=== PATIENT | female | born 1960 | race Caucasian/White ===

== ENCOUNTER 2016-11-30 09:09 | Outpatient (CLI) | payer OTHER ==
[2016-11-30 11:30] LABS: PTT 37.6 SEC (22.9-36.1); Prothrombin Time 13.3 SEC (12.0-14.7)
[2016-11-30 11:34] LABS: Anion Gap 13 mmol/L (10-20); BUN (Urea Nitrogen) 31 mg/dL (9.8-20.1); Calc. Creatinine Clearance 0 mL/min (70-130); Calcium 11.5 mg/dL (7.8-10.44); Carbon Dioxide 33 mmol/L (22-29); Chloride 97 mmol/L (98-107); Estimated GFR-MDRD 30
[2016-11-30 11:50] LABS: #Basophils 0.1 thou/uL (0.0-0.2); #Eosinphils 0.7 thou/uL (0.0-0.7); #Lymphocytes 1.3 thou/uL (1.20-3.40); #Monocytes 0.4 thou/uL (0.11-0.59); #Neutrophils 4.9 thou/uL (1.40-6.50); %Basophils 0.7 % (0.0-1.0); %Lymphocytes 17.8 % (21.0-51.0); %Monocytes 5.1 % (0.0-10.0); Hematocrit 34.6 % (36.0-47.0); Mean Platelet Volume 8.6 fL (7.4-10.4); Red Blood Cell (RBC) Count 3.72 mill/uL (4.20-5.40); White Blood Cell (WBC) Count 7.4 thou/uL (4.8-10.8)
--- NOTE | 2016-11-30 12:01 | RAD ---
TWO VIEWS CHEST: Comparison: 03-21-12 History: Pre-operative radiograph. FINDINGS: Two views of the chest show normal sized cardiomediastinal silhouette. There is no evidence of conso lidation, mass, or pleural effusion. Degenerative changes are seen in the spine. IMPRESSION: No evidence of acute cardiopulmonary disease. POS: [facility]
== END 2016-11-30 09:10 | disposition home or self-care (01) ==
LOC: LABBT 09:09
PROVIDERS: ATTEND Orthopaedic Surgery Hand Surgery
DX: Z01.818 Encounter for other preprocedural examination (principal); M92.212 Osteochondrosis (juvenile) of carpal lunate [Kienbock], left hand
CPT/HCPCS: 71020; 80048; 85025; 85610; 85730; 93005; 93010

== ENCOUNTER 2016-12-04 06:46 | Day surgery (SDC) | payer OTHER ==
[2016-11-30 09:38] VITALS: BMI 46.5
[2016-12-04] MEDS ORDERED: Fentanyl 100 MCG/2 ML VIAL ONE ×2 (08:39→09:03)
[2016-12-04] MEDS ORDERED: Midazolam HCl 2 mg/2 ml Vial ONE (08:39)
[2016-12-04] MEDS ORDERED: Bupivacaine PF 0.5% 30 ML VIAL ONE (08:54)
[2016-12-04] MEDS ORDERED: Bacitracin Zinc Ointment 30 gm TUBE ONE (08:54)
[2016-12-04] MEDS ORDERED: Ondansetron HCl/PF 4 MG/2 ML Vial ONE (09:45)
[2016-12-04] MEDS ORDERED: Metoclopramide HCl 10 MG/2 ML VIAL ONE (09:45)
[2016-12-04] MEDS ORDERED: ePHEDrine/0.9% NaCl/PF SYRINGE 50 mg/10 ml ONE (09:45)
[2016-12-04] MEDS ORDERED: Succinylcholine Chloride 20 MG/ML 10 ml SYRINGE FS ONE (09:45)
[2016-12-04] MEDS ORDERED: Dexamethasone 20 MG/5 ML VIAL ONE (09:45)
[2016-12-04] MEDS ORDERED: PHENYLEPHRINE-NS 100 MCG/ML 10 ML SYRINGE ONE ×2 (09:45→12:32)
[2016-12-04] MEDS ORDERED: diphenhydrAMINE HCl 50 MG/ML 1 ML VIAL ONE (09:45)
[2016-12-04] MEDS ORDERED: Albumin 5% 500 ML ONE (10:37)
[2016-12-04] MEDS ORDERED: Phenylephrine 10 MG/NS 250 ML 250 ML ONE (12:34)
--- NOTE | 2016-12-04 16:45 | RAD ---
LEFT FOREARM AND WRIST TWO VIEWS: 12/04/16 Multiple (10) portable fluoroscopic spot images are performed intraoperatively. History is that of a 56-year-old female with status post ORIF left forearm. Metal plate and screws are placed on the volar aspect of the distal radius stabilizing a distal radi al shaft fracture. IMPRESSION: Multiple portable fluoroscopic spot films demonstrate placement of a volar metal plate and screws st abilizing distal radial fracture. No significant malalignment. POS: OFF
--- NOTE | 2016-12-05 07:19 | OP ---
DATE OF PROCEDURE: 12/04/2016 PREOPERATIVE DIAGNOSIS: Avascular necrosis lunate, Kienbock's stage 3A. POSTOPERATIVE DIAGNOSES: Avascular necrosis lunate, Kienbock's stage 3A with a very thin chondral surface at the central portion of the capitolunate joint and no otherwise degenerative changes or li gament changes. PROCEDURES PERFORMED: 1. Hori procedure with curettage of the entire internal bone and the subchondral bone surface of th e lunate, harvested the bone graft from the radial styloid, and then revascularization with a branch of the first dorsal metatarsal artery harvested under magnification by the surgeon's record. 2. Ulnar shortening, Rayhack technique using the Rayhack plate in the standard technique. 3. C-arm supervision less than 1 hour. 4. Application of long arm splint. INDICATIONS: The patient with the painful wrist, motion loss, but still had an arc of 100 degrees w ithout radiographic evidence of mid carpal or radiocarpal osteoarthritis but was felt to have marked pain because of avascular necrosis documented on MRI. DESCRIPTION OF PROCEDURE: After successful general endotracheal anesthesia, the limb was prepped an d draped. The patient had a time out done appropriately. She already had a block for augmentation for postop pain relief. The limb was confirmed by the timeout to be the appropriate limb and this b sara by bringing the C-arm on the field, localized in the position for the plate, exsanguinated the limb and inflating the tourniquet to 250 mmHg pressure. FCR radial artery interval was established to reach the entire distal third of the radius. We then contoured the plate for appropriate applica tion 3 cm proximal to the radioulnar joint and then pre-bent it, drilled the second hole of the two most proximal, and then removed the plate to put on the Rayhack cut guide. We then placed 4 screws; #1 most proximal, #4 most distal. The cut guide was then placed. We protected the cut area with álvaro Aguayohmann that was wide. We also made a 2-mm cut, moved away, crushed it, to be used later on for bone graft. We then placed the final plate along with the reduction device, this was then used to shorten the 2 mm, there was approximately a 2 mm offset with the distal fragment going radially, but it was in an excellent contact, otherwise. Now that we had this procedure performed, we looked at radiographs and removed two screws that were too long distally, no adjustment was made at this time. We then released the tourniquet, this was t hen lasted for 30 minutes, closed the fascia with a 0 Vicryl interrupted, subcutaneous closed with i nterrupted 3-0 Monocryl, and the skin reapproximated with 4-0 nylon. I then turned attention dorsally. Doppler was used to help identify the dorsal metatarsal artery, 1 st and 2nd interspace. We identified this. We then made our incision, 1 cm proximal Celia's tuber xochitl, across the scapholunate joint and slightly radialized in a zigzag fashion until we reached the end of the second intermetacarpal space at the second and third metacarpal. We identified the arter ies . We then transected it and ligated far distal as possible all way to the intermetatarsal region of the digits. We then slowly dissected back to it and had a pedicle that was allowed to be 1 cm distant to the lunate, which should have been enough to bury it completely. We then entered the 3-4 interval, identified the extensor pollicis longus tendon, protected it. Als o identified and freed of soft tissue around this so this could be used for bone graft later. Ident ified the lunate with a combination of visualization where it was a thin articular surface in the do rsal and palmar aspect on the joint with the capitate. Once we have done this, K-wire was placed daniel ccessfully to made a 3-4 mm hole and then aim it away from the articular surface, which showed thinn ing to the point where it was just about a complete loss in the central 2 mm. Using this visualizat ion, we were able to curet out and core out the entire lunate and sent the specimen to the lab for f res evaluation. Pathology called back saying that it looked as if it was avascular. We then completed the curettage with successive longer curettes, placed the harvested graft from the Celia's tubercle in the wrap with a lightly applied 5-0 Prolene with the arterial branch, making a lmost a sandwich as if it was an ice cream sandwich formed with the artery between the two bony ends and this fit nearly perfect. A small amount of cortical and cancellous bone had to be packed besid e that which was already placed. The patient then had the tourniquet deflated, the bone graft was f lushed, radiographs showed we maintained the joint surfaces, the radius was now 1 mm short in ulnar or 2 mm change in radial height. We made sure all screws were at appropriate length replacing as ne eded. It must be noted that the arterial pedicle just dorsal to the metatarsal was brought undernea th the extensor carpi tendons deep to them. We then closed the joint capsule with an interrupted 0 Ethibond, closed the retinacular split with i nterrupted 3-0 Monocryl, subcutaneous closed with 3-0 Monocryl and skin reapproximated with 4-0 nylo n. The bulky dressing was applied. No further injection was given because she had a spinal that wo uld last for 12 hours, and a splint was given, a sugar tong, without evidence of anesthetic or opera tive complication.
== END 2016-12-04 17:23 | disposition home or self-care (01) ==
LOC: SDC 06:46
PROVIDERS: ATTEND Orthopaedic Surgery Hand Surgery
DX: M93.1 Kienbock's disease of adults (principal); M19.232 Secondary osteoarthritis, left wrist; J30.9 Allergic rhinitis, unspecified; I10 Essential (primary) hypertension; E11.9 Type 2 diabetes mellitus without complications; E78.00 Pure hypercholesterolemia, unspecified; G25.81 Restless legs syndrome; E66.9 Obesity, unspecified; Z68.42 Body mass index [BMI] 45.0-49.9, adult; Z79.84 Long term (current) use of oral hypoglycemic drugs; Z79.82 Long term (current) use of aspirin; Z79.899 Other long term (current) drug therapy; Z98.890 Other specified postprocedural states; Z90.710 Acquired absence of both cervix and uterus; Z87.442 Personal history of urinary calculi; Z82.3 Family history of stroke; Z83.3 Family history of diabetes mellitus
CPT/HCPCS: 36416; 76001; 88305; 88331; C1713; J0131; J1100; J1200; J2250; J2405; J2765; J3010; P9045; S0020

== ENCOUNTER 2017-03-11 16:09 | Outpatient (CLI) | payer OTHER | END 2017-03-11 16:10 | disposition home or self-care (01) | LOC: BICRAD 16:09 | PROVIDERS: ATTEND Family Medicine | DX: D86.9 Sarcoidosis, unspecified (principal) | CPT/HCPCS: 71046 ==

== ENCOUNTER 2017-03-13 10:40 | Outpatient (CLI) | payer OTHER | END 2017-03-13 10:41 | disposition home or self-care (01) | LOC: BICULT 10:40 | PROVIDERS: ATTEND Internal Medicine Nephrology | DX: N17.9 Acute kidney failure, unspecified (principal); N28.1 Cyst of kidney, acquired; K76.89 Other specified diseases of liver; R16.2 Hepatomegaly with splenomegaly, not elsewhere classified | CPT/HCPCS: 76770 ==

== ENCOUNTER 2017-04-23 08:11 | Inpatient (IN) | payer OTHER ==
[2017-04-23 09:31] LABS: #Basophils 0.1 thou/uL (0.0-0.2); #Lymphocytes 1.4 thou/uL (1.20-3.40); #Monocytes 0.6 thou/uL (0.11-0.59); #Neutrophils 7.4 thou/uL (1.40-6.50); %Basophils 0.7 % (0.0-1.0); %Eosinophils 9.3 % (0.0-10.0); %Lymphocytes 13.4 % (21.0-51.0); %Monocytes 5.3 % (0.0-10.0); %Neutrophils 71.3 % (42.0-75.0); Hemoglobin 9.4 g/dL (12.0-16.0); Mean Corpuscular HGB CONC 32.7 g/dL (32.0-36.0); Mean Corpuscular Hemoglobin 28.8 pg (27.0-31.0); Mean Corpuscular Volume 87.9 fl (81.0-99.0); Mean Platelet Volume 7.5 fL (7.4-10.4); Platelet Count 286 thou/uL (130-400); RBC Distribution Width 15.5 % (11.5-14.5); Red Blood Cell (RBC) Count 3.26 mill/uL (4.20-5.40); White Blood Cell (WBC) Count 10.4 thou/uL (4.8-10.8)
[2017-04-23 09:36] LABS: INR-International Normal Ratio 1.1; PTT 40.6 SEC (22.9-36.1); Prothrombin Time 14.1 SEC (12.0-14.7)
[2017-04-23 09:46] LABS: Bilirubin Negative (Negative); Blood, Urine Moderate (Negative); Clarity CLEAR (Clear); Glucose, Urine (Dipstick) 250 mg/dL (Negative); Leukocyte Negative (Negative); Nitrite Negative (Negative); Protein, Urine (Dipstick) 30 mg/dL (Neg-Trace); Specific Gravity, Urine 1.015 (1.002-1.036); Urobilinogen 0.2 mg/dL (0.2-1.0); pH, Urine 6.5 (5.0-9.0)
[2017-04-23 09:48] LABS: Bacteria/HPF None Seen HPF (None Seen); Hyaline Casts/LPF 0-3 HYALINE CAST LPF (0-3 Hyaline); Pathc Cast-AUWi Flag 0.13 (0-2.49); RBC/HPF 0-3 HPF (0-3); Squamous Epithelial 0-3 HPF (0-3); WBC/HPF 0-3 HPF (0-3)
[2017-04-23 10:05] LABS: ALT (SGPT) 36 U/L (8-55)
[2017-04-23 10:23] LABS: Albumin 3.9 g/dL (3.5-5.0)
[2017-04-23 10:25] LABS: Chloride 101 mmol/L (98-107); Potassium 3.7 mmol/L (3.5-5.1); Sodium 137 mmol/L (136-145)
[2017-04-23 10:26] LABS: Globulin 5.1 g/dL (2.4-3.5); Glucose 221 mg/dL (70-105)
[2017-04-23 10:28] LABS: Anion Gap 15 mmol/L (10-20); Bilirubin, Total 0.6 mg/dL (0.2-1.2); Carbon Dioxide 25 mmol/L (22-29)
[2017-04-23 10:29] LABS: Alkaline Phosphatase 285 U/L (40-150); Calc. Creatinine Clearance 0 mL/min (70-130); Estimated GFR-MDRD 10
[2017-04-23 10:30] LABS: BUN (Urea Nitrogen) 49 mg/dL (9.8-20.1)
[2017-04-23 10:31] LABS: AST (SGOT) 28 U/L (5-34)
[2017-04-23 10:36] LABS: Calcium 14.1 mg/dL (7.8-10.44)
[2017-04-23] MEDS ORDERED: Ondansetron ODT 4 MG TAB PO PRN (13:22)
[2017-04-23] MEDS ORDERED: Ondansetron HCl/PF 4 MG/2 ML Vial IVP PRN (13:22)
[2017-04-23] MEDS: Sodium Chloride 0.9% 1,000 ML IV SCH ×3 (14:21→21:32)
[2017-04-23 14:28] VITALS: BMI 44.9
[2017-04-23] MEDS ORDERED: Acetaminophen 325 MG TAB PO PRN (14:42)
[2017-04-23] MEDS ORDERED: Calcitonin,Salmon,Synthetic 200 UNITS/ML SC SCH (15:00)
[2017-04-23] MEDS ORDERED: Dextrose 50% Abboject 50 ML SYRINGE SLOW IVP PRN (17:20)
[2017-04-23] MEDS ORDERED: Dextrose 5% in Water 1,000 ML IV PRN (17:20)
--- NOTE | 2017-04-23 19:24 | HP ---
DATE OF ADMISSION: 04/23/2017 CHIEF COMPLAINT: Abnormal labs. HISTORY OF PRESENT ILLNESS: This is a 56-year-old morbidly obese white female with a known history o f worsening renal function has been closely monitored by Dr. Sauceda and also was having elevated calcium levels since the last month. The patient has been closely monitored and was also diagnosed with eliza coidosis by her pre k lead teacher. Dr. Craig follows this patient for the sarcoidosis. Patient has been having worsening weakness and tiredness for the past few weeks and associated with dryness of the mo uth. She was noted to have pretty abnormal lab values with elevated creatinine of 4.[address] Sohail craft suggested the patient to go to the ER for IV hydration and further evaluation. When patient arrive d in the ER, she had abnormal labs, creatinine of 4.48 and BUN of 49 and a calcium of 14.1, magnesium of 2.8 and elevated alkaline phosphatase of 285. All signs are suggestive of the dehydration or the re could also be a possibility of multiple myeloma. The patient did complain of body aches, but this has been there for a couple of years for her. Most recently she had a severe pain in her left hip a nd she had attributed that to arthritis. The patient is not in any distress at this time. PAST MEDICAL HISTORY: 1. Type 2 diabetes mellitus. 2. Hypertension. 3. Hyperlipidemia. 4. History of depression. PAST SURGICAL HISTORY: None. SOCIAL HISTORY: Not a nonsmoker. No history of alcohol, no history of illicit drug use. FAMILY HISTORY: No significant family history of coronary artery disease and no cancers in the famil y. REVIEW OF SYSTEMS: All 12 systems are reviewed with the patient thoroughly and found to be negative at this time except the ones described in HPI. The following complete review of systems was negative, unless otherwise mentioned in the HPI or below: Constitutional: Weight loss or gain, sense of well-being, ability to conduct usual activities, exerc ise tolerance. Skin/Breast: Rash, itching, changes in hair growth or loss, nail changes, breast lumps, tenderness, swelling, nipple discharge. Eyes: Vision, double vision, tearing, blind spots, pain. ENT/Mouth: Headaches (location, time of onset, duration, precipitating factors), vertigo, lightheadedness, injury. Vision, double vision, tearing, blind spots, pain, nose b leeding, colds, obstruction, discharge, dental difficulties, gingival bleeding, dentures, neck stiffn ess, pain, tenderness, masses in thyroid or other areas Cardiovascular: Precordial pain, substernal distress, palpitations, syncope, dyspnea on exertion, or thopnea, nocturnal paroxysmal dyspnea, edema, cyanosis, hypertension, heart murmurs, varicosities, ph lebitis, claudication. Respiratory: Pain, shortness of breath, wheezing, stridor, cough, hemoptysis, fever or night sweats. Gastrointestinal: Poor appetite, dysphagia, indigestion, abdominal pain, heartburn, eructation, naus ea, vomiting, hematemesis, jaundice, constipation, or diarrhea, abnormal stools (vick-colored, tarry, bloody, greasy, foul smelling), flatulence, hemorrhoids, recent changes in bowel habits. Genitourinary: Urgency, frequency, dysuria, nocturia, hematuria, polyuria, oliguria, unusual (or lindsey nge in) color of urine, stones, hesitancy, change in size of stream, dribbling, acute retention or in continence, libido, potency. Musculoskeletal: Pain, swelling, redness or heat of muscles or joints, limitation, of motion, muscul ar weakness, atrophy, cramps. Neurologic/Psychiatric: Convulsions, paralyses, tremor, incoordination, parasthesias, difficulties w ith memory of speech, sensory or motor disturbances, or muscular coordination (ataxia, tremor), emoti onal problems, anxiety, depression, previous psychiatric care, unusual perceptions, hallucinations. Allergy/Immunologic: Skin rash, anemia, bleeding tendency, polydipsia, polyuria, intolerance to heat or cold. HOME MEDICATIONS: 1. Amlodipine 5 mg p.o. daily. 2. Cetirizine 10 mg p.o. daily. 3. Gabapentin 300 mg p.o. t.i.d. 4. Glimepiride 2 mg p.o. daily. 5. Insulin degludec, Tresiba 120 units subcutaneously daily. 6. Magnesium 400 mg p.o. daily. 7. Ropinirole 1 tablet p.o. at bedtime. 8. Sertraline 1 tablet p.o. daily. 9. Vitamin B complex. ALLERGIES: SITAGLIPTIN. PHYSICAL EXAMINATION: VITAL SIGNS: Blood pressures are 162/84, heart rate is 93, respiratory rate is 18, saturations 98%. GENERAL: The patient is moderately built and moderately nourished, does not appear to be in acute di stress at this time. Alert and oriented x3. HEENT: Atraumatic, normocephalic, PERRLA, extraocular movements were intact. Oral mucous pink and m oist. CARDIOVASCULAR: S1 and S2 normal. No murmurs, rubs or gallops. LUNGS: Bilateral air entry was equal. No wheezing, no crackles. ABDOMEN: Soft, nontender. No guarding, no rebound tenderness. Bowel sounds normal. MUSCULOSKELETAL: No calf tenderness. No pedal edema. No joint tenderness, no joint swelling. SKIN: No cyanosis, no erythema, no rash, no pallor. NEUROLOGIC: Cranial examination II-XII intact. No focal deficits were noted at this time. LYMPHADENOPATHY: No evidence of any generalized lymph nodes were noted. PSYCHIATRIC: No signs of suicidal ideation. No signs of joana. No signs of depression was noted. LABORATORY DATA: Sodium 137, potassium 3.7, chloride 101, bicarbonate is 25, BUN is 49, creatinine i s 4.48, blood sugar is 221, calcium is 14.1, magnesium 2.8. Alkaline phosphatase was 285. Serum tot al serum protein 9.0, globulin is 5.1. WBC is 10.4, hemoglobin is 9.4, hematocrit is 28.6, and platelets 286. UA was negative for any urinary tract infection. Patient had 30 plus proteins in the urine and some moderate blood in the urine was also noted. ASSESSMENT: 1. Acute hypercalcemia. 2. Acute hypermagnesemia. 3. Acute severe dehydration. 4. Acute kidney injury. 5. Anemia possibly from chronic kidney disease, stage 4. 6. Need to rule out multiple myeloma. 7. Type 2 diabetes mellitus. 8. Hypertension. PLAN: 1. The plan is to continue with IV hydration at this time at 125-150 mL an hour and will calcitonin at 4 mcg per kilo dose 1 time dose. We will recheck the calcium levels later late in the evening. A fter discussion with Dr. Sauceda, he felt that the elevated calcium is most likely secondary to dehydrati on, so would like to give fluid challenge and see how it goes, but he does not believe the patient billings s multiple myeloma at this time, but was okay with ordering a further workup for that. 2. Patient has history of sarcoidosis was diagnosed with Dr. Craig and most likely the elevated calc ium could also be related to that, so plan is to start the patient on prednisolone for the sarcoidosi s. This would be started by Dr. Sauceda as he suggested. 3. The patient has anemia of chronic disease, likely chronic kidney disease stage IV. We will close ly monitor. If the patient's serum creatinine do not improve with IV fluids and has a GFR has pretty bad at this time. We will do a 24-hour urine and maybe this could be used for evaluation of her ronald al functions. We will also order evaluation of multiple myeloma as the patient has all the signs, wh ich could suggest multiple myeloma. Because of her age and symptoms and as well as lab values at thi s time, so will screen for multiple myeloma with a serum protein electrophoresis and urine light sreedhar ns and urine electrophoresis through 24-hour urine. We will also do a hip x-ray. The patient was co mplaining of left hip pain to look for any evidence of a bony resorption secondary to multiple myelom a. If all these results come back positive, then I will consult Oncology at that time. 4. Type 2 diabetes mellitus is poorly controlled. We will continue the patient on home medications at this time. We will hold off on the metformin and we will continue the patient on sliding scale in sulin and put her on diabetic diet. 5. Hypertension is well controlled. We will restart the patient's home medications. The patient mi ght go up because of the IV fluids, we will add the blood pressure medications to control blood press ures to less than 130/80. 6. Deep venous thrombosis prophylaxis, Lovenox 30 mg subcutaneously daily. I spent 75 minutes in this patient.
--- NOTE | 2017-04-23 20:26 | RAD ---
RIGHT HIP TWO VIEW 04/23/17 HISTORY: Evaluate for punctate lesions of bone. COMPARISON: Hip radiographs 2010. FINDINGS: No fracture. No malalignment. Small acetabular osteophytes. No abnormal regions of osteolysis. No evidence of sclerosis. IMPRESSION: Low grade degenerative disease of the right hip. POS: [facility]
--- NOTE | 2017-04-23 21:17 | RAD ---
LEFT HIP TWO VIEW 04/23/17 HISTORY: Evaluate for punctate lesions of bone. COMPARISON: None. FINDINGS: None. FINDINGS: There is mild smooth periosteal new bone formation along the lateral margin of the proximal femoral m etaphysis. Enthesopathic changes are present. No fracture or malalignment. IMPRESSION: Smooth periosteal new bone formation along the lateral cortex proximal femoral metaphysis. This most likely represent a tug lesion from muscle origin. Follow can be obtained. POS: BILL
--- NOTE | 2017-04-23 21:27 | CON ---
DATE OF CONSULTATION: 04/23/2017 HISTORY OF PRESENT ILLNESS: Ms. Medina is a 56-year-old white female, who was seen by the renal clinic for an acute kidney injury. At one time her creatinine was 4.6 mg percent. This was felt related to her intake of her lisinopril, furosemide, and Advil. This was discontinued and it improve her creatinine to a value of 2.82. However, repeat creatinine done recently showed a value of more than 4 mg percent. She was also noted to be hypercalcemic at that time with a calcium of 14.1. On close review of her history, the patient has a history of biopsy proven sarcoidosis. She has also had an imaging on the abdomen with a CAT scan, which showed granulomatous lesions in the liver versus spleen?. She is now admitted for further management of the acute kidney injury as well as hypercalcemia. She is also being work up for the possibility of underlying plasma cell dyscrasia. Calcitonin has also been started. REVIEW OF SYSTEMS: No chest pain, no shortness of breath, no nausea, no vomiting, no joint pains, no diarrhea, no constipation. Appetite and energy level is fair. No headache, no diplopia, no gross hematuria, no dysuria, no urinary frequency. No bone pains, no new skin rash. HOME MEDICATIONS: Includes the following glimepiride 4 mg tablet b.i.d., aspirin 81 mg once a day, Tresiba 80 units subcu b.i.d., vitamin B12 at 2500 mcg tablet q. day, Centrum Silver q. day, sertraline 25 mg once a day, B complex 1 tab once a day, Neurontin 300 mg p.o. t.i.d., magnesium 400 mg once a day, and ropinirole 0.5 mg q. day. HOSPITAL MEDICATIONS: Includes calcitonin 400 units subcu x1 dose, [place] 5/325 q.4 hours, and Lovenox 30 mg subcu q. day. Normal saline 150 mL an hour. PAST MEDICAL HISTORY: 1. Recently status post acute kidney injury. 2. Type 2 diabetes mellitus. 3. Depression. 4. Hypertension. 5. Cervical cancer, in remission. 6. Diabetic neuropathy. 7. Status post nephrolithiasis. 8. History of hepatosplenomegaly. 9. History of biopsy proven sarcoidosis. PAST SURGICAL HISTORY: 1. Status post cervical biopsy. 2. Status post abdominal hysterectomy. 3. Status post lithotripsy. 4. Status post left foot bunionectomy. 5. Status post right carpal tunnel release. 6. Status post trigger finger release. 7. Status post left wrist surgery. 8. Status post skin biopsy. SOCIAL HISTORY: The patient is single, lives with her sister. She lives in the [place] area. 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 Alcohol rarely. No history of smoking, no blood transfusion. FAMILY HISTORY: No family history of ESRD. ALLERGIES: None. TRAUMA: None. IMMUNIZATIONS: Up to date. HOSPITALIZATIONS: Please see past medical history. PHYSICAL EXAMINATION: VITAL SIGNS: Blood pressure 162/84, heart rate 93, respiratory rate 18, temperature 97.8, and pulse ox 98%. GENERAL: Awake, alert, comfortable, not in distress. SKIN: Adequate turgor. HEENT: Pinkish conjunctivae, anicteric sclerae. NECK: No neck mass, no carotid bruits, no JVD. CHEST: No deformities. LUNGS: Clear breath sounds, no wheezing, no crackles. HEART: Normal sinus rhythm. No murmur, no gallops, no rubs. ABDOMEN: Globular, soft, nontender, no masses. EXTREMITIES: No edema, no deformities. NEUROLOGIC: Moving all extremities. No tremors, no asterixis, no ataxia. LABORATORY DATA: 04/23/2017 - Sodium 137, potassium 3.7, chloride 101, carbon dioxide 25, BUN 49, creatinine 4.48, calcium 14.1, AST 28, ALT 36, albumin 3.9, magnesium 2.8. White count 10.4, hemoglobin 7.4. ASSESSMENT AND PLAN: 1. Hypercalcemia - with a history of sarcoidosis, granulomatous lesions in the liver. Consider the possibility of an underlying sarcoidosis. Start prednisone 10 mg tab q. day. We anticipate the sugar to be going for that reason continue with aggressive insulin sliding scale. 2. Acute kidney injury. This could be related from the hypercalcemia. I agree with empiric volume repletion, normal saline at 100 to 150 mL per hour. There is no indication for any dialytic intervention with this patient. I agree with the workup to rule out for any underlying plasma cell dyscrasia with this patient. Case discussed with the hospitalist and with the patient. Recheck base met and CBC in a.m. MTDD
[2017-04-23] MEDS: Insulin Detemir 100 UNITS/ML 80 UNITS in Pre-Filled Syringe 1 EACH SC SCH (21:42)
[2017-04-24] MEDS: Sodium Chloride 0.9% 1,000 ML IV SCH ×4 (00:24→20:41)
[2017-04-24 04:43] LABS: #Eosinphils 0.9 thou/uL (0.0-0.7); #Lymphocytes 1.7 thou/uL (1.20-3.40); #Monocytes 0.5 thou/uL (0.11-0.59); #Neutrophils 8.3 thou/uL (1.40-6.50); %Basophils 0.4 % (0.0-1.0); %Eosinophils 8.1 % (0.0-10.0); %Lymphocytes 14.4 % (21.0-51.0); %Monocytes 4.5 % (0.0-10.0); %Neutrophils 72.5 % (42.0-75.0); Hemoglobin 8.2 g/dL (12.0-16.0); Mean Corpuscular HGB CONC 31.6 g/dL (32.0-36.0); Mean Corpuscular Hemoglobin 28.6 pg (27.0-31.0); Mean Corpuscular Volume 90.4 fl (81.0-99.0); Mean Platelet Volume 8.1 fL (7.4-10.4); Platelet Count 272 thou/uL (130-400); RBC Distribution Width 15.5 % (11.5-14.5); Red Blood Cell (RBC) Count 2.87 mill/uL (4.20-5.40); White Blood Cell (WBC) Count 11.4 thou/uL (4.8-10.8)
[2017-04-24 04:51] LABS: ALT (SGPT) 28 U/L (8-55); AST (SGOT) 22 U/L (5-34); Albumin 3.4 g/dL (3.5-5.0); Alkaline Phosphatase 222 U/L (40-150); Anion Gap 11 mmol/L (10-20); BUN (Urea Nitrogen) 41 mg/dL (9.8-20.1); Bilirubin, Total 0.5 mg/dL (0.2-1.2); Calc. Creatinine Clearance 26 mL/min (70-130); Carbon Dioxide 27 mmol/L (22-29); Chloride 105 mmol/L (98-107); Estimated GFR-MDRD 11; Globulin 4.3 g/dL (2.4-3.5); Glucose 65 mg/dL (70-105); Potassium 3.6 mmol/L (3.5-5.1); Protein, Total 7.7 g/dL (6.0-8.3); Sodium 139 mmol/L (136-145)
[2017-04-24] MEDS: predniSONE 20 MG TAB PO SCH (08:43)
[2017-04-24] MEDS: Famotidine/PF 20 mg/2ml Vial SLOW IVP SCH (08:43)
[2017-04-24] MEDS: Enoxaparin Sodium 30 MG/0.3 ML SYRINGE SC SCH (08:50)
[2017-04-24] MEDS: Insulin Detemir 100 UNITS/ML 80 UNITS in Pre-Filled Syringe 1 EACH SC SCH ×2 (08:51→21:33)
--- NOTE | 2017-04-24 09:46 | PRG ---
DATE OF SERVICE: 04/24/2017 SUBJECTIVE: Ms. Medina is a 56-year-old white female who was admitted for acute kidney injury with c oncomitant hypercalcemia. Her creatinine was noted at 4.48 and she had a calcium of 14.1. She was s een started on IV volume repletion as well as given calcitonin. We have started her on prednisone. Our feeling is that this acute kidney injury/hypercalcemia related to her sarcoidosis. The patient voices no new complaints today. Denies any chest pain or shortness of breath. PHYSICAL EXAMINATION: VITAL SIGNS: Blood pressure is 138/77, heart rate 95, respiratory rate 18, temperature 98.5, pulse o ximetry 97%. GENERAL: Noted to be awake, alert, comfortable, not in distress. SKIN: Adequate turgor. HEENT: She has a slightly pale conjunctivae, anicteric sclerae. NECK: No neck mass, no carotid bruits, no JVD. CHEST: No deformities. LUNGS: Clear breath sounds, no wheezing, no crackles. HEART: Normal sinus rhythm. No murmur, no gallops, no rubs. ABDOMEN: Globular, soft, nontender, no masses. EXTREMITIES: No edema, no deformities. MEDICATIONS: 04/24/2017 - Reviewed. LABORATORY: 04/24/2017 - White count 11.4, hemoglobin 8.2. Sodium 139, potassium 3.6, chloride 105, carbon dioxide 27, BUN 41, creatinine 4, glucose 65, calcium 12.0, AST 22, ALT 28, alkaline phosphat ase 222, albumin is 3.4. ASSESSMENT AND PLAN: 1. Acute kidney injury - I suspect this is secondary from the severe hypercalcemia. I could not rul e out the possibility that this patient may have underlying renal sarcoidosis. Prednisone 60 mg 1 ta b daily has been started. Continuing IV hydration. We will see where her creatinine will fall, whet her it will go back to baseline normal. This cannot be determined at the present time. 2. Hypercalcemia. My suspicion is this is from her sarcoidosis. Prednisone has been started. 3. Sarcoidosis. According to her she has a biopsy proven sarcoidosis as well as findings on the мария ging of granuloma seen in her abdomen - liver. For the moment, we will continue current management. Recheck base met and CBC in a.m.
--- NOTE | 2017-04-24 12:38 | PDOC.PN ---
- Subjective Encounter Start Date: 04/24/17 Encounter Start Time: 11:00 Patient is seen today, alert and oriented. No other concern noted. She si admitted with Hypercalcemia with Mild improvement with IV fluids and one dose of calcitonin, she started oral steroids this morning for Her Sarcoidosis. - Objective Resuscitation Status: Resuscitation Status FULL:Full Resuscitation MAR Reviewed: Yes Vital Signs & Weight: Vital Signs (12 hours) Temp Pulse Resp BP Pulse Ox 04/24/17 12:00 98.2 F 96 20 155/81 H 95 04/24/17 08:00 98.5 F 95 18 138/77 97 04/24/17 04:13 98.6 F 95 18 119/69 93 L 04/24/17 00:57 98.8 F 102 H 16 117/68 91 L Result Diagrams: 04/24/17 03:44 04/24/17 03:44 Additional Labs: Accuchecks 04/24/17 04/24/17 04/23/17 12:12 05:07 21:24 POC Glucose 88 63 L 128 H 04/23/17 16:48 POC Glucose 150 H Radiology Reviewed by me: Yes Phys Exam - Physical Examination HEENT: PERRLA, moist MMs Neck: no nodes, no JVD Respiratory: no wheezing, no rales Cardiovascular: RRR, no significant murmur Gastrointestinal: soft, non-tender Musculoskeletal: pulses present, edema present Neurological: non-focal, normal sensation Lymphatic: no nodes Dx/Plan (1) Hypercalcemia due to sarcoidosis Code(s): E83.52 - HYPERCALCEMIA Status: Acute Comment: Mild improvement with Ca of 12 now from 14.4, Will continue with IV fluids, Nephrology Following , likely from sarcoidosis, so pt started on prednisone today, will look for improveemnt in few days. (2) Severe dehydration Code(s): E86.0 - DEHYDRATION Status: Acute Comment: Improved, Pt is getting Hypervolemic, will castro Monitor her IV fluids. (3) Hypermagnesemia Code(s): E83.41 - HYPERMAGNESEMIA Status: Acute Comment: Erica check mag levels today. (4) DANIELLA (acute kidney injury) Code(s): N17.9 - ACUTE KIDNEY FAILURE, UNSPECIFIED Status: Acute Comment: Not much improvemtn with IV fluids, Likely chronic kidney damage, (5) CKD stage 4 secondary to hypertension Code(s): I12.9 - HYPERTENSIVE CHRONIC KIDNEY DISEASE W STG 1-4/UNSP CHR KDNY; N18.4 - CHRONIC KIDNEY DISEASE, STAGE 4 (SEVERE) Status: Acute Comment: Worsening CKD, GFR 10, is now in stage 5, but 24hr uirne is pending, can do 24hr urine Creatinine to asses GFR, will leave this for nephrology. (6) Sarcoidosis of lung Code(s): D86.0 - SARCOIDOSIS OF LUNG Status: Acute Comment: Pt is Started On Steroids Pridnisone, Will clsoely Monitor for sideeffects. (7) Morbid obesity Code(s): E66.01 - MORBID (SEVERE) OBESITY DUE TO EXCESS CALORIES Status: Acute (8) Multiple myeloma Code(s): C90.00 - MULTIPLE MYELOMA NOT HAVING ACHIEVED REMISSION Status: Suspected Comment: Waiting on urine and serum protein electrophoresis pending. Xray from Hip did not show Puched out lesion, but showed periorseal new bone formation. - Plan cont current plan of care, plan discussed w/ family, PT/OT, web content & social media manager, out of bed/ambulate, DVT proph w/lovenox * . - Discharge Day Encounter end time: 11:35 Review of Systems - Review of Systems Constitutional: negative: fever, chills, sweats, weakness, malaise, other Eyes: negative: Pain, Vision Change, Conjunctivae Inflammation, Eyelid Inflammation, Redness, Other ENT: negative: Ear Pain, Ear Discharge, Nose Pain, Nose Discharge, Nose Congestion, Mouth Pain, Mouth Swelling, Throat Pain, Throat Swelling, Other Respiratory: negative: Cough, Dry, Shortness of Breath, Hemoptysis, SOB with Excertion, Pleuritic Pain, Sputum, Wheezing Cardiovascular: negative: chest pain, palpitations, orthopnea, paroxysmal nocturnal dyspnea, edema, light headedness, other Gastrointestinal: negative: Nausea, Vomiting, Abdominal Pain, Diarrhea, Constipation, Melena, Hematochezia, Other Genitourinary: negative: Dysuria, Frequency, Incontinence, Hematuria, Retention , Other Musculoskeletal: negative: Neck Pain, Shoulder Pain, Arm Pain, Back Pain, Hand Pain, Leg Pain, Foot Pain, Other Skin: negative: Rash, Lesions, Enoc, Bruising, Other Neurological: negative: Weakness, Numbness, Incoordination, Change in Speech, Confusion, Seizures, Other - Medications/Allergies Allergies/Adverse Reactions: Allergies Allergy/AdvReac Type Severity Reaction Status Date / Time sitagliptin [From ] Allergy Rash Verified 04/23/17 13:58 Medications: Current Medications Acetaminophen (Tylenol) 650 mg PO Q4H PRN PRN Reason: Headache/Fever or Pain Hydrocodone Bitart/Acetaminophen ([place] 5/325) 1 tab PO Q4H PRN PRN Reason: Moderate Pain (4-6) Dextrose/Water (Dextrose 50%) 25 gm SLOW IVP PRN PRN PRN Reason: Hypoglycemia Enoxaparin Sodium (Lovenox) 30 mg SC 0900 [facility] Last Admin: 04/24/17 08:50 Dose: 30 mg Famotidine (Pepcid) 20 mg SLOW IVP DAILY [facility] Last Admin: 04/24/17 08:43 Dose: 20 mg Glucagon (Glucagon) 1 mg IM PRN PRN PRN Reason: Hypoglycemia Sodium Chloride (Normal Saline 0.9%) 1,000 mls @ 100 mls/hr IV .Q10H [facility] Last Admin: 04/24/17 11:58 Dose: Not Given Insulin Detemir 80 units/ (Miscellaneous Medication) 0.8 mls @ 0 mls/hr SC QAM [facility] Last Admin: 04/24/17 08:51 Dose: 0.8 mls Insulin Detemir 80 units/ (Miscellaneous Medication) 0.8 mls @ 0 mls/hr SC HS [facility] Last Admin: 04/23/17 21:42 Dose: Not Given Dextrose/Water (D5w) 1,000 mls @ 0 mls/hr IV .Q0M PRN; As Directed PRN Reason: Hypoglycemia Prednisone (Prednisone) 60 mg PO QAM-WM [facility] Last Admin: 04/24/17 08:43 Dose: 60 mg Sodium Chloride (Flush - Normal Saline) 10 ml IVF Q12HR [facility] Last Admin: 04/24/17 08:51 Dose: 10 ml Sodium Chloride (Flush - Normal Saline) 10 ml IVF PRN PRN PRN Reason: Saline Flush
[2017-04-25 04:44] LABS: ALT (SGPT) 30 U/L (8-55); AST (SGOT) 24 U/L (5-34); Albumin 3.4 g/dL (3.5-5.0); Alkaline Phosphatase 216 U/L (40-150); Anion Gap 12 mmol/L (10-20); BUN (Urea Nitrogen) 46 mg/dL (9.8-20.1); Bilirubin, Total 0.4 mg/dL (0.2-1.2); Calc. Creatinine Clearance 28 mL/min (70-130); Calcium 11.4 mg/dL (7.8-10.44); Carbon Dioxide 22 mmol/L (22-29); Chloride 104 mmol/L (98-107); Estimated GFR-MDRD 12; Globulin 4.2 g/dL (2.4-3.5); Glucose 209 mg/dL (70-105); Potassium 3.4 mmol/L (3.5-5.1); Protein, Total 7.6 g/dL (6.0-8.3); Sodium 135 mmol/L (136-145)
[2017-04-25 04:57] LABS: Hemoglobin 7.9 g/dL (12.0-16.0); Mean Corpuscular HGB CONC 32.3 g/dL (32.0-36.0); Mean Corpuscular Hemoglobin 28.9 pg (27.0-31.0); Mean Corpuscular Volume 89.4 fl (81.0-99.0); Mean Platelet Volume 8.2 fL (7.4-10.4); Platelet Count 253 thou/uL (130-400); RBC Distribution Width 15.6 % (11.5-14.5); Red Blood Cell (RBC) Count 2.72 mill/uL (4.20-5.40); White Blood Cell (WBC) Count 10.7 thou/uL (4.8-10.8)
[2017-04-25 04:58] LABS: Band 5 % (5-11); Lymphocytes 12 % (21-51); MDiff Complete? YES; Monocytes 3 % (0-10); Neutrophil 80 % (42-75); PLT Morphology Comment Appears Adequate
[2017-04-25 09:18] LABS: A/G Ratio 0.7 (0.7-1.7); Albumin 3.6 g/dL (2.9-4.4); Alpha 1 0.3 g/dL (0.0-0.4); Beta 1.3 g/dL (0.7-1.3); Gamma 2.5 g/dL (0.4-1.8); Globulin, Total 5.1 g/dL (2.2-3.9); M-Spike Not Observed g/dL (Not Observed)
[2017-04-25] MEDS: Enoxaparin Sodium 30 MG/0.3 ML SYRINGE SC SCH (09:19)
[2017-04-25] MEDS: Insulin Detemir 100 UNITS/ML 80 UNITS in Pre-Filled Syringe 1 EACH SC SCH ×2 (09:20→20:52)
[2017-04-25] MEDS: Famotidine/PF 20 mg/2ml Vial SLOW IVP SCH (09:21)
[2017-04-25] MEDS: Sodium Chloride 0.9% 1,000 ML IV SCH ×3 (09:21→20:51)
[2017-04-25] MEDS: predniSONE 20 MG TAB PO SCH (09:21)
--- NOTE | 2017-04-25 10:00 | PRG ---
DATE OF SERVICE: 04/25/2017 SUBJECTIVE: Ms. Medina is a 56-year-old white female who was admitted for hypercalcemia and acute ki dney injury. Due to her previous history of sarcoidosis we are considering her hypercalcemia is seco ndary to her sarcoidosis as well as the acute kidney injury. She has received calcitonin and empiric volume repletion. Serum calcium is slowly improving and the renal function is slowly improving. We are currently awaiting for the workup for her plasma cell dyscrasia. She has a 24-hour urine done. No complaints, no chest pain or shortness of breath. PHYSICAL EXAMINATION: VITAL SIGNS: Blood pressure 116/65, heart rate 92, respiratory rate 20, temperature 97.6, pulse ox i s 97%. GENERAL: Awake, alert, sitting comfortable, not in distress, obese. SKIN: Adequate turgor. HEENT: Slightly pale conjunctivae, anicteric sclerae. NECK: No neck mass, no carotid bruits, no JVD. CHEST: No deformities. LUNGS: Clear breath sounds. HEART: Normal sinus rhythm. No murmur, no gallops or rubs. ABDOMEN: Globular, soft, nontender, no masses. EXTREMITIES: No edema, no deformities. MEDICATIONS: 04/25/2017 - Reviewed. LABORATORY: 04/25/2017 - White count 10.7, hemoglobin 7.9, hematocrit 24.3. Sodium 135, potassium 3 .4, chloride 104, carbon dioxide 22, BUN 46, creatinine 3.77, glucose 209, calcium 11.4, albumin is 3 .0. Globulin is 4.2. Protein electrophoresis, no M spike was observed. SBE pattern seems to reflects a polyclonal increase in gamma globulin. The patient's previous urinalysis showed protein, but no casts. ASSESSMENT AND PLAN: 1. Acute kidney injury - hemodynamically mediated renal dysfunction secondary to her hypercalcemia. If renal function will not improve to baseline normal I will consider a renal biopsy to rule out the possibility with her sarcoidosis involving the kidneys or she may have underlying intrinsic plasma c ell dyscrasia involving the kidney. 2. Hypercalcemia, much improved with volume repletion and status post calcitonin. Overall, I agree with current management. Please note the patient is currently on prednisone 60 mg t ab once a day. Recheck base met and CBC in a.m.
--- NOTE | 2017-04-25 13:46 | PDOC.PN ---
- Subjective Encounter Start Date: 04/25/17 Encounter Start Time: 11:30 Patient is seen today, alert and oriented. No other Concren noited. Waiitng on labs For multiple myeloma. - Objective Resuscitation Status: Resuscitation Status FULL:Full Resuscitation MAR Reviewed: Yes Vital Signs & Weight: Vital Signs (12 hours) Temp Pulse Resp BP Pulse Ox 04/25/17 11:19 98.8 F 95 18 158/89 H 97 04/25/17 08:00 97.6 F 92 20 116/65 97 I&O: 04/24/17 04/25/17 04/26/17 06:59 06:59 06:59 Intake Total 2720 Balance 2720 Result Diagrams: 04/25/17 04:13 04/25/17 04:13 Additional Labs: Accuchecks 04/25/17 04/25/17 04/24/17 11:20 05:36 19:17 POC Glucose 178 H 184 H 282 H 04/24/17 16:09 POC Glucose 197 H Radiology Reviewed by me: Yes Phys Exam - Physical Examination HEENT: PERRLA, moist MMs Neck: no nodes, no JVD Respiratory: no wheezing, no rales Cardiovascular: RRR, no significant murmur Gastrointestinal: soft, non-tender Musculoskeletal: pulses present, edema present Neurological: non-focal, normal sensation Lymphatic: no nodes Psychiatric: normal affect, A&O x 3 Dx/Plan (1) Hypercalcemia due to sarcoidosis Code(s): E83.52 - HYPERCALCEMIA Status: Acute Comment: Mild improvement with Ca of 11.4 now from 14.4, Will continue with IV fluids, Nephrology Following, likely from sarcoidosis, so pt started on prednisone today, will look for improveemnt in few days. pt wants Dr. Craig to know that she is here. (2) Severe dehydration Code(s): E86.0 - DEHYDRATION Status: Acute Comment: Improved, Pt is getting Hypervolemic, will castro Monitor her IV fluids. (3) Hypermagnesemia Code(s): E83.41 - HYPERMAGNESEMIA Status: Acute Comment: Erica check mag levels today. (4) DANIELLA (acute kidney injury) Code(s): N17.9 - ACUTE KIDNEY FAILURE, UNSPECIFIED Status: Acute Comment: some improvemt noted with IV fluids and prednisone for sarcodidsos, with chronic kidney damage, (5) CKD stage 4 secondary to hypertension Code(s): I12.9 - HYPERTENSIVE CHRONIC KIDNEY DISEASE W STG 1-4/UNSP CHR KDNY; N18.4 - CHRONIC KIDNEY DISEASE, STAGE 4 (SEVERE) Status: Acute Comment: Worsening CKD, GFR 10, is now in stage 5, but 24hr uirne is pending, can do 24hr urine Creatinine to asses GFR, will leave this for nephrology. (6) Sarcoidosis of lung Code(s): D86.0 - SARCOIDOSIS OF LUNG Status: Acute Comment: Pt is Started On Steroids Pridnisone, Will clsoely Monitor for sideeffects. Will consult Dr. Craig per pt request. (7) Morbid obesity Code(s): E66.01 - MORBID (SEVERE) OBESITY DUE TO EXCESS CALORIES Status: Acute (8) Multiple myeloma Code(s): C90.00 - MULTIPLE MYELOMA NOT HAVING ACHIEVED REMISSION Status: Suspected Comment: Waiting on urine and serum protein electrophoresis pending. Xray from Hip did not show Puched out lesion, but showed periorseal new bone formation. - Plan cont current plan of care, PT/OT, social and human services assistant, out of bed/ambulate, DVT proph w/SCDs * . - Discharge Day Encounter end time: 12:10 Review of Systems - Review of Systems Constitutional: negative: fever, chills, sweats, weakness, malaise, other Eyes: negative: Pain, Vision Change, Conjunctivae Inflammation, Eyelid Inflammation, Redness, Other ENT: negative: Ear Pain, Ear Discharge, Nose Pain, Nose Discharge, Nose Congestion, Mouth Pain, Mouth Swelling, Throat Pain, Throat Swelling, Other Respiratory: negative: Cough, Dry, Shortness of Breath, Hemoptysis, SOB with Excertion, Pleuritic Pain, Sputum, Wheezing Cardiovascular: negative: chest pain, palpitations, orthopnea, paroxysmal nocturnal dyspnea, edema, light headedness, other Gastrointestinal: negative: Nausea, Vomiting, Abdominal Pain, Diarrhea, Constipation, Melena, Hematochezia, Other Genitourinary: negative: Dysuria, Frequency, Incontinence, Hematuria, Retention , Other Musculoskeletal: negative: Neck Pain, Shoulder Pain, Arm Pain, Back Pain, Hand Pain, Leg Pain, Foot Pain, Other - Medications/Allergies Allergies/Adverse Reactions: Allergies Allergy/AdvReac Type Severity Reaction Status Date / Time sitagliptin [From ] Allergy Rash Verified 04/23/17 13:58 Medications: Current Medications Acetaminophen (Tylenol) 650 mg PO Q4H PRN PRN Reason: Headache/Fever or Pain Hydrocodone Bitart/Acetaminophen ([place] 5/325) 1 tab PO Q4H PRN PRN Reason: Moderate Pain (4-6) Dextrose/Water (Dextrose 50%) 25 gm SLOW IVP PRN PRN PRN Reason: Hypoglycemia Enoxaparin Sodium (Lovenox) 30 mg SC 0900 [facility] Last Admin: 04/25/17 09:19 Dose: 30 mg Famotidine (Pepcid) 20 mg SLOW IVP DAILY [facility] Last Admin: 04/25/17 09:21 Dose: 20 mg Glucagon (Glucagon) 1 mg IM PRN PRN PRN Reason: Hypoglycemia Sodium Chloride (Normal Saline 0.9%) 1,000 mls @ 100 mls/hr IV .Q10H [facility] Last Admin: 04/25/17 09:21 Dose: 1,000 mls Insulin Detemir 80 units/ (Miscellaneous Medication) 0.8 mls @ 0 mls/[facility] Last Admin: 04/25/17 09:20 Dose: 0.8 mls Insulin Detemir 80 units/ (Miscellaneous Medication) 0.8 mls @ 0 mls/hr SC [facility] Last Admin: 04/24/17 21:33 Dose: 0.8 mls Dextrose/Water (D5w) 1,000 mls @ 0 mls/hr IV .Q0M PRN; As Directed PRN Reason: Hypoglycemia Prednisone (Prednisone) 60 mg PO QAM-WM [facility] Last Admin: 04/25/17 09:21 Dose: 60 mg Sodium Chloride (Flush - Normal Saline) 10 ml IVF Q12HR [facility] Last Admin: 04/25/17 09:22 Dose: Not Given Sodium Chloride (Flush - Normal Saline) 10 ml IVF PRN PRN PRN Reason: Saline Flush
[2017-04-25] MEDS: HYDROcodone/Acetaminophen 5/325 mg Tablet PO PRN (20:56)
[2017-04-26 04:29] LABS: #Eosinphils 0.1 thou/uL (0.0-0.7); #Lymphocytes 1.5 thou/uL (1.20-3.40); #Monocytes 0.9 thou/uL (0.11-0.59); #Neutrophils 11.1 thou/uL (1.40-6.50); %Basophils 0.2 % (0.0-1.0); %Eosinophils 0.7 % (0.0-10.0); %Lymphocytes 11.1 % (21.0-51.0); %Monocytes 6.6 % (0.0-10.0); %Neutrophils 81.5 % (42.0-75.0); Hemoglobin 9.3 g/dL (12.0-16.0); Mean Corpuscular HGB CONC 33.5 g/dL (32.0-36.0); Mean Corpuscular Hemoglobin 29.2 pg (27.0-31.0); Mean Corpuscular Volume 87.2 fl (81.0-99.0); Mean Platelet Volume 7.6 fL (7.4-10.4); Platelet Count 315 thou/uL (130-400); RBC Distribution Width 15.6 % (11.5-14.5); Red Blood Cell (RBC) Count 3.17 mill/uL (4.20-5.40); White Blood Cell (WBC) Count 13.7 thou/uL (4.8-10.8)
[2017-04-26 04:44] LABS: ALT (SGPT) 30 U/L (8-55); AST (SGOT) 25 U/L (5-34); Albumin 3.8 g/dL (3.5-5.0); Alkaline Phosphatase 204 U/L (40-150); Anion Gap 14 mmol/L (10-20); BUN (Urea Nitrogen) 52 mg/dL (9.8-20.1); Bilirubin, Total 0.4 mg/dL (0.2-1.2); Calc. Creatinine Clearance 30 mL/min (70-130); Calcium 11.1 mg/dL (7.8-10.44); Carbon Dioxide 22 mmol/L (22-29); Chloride 105 mmol/L (98-107); Estimated GFR-MDRD 13; Globulin 4.6 g/dL (2.4-3.5); Glucose 96 mg/dL (70-105); Potassium 3.7 mmol/L (3.5-5.1); Protein, Total 8.4 g/dL (6.0-8.3); Sodium 137 mmol/L (136-145)
[2017-04-26] MEDS: predniSONE 20 MG TAB PO SCH (08:00)
[2017-04-26] MEDS: Insulin Detemir 100 UNITS/ML 80 UNITS in Pre-Filled Syringe 1 EACH SC SCH ×2 (09:00→21:29)
[2017-04-26] MEDS: Famotidine/PF 20 mg/2ml Vial SLOW IVP SCH (09:00)
[2017-04-26] MEDS: Enoxaparin Sodium 30 MG/0.3 ML SYRINGE SC SCH (09:00)
--- NOTE | 2017-04-26 10:01 | PRG ---
DATE OF SERVICE: 04/26/2017 SUBJECTIVE: Ms. Medina is a 56-year-old white female admitted for hypercalcemia and acute kidney inj ury. The feeling this is all related from her sarcoidosis causing the hypercalcemia. She has receiv ed IV hydration, calcitonin and her steroids. No new complaints today. Repeat imaging of her abdome n will be done to verify the history of hepatic granulomas. No complaints today, no chest pain or sh ortness of breath. PHYSICAL EXAMINATION: VITAL SIGNS: Blood pressure is 133/76, heart rate 77, respiratory rate 18, temperature 97.7, pulse o x 98%. GENERAL: Awake, alert, obese, standing comfortable. SKIN: Adequate turgor. HEENT: She has pinkish conjunctivae, anicteric sclerae. NECK: No neck mass, no carotid bruits, no JVD. CHEST: No deformities. LUNGS: Clear breath sounds. No wheezing, no crackles. HEART: Normal sinus rhythm. No murmur, no gallops or rubs. ABDOMEN: Globular, soft, nontender, no masses. EXTREMITIES: Trace edema. MEDICATIONS: 04/26/2017 - Reviewed. LABORATORY: 04/26/2017 - White count 13.7, hemoglobin 9.3. Sodium 137, potassium 3.7, chloride 105, carbon dioxide 22, BUN 52, creatinine 3.49, calcium 11.1, albumin 3.8. ASSESSMENT AND PLAN: 1. Hypercalcemia - secondary to presumed sarcoidosis. Currently on IV hydration and prednisone. 2. Sarcoidosis - currently started on prednisone 60 mg tab once a day. I will taper this to 40 mg p er day prior to discharge. Consider placing the patient on prednisone for the next 6-12 months. Rep eat imaging of the abdomen/liver will be done. 3. Acute kidney injury - hemodynamically mediated renal dysfunction. Urine sediment is relatively b enign. Continue IV hydration. Unclear where her renal function will stabilize. Overall I agree with current management.
--- NOTE | 2017-04-26 15:55 | ULT ---
ABDOMINAL ULTRASOUND: 04/26/17 HISTORY: Renal failure. Abnormal liver function. Real time imaging of the upper abdomen demonstrates sludge and what appear to be stones within the sl udge within the gallbladder. Gallbladder wall is somewhat difficult to assess. There appears to be ga llbladder wall edema and appears somewhat thickened. The common duct is 6 to 7 mm. Liver parenchyma i s of increased echogenicity and the liver is approximately 23 cm in length. The spleen is 14.8 cm. Right and left kidneys are normal in size and not obstructing. Mild increased echogenicity to both ki dneys. There is a small approximately 1.8 cm left renal cyst present. The pancreas is obscured as are portions of the abdominal aorta and IVC. IMPRESSION: 1. Mild hepatosplenomegaly. 2. Sludge and stones within the gallbladder. There is some gallbladder wall thickening and sugge stion of some edema change in the gallbladder wall. This could be on the basis of more acute cholecys titis changes, although technologist reports a negative ultrasound Guillen's sign. 3. Mild increased echogenicity of the cortex of both kidneys which could indicate underlying med ical renal parenchymal disease. POS: BILL
[2017-04-26] MEDS: Sodium Chloride 0.9% 1,000 ML IV SCH ×2 (16:05→17:54)
--- NOTE | 2017-04-26 16:41 | PDOC.PN ---
- Subjective Encounter Start Date: 04/26/17 Encounter Start Time: 16:00 Fab is seen today, walking , No Abdominal pain, Discussed about US abd, She has Gall stones with Distension of gallbladder, likely Chronic Cholelithiasis, No Abdomen pain and no fever. Ast/AL normal , explained closley Monitor for any abd pain. - Objective Resuscitation Status: Resuscitation Status FULL:Full Resuscitation MAR Reviewed: Yes Vital Signs & Weight: Vital Signs (12 hours) Temp Pulse Resp BP BP Pulse Ox 04/26/17 12:00 97.7 F 82 18 168/90 H 168/90 H 98 04/26/17 08:00 97.7 F 77 18 133/76 98 I&O: 04/25/17 04/26/17 04/27/17 06:59 06:59 06:59 Intake Total 2720 4000 Balance 2720 4000 Result Diagrams: 04/26/17 03:18 04/26/17 03:18 Additional Labs: Accuchecks 04/26/17 04/26/17 04/25/17 11:33 05:50 19:17 POC Glucose 138 H 136 H 241 H 04/25/17 16:34 POC Glucose 191 H Radiology Reviewed by me: Yes Phys Exam - Physical Examination HEENT: PERRLA, moist MMs Neck: no nodes, no JVD Respiratory: no wheezing, no rales Cardiovascular: RRR, no significant murmur Gastrointestinal: soft, non-tender, no distention, positive bowel sounds Musculoskeletal: no edema, pulses present Neurological: non-focal, normal sensation Dx/Plan (1) Hypercalcemia due to sarcoidosis Code(s): E83.52 - HYPERCALCEMIA Status: Acute Comment: Mild improvement with Ca of 11.4 now from 14.4, Will continue with IV fluids, Nephrology Following, likely from sarcoidosis, so pt started on prednisone today, will look for improveemnt in few days. pt wants Dr. Craig to know that she is here. (2) Severe dehydration Code(s): E86.0 - DEHYDRATION Status: Acute Comment: Improved, Pt is getting Hypervolemic, will castro Monitor her IV fluids. (3) Hypermagnesemia Code(s): E83.41 - HYPERMAGNESEMIA Status: Acute Comment: Erica check mag levels today. (4) DANIELLA (acute kidney injury) Code(s): N17.9 - ACUTE KIDNEY FAILURE, UNSPECIFIED Status: Acute Comment: some improvemt noted with IV fluids and prednisone for sarcodidsos, with chronic kidney damage, (5) CKD stage 4 secondary to hypertension Code(s): I12.9 - HYPERTENSIVE CHRONIC KIDNEY DISEASE W STG 1-4/UNSP CHR KDNY; N18.4 - CHRONIC KIDNEY DISEASE, STAGE 4 (SEVERE) Status: Acute Comment: Worsening CKD, GFR 10, is now in stage 5, but 24hr uirne is pending, can do 24hr urine Creatinine to asses GFR, will leave this for nephrology. (6) Sarcoidosis of lung Code(s): D86.0 - SARCOIDOSIS OF LUNG Status: Acute Comment: Pt is Started On Steroids Pridnisone, Will clsoely Monitor for sideeffects. Will consult Dr. Craig per pt request. (7) Morbid obesity Code(s): E66.01 - MORBID (SEVERE) OBESITY DUE TO EXCESS CALORIES Status: Acute (8) Multiple myeloma Code(s): C90.00 - MULTIPLE MYELOMA NOT HAVING ACHIEVED REMISSION Status: Suspected Comment: No Monoclonal Antiboies noed in [place]. likely No MM detected. - Plan cont current plan of care, plan discussed w/ family, PT/OT, social welfare clerk, incentive spirometry, DVT proph w/lovenox PlN TO dISCHARGE PT HOME TOMORROW. * . - Discharge Day Encounter end time: 16:30 Review of Systems - Review of Systems Eyes: negative: Pain, Vision Change, Conjunctivae Inflammation, Eyelid Inflammation, Redness, Other ENT: negative: Ear Pain, Ear Discharge, Nose Pain, Nose Discharge, Nose Congestion, Mouth Pain, Mouth Swelling, Throat Pain, Throat Swelling, Other Respiratory: negative: Cough, Dry, Shortness of Breath, Hemoptysis, SOB with Excertion, Pleuritic Pain, Sputum, Wheezing Cardiovascular: negative: chest pain, palpitations, orthopnea, paroxysmal nocturnal dyspnea, edema, light headedness, other Gastrointestinal: negative: Nausea, Vomiting, Abdominal Pain, Diarrhea, Constipation, Melena, Hematochezia, Other Genitourinary: negative: Dysuria, Frequency, Incontinence, Hematuria, Retention , Other Musculoskeletal: negative: Neck Pain, Shoulder Pain, Arm Pain, Back Pain, Hand Pain, Leg Pain, Foot Pain, Other Skin: negative: Rash, Lesions, Enoc, Bruising, Other - Medications/Allergies Allergies/Adverse Reactions: Allergies Allergy/AdvReac Type Severity Reaction Status Date / Time sitagliptin [From ] Allergy Rash Verified 04/23/17 13:58 Medications: Current Medications Acetaminophen (Tylenol) 650 mg PO Q4H PRN PRN Reason: Headache/Fever or Pain Hydrocodone Bitart/Acetaminophen ([place] 5/325) 1 tab PO Q4H PRN PRN Reason: Moderate Pain (4-6) Last Admin: 04/25/17 20:56 Dose: 1 tab Dextrose/Water (Dextrose 50%) 25 gm SLOW IVP PRN PRN PRN Reason: Hypoglycemia Enoxaparin Sodium (Lovenox) 30 mg SC 0900 [facility] Last Admin: 04/26/17 09:00 Dose: 30 mg Famotidine (Pepcid) 20 mg SLOW IVP DAILY [facility] Last Admin: 04/26/17 11:19 Dose: 20 mg Glucagon (Glucagon) 1 mg IM PRN PRN PRN Reason: Hypoglycemia Sodium Chloride (Normal Saline 0.9%) 1,000 mls @ 100 mls/hr IV .Q10H [facility] Last Admin: 04/26/17 16:05 Dose: Not Given Insulin Detemir 80 units/ (Miscellaneous Medication) 0.8 mls @ 0 mls/hr SC QAM [facility] Last Admin: 04/26/17 09:00 Dose: 0.8 mls Insulin Detemir 80 units/ (Miscellaneous Medication) 0.8 mls @ 0 mls/hr SC HS [facility] Last Admin: 04/25/17 20:52 Dose: 0.8 mls Dextrose/Water (D5w) 1,000 mls @ 0 mls/hr IV .Q0M PRN; As Directed PRN Reason: Hypoglycemia Prednisone (Prednisone) 60 mg PO QAM-WM [facility] Last Admin: 04/26/17 08:00 Dose: 60 mg Sodium Chloride (Flush - Normal Saline) 10 ml IVF Q12HR [facility] Last Admin: 04/26/17 09:00 Dose: 10 ml Sodium Chloride (Flush - Normal Saline) 10 ml IVF PRN PRN PRN Reason: Saline Flush
--- NOTE | 2017-04-26 20:33 | CON ---
DATE OF CONSULTATION: 04/26/2017 HISTORY OF PRESENT ILLNESS: Ms. Medina is a pleasant 56-year-old female. She has been followed by me for sarcoidosis, although she has never had any pulmonary parenchymal involvement to speak of. She did have some small nonspecific mediastinal lymph nodes that could be secondary to old sarcoid. She is also felt to have granulomatous changes in her spleen and her liver that most likely related to sarcoidosis. 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 She presented with complaints of having been found to have abnormal urine and abnormal lab, which led to a referral to the hospital. She has never had renal insufficiency. PAST MEDICAL HISTORY: Remarkable for diabetes, hypertension, lipid disorder, and depression. SOCIAL HISTORY: She is nonsmoker, nondrinker. She does use drugs. FAMILY HISTORY: Negative for lung diseases, no history of renal disease in young age. She reports intolerance to sitagliptin. REVIEW OF SYSTEMS: 12 point review of systems otherwise negative She has been in the hospital several days. I was notified of her presentation. She was also noted to be hypocalcemic on admission. Her white count today is 13.7, hemoglobin 9.3, platelets 315,000. When she presented, electrolytes are normal. Her BUN was 49, creatinine was 4.48. Her creatinine is down to 3.49. Calcium was 14.1 on admission, it is 12.6 now. Alkaline phosphatase 285. Her total serum protein is 9.0. Her globulin was 5.1 , and M spike was not observed on a serum protein electrophoresis. Urine had minimal protein in it. There were no red cells or white cells. Her Coags were remarkable for prolonged PTT. She had an abdominal ultrasound done this morning, which showed sludge in her gallbladder with some gallbladder wall thickening. Both kidneys showed increased echogenicity. PHYSICAL EXAMINATION: VITAL SIGNS: She is afebrile, heart rate 82, respiratory rate 18, oximetry is 98 on room air, and blood pressure is 168/90. HEENT: Pupils are equal. Sclerae is anicteric. NECK: Supple. LUNGS: Clear. HEART: Regular rhythm. S1 and S2 are normal. ABDOMEN: Soft and nontender. EXTREMITIES: Without clubbing, cyanosis, or edema. NEUROLOGIC: Nonfocal. IMPRESSION: Multiple lab abnormalities that could be consistent with extra pulmonary sarcoid. She has no evidence of pulmonary sarcoid involvement to speak of. She has had some very small scattered nodules in her chest, but nothing suggestive of progressive sarcoidosis. Her renal insufficiency is the biggest issue at this time but cannot tell from the notes whether a renal biopsy is planned. I will be happy to follow along with the other physicians caring for her. She is followed in my continuity clinic as well. This is a 50 min consult greater than 50% of the time ws spent on the coordinating care on the unit. MICH
[2017-04-26] MEDS: HYDROcodone/Acetaminophen 5/325 mg Tablet PO PRN (23:05)
[2017-04-26] MEDS ORDERED: Temazepam 15 MG CAP PO SCH (23:15)
[2017-04-27] MEDS: Sodium Chloride 0.9% 1,000 ML IV SCH (04:15)
[2017-04-27 05:20] LABS: #Eosinphils 0.1 thou/uL (0.0-0.7); #Lymphocytes 1.4 thou/uL (1.20-3.40); #Neutrophils 10.3 thou/uL (1.40-6.50); %Basophils 0.2 % (0.0-1.0); %Eosinophils 0.7 % (0.0-10.0); %Monocytes 7.8 % (0.0-10.0); %Neutrophils 80.3 % (42.0-75.0); Mean Corpuscular HGB CONC 32.3 g/dL (32.0-36.0); Mean Corpuscular Hemoglobin 28.3 pg (27.0-31.0); Mean Corpuscular Volume 87.6 fl (81.0-99.0); Mean Platelet Volume 7.5 fL (7.4-10.4); Platelet Count 306 thou/uL (130-400); RBC Distribution Width 15.9 % (11.5-14.5); Red Blood Cell (RBC) Count 3.19 mill/uL (4.20-5.40); White Blood Cell (WBC) Count 12.8 thou/uL (4.8-10.8)
[2017-04-27 05:34] LABS: Anion Gap 13 mmol/L (10-20); BUN (Urea Nitrogen) 54 mg/dL (9.8-20.1); Calc. Creatinine Clearance 33 mL/min (70-130); Carbon Dioxide 23 mmol/L (22-29); Chloride 107 mmol/L (98-107); Estimated GFR-MDRD 15; Glucose 121 mg/dL (70-105); Potassium 3.8 mmol/L (3.5-5.1); Sodium 139 mmol/L (136-145)
[2017-04-27 07:34] VITALS: BP 153/90; TEMP 97.7
[2017-04-27] MEDS: Enoxaparin Sodium 30 MG/0.3 ML SYRINGE SC SCH (08:19)
[2017-04-27] MEDS: predniSONE 20 MG TAB PO SCH (08:20)
[2017-04-27] MEDS: Insulin Detemir 100 UNITS/ML 80 UNITS in Pre-Filled Syringe 1 EACH SC SCH (08:20)
[2017-04-27] MEDS ORDERED: Famotidine 40 MG/4 ML VIAL SLOW IVP SCH (09:00)
--- NOTE | 2017-04-27 13:17 | PRG ---
DATE OF SERVICE: 04/27/2017 SERVICE: Renal Medicine. SUBJECTIVE: Ms. Medina is a 56-year-old white female who was admitted for acute kidney injury with h ypercalcemia. The feeling is that this may be related to her sarcoidosis. She was started on predni sone and IV hydration. She was also given calcitonin. Calcium is actually much improved. Most rece nt calcium is now 11 and creatinine now is lower at 3.1. She is requesting to go home. No other complaints, no chest pain or shortness of breath. OBJECTIVE: VITAL SIGNS: Blood pressure 153/90, heart rate 81, respiratory rate 16, temperature 97.7 and pulse o x 96%. GENERAL: Awake, alert, ambulatory, comfortable and obese. SKIN: Adequate turgor. HEENT: Pinkish conjunctivae, anicteric sclerae. NECK: No neck mass, no carotid bruits, no JVD. CHEST: No deformities. LUNGS: Clear breath sounds. HEART: Normal sinus rhythm. No murmur, no gallops, no rubs. ABDOMEN: Globular, soft and nontender. No masses. EXTREMITIES: No edema. MEDICATIONS: Medications of 04/27/2017 reviewed. LABORATORY DATA: Laboratories of 04/27/2017, sodium 139, potassium 3.8, chloride 107, carbon dioxide 23, BUN 54, creatinine 3.17, glucose 121, calcium 11.0 and hemoglobin 9. ASSESSMENT AND PLAN: 1. Hypercalcemia - this was felt secondary to her sarcoidosis. Please note she had a biopsy with he r skin and she had findings of sarcoidosis with that excision. I repeated the ultrasound on 04/27/19 18, showed mild hepatosplenomegaly. There is also a finding of increased echogenicity of cortex of b oth kidneys. 2. Acute kidney injury - this is hemodynamically mediated renal dysfunction secondary to the hyperca lcemia. Creatinine is now much improved from 4.5-3.1. I do anticipate further improvement with the renal function. If the renal function does not go back to normal, we may need to consider renal biop sy. Please note the patient has been ruled out for any underlying plasma cell dyscrasia. I decrease d the prednisone from 60 to 40 mg tablet once a day. We will continue to taper this prednisone. I p lanned to at least leave her on 6 months of prednisone therapy. Overall, agree with current manageme nt.
--- NOTE | 2017-04-27 14:41 | PRG ---
DATE OF SERVICE: 04/27/2017 SUBJECTIVE: Ms. Lynne Medina continues to feel reasonably well. OBJECTIVE: LUNGS: Clear. HEART: Regular rhythm. ABDOMEN: Soft. LABORATORY DATA: White blood cell count is 12.8, hemoglobin 9.3 and platelets 306,000. Creatinine i s down to 3.17. She continues on steroids. Her admitting creatinine was 4.48. Her calcium is 11. IMPRESSION: Sarcoid with presumed renal dysfunction and hypercalcemia secondary to that. Her workup for myeloma was negative. I discussed the above with Dr. Sauceda. A renal biopsy is not being entertai miguel ángel at this point. PLAN: Continue with steroids. She is stable from my standpoint for close outpatient follow up.
--- NOTE | 2017-04-27 15:03 | EKG ---
Test Reason : Blood Pressure : / mmHG Vent. Rate : 094 BPM Atrial Rate : 094 BPM P-R Int : 168 ms QRS Dur : 084 ms QT Int : 334 ms P-R-T Axes : 057 -05 020 degrees QTc Int : 417 ms Normal sinus rhythm Normal ECG Confirmed by SHAZIA IVERSON ([id number]), publishing editor BEULAH MCDOWELL ([id number]) on 04/27/2017 3:02:35 PM Referred By: Confirmed By:SHAZIA IVERSON
--- NOTE | 2017-04-27 19:22 | DIS ---
DATE OF ADMISSION: 04/23/2017 DATE OF DISCHARGE: 04/27/2017 ADMITTING DIAGNOSIS: Acute hypercalcemia. DISCHARGE DIAGNOSIS: Acute hypercalcemia from sarcoidosis. SECONDARY DIAGNOSES: 1. Type 2 diabetes mellitus. 2. Hypermagnesemia. 3. Hyperproteinemia. 4. Morbid obesity. 5. Hypertension. 6. Hyperlipidemia. 7. History of depression. 8. Acute kidney injury. CONSULTANTS INVOLVED IN THE CARE: 1. Dr. Akshat Sauceda from Nephrology. 2. Dr. Kiara Wilhelm. HISTORY OF PRESENT ILLNESS AND HOSPITAL COURSE: In brief, this is a 56-year-old morbidly obese white female with a known history of worsening renal functions and has been closely monitored by Dr. Sohail ash nd has been having elevated calcium levels since last month. Dr. Sauceda has seen this patient as outpat ient and has referred the patient to the hospital for IV hydration and further evaluation of her hype rcalcemia. When the patient presented to the hospital, she had a significant elevation of the calciu m to 14 and also hypermagnesemia along with hyperproteinemia. There was a high suspicion for multipl e myeloma. The patient was initially started on a calcium lowering medication with calcitonin at 1 m cg per kilo in which patient received 4 mcg per kilo and patient received 400 mcg of calcitonin infus ion one time along with the high rate of IV fluids at 100-125 mL an hour. The patient's renal functi ons did not improve much. She had a worsening renal function with a creatinine of 4.2 with elevated BUN. There were clear signs of severe dehydration and patient responded to hydration with good urine output, but patient's calcium did not come down significantly well and her serum calcium came down to 12 and then slowly it went down to 11 until the time of the discharge. The patient had a history of sarcoidosis to the liver with cystic masses diagnosed as outpatient, so the patient was started on 60 mg prednisolone and calcium has mildly responded to these and kidney functions did not improve as much as expected per Dr. Sauceda. Dr. Kiara Wilhelm has also been consulted because of the sarcoidosis a nd he confirmed that the patient did not have pulmonary sarcoidosis and this is more of extrapulmonar y sarcoidosis . The patient was closely monitored. She remained asymptomatic even with high ca lcium levels and she did not have any chest pain or nausea or vomiting. No diarrhea, no constipation . The patient was discharged home to follow up with Dr. Sauceda and her prednisolone dose has been lower ed to 40 mg on the day of the discharge and she will be followed up with Dr. Sauceda for further tapering . The patient was also monitored for multiple myeloma, had a lab work done with a 24-hour urine and serum protein electrophoresis, which came back negative for any monoclonal protein spikes. A hip x-r ay was also ordered, which did not show any punched out defects, so this has been ruled out at this t formerly [facility]. PHYSICAL EXAMINATION: On the day of discharge; VITAL SIGNS: Blood pressure is 153/90, heart rate is 81, respiration rate 16 and saturation 96%. GENERAL: The patient is moderately built, morbidly obese. CARDIOVASCULAR: S1 and S2 normal. No murmurs, rubs or gallops. LUNGS: Bilaterally air entry was equal. No wheezing, no crackles. ABDOMEN: Soft and nontender. No guarding, no rebound tenderness. Bowel sounds normal. MUSCULOSKELETAL: No calf tenderness. No pedal edema. No joint tenderness, no joint swelling. SKIN: No cyanosis, no erythema, no rash, no pallor. CENTRAL NERVOUS SYSTEM: Cranial nerve examination II-XII intact. No focal deficits were noted. DISCHARGE MEDICATIONS: 1. Amlodipine 5 mg p.o. daily. 2. Cetirizine 1 capsule p.o. daily. 3. Gabapentin 1 capsule p.o. t.i.d. 4. Glimepiride 2 tablets p.o. daily. 5. Insulin degludec 120 units subcu daily. 6. Magnesium 400 mg daily. 7. Ropinirole 1 tablet p.o. at bedtime. 8. Sertraline 1 tablet p.o. daily. 9. Vitamin B complex. 10. New tablet is prednisone 40 mg p.o. daily, until seen by Dr. Sauceda. DISCHARGE INSTRUCTIONS: 1. Continue activity as tolerated. 2. Advised to follow up with the primary care physician in 1-2 weeks and advised to follow up with Hernandez Sauceda in 1 week to decide about the prednisolone dosing. 3. Continue with the low sodium, low potassium and diabetic diet. 4. Advised to continue increased physical activity for losing weight. DISCHARGE DISPOSITION AND CONDITION: The patient was discharged home in stable condition. I spent 35 minutes with this patient on the day of discharge.
[2017-04-30 04:15] LABS: Kappa/Lambda Ratio 6.63 (2.04-10.37)
[2017-05-01 07:33] LABS: M-Spike,% Not Observed % (Not Observed)
== END 2017-04-27 14:13 | disposition home or self-care (01) | DRG 197 ==
LOC: ERS 08:11 → T4-A 11:29
PROVIDERS: ADMIT Family Medicine; ATTEND Family Medicine
DX: D86.89 Sarcoidosis of other sites (principal); N17.9 Acute kidney failure, unspecified; C90.00 Multiple myeloma not having achieved remission; E11.22 Type 2 diabetes mellitus with diabetic chronic kidney disease; I12.0 Hypertensive chronic kidney disease with stage 5 chronic kidney disease or end stage renal disease; Z68.41 Body mass index [BMI] 40.0-44.9, adult; N18.5 Chronic kidney disease, stage 5; K80.20 Calculus of gallbladder without cholecystitis without obstruction; E66.01 Morbid (severe) obesity due to excess calories; E83.41 Hypermagnesemia; E83.52 Hypercalcemia; E86.0 Dehydration; E78.5 Hyperlipidemia, unspecified; F32.9 Major depressive disorder, single episode, unspecified; E11.40 Type 2 diabetes mellitus with diabetic neuropathy, unspecified
CPT/HCPCS: 36415; 36416; 76700; 80048; 80053; 81003; 81015; 82274; 82570; 83735; 83883; 83970; 84100; 84156; 84165; 84166; 85025; 85610; 85730; 86335; 90471; 90732; 93005; 96360; A4216; G0009; J1650; J1815; J7506; S0028

== ENCOUNTER 2017-06-17 16:00 | Outpatient (CLI) | payer OTHER | END 2017-06-17 16:01 | disposition home or self-care (01) | LOC: BICMAMMO 16:00 | PROVIDERS: ATTEND Family Medicine | DX: Z12.31 Encounter for screening mammogram for malignant neoplasm of breast (principal); Z85.41 Personal history of malignant neoplasm of cervix uteri | CPT/HCPCS: 77063; 77067 ==

== ENCOUNTER 2017-09-02 08:48 | Outpatient (CLI) | payer OTHER ==
--- NOTE | 2017-09-02 09:59 | RAD ---
LUMBAR SPINE 3 VIEWS WITH FLEXION AND EXTENSION: HISTORY: M99.83, M47.817. COMPARISON: Lumbar spine radiographs from 2011. FINDINGS: There is severe degenerative disk space disease at L5-S1. There are superior end plate compression d eformities at L3, L2, L1, and possibly even T12 and T11. These are new from a comparison examination . There is 2 mm L4 over L5 retrolisthesis in the neutral position which does not change with flexion or extension. IMPRESSION: 1. Multiple compression deformities as described above new from the 2011 examination with the [address] st height loss at L1. 2. The 2 mm L4 over L5 retrolisthesis without translation with flexion or extension. CODE T POS: [facility]
== END 2017-09-02 08:49 | disposition home or self-care (01) ==
LOC: RAD 08:48
PROVIDERS: ATTEND Nurse Practitioner Family
DX: M47.817 Spondylosis without myelopathy or radiculopathy, lumbosacral region (principal); M99.83 Other biomechanical lesions of lumbar region; M43.16 Spondylolisthesis, lumbar region
CPT/HCPCS: 72100

== ENCOUNTER 2017-09-20 09:56 | Outpatient (CLI) | payer OTHER | END 2017-09-20 09:57 | disposition home or self-care (01) | LOC: BICCT 09:56 | PROVIDERS: ATTEND Nurse Practitioner Family | DX: S32.019A Unspecified fracture of first lumbar vertebra, initial encounter for closed fracture (principal); S32.049A Unspecified fracture of fourth lumbar vertebra, initial encounter for closed fracture; Z98.890 Other specified postprocedural states | CPT/HCPCS: 72131 ==

== ENCOUNTER 2017-10-30 12:32 | Outpatient (CLI) | payer OTHER | END 2017-10-30 12:33 | disposition home or self-care (01) | LOC: BICULT 12:32 | PROVIDERS: ATTEND Family Medicine | DX: N28.89 Other specified disorders of kidney and ureter (principal); N28.1 Cyst of kidney, acquired | CPT/HCPCS: 76770 ==

== ENCOUNTER 2017-12-02 13:17 | Outpatient (CLI) | payer OTHER ==
[~2017-12-02 13:17] MED LIST: Sodium Chloride 0.9% 15 ML NEB ONE
--- NOTE | 2017-12-02 17:04 | HP ---
DATE OF SERVICE: 12/02/2017 HISTORY OF PRESENT ILLNESS: Ms. Lynne Medina is a very pleasant 57-year-old accompanied by her si ster who presents to the [facility]ound [facility] for evaluation of a wound of the left medial lower leg. The pa miladis states that she developed problems with her back in August of this year. She states that subsequ ently she experienced swelling "all over" including her lower legs. The patient states that the woun d at the left lower leg began as a blister. The patient was referred to the Wound Center by Dr. Vicente Moran on 11/26/2017. PAST MEDICAL HISTORY: 1. Nephrolithiasis. 2. Hypertension. 3. Diabetes mellitus. 4. Obstructive sleep apnea. 5. Sarcoidosis. PAST SURGICAL HISTORY: 1. Nephrolithotripsy on 09/17/2006. 2. Right shoulder surgery. 3. Right ESWL on 10/03/2011. 4. Laparoscopic hysterectomy. 5. 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 6. Left foot bunionectomy. 7. Right carpal tunnel release. 8. Right trigger finger release. MEDICATIONS: 1. Potassium chloride. 2. Lasix. 3. Aspirin 81 mg. 4. Prednisone. 5. Zyrtec. 6. Glimepiride. 7. Amlodipine. 8. Ropinirole. 9. Tarceva 10. Sertraline. 11. Humalog. 12. Tizanidine. 13. Crane. 14. Magnesium oxide. 15. B complex. ALLERGIES: No known diagnosed allergies. SOCIAL HISTORY: Negative for tobacco or ETOH use. FAMILY HISTORY: Significant for diabetes mellitus. The patient states that her mother and two siste rs were both diagnosed with diabetes mellitus. Family history is negative for coronary artery diseas e. PHYSICAL EXAMINATION: VITAL SIGNS: Temperature 98.6, pulse 118, respirations 20, blood pressure 189/85. Accu-Chek 140. GENERAL: A 57-year-old female sitting on chair in examination room, in no acute distress. HEENT: Cushingoid facies, atraumatic. NECK: No nuchal rigidity. CHEST: Clear to auscultation. CARDIAC: Regular rate and rhythm. ABDOMEN: Soft. EXTREMITIES: An ulcer of the left anteromedial lower leg is present which measures approximately 2.7 x 2.7 cm. Serous drainage is associated with the wound. No erythema of the skin surrounding the wo und is present. No maceration of the skin of the periwound is noted. A dorsalis pedis pulse is easi ly palpable on the left. Edema of the left lower leg is present on exam today. NEUROLOGIC: Grossly nonfocal. ASSESSMENT AND PLAN: 1. 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 The patient also has varicose veins of the ri ght and left lower legs. Silverlon, Webril, and the CogniSens Coban 2-layer compression system will be appl ied to the ulceration today. I will see Ms. Medina again in 1 week. No antibiotics will be prescrib ed today based upon the appearance of the wound. The patient has been instructed to keep the wrap ap plied in clinic today clean and dry, and intact until her followup visit in 1 week. The patient unde rstands and is in agreement with the preceding treatment plan. 2. Nephrolithiasis. 3. Hypertension. 4. Diabetes mellitus. The patient's Accu-Chek in clinic today is 140. The patient has been told th at for optimal wound healing, her blood glucoses should remain below 150. 5. Obstructive sleep apnea. 6. Sarcoidosis.
== END 2017-12-02 13:18 | disposition home or self-care (01) ==
LOC: WCC 13:17
PROVIDERS: ATTEND Family Medicine
DX: I83.028 Varicose veins of left lower extremity with ulcer other part of lower leg (principal); E11.622 Type 2 diabetes mellitus with other skin ulcer; L97.929 Non-pressure chronic ulcer of unspecified part of left lower leg with unspecified severity; I10 Essential (primary) hypertension; N20.0 Calculus of kidney; G47.33 Obstructive sleep apnea (adult) (pediatric); D86.9 Sarcoidosis, unspecified
CPT/HCPCS: 97602; 99203; A4218; G0463

== ENCOUNTER 2017-12-09 09:14 | Outpatient (CLI) | payer OTHER ==
--- NOTE | 2017-12-09 11:15 | PRG ---
DATE OF SERVICE: 12/09/2017 HISTORY: Ms. Lynne Medina is a very pleasant 57-year-old who presents to the Wound Center for ev aluation of a wound of the left medial lower leg. The patient previously stated that she developed p roblems with her back in August of this year. She stated that subsequently she experienced swelling "a ll over" including her lower legs. The patient stated that the wound over the left lower leg began a s a blister. Ms. Medina was referred to the Wound Center by Dr. Jp Moran on 11/26/2017. Afte r being seen in the Wound Center, the ulceration was treated with the application of Silverlon, Webri l, and 3M Coban 2 layer compression system. The patient also reports the presence of an ulceration o paula the plantar surface of the left great toe. The patient states that this ulceration was debrided [address] Braga. She states she has been performing dressing changes of antibiotic ointment for the ulceration. PHYSICAL EXAMINATION: VITAL SIGNS: Temperature 98.4, pulse 104, respirations 19, blood pressure 182/84. Accu-Chek 272. EXTREMITIES: The ulceration of the left anteromedial lower leg has healed completely. An ulceration over the plantar surface of the left great toe is present which measures approximately 0.8 x 0.7 cm. Granulation tissue is visible within the wound margins. No purulent drainage is associated with th e wound. No erythema of the skin surrounding the wound is present. No maceration of the skin of the periwound is noted. No significant edema of the left foot is present on exam today. ASSESSMENT AND PLAN: 1. 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 As stated above, this ulceration has complete ly healed. For the ulceration of the plantar surface of the left great toe dressing changes of Medih oney, gauze and Coban will be initiated today. These dressing changes are to be performed on a daily basis or alternatively every other day after cleansing and irrigation. The patient will be performi ng her own dressing changes. No antibiotics will be prescribed today based upon the appearance of th e wound. I will see Ms. Medina again in 2 weeks. 2. Nephrolithiasis. 3. Hypertension. 4. Diabetes mellitus. The patient's Accu-Chek in clinic today is 272. The patient has been reminde d that for optimal wound healing, her blood glucoses should remain below 150. 5. Obstructive sleep apnea. 6. Sarcoidosis.
== END 2017-12-09 09:15 | disposition home or self-care (01) ==
LOC: WCC 09:14
PROVIDERS: ATTEND Family Medicine
DX: I83.028 Varicose veins of left lower extremity with ulcer other part of lower leg (principal); E11.621 Type 2 diabetes mellitus with foot ulcer; L97.829 Non-pressure chronic ulcer of other part of left lower leg with unspecified severity; N20.0 Calculus of kidney; I10 Essential (primary) hypertension; G47.33 Obstructive sleep apnea (adult) (pediatric); D86.9 Sarcoidosis, unspecified
CPT/HCPCS: 36416

== ENCOUNTER 2017-12-22 21:52 | Inpatient (IN) | payer OTHER ==
--- NOTE | 2017-12-22 22:50 | RAD ---
AP VIEW CHEST: 12/22/2017 HISTORY: Fever. COMPARISON: 09/17/2006 FINDINGS: AP view chest demonstrates a radiopaque screw in the proximal right humerus. This is compatible with surgical changes. The lungs are well aerated. No evidence of acute intrathoracic abnormalities seen. No evidence of e ffusions, pneumonia, or pneumothorax is seen. IMPRESSION: Unremarkable anterior-posterior view chest. POS: [facility]
[2017-12-22 22:55] LABS: #Eosinphils 0.1 thou/uL (0.0-0.7); #Lymphocytes 1.5 thou/uL (1.20-3.40); #Neutrophils 11.3 thou/uL (1.40-6.50); %Eosinophils 0.7 % (0.0-10.0); %Lymphocytes 11.1 % (21.0-51.0); %Monocytes 6.9 % (0.0-10.0); %Neutrophils 81.3 % (42.0-75.0); Hemoglobin 10.8 g/dL (12.0-16.0); Mean Corpuscular HGB CONC 32.7 g/dL (32.0-36.0); Mean Corpuscular Hemoglobin 27.4 pg (27.0-31.0); Mean Corpuscular Volume 83.7 fL (78.0-98.0); Mean Platelet Volume 8.8 fL (7.4-10.4); Platelet Count 231 thou/uL (130-400); RBC Distribution Width 16.3 % (11.5-14.5); Red Blood Cell (RBC) Count 3.95 mill/uL (4.20-5.40); White Blood Cell (WBC) Count 13.9 thou/uL (4.8-10.8)
[2017-12-22 23:19] LABS: ALT (SGPT) 39 U/L (8-55); AST (SGOT) 54 U/L (5-34); Albumin 3.6 g/dL (3.5-5.0); Alkaline Phosphatase 276 U/L (40-150); Anion Gap 15 mmol/L (10-20); BUN (Urea Nitrogen) 21 mg/dL (9.8-20.1); Bilirubin, Total 1.5 mg/dL (0.2-1.2); Calc. Creatinine Clearance 0 mL/min (70-130); Calcium 9.1 mg/dL (7.8-10.44); Carbon Dioxide 29 mmol/L (22-29); Chloride 94 mmol/L (98-107); Estimated GFR-MDRD 31; Globulin 4.5 g/dL (2.4-3.5); Glucose 194 mg/dL (70-105); Potassium 4.2 mmol/L (3.5-5.1); Protein, Total 8.1 g/dL (6.0-8.3); Sodium 134 mmol/L (136-145)
[2017-12-22] MEDS ORDERED: Piperacillin/Tazobactam 4.5 GM VIAL ONE (23:37)
--- NOTE | 2017-12-22 23:40 | RAD ---
LEFT FOOT THREE VIEWS: HISTORY: Wound on left great toe. TECHNIQUE: AP, lateral, and oblique views of the left foot are obtained. FINDINGS: There is a healing fracture seen in the proximal portion, proximal phalanx, fifth digit, left foot. There is an area of lucency seen at the proximal portion of the proximal phalanx of the second digit. This is seen on the oblique view, and may represent an acute fracture. The great toe demonstrates some soft tissue swelling without evidence of gas or definite lytic areas. IMPRESSION: 1. Healing fracture, proximal phalanx, fifth digit. 2. Possible acute fracture, proximal phalanx, second digit, left foot. POS: [facility]
[2017-12-22 23:44] LABS: Bilirubin Negative (Negative); Blood, Urine Small (Negative); Clarity CLOUDY (Clear); Glucose, Urine (Dipstick) Negative (Negative); Leukocyte Small (Negative); Nitrite Negative (Negative); Protein, Urine (Dipstick) 100 mg/dL (Neg-Trace); Specific Gravity, Urine 1.017 (1.002-1.036); Urobilinogen 0.2 mg/dL (0.2-1.0)
[2017-12-22 23:47] LABS: Bacteria/HPF None Seen HPF (None Seen); Hyaline Casts/LPF 4-6 HYALINE CAST LPF (0-3 Hyaline); Pathc Cast-AUWi Flag 0.87 (0-2.49); WBC/HPF 21-50 HPF (0-3)
[2017-12-23] MEDS ORDERED: Vancomycin HCl 1.5 GM in Sodium Chloride 0.9% 250 ML 300 ML IVPB SCH (00:15)
[2017-12-23] MEDS ORDERED: Clindamycin/D5W 900 mg/50 ml Premix Bag ONE (00:19)
[2017-12-23] MEDS ORDERED: VANCOMYCIN/ RENALLY ADJUST ANTIBIOTICS IVPB PRN (01:34)
[2017-12-23] MEDS ORDERED: Insulin Regular 300 UNITS/3 ML VIAL SC PRN (01:35)
[2017-12-23] MEDS ORDERED: Ondansetron ODT 4 MG TAB PO PRN (01:35)
[2017-12-23] MEDS ORDERED: Calcium Carbonate 500 MG ChewTAB PO PRN (01:35)
[2017-12-23] MEDS ORDERED: Ondansetron PF 4 MG/2 ML Vial IVP PRN (01:35)
[2017-12-23] MEDS ORDERED: Dextrose 5% in Water 1,000 ML IV PRN (01:35)
[2017-12-23] MEDS ORDERED: Dextrose 50% Abboject 50 ML SYRINGE SLOW IVP PRN (01:35)
[2017-12-23] MEDS: Sodium Chloride 0.9% 1,000 ML IV SCH ×2 (02:25→19:20)
[2017-12-23 03:01] VITALS: BMI 51.2
--- NOTE | 2017-12-23 04:35 | HP ---
DATE OF ADMISSION: 12/23/2017 PRIMARY CARE PHYSICIAN: Dr. Moran. CHIEF COMPLAINT: Increasing drainage from the left big toe wound. HISTORY OF PRESENT ILLNESS: Patient is a 57-year-old female with diabetes mellitus type 2 and left g reat toe ulcer followed by Dr. Braga and Dr. Gatica presented to the emergency room with increasing drainage from the left great toe wound. This morning while she was changing her dressing, she notice d pus and small amount of blood draining from the wound. She also felt feverish; however, did not re cord her temperature. There was increasing redness around the wound. There was mild pain 2/10 over the ulcer. She denies any trauma. In the emergency room, her initial vital signs showed temperature 101.3, respirations 22, pulse rate of 118 with a blood pressure 201/100 with O2 saturation 97% on room air. A foot x-ray was negative f or osteomyelitis. She received vancomycin, clindamycin, and Zosyn along with IV fluids in the emerge ncy room. PAST MEDICAL HISTORY: 1. Diabetes mellitus type 2. 2. Chronic low back pain secondary to lumbar radiculopathy followed by Dr. Guardado. 3. Renal calculi. 4. Hypertension. 5. Morbid obesity with a BMI of 51.3. 6. Hyperlipidemia. 7. Rosacea. 8. History of atrial flutter. 9. Osteoporosis. 10. Sarcoidosis. 11. Chronic kidney disease, stage 3. PAST SURGICAL HISTORY: 1. Removal of renal calculi. 2. Hysterectomy. 3. Bunionectomy. 4. Right shoulder surgery. 5. Left hand surgery for avascular necrosis of the left lunate. ALLERGIES: The patient is allergic to SITAGLIPTIN. SOCIAL HISTORY: Patient currently lives at home with her family. No alcohol, tobacco, or drug use. FAMILY HISTORY: Positive for diabetes mellitus type 2. No heart disease. REVIEW OF SYSTEMS: The following complete review of systems was negative, unless otherwise mentioned in the HPI or below: Constitutional: Weight loss or gain, ability to conduct usual activities. Sk in: Rash, itching. Eyes: Double vision, pain. ENT/Mouth: Nose bleeding, neck stiffness, pain, te nderness. Cardiovascular: Palpitations, dyspnea on exertion, orthopnea. Respiratory: Shortness of breath, wheezing, cough, hemoptysis, fever or night sweats. Gastrointestinal: Poor appetite, abdom inal pain, heartburn, nausea, vomiting, constipation, or diarrhea. Genitourinary: Urgency, frequenc y, dysuria, nocturia. Musculoskeletal: Pain, swelling. Neurologic/Psychiatric: Anxiety, depressio n. Allergy/Immunologic: Skin rash, bleeding tendency. CURRENT HOME MEDICATIONS: Aspirin 81 mg daily, amlodipine 5 mg daily, Zyrtec 10 mg daily, vitamin D3 5000 units daily, Lasix 40 mg daily, gabapentin 300 mg 3 times a day, glimepiride 8 mg daily, insuli n Tresiba 120 units daily, magnesium 400 mg daily, vitamin B12 1000 mcg daily, melatonin 5 mg at bedt chantelle, potassium chloride 10 mEq daily, prednisone 5 mg daily, Requip 0.5 mg at bedtime, Zoloft 25 mg d aily, vitamin B complex daily. PHYSICAL EXAMINATION: VITAL SIGNS: As discussed above. GENERAL: A 57-year-old female in mild distress due to above. HEENT: Head: Atraumatic, normocephalic. Sclerae are anicteric. Moist mucous membrane. No oral le juarez. NECK: Supple. No JVD, no carotid bruit. LUNGS: Clear to auscultation bilaterally. HEART: S1, S2 present. Regular rate and rhythm. No murmur, rubs, or gallops appreciated. ABDOMEN: Soft, nontender, bowel sounds present. EXTREMITIES: No edema or calf tenderness. There is an opened diabetic wound over the medial aspect of the left great toe along with surrounding erythema and swelling. There was some pus draining from the wound. There was some maceration of the skin. The wound was approximately 3 x 3 cm stage 2. NEUROLOGIC: Grossly nonfocal, moves all four extremities. PSYCHIATRY: Alert, awake, oriented x3. SKIN: As discussed above. LYMPH NODES: No palpable lymph nodes in the neck. PERIPHERAL VASCULAR: Radial pulses palpable bilaterally. LABORATORY AND X-RAY FINDINGS: CBC showed WBC 13.9, hemoglobin 10.8, hematocrit 33.1, platelet 231,0 00. Chemistry showed sodium 134, potassium 4.2, chloride 94, bicarbonate 29, BUN 21, creatinine 1.71 . Total bilirubin 1.5 with alkaline phosphatase 276. Lactic acid 1.7. Urinalysis showed 21-50 wbc' s without any bacteria. It showed squamous epithelial cells as well as 7-10 rbc's. X-ray of the peng t by my review as discussed above. Chest x-ray by my review was negative for infiltrate or edema. E KG by my review showed sinus tachycardia with left axis deviation. IMPRESSION AND PLAN: 1. Sepsis secondary to diabetic foot infection (left great toe ulcer). 2. Diabetes mellitus type 2. 3. Morbid obesity with a body mass index 51.3. 4. Chronic kidney disease, stage 3. 5. Chronic anemia, probably secondary to renal insufficiency. 6. Restless leg syndrome. 7. Chronic low back pain. 8. Hypertension with hypertensive urgency on ER arrival. 9. Sarcoidosis. 10. Rosacea. 11. Hyperlipidemia. 12. Obstructive sleep apnea. 13. Sinus tachycardia secondary to #1. 14. Mild hyponatremia. 15. Abnormal liver function tests, probably secondary to sepsis. 16. Chronically elevated alkaline phosphatase. 17. Chronic steroid use. 18. Suspected urinary tract infection. 19. Depression. PLAN: The patient will be monitored on the medical floor. We will continue vancomycin. Add Zosyn. Consult General Surgery, Dr. Swift as well as Infectious Disease, Dr. Murcia. Deep venous thrombosi s prophylaxis. Insulin sliding scale. We will continue most of her home medication. Gentle intrave nous hydration. Plan of care was discussed with the patient in detail. She stated understanding.
[2017-12-23] MEDS ORDERED: Sodium Chloride 0.65% Nasal 44 ML BOT EA NARE PRN (07:40)
[2017-12-23] MEDS ORDERED: Diabetic Tussin 200 MG/10 ML UDCUP PO PRN (07:40)
[2017-12-23] MEDS ORDERED: Eucerin (Mineral Oil/Petrolatum,White) 30 gm Jar TOP PRN (07:40)
[2017-12-23] MEDS ORDERED: Cepastat Lozenges 1 LOZ PO PRN (07:40)
[2017-12-23] MEDS ORDERED: Artificial Tears 18 DROP/0.9 ML EA EYE PRN (07:40)
[2017-12-23] MEDS ORDERED: hydrALAZINE 20 MG/ML VIAL SLOW IVP PRN (07:40)
[2017-12-23] MEDS ORDERED: Bisacodyl 5 MG TAB PO PRN (07:40)
[2017-12-23] MEDS ORDERED: Acetaminophen 500 MG TAB PO PRN (07:40)
[2017-12-23] MEDS ORDERED: Zolpidem Tartrate 5 MG TAB PO PRN (07:40)
[2017-12-23] MEDS ORDERED: Senokot S 8.6-50 MG TAB PO PRN (07:40)
[2017-12-23] MEDS: Heparin 5,000 UNITS/ML VIAL SC SCH ×3 (08:00→21:46)
[2017-12-23] MEDS: Gabapentin 300 MG CAP PO SCH ×3 (08:26→21:46)
[2017-12-23] MEDS: Saccharomyces boulardii 250 MG CAP PO SCH (08:26)
[2017-12-23] MEDS: Famotidine 20 MG TAB PO SCH (08:26)
[2017-12-23] MEDS: Amlodipine 5 MG TAB PO SCH (08:27)
[2017-12-23] MEDS: Loratadine 10 MG TAB PO SCH (08:27)
[2017-12-23] MEDS: predniSONE 5 MG TAB PO SCH (08:28)
[2017-12-23] MEDS: Piperacillin/Tazobactam 3.375 GM in Sodium Chloride 0.9% 100 ML IVPB SCH ×2 (08:28→17:53)
[2017-12-23] MEDS: Glimepiride 4 MG TAB PO SCH (08:28)
[2017-12-23] MEDS: Insulin Glargine 25 UNITS in Pre-Filled Syringe 1 EACH SC SCH ×2 (08:28→21:46)
[2017-12-23] MEDS ORDERED: CETIRIZINE HCL PO SCH (09:00)
[2017-12-23] MEDS ORDERED: Famotidine 20 MG TAB PO SCH (09:00)
[2017-12-23] MEDS ORDERED: Prevnar 13-Val Conj/PF 0.5 ML SYRINGE IM ONE (09:00)
[2017-12-23] MEDS ORDERED: Non-Formulary Item 1 EACH (Cholecalciferol (Vitamin D3) [Vitamin D3] 5,000 UNIT) PO SCH (09:00)
--- NOTE | 2017-12-23 09:48 | PDOC.PN ---
- Subjective Encounter Start Date: 12/23/17 Encounter Start Time: 08:20 -: old records requested/rev Patient seen and examined. No new complaints. No overnight events - Objective Resuscitation Status: Resuscitation Status FULL:Full Resuscitation MAR Reviewed: Yes Vital Signs & Weight: Vital Signs (12 hours) Temp Pulse Resp BP Pulse Ox 12/23/17 07:00 98.3 F 101 H 22 H 159/52 H 96 12/23/17 03:45 98.6 F 101 H 18 159/81 H 94 L 12/23/17 03:05 94 L 12/23/17 02:44 94 L Weight Weight 262 lb 8 oz Result Diagrams: 12/22/17 22:45 12/22/17 22:45 Additional Labs: Accuchecks 12/23/17 03:50 POC Glucose 142 H Radiology Reviewed by me: Yes (xray foot) Phys Exam - Physical Examination Constitutional: NAD HEENT: PERRLA, moist MMs, sclera anicteric Neck: no JVD, supple Respiratory: no wheezing, no rales, no rhonchi Cardiovascular: RRR, no significant murmur, no rub Gastrointestinal: soft, non-tender, no distention, positive bowel sounds morbid obesity Musculoskeletal: no edema, pulses present left great toe diabetic ulcer and erythema Neurological: non-focal, normal sensation, moves all 4 limbs Psychiatric: normal affect, A&O x 3 Skin: no rash, normal turgor Dx/Plan (1) Abnormal LFTs Code(s): R94.5 - ABNORMAL RESULTS OF LIVER FUNCTION STUDIES Status: Acute (2) Diabetic infection of left foot Code(s): E11.628 - TYPE 2 DIABETES MELLITUS WITH OTHER SKIN COMPLICATIONS; L08.9 - LOCAL INFECTION OF THE SKIN AND SUBCUTANEOUS TISSUE, UNSP Status: Acute (3) Diabetic ulcer of left great toe Code(s): E11.621 - TYPE 2 DIABETES MELLITUS WITH FOOT ULCER; L97.529 - NON- PRESSURE CHRONIC ULCER OTH PRT LEFT FOOT W UNSP SEVERITY Status: Acute (4) Hyponatremia Code(s): E87.1 - HYPO-OSMOLALITY AND HYPONATREMIA Status: Acute (5) Sepsis Code(s): A41.9 - SEPSIS, UNSPECIFIED ORGANISM Status: Acute (6) UTI (urinary tract infection) Status: Acute (7) Anemia, normocytic normochromic Code(s): D64.9 - ANEMIA, UNSPECIFIED Status: Chronic (8) Anxiety and depression Code(s): F41.9 - ANXIETY DISORDER, UNSPECIFIED; F32.9 - MAJOR DEPRESSIVE DISORDER, SINGLE EPISODE, UNSPECIFIED Status: Chronic (9) CKD (chronic kidney disease) stage 3, GFR 30-59 ml/min Code(s): N18.3 - CHRONIC KIDNEY DISEASE, STAGE 3 (MODERATE) Status: Chronic (10) Chronic low back pain Code(s): M54.5 - LOW BACK PAIN; G89.29 - OTHER CHRONIC PAIN Status: Chronic (11) Chronic steroid use Code(s): SCI1809 - Status: Chronic (12) Dyslipidemia Code(s): E78.5 - HYPERLIPIDEMIA, UNSPECIFIED Status: Chronic (13) Morbid obesity with BMI of 50.0-59.9, adult Code(s): E66.01 - MORBID (SEVERE) OBESITY DUE TO EXCESS CALORIES; Z68.43 - BODY MASS INDEX (BMI) 50-59.9, ADULT Status: Chronic (14) MEHRDAD (obstructive sleep apnea) Code(s): G47.33 - OBSTRUCTIVE SLEEP APNEA (ADULT) (PEDIATRIC) Status: Chronic (15) Restless leg syndrome Status: Chronic (16) Rosacea Code(s): L71.9 - ROSACEA, UNSPECIFIED Status: Chronic (17) Sarcoidosis of lung Code(s): D86.0 - SARCOIDOSIS OF LUNG Status: Chronic Comment: - Plan cont current plan of care, continue antibiotics * medication reviewed as below * symptomatic treatment * home medication reconciled * continue renally adjusted dose of zosyn and vancomycin * wound care * home medication reconciled * continue IVF * ID and surgeon consulted. Review of Systems - Review of Systems Constitutional: negative: fever, chills, sweats, weakness, malaise, other ENT: negative: Ear Pain, Ear Discharge, Nose Pain, Nose Discharge, Nose Congestion, Mouth Pain, Mouth Swelling, Throat Pain, Throat Swelling, Other Respiratory: negative: Cough, Dry, Shortness of Breath, Hemoptysis, SOB with Excertion, Pleuritic Pain, Sputum, Wheezing Cardiovascular: negative: chest pain, palpitations, orthopnea, paroxysmal nocturnal dyspnea, edema, light headedness, other Gastrointestinal: negative: Nausea, Vomiting, Abdominal Pain, Diarrhea, Constipation, Melena, Hematochezia, Other Genitourinary: negative: Dysuria, Frequency, Incontinence, Hematuria, Retention , Other Musculoskeletal: Foot Pain. negative: Neck Pain, Shoulder Pain, Arm Pain, Back Pain, Hand Pain, Leg Pain, Other Skin: negative: Rash, Lesions, Enoc, Bruising, Other - Medications/Allergies Allergies/Adverse Reactions: Allergies Allergy/AdvReac Type Severity Reaction Status Date / Time sitagliptin [From ] Allergy Intermediate Hives Verified 12/23/17 02:37 Medications: Current Medications Acetaminophen (Tylenol) 650 mg PO Q4H PRN PRN Reason: Headache/Fever/Mild Pain (1-3) Hydrocodone Bitart/Acetaminophen ([place] 5/325) 1 tab PO Q4H PRN PRN Reason: Moderate Pain (4-6) Amlodipine Besylate (Norvasc) 5 mg PO DAILY [facility] Last Admin: 12/23/17 08:27 Dose: 5 mg Artificial Tears (Tears Naturale) 2 drop EA EYE PRN PRN PRN Reason: Dry Eyes Aspirin (Aspirin Chewable) 81 mg PO DAILY [facility] Last Admin: 12/23/17 08:27 Dose: 81 mg Bisacodyl (Dulcolax) 10 mg PO DAILYPRN PRN PRN Reason: Constipation Calcium Carbonate (Tums) 1,000 mg PO Q4H PRN PRN Reason: Heartburn or Indigestion Cholecalciferol (Vitamin D3) 5,000 units PO DAILY [facility] Last Admin: 12/23/17 08:26 Dose: 5,000 units Dextrose/Water (Dextrose 50%) 25 gm SLOW IVP PRN PRN PRN Reason: Hypoglycemia Famotidine (Pepcid) 20 mg PO QAM [facility] Last Admin: 12/23/17 08:26 Dose: 20 mg Furosemide (Lasix) 40 mg PO DAILY [facility] Gabapentin (Neurontin) 300 mg PO TID [facility] Last Admin: 12/23/17 08:26 Dose: 300 mg Glimepiride (Amaryl) 8 mg PO QAM [facility] Last Admin: 12/23/17 08:28 Dose: Not Given Glucagon (Glucagon) 1 mg IM PRN PRN PRN Reason: Hypoglycemia Guaifenesin (Robitussin Sf) 200 mg PO Q4H PRN PRN Reason: Cough Heparin Sodium (Porcine) (Heparin) 5,000 units SC TID [facility] Hydralazine HCl (Apresoline) 10 mg SLOW IVP Q4H PRN PRN Reason: SBP Greater Than 170 Sodium Chloride (Normal Saline 0.9%) 1,000 mls @ 75 mls/hr IV .[id number] [facility] Last Admin: 12/23/17 02:25 Dose: 1,000 mls Vancomycin HCl 1 gm/ Device 200 mls @ 200 mls/hr IVPB 0100,1300 [facility] Piperacillin Sod/Tazobactam (Sod 3.375 gm/ Sodium Chloride) 100 mls @ 200 mls/ hr IVPB 0800,1600,2359 [facility] Last Admin: 12/23/17 08:28 Dose: 100 mls Dextrose/Water (D5w) 1,000 mls @ 0 mls/hr IV .Q0M PRN PRN Reason: Hypoglycemia Insulin Glargine 25 units/ (Miscellaneous Medication) 0.25 mls @ 0 mls/hr SC [facility] Insulin Glargine 25 units/ (Miscellaneous Medication) 0.25 mls @ 0 mls/hr [facility] [place] [facility] Last Admin: 12/23/17 08:28 Dose: Not Given Insulin Human Regular (Humulin R) 0 units SC .MODERATE SLIDING SC PRN PRN Reason: Moderate [place] Scale Insulin Human Regular (Humulin R) 0 units SC .BEDTIME SLIDING SC PRN PRN Reason: Bedtime Correctional Scale Loperamide HCl (Imodium) 2 mg PO PRN PRN PRN Reason: Diarrhea/Loose Stools Loratadine (Claritin) 10 mg PO QAM [facility] Last Admin: 12/23/17 08:27 Dose: 10 mg Melatonin (Melatonin) 6 mg PO [facility] Mineral Oil/White Petrolatum (Eucerin Cream) 0 gm TOP BIDPRN PRN PRN Reason: Dry Skin Miscellaneous Medication (Pharmacy To Dose) 1 each IVPB PRN PRN PRN Reason: Pharmacy to dose Ondansetron HCl (Zofran Odt) 4 mg PO Q6H PRN PRN Reason: Nausea/Vomiting Ondansetron HCl (Zofran) 4 mg IVP Q6H PRN PRN Reason: Nausea/Vomiting Potassium Chloride (Klor-Con 10) 10 meq PO DAILY [facility] Prednisone (Prednisone) 5 mg PO DAILY [facility] Last Admin: 12/23/17 08:28 Dose: 5 mg Ropinirole HCl (Requip) 0.5 mg PO HS [facility] Saccharomyces Boulardii (Florastor) 250 mg PO DAILY [facility] Last Admin: 12/23/17 08:26 Dose: 250 mg Senna/Docusate Sodium (Senokot S) 2 tab PO BID PRN PRN Reason: Constipation Sertraline HCl (Zoloft) 25 mg PO QAM [facility] Last Admin: 12/23/17 08:27 Dose: 25 mg Sodium Chloride (Flush - Normal Saline) 10 ml IVF Q12HR [facility] Sodium Chloride (Flush - Normal Saline) 10 ml IVF PRN PRN PRN Reason: Saline Flush Sodium Chloride ([place] Nasal [place] 0.65%) 0 ml EA NARE QIDPRN PRN PRN Reason: Nasal Congestion Throat Lozenges (Cepastat Lozenges) 1 brock PO Q2H PRN PRN Reason: Sore Throat Zolpidem Tartrate (Ambien) 5 mg PO HSPRN PRN PRN Reason: Insomnia
[2017-12-23] MEDS: Vancomycin HCl 1 GM in Premix Bag 1 BAG IVPB SCH (14:51)
--- NOTE | 2017-12-23 17:12 | CON ---
DATE OF CONSULTATION: 12/23/2017 This is a hospital consult. SUBJECTIVE FINDINGS: The patient was seen resting in bed comfortably. The patient was admitted to the hospital last night for redness of her left hallux in house for quite some time for a wound on the left hallux. The patient was sent to Wound Care and I have not seen her for a few weeks. The patient states she is not having pain but on admission, she did have pain. OBJECTIVE FINDINGS: Examination shows the patient to have a cellulitis around the first metatarsophalangeal joint area to the hallux. At the hallux, there is a larger wound than when seen in the office. The patient has some blistering at the distal great toe. After bedside debridement, the wound had good bleeding tissues and fibrotic tissue was debrided successfully. No depth seen. No tracking to the bone or the joint noted at this time. The wound measured 5 x 2.7 cm. ASSESSMENT AND PLAN: 1. Continue IV antibiotics. Dr. Murcia has been consulted. I have consulted Wound Care to use a silver alginate type dressing. MRI ordered to rule out osteomyelitis. 2. At this time, patient needs IV antibiotics and wound care. Pending MRI results, surgical intervention will be needed. Wet to dry dressing was applied after debridement. MICH
--- NOTE | 2017-12-23 17:20 | MRI ---
LEFT FOREFOOT MRI WITHOUT IV CONTRAST: Date: 12/23/17 HISTORY: 57-year-old female with history of open wound on bottom of great toe for several weeks without trauma , concern for osteomyelitis left great toe. TECHNIQUE: Multiplanar, multisequence MRI examination is performed. FINDINGS: There is extensive diffuse edematous changes and swelling dorsally, medially, and laterally around th e forefoot and extending into the midfoot region. There is fairly intense abnormal T2 and STIR hyperi ntensity involving the distal phalanx of the great toe with normal appearing T1 signal, evidence for nonspecific osteitis, but no janes evidence for acute osteomyelitis. There is some abnormal focal sof t tissue swelling of the great toe, particularly medially and posteriorly, but no evidence for identi fiable drainable abscess. Marked arthrosis changes noted of the first metatarsophalangeal joint, incl uding the associated sesamoid bones. Visualized flexor and extensor and peroneus tendons appear intac t. Minimal nonspecific T2 hyperintensity involving the intrinsic muscles of the foot. IMPRESSION: Evidence for nonspecific osteitis involving the distal phalanx of the great toe without janes osteomy elitis at this time. Focal soft tissue swelling of the great toe without evidence for drainable absce ss. Extensive diffuse edematous and/or cellulitis changes involving the foot, particularly anteriorly , but also medially and laterally. Arthrosis changes, particularly involving the first metatarsophala ngeal joint and associated sesamoid bones. Nonspecific increased T2 and STIR hyperintensity involving the intrinsic muscles of the foot. Evidence for prior osteotomy involving the distal first metatarsa l. POS: [facility]
--- NOTE | 2017-12-23 17:27 | CON ---
DATE OF CONSULTATION: 12/23/2017 REASON FOR CONSULTATION: Left first toe inflammatory process. HISTORY OF PRESENT ILLNESS: A 57-year-old patient with a history of type 2 diabetes, obesity, hypert ension, sarcoidosis, renal insufficiency stage 3, who developed ulceration with callus the bottom asp ect of the left first toe followed by Dr. Gatica, Dr. Braga. The patient noticed worsening inflamma tory changes with swelling and purulent drainage and low grade fever and she was admitted. Dr. Braga has done some bedside debridement. REVIEW OF SYSTEMS: Currently, Ms. Medina denies any headaches, no visual symptoms, sore throat, odyn ophagia or dysphagia, no cough or sputum production or chest pain, no abdominal pain or diarrhea. No genitourinary symptoms, no joint symptoms outside the involved area. PAST MEDICAL HISTORY: Obesity, type 2 diabetes, lower back pain, renal calculi, hypertension, rosace a, atrial flutter, osteoporosis, sarcoidosis, renal insufficiency stage 3. PAST SURGICAL HISTORY: Lithotripsy; hysterectomy; bunionectomy; right shoulder arthroscopy; avascula r necrosis, left hand. ALLERGIES: No antibiotic allergies reported. SOCIAL HISTORY: Noncontributory. FAMILY HISTORY: Noncontributory. CURRENT MEDICATIONS: Tylenol, [place], Norvasc, aspirin, Dulcolax, Tums, Pepcid, Lasix, Neurontin, glu cagon, Robitussin, hydralazine, insulin, Claritin, melatonin, Zosyn, prednisone, Requip, Florastor, S enokot, Zoloft, vancomycin, zolpidem. PHYSICAL EXAMINATION: VITAL SIGNS: Temperature max 99.5, blood pressure 140/70, pulse 110, respirations 21, O2 sat 93%-96% . SKIN: Shows the area of ulceration oval shaped measuring about 1.5 cm bottom aspect of the left firs t toe close to the MPJ skin site erythema noted around this area and more distal towards the tip of t he toe there is area of blistering with appearance of a yellow exudate under the skin. Half of the u lcer has about a darkish brownish exudate/SR, the other half with bright red granulation tissue. No other skin lesions. The patient has a peripheral IV access. She is voiding in the urinal, no lympha denopathy. HEENT: Ocular movements conjugate. Oral cavity normal. NECK: Supple, no jugular vein distention. LUNGS: With symmetric clear breath sounds. HEART: S1, S2, regular rate. No S3 or S4. ABDOMEN: Soft, not distended or tender. No ascites. No bladder distention. EXTREMITIES: No joint inflammatory activity outside the involved area. Pulses are 2+ in popliteal a nd dorsalis pedis and posterior tibialis with great capillary refill. NEUROLOGIC: Nonfocal including cognitive function. LABORATORY: White cell count 13.9, hemoglobin 10.8, platelets 231. Sodium 134, creatinine 1.71 with a baseline of 1.45 recently, bilirubin 1.5, AST 54, ALT 39, alkaline phosphatase 276, globulin 4.5. Urinalysis with 21-50 WBCs and protein of 100, two sets of blood cultures thus far no growth. A toe culture from yesterday with many gram positive cocci in pairs and clusters, many gram positive rods. ASSESSMENT: Type 2 diabetes with chronic ulceration, left first toe now with decompensation of the a carmela with inflammatory changes and purulent drainage. We will proceed with MRI to rule out osteomyeli tis and then determine the need for further surgical intervention or not and the duration of antimicr obial therapy. The regimen to be determined by the results of the cultures and the evidence or the p resence of osteomyelitis. She has excellent blood supply to the area and should be able to attempt c onservative management since there is no obvious bone destruction in the plain films of the extremity .
[2017-12-23] MEDS: rOPINIRole HCl 0.5 MG TAB PO SCH (21:45)
[2017-12-23] MEDS: Melatonin 3 MG TAB PO SCH (21:45)
[2017-12-23] MEDS: HYDROcodone/Acetaminophen 5/325 mg Tablet PO PRN (21:48)
[2017-12-24] MEDS: Piperacillin/Tazobactam 3.375 GM in Sodium Chloride 0.9% 100 ML IVPB SCH ×4 (00:34→23:39)
[2017-12-24] MEDS: Vancomycin HCl 1 GM in Premix Bag 1 BAG IVPB SCH ×3 (02:15→14:08)
[2017-12-24 05:02] LABS: #Basophils 0.1 thou/uL (0.0-0.2); #Eosinphils 0.2 thou/uL (0.0-0.7); #Lymphocytes 1.4 thou/uL (1.20-3.40); #Monocytes 0.7 thou/uL (0.11-0.59); #Neutrophils 7.9 thou/uL (1.40-6.50); %Basophils 0.6 % (0.0-1.0); %Eosinophils 2.3 % (0.0-10.0); %Lymphocytes 13.7 % (21.0-51.0); %Neutrophils 76.4 % (42.0-75.0); Mean Corpuscular HGB CONC 31.1 g/dL (32.0-36.0); Mean Corpuscular Hemoglobin 26.4 pg (27.0-31.0); Mean Corpuscular Volume 84.9 fL (78.0-98.0); Mean Platelet Volume 8.9 fL (7.4-10.4); Platelet Count 228 thou/uL (130-400); Red Blood Cell (RBC) Count 3.42 mill/uL (4.20-5.40); White Blood Cell (WBC) Count 10.3 thou/uL (4.8-10.8)
[2017-12-24 05:25] LABS: ALT (SGPT) 49 U/L (8-55); AST (SGOT) 56 U/L (5-34); Alkaline Phosphatase 282 U/L (40-150); Anion Gap 7 mmol/L (10-20); BUN (Urea Nitrogen) 17 mg/dL (9.8-20.1); Bilirubin, Total 1.2 mg/dL (0.2-1.2); Calc. Creatinine Clearance 84 mL/min (70-130); Calcium 8.5 mg/dL (7.8-10.44); Carbon Dioxide 30 mmol/L (22-29); Chloride 102 mmol/L (98-107); Estimated GFR-MDRD 40; Globulin 3.3 g/dL (2.4-3.5); Glucose 133 mg/dL (70-105); Potassium 3.2 mmol/L (3.5-5.1); Protein, Total 6.3 g/dL (6.0-8.3); Sodium 136 mmol/L (136-145)
[2017-12-24] MEDS: Sodium Chloride 0.9% 1,000 ML IV SCH (06:00)
[2017-12-24] MEDS: Heparin 5,000 UNITS/ML VIAL SC SCH ×3 (07:37→21:00)
[2017-12-24] MEDS: Gabapentin 300 MG CAP PO SCH ×3 (08:57→21:04)
[2017-12-24] MEDS: Saccharomyces boulardii 250 MG CAP PO SCH (08:57)
[2017-12-24] MEDS: Furosemide 40 MG TAB PO SCH (08:57)
[2017-12-24] MEDS: Potassium Chloride 10 MEQ TAB PO SCH (08:58)
[2017-12-24] MEDS: Famotidine 20 MG TAB PO SCH (08:58)
[2017-12-24] MEDS: predniSONE 5 MG TAB PO SCH (08:58)
[2017-12-24] MEDS: Loratadine 10 MG TAB PO SCH (08:58)
[2017-12-24] MEDS: Glimepiride 4 MG TAB PO SCH (08:58)
[2017-12-24] MEDS: Insulin Glargine 25 UNITS in Pre-Filled Syringe 1 EACH SC SCH ×2 (08:59→21:04)
[2017-12-24] MEDS: Amlodipine 5 MG TAB PO SCH (09:02)
--- NOTE | 2017-12-24 09:59 | PDOC.PN ---
- Subjective Encounter Start Date: 12/24/17 Encounter Start Time: 08:50 Patient seen and examined. No new complaints. No overnight events - Objective Resuscitation Status: Resuscitation Status FULL:Full Resuscitation MAR Reviewed: Yes Vital Signs & Weight: Vital Signs (12 hours) Temp Pulse Resp BP BP Pulse Ox 12/24/17 09:02 98 12/24/17 06:58 98.5 F 98 19 135/78 90 L 12/24/17 04:00 98.7 F 95 20 152/79 H 92 L 12/24/17 00:00 98.0 F 108 H 20 144/74 H 93 L Weight Admit Weight 262 lb 8 oz Weight 262 lb 8 oz I&O: 12/23/17 12/24/17 12/25/17 06:59 06:59 06:59 Intake Total 1150 Balance 1150 Result Diagrams: 12/24/17 03:58 12/24/17 03:58 Additional Labs: Accuchecks 12/24/17 12/23/17 12/23/17 00:12 19:46 11:24 POC Glucose 164 H 282 H 127 H Radiology Reviewed by me: Yes (MRI foot negative for osteomyelitis) Phys Exam - Physical Examination Constitutional: NAD HEENT: PERRLA, moist MMs, sclera anicteric Neck: no JVD, supple Respiratory: no wheezing, no rales, no rhonchi Cardiovascular: RRR, no significant murmur, no rub Gastrointestinal: soft, non-tender, no distention, positive bowel sounds morbid obesity+ Musculoskeletal: no edema, pulses present left foot cellultiis, toe with dressing Neurological: non-focal, normal sensation, moves all 4 limbs Psychiatric: normal affect, A&O x 3 Skin: no rash, normal turgor Dx/Plan (1) Sepsis Code(s): A41.9 - SEPSIS, UNSPECIFIED ORGANISM Status: Acute (2) Diabetic ulcer of left great toe Code(s): E11.621 - TYPE 2 DIABETES MELLITUS WITH FOOT ULCER; L97.529 - NON- PRESSURE CHRONIC ULCER OTH PRT LEFT FOOT W UNSP SEVERITY Status: Acute (3) Diabetic infection of left foot Code(s): E11.628 - TYPE 2 DIABETES MELLITUS WITH OTHER SKIN COMPLICATIONS; L08.9 - LOCAL INFECTION OF THE SKIN AND SUBCUTANEOUS TISSUE, UNSP Status: Acute (4) Abnormal LFTs Code(s): R94.5 - ABNORMAL RESULTS OF LIVER FUNCTION STUDIES Status: Acute (5) Hyponatremia Code(s): E87.1 - HYPO-OSMOLALITY AND HYPONATREMIA Status: Acute (6) UTI (urinary tract infection) Status: Acute (7) Anemia, normocytic normochromic Code(s): D64.9 - ANEMIA, UNSPECIFIED Status: Chronic (8) Anxiety and depression Code(s): F41.9 - ANXIETY DISORDER, UNSPECIFIED; F32.9 - MAJOR DEPRESSIVE DISORDER, SINGLE EPISODE, UNSPECIFIED Status: Chronic (9) CKD (chronic kidney disease) stage 3, GFR 30-59 ml/min Code(s): N18.3 - CHRONIC KIDNEY DISEASE, STAGE 3 (MODERATE) Status: Chronic (10) Chronic low back pain Code(s): M54.5 - LOW BACK PAIN; G89.29 - OTHER CHRONIC PAIN Status: Chronic (11) Chronic steroid use Code(s): [id number] - Status: Chronic (12) Dyslipidemia Code(s): E78.5 - HYPERLIPIDEMIA, UNSPECIFIED Status: Chronic (13) Morbid obesity with BMI of 50.0-59.9, adult Code(s): E66.01 - MORBID (SEVERE) OBESITY DUE TO EXCESS CALORIES; Z68.43 - BODY MASS INDEX (BMI) 50-59.9, ADULT Status: Chronic (14) MEHRDAD (obstructive sleep apnea) Code(s): G47.33 - OBSTRUCTIVE SLEEP APNEA (ADULT) (PEDIATRIC) Status: Chronic (15) Restless leg syndrome Status: Chronic (16) Rosacea Code(s): L71.9 - ROSACEA, UNSPECIFIED Status: Chronic (17) Sarcoidosis of lung Code(s): D86.0 - SARCOIDOSIS OF LUNG Status: Chronic Comment: - Plan cont current plan of care, continue antibiotics * DC IVF * continue vancomycin and zosyn * follow culture result * final antibiotics on discharge as per ID team * wound care * pain controlled * medication reviewed as below * symptomatic treatment. Review of Systems - Review of Systems Eyes: negative: Pain, Vision Change, Conjunctivae Inflammation, Eyelid Inflammation, Redness, Other ENT: negative: Ear Pain, Ear Discharge, Nose Pain, Nose Discharge, Nose Congestion, Mouth Pain, Mouth Swelling, Throat Pain, Throat Swelling, Other Respiratory: negative: Cough, Dry, Shortness of Breath, Hemoptysis, SOB with Excertion, Pleuritic Pain, Sputum, Wheezing Cardiovascular: negative: chest pain, palpitations, orthopnea, paroxysmal nocturnal dyspnea, edema, light headedness, other Gastrointestinal: negative: Nausea, Vomiting, Abdominal Pain, Diarrhea, Constipation, Melena, Hematochezia, Other Genitourinary: negative: Dysuria, Frequency, Incontinence, Hematuria, Retention , Other Musculoskeletal: Foot Pain. negative: Neck Pain, Shoulder Pain, Arm Pain, Back Pain, Hand Pain, Leg Pain, Other - Medications/Allergies Allergies/Adverse Reactions: Allergies Allergy/AdvReac Type Severity Reaction Status Date / Time sitagliptin [From ] Allergy Intermediate Hives Verified 12/23/17 02:37 Medications: Current Medications Acetaminophen (Tylenol) 650 mg PO Q4H PRN PRN Reason: Headache/Fever/Mild Pain (1-3) Hydrocodone Bitart/Acetaminophen ([place] 5/325) 1 tab PO Q4H PRN PRN Reason: Moderate Pain (4-6) Last Admin: 12/23/17 21:48 Dose: 1 tab Amlodipine Besylate (Norvasc) 5 mg PO DAILY [facility] Last Admin: 12/24/17 09:02 Dose: 5 mg Artificial Tears (Tears Naturale) 2 drop EA EYE PRN PRN PRN Reason: Dry Eyes Aspirin (Aspirin Chewable) 81 mg PO DAILY [facility] Last Admin: 12/24/17 08:57 Dose: 81 mg Bisacodyl (Dulcolax) 10 mg PO DAILYPRN PRN PRN Reason: Constipation Calcium Carbonate (Tums) 1,000 mg PO Q4H PRN PRN Reason: Heartburn or Indigestion Cholecalciferol (Vitamin D3) 5,000 units PO DAILY [facility] Last Admin: 12/24/17 08:58 Dose: 5,000 units Dextrose/Water (Dextrose 50%) 25 gm SLOW IVP PRN PRN PRN Reason: Hypoglycemia Famotidine (Pepcid) 20 mg PO QAM [facility] Last Admin: 12/24/17 08:58 Dose: 20 mg Furosemide (Lasix) 40 mg PO DAILY [facility] Last Admin: 12/24/17 08:57 Dose: 40 mg Gabapentin (Neurontin) 300 mg PO TID [facility] Last Admin: 12/24/17 08:57 Dose: 300 mg Glimepiride ([facility]maryl) [facility] [place] Last Admin: 12/24/17 08:58 Dose: 8 mg Glucagon (Glucagon) 1 mg IM PRN PRN PRN Reason: Hypoglycemia Guaifenesin (Robitussin Sf) 200 mg PO Q4H PRN PRN Reason: Cough Heparin Sodium (Porcine) (Heparin) 5,000 units SC TID [facility] Last Admin: 12/24/17 07:37 Dose: 5,000 units Hydralazine HCl (Apresoline) 10 mg SLOW IVP Q4H PRN PRN Reason: SBP Greater Than 170 Sodium Chloride (Normal Saline 0.9%) 1,000 mls @ 75 mls/hr IV .[id number] [facility] Last Admin: 12/24/17 06:00 Dose: Not Given Vancomycin HCl 1 gm/ Device 200 mls @ 200 mls/hr IVPB 0100,1300 [facility] Last Admin: 12/24/17 02:15 Dose: 200 mls Piperacillin Sod/Tazobactam (Sod 3.375 gm/ Sodium Chloride) 100 mls @ 200 mls/ hr IVPB 0800,1600,2359 [facility] Last Admin: 12/24/17 07:33 Dose: 100 mls Dextrose/Water (D5w) 1,000 mls @ 0 mls/hr IV .Q0M PRN PRN Reason: Hypoglycemia Insulin Glargine 25 units/ (Miscellaneous Medication) 0.25 mls @ 0 mls/hr SC [facility] Last Admin: 12/23/17 21:46 Dose: 0.25 mls Insulin Glargine 25 units/ (Miscellaneous Medication) 0.25 mls @ 0 mls/hr SC [facility] Last Admin: 12/24/17 08:59 Dose: 0.25 mls Insulin Human Regular (Humulin R) 0 units SC .MODERATE SLIDING SC PRN PRN Reason: Moderate Correctional Scale Insulin Human Regular (Humulin R) 0 units SC .BEDTIME SLIDING SC PRN PRN Reason: Bedtime Correctional Scale Loperamide HCl (Imodium) 2 mg PO PRN PRN PRN Reason: Diarrhea/Loose Stools Loratadine (Claritin) 10 mg PO [facility] Last Admin: 12/24/17 08:58 Dose: 10 mg Melatonin (Melatonin) 6 mg PO [facility] Last Admin: 12/23/17 21:45 Dose: 6 mg Mineral Oil/White Petrolatum (Eucerin Cream) 0 gm TOP BIDPRN PRN PRN Reason: Dry Skin Miscellaneous Medication (Pharmacy To Dose) 1 each IVPB PRN PRN PRN Reason: Pharmacy to dose Ondansetron HCl (Zofran Odt) 4 mg PO Q6H PRN PRN Reason: Nausea/Vomiting Ondansetron HCl (Zofran) 4 mg IVP Q6H PRN PRN Reason: Nausea/Vomiting Last Admin: 12/24/17 07:33 Dose: 4 mg Potassium Chloride (Klor-Con 10) 10 meq PO DAILY [facility] Last Admin: 12/24/17 08:58 Dose: 10 meq Prednisone (Prednisone) 5 mg PO DAILY [facility] Last Admin: 12/24/17 08:58 Dose: 5 mg Ropinirole HCl (Requip) 0.5 mg PO HS [facility] Last Admin: 12/23/17 21:45 Dose: 0.5 mg Saccharomyces Boulardii (Florastor) 250 mg PO DAILY [facility] Last Admin: 12/24/17 08:57 Dose: 250 mg Senna/Docusate Sodium (Senokot S) 2 tab PO BID PRN PRN Reason: Constipation Sertraline HCl (Zoloft) 25 mg PO QAM [facility] Last Admin: 12/24/17 08:58 Dose: 25 mg Sodium Chloride (Flush - Normal Saline) 10 ml IVF Q12HR [facility] Last Admin: 12/24/17 09:01 Dose: Not Given Sodium Chloride (Flush - Normal Saline) 10 ml IVF PRN PRN PRN Reason: Saline Flush Sodium Chloride ([place] Nasal [place] 0.65%) 0 ml EA NARE QIDPRN PRN PRN Reason: Nasal Congestion Throat Lozenges (Cepastat Lozenges) 1 brock PO Q2H PRN PRN Reason: Sore Throat Zolpidem Tartrate (Ambien) 5 mg PO HSPRN PRN PRN Reason: Insomnia
[2017-12-24] MEDS: Insulin Regular 300 UNITS/3 ML VIAL SC PRN ×2 (11:38→16:18)
[2017-12-24 12:50] LABS: Vancomycin, Trough 21.7 ug/mL
--- NOTE | 2017-12-24 15:43 | PRG ---
DATE OF SERVICE: 12/24/2017 SUBJECTIVE: He is feeling about the same, not in a lot of pain. No respiratory symptoms, abdominal pain, or diarrhea. OBJECTIVE: VITAL SIGNS: T-max 98.7, blood pressure 150/70, pulse 98, respirations 19. LUNGS: Clear. HEART: S1, S2, regular rate. ABDOMEN: Soft, not distended. EXTREMITIES: Foot, with dressing over the first toe. LABORATORY DATA: White cell count 10.3, hemoglobin 9.0, platelets 228. Creatinine 1.35, GFR of 40, alkaline phosphatase 282, AST 56. CRP 14. Microbiology with Proteus mirabilis from the toe sample. MRI showed early osteitis but no osteomyelitis, no abscess. ASSESSMENT AND DISCUSSION: Type 2 diabetes, chronic ulceration, left first toe with inflammatory lindsey nges and purulent drainage. MRI showed early osteitis but no janes osteomyelitis. Continue antimicr obial therapy with the intent of cure. Awaiting for the final results of the antimicrobial susceptib ility on the final identification of the organisms involved for discharge planning.
[2017-12-24] MEDS: Vancomycin HCl 750 MG in Sodium Chloride 0.9% 250 ML 250 ML IVPB SCH (15:59)
[2017-12-24] MEDS: rOPINIRole HCl 0.5 MG TAB PO SCH (21:04)
[2017-12-24] MEDS: Melatonin 3 MG TAB PO SCH (21:04)
[2017-12-25] MEDS: Vancomycin HCl 750 MG in Sodium Chloride 0.9% 250 ML 250 ML IVPB SCH ×2 (02:09→13:01)
[2017-12-25] MEDS: Saccharomyces boulardii 250 MG CAP PO SCH (07:46)
[2017-12-25] MEDS: Glimepiride 4 MG TAB PO SCH (07:46)
[2017-12-25] MEDS: Loratadine 10 MG TAB PO SCH (07:46)
[2017-12-25] MEDS: Piperacillin/Tazobactam 3.375 GM in Sodium Chloride 0.9% 100 ML IVPB SCH ×3 (07:46→22:41)
[2017-12-25] MEDS: predniSONE 5 MG TAB PO SCH (07:47)
[2017-12-25] MEDS: Furosemide 40 MG TAB PO SCH (07:47)
[2017-12-25] MEDS: Potassium Chloride 10 MEQ TAB PO SCH (07:47)
[2017-12-25] MEDS: Famotidine 20 MG TAB PO SCH (07:47)
[2017-12-25] MEDS: Gabapentin 300 MG CAP PO SCH ×3 (07:47→21:09)
[2017-12-25] MEDS: Amlodipine 5 MG TAB PO SCH (07:48)
[2017-12-25] MEDS: Heparin 5,000 UNITS/ML VIAL SC SCH ×3 (07:48→21:09)
[2017-12-25] MEDS: Insulin Glargine 25 UNITS in Pre-Filled Syringe 1 EACH SC SCH ×2 (09:10→21:09)
--- NOTE | 2017-12-25 10:14 | PDOC.PN ---
- Subjective Encounter Start Date: 12/25/17 Encounter Start Time: 09:00 Patient seen and examined. No new complaints. No overnight events - Objective Resuscitation Status: Resuscitation Status FULL:Full Resuscitation MAR Reviewed: Yes Vital Signs & Weight: Vital Signs (12 hours) Temp Pulse Resp BP BP Pulse Ox 12/25/17 07:48 103 H 12/25/17 07:28 98.8 F 103 H 20 151/75 H 97 12/25/17 04:30 98.5 F 95 20 153/79 H 92 L 12/24/17 23:46 99.6 F Weight Admit Weight 262 lb 8 oz Weight 262 lb 8 oz I&O: 12/24/17 12/25/17 12/26/17 06:59 06:59 06:59 Intake Total 1150 2130 Balance 1150 2130 Result Diagrams: 12/24/17 03:58 12/24/17 03:58 Additional Labs: Accuchecks 12/25/17 12/24/17 12/24/17 05:39 21:00 16:08 POC Glucose 77 155 H 252 H 12/24/17 12/24/17 11:35 04:39 POC Glucose 237 H 147 H Phys Exam - Physical Examination Constitutional: NAD HEENT: PERRLA, moist MMs, sclera anicteric Neck: no JVD, supple Respiratory: no wheezing, no rales, no rhonchi Cardiovascular: RRR, no significant murmur, no rub Gastrointestinal: soft, non-tender, no distention, positive bowel sounds morbid obesity, cushingoid Musculoskeletal: no edema, pulses present left foot cellulitis improving, great toe with dressing Neurological: non-focal, normal sensation, moves all 4 limbs Psychiatric: normal affect, A&O x 3 Skin: no rash, normal turgor Dx/Plan (1) Sepsis Code(s): A41.9 - SEPSIS, UNSPECIFIED ORGANISM Status: Acute (2) Diabetic ulcer of left great toe Code(s): E11.621 - TYPE 2 DIABETES MELLITUS WITH FOOT ULCER; L97.529 - NON- PRESSURE CHRONIC ULCER OTH PRT LEFT FOOT W UNSP SEVERITY Status: Acute (3) Diabetic infection of left foot Code(s): E11.628 - TYPE 2 DIABETES MELLITUS WITH OTHER SKIN COMPLICATIONS; L08.9 - LOCAL INFECTION OF THE SKIN AND SUBCUTANEOUS TISSUE, UNSP Status: Acute (4) Abnormal LFTs Code(s): R94.5 - ABNORMAL RESULTS OF LIVER FUNCTION STUDIES Status: Acute (5) Hyponatremia Code(s): E87.1 - HYPO-OSMOLALITY AND HYPONATREMIA Status: Acute (6) UTI (urinary tract infection) Status: Acute (7) Anemia, normocytic normochromic Code(s): D64.9 - ANEMIA, UNSPECIFIED Status: Chronic (8) Anxiety and depression Code(s): F41.9 - ANXIETY DISORDER, UNSPECIFIED; F32.9 - MAJOR DEPRESSIVE DISORDER, SINGLE EPISODE, UNSPECIFIED Status: Chronic (9) CKD (chronic kidney disease) stage 3, GFR 30-59 ml/min Code(s): N18.3 - CHRONIC KIDNEY DISEASE, STAGE 3 (MODERATE) Status: Chronic (10) Chronic low back pain Code(s): M54.5 - LOW BACK PAIN; G89.29 - OTHER CHRONIC PAIN Status: Chronic (11) Chronic steroid use Code(s): [id number] - Status: Chronic (12) Dyslipidemia Code(s): E78.5 - HYPERLIPIDEMIA, UNSPECIFIED Status: Chronic (13) Morbid obesity with BMI of 50.0-59.9, adult Code(s): E66.01 - MORBID (SEVERE) OBESITY DUE TO EXCESS CALORIES; Z68.43 - BODY MASS INDEX (BMI) 50-59.9, ADULT Status: Chronic (14) MEHRDAD (obstructive sleep apnea) Code(s): G47.33 - OBSTRUCTIVE SLEEP APNEA (ADULT) (PEDIATRIC) Status: Chronic (15) Restless leg syndrome Status: Chronic (16) Rosacea Code(s): L71.9 - ROSACEA, UNSPECIFIED Status: Chronic (17) Sarcoidosis of lung Code(s): D86.0 - SARCOIDOSIS OF LUNG Status: Chronic Comment: - Plan cont current plan of care, continue antibiotics * medication reviewed as below * symptomatic treatment * continue zosyn * follow on culture * wound care * repeat labs tomorrow * expecting discharge soon. Review of Systems - Review of Systems ENT: negative: Ear Pain, Ear Discharge, Nose Pain, Nose Discharge, Nose Congestion, Mouth Pain, Mouth Swelling, Throat Pain, Throat Swelling, Other Respiratory: negative: Cough, Dry, Shortness of Breath, Hemoptysis, SOB with Excertion, Pleuritic Pain, Sputum, Wheezing Cardiovascular: negative: chest pain, palpitations, orthopnea, paroxysmal nocturnal dyspnea, edema, light headedness, other Gastrointestinal: negative: Nausea, Vomiting, Abdominal Pain, Diarrhea, Constipation, Melena, Hematochezia, Other Genitourinary: negative: Dysuria, Frequency, Incontinence, Hematuria, Retention , Other Musculoskeletal: negative: Neck Pain, Shoulder Pain, Arm Pain, Back Pain, Hand Pain, Leg Pain, Foot Pain, Other - Medications/Allergies Allergies/Adverse Reactions: Allergies Allergy/AdvReac Type Severity Reaction Status Date / Time sitagliptin [From ] Allergy Intermediate Hives Verified 12/23/17 02:37 Medications: Current Medications Acetaminophen (Tylenol) 650 mg PO Q4H PRN PRN Reason: Headache/Fever/Mild Pain (1-3) Hydrocodone Bitart/Acetaminophen ([place] 5/325) 1 tab PO Q4H PRN PRN Reason: Moderate Pain (4-6) Last Admin: 12/23/17 21:48 Dose: 1 tab Amlodipine Besylate (Norvasc) 5 mg PO DAILY [facility] Last Admin: 12/25/17 07:48 Dose: 5 mg Artificial Tears (Tears Naturale) 2 drop EA EYE PRN PRN PRN Reason: Dry Eyes Aspirin (Aspirin Chewable) 81 mg PO DAILY [facility] Last Admin: 12/25/17 07:46 Dose: 81 mg Bisacodyl (Dulcolax) 10 mg PO DAILYPRN PRN PRN Reason: Constipation Calcium Carbonate (Tums) 1,000 mg PO Q4H PRN PRN Reason: Heartburn or Indigestion Cholecalciferol (Vitamin D3) 5,000 units PO DAILY [facility] Last Admin: 12/25/17 07:47 Dose: 5,000 units Dextrose/Water (Dextrose 50%) 25 gm SLOW IVP PRN PRN PRN Reason: Hypoglycemia Famotidine (Pepcid) 20 mg PO QAM [facility] Last Admin: 12/25/17 07:47 Dose: 20 mg Furosemide (Lasix) 40 mg PO DAILY [facility] Last Admin: 12/25/17 07:47 Dose: 40 mg Gabapentin (Neurontin) 300 mg PO TID [facility] Last Admin: 12/25/17 07:47 Dose: 300 mg Glimepiride (Amaryl) 8 mg PO QAM [facility] Last Admin: 12/25/17 07:46 Dose: 8 mg Glucagon (Glucagon) 1 mg IM PRN PRN PRN Reason: Hypoglycemia Guaifenesin (Robitussin Sf) 200 mg PO Q4H PRN PRN Reason: Cough Heparin Sodium (Porcine) (Heparin) 5,000 units SC TID [facility] Last Admin: 12/25/17 07:48 Dose: 5,000 units Hydralazine HCl (Apresoline) 10 mg SLOW IVP Q4H PRN PRN Reason: SBP Greater Than 170 Piperacillin Sod/Tazobactam (Sod 3.375 gm/ Sodium Chloride) 100 mls @ 200 mls/ hr IVPB 0800,1600,2359 [facility] Last Admin: 12/25/17 07:46 Dose: 100 mls Dextrose/Water (D5w) 1,000 mls @ 0 mls/hr IV .Q0M PRN PRN Reason: Hypoglycemia Insulin Glargine 25 units/ (Miscellaneous Medication) 0.25 mls @ 0 mls/hr SC [facility] Last Admin: 12/24/17 21:04 Dose: 0.25 mls Insulin Glargine 25 units/ (Miscellaneous Medication) 0.25 mls @ 0 mls/hr SC [facility] Last Admin: 12/25/17 09:10 Dose: 0.25 mls Vancomycin HCl 750 mg/ Sodium (Chloride) 250 mls @ 250 mls/hr IVPB 0200,1400 [facility] Last Admin: 12/25/17 02:09 Dose: 250 mls Insulin Human Regular (Humulin R) 0 units SC .MODERATE SLIDING SC PRN PRN Reason: Moderate Correctional Scale Last Admin: 12/24/17 16:18 Dose: 6 unit Insulin Human Regular (Humulin R) 0 units SC .BEDTIME SLIDING SC PRN PRN Reason: Bedtime Correctional Scale Loperamide HCl (Imodium) 2 mg PO PRN PRN PRN Reason: Diarrhea/Loose Stools Loratadine (Claritin) 10 mg PO [facility] Last Admin: 12/25/17 07:46 Dose: 10 mg Melatonin (Melatonin) 6 mg PO [facility] Last Admin: 12/24/17 21:04 Dose: 6 mg Mineral Oil/White Petrolatum (Eucerin Cream) 0 gm TOP BIDPRN PRN PRN Reason: Dry Skin Miscellaneous Medication (Pharmacy To Dose) 1 each IVPB PRN PRN PRN Reason: Pharmacy to dose Ondansetron HCl (Zofran Odt) 4 mg PO Q6H PRN PRN Reason: Nausea/Vomiting Last Admin: 12/24/17 11:37 Dose: 4 mg Ondansetron HCl (Zofran) 4 mg IVP Q6H PRN PRN Reason: Nausea/Vomiting Last Admin: 12/24/17 07:33 Dose: 4 mg Potassium Chloride (Klor-Con 10) 10 meq PO DAILY [facility] Last Admin: 12/25/17 07:47 Dose: 10 meq Prednisone (Prednisone) 5 mg PO DAILY [facility] Last Admin: 12/25/17 07:47 Dose: 5 mg Ropinirole HCl (Requip) 0.5 mg PO [facility] Last Admin: 12/24/17 21:04 Dose: 0.5 mg Saccharomyces Boulardii (Florastor) 250 mg PO DAILY [facility] Last Admin: 12/25/17 07:46 Dose: 250 mg Senna/Docusate Sodium (Senokot S) 2 tab PO BID PRN PRN Reason: Constipation Sertraline HCl (Zoloft) 25 mg PO QAM [facility] Last Admin: 12/25/17 07:46 Dose: 25 mg Sodium Chloride (Flush - Normal Saline) 10 ml IVF Q12HR [facility] Last Admin: 12/25/17 08:53 Dose: Not Given Sodium Chloride (Flush - Normal Saline) 10 ml IVF PRN PRN PRN Reason: Saline Flush Sodium Chloride ([place] Nasal [place] 0.65%) 0 ml EA NARE QIDPRN PRN PRN Reason: Nasal Congestion Throat Lozenges (Cepastat Lozenges) 1 brock PO Q2H PRN PRN Reason: Sore Throat Zolpidem Tartrate (Ambien) 5 mg PO HSPRN PRN PRN Reason: Insomnia
[2017-12-25] MEDS: HYDROcodone/Acetaminophen 5/325 mg Tablet PO PRN ×2 (11:57→16:25)
[2017-12-25] MEDS: Insulin Regular 300 UNITS/3 ML VIAL SC PRN (16:55)
--- NOTE | 2017-12-25 18:14 | PRG ---
DATE OF SERVICE: 12/25/2017 SUBJECTIVE: Little bit of tenderness on mobilization of the ankle, but no respiratory symptoms, abdo fe pain or diarrhea. PHYSICAL EXAMINATION: VITAL SIGNS: Temperature max 99.6, blood pressure 160/80, pulse 107, respirations 20. SKIN: The foot dorsal aspect still with erythema, but not as bright as previously. The toe still ve ry bright erythema noted. The ulcerated area covered by silver impregnated dressing. LUNGS: Clear. HEART: S1, S2, regular rate. ABDOMEN: Soft, not distended. EXTREMITIES: NEUROLOGIC: Nonfocal. LABORATORY DATA: White cell count down to 10.3, hemoglobin 9.0, platelets 228. Creatinine has not b een repeated. Microbiology with presumptive Proteus mirabilis pending susceptibility studies. Blood cultures no growth thus far. ASSESSMENT AND DISCUSSION: Type 2 diabetes; ulceration, left first toe with inflammatory changes and purulent drainage. DISCUSSION: The patient to continue on antimicrobial therapy. Waiting on final identification of or ganisms for discharge planning. The decision to be made regarding IV or oral antimicrobial therapy.
--- NOTE | 2017-12-25 19:33 | PRG ---
DATE OF SERVICE: 12/25/2017 SUBJECTIVE: The patient is not complaining of any particular pain, no respiratory symptoms, no abdominal pain or diarrhea. Voiding without difficulty. OBJECTIVE: VITAL SIGNS: T-max 99.6, blood pressure is 160/84, pulse 107, respirations 20. LUNGS: Clear. HEART: S1, S2, regular rate. ABDOMEN: Soft, not distended. The wound dressing was not removed. LABORATORY DATA: White cell count 10.3, hemoglobin 9, platelets 228. Last chemistry from yesterday. Microbiology with Proteus mirabilis, pending susceptibility study. Blood cultures no growth so far. ASSESSMENT AND DISCUSSION: Type 2 diabetes, chronic ulceration, left first toe with inflammatory changes and purulent drainage. MRI with early osteitis, but no janes osteomyelitis. Continue conservative management of antimicrobial therapy, awaiting the final results of antimicrobial susceptibility to see if we are going to have to put a PICC line and treat with IV or oral antimicrobial therapy regimen. MTDD
[2017-12-25] MEDS: Melatonin 3 MG TAB PO SCH (21:08)
[2017-12-25] MEDS: rOPINIRole HCl 0.5 MG TAB PO SCH (21:08)
[2017-12-26 01:28] LABS: Vancomycin, Trough 18.3 ug/mL
[2017-12-26] MEDS: Vancomycin HCl 750 MG in Sodium Chloride 0.9% 250 ML 250 ML IVPB SCH ×2 (01:48→14:22)
[2017-12-26 06:16] LABS: #Basophils 0.1 thou/uL (0.0-0.2); #Eosinphils 0.2 thou/uL (0.0-0.7); #Lymphocytes 1.4 thou/uL (1.20-3.40); #Monocytes 0.9 thou/uL (0.11-0.59); #Neutrophils 9.2 thou/uL (1.40-6.50); %Basophils 0.5 % (0.0-1.0); %Eosinophils 1.4 % (0.0-10.0); %Lymphocytes 11.7 % (21.0-51.0); %Monocytes 7.4 % (0.0-10.0); Hemoglobin 9.2 g/dL (12.0-16.0); Mean Corpuscular HGB CONC 31.2 g/dL (32.0-36.0); Mean Corpuscular Hemoglobin 26.9 pg (27.0-31.0); Mean Corpuscular Volume 86.2 fL (78.0-98.0); Mean Platelet Volume 8.1 fL (7.4-10.4); Platelet Count 305 thou/uL (130-400); Red Blood Cell (RBC) Count 3.41 mill/uL (4.20-5.40); White Blood Cell (WBC) Count 11.7 thou/uL (4.8-10.8)
[2017-12-26 06:31] LABS: Anion Gap 11 mmol/L (10-20); BUN (Urea Nitrogen) 16 mg/dL (9.8-20.1); CRP (Inflammatory) 11.17 mg/dL (= or < 0.5); Calc. Creatinine Clearance 82 mL/min (70-130); Calcium 8.9 mg/dL (7.8-10.44); Carbon Dioxide 28 mmol/L (22-29); Chloride 102 mmol/L (98-107); Estimated GFR-MDRD 39; Glucose 66 mg/dL (70-105); Sodium 138 mmol/L (136-145)
[2017-12-26 06:37] LABS: Potassium 2.9 mmol/L (3.5-5.1)
[2017-12-26] MEDS: Potassium Chloride 20 MEQ TAB PO SCH ×2 (08:57→17:04)
[2017-12-26] MEDS: Furosemide 40 MG TAB PO SCH (08:57)
[2017-12-26] MEDS: Gabapentin 300 MG CAP PO SCH ×3 (08:58→20:24)
[2017-12-26] MEDS: Famotidine 20 MG TAB PO SCH (08:58)
[2017-12-26] MEDS: Loratadine 10 MG TAB PO SCH (08:58)
[2017-12-26] MEDS: Potassium Chloride 10 MEQ TAB PO SCH (08:59)
[2017-12-26] MEDS: predniSONE 5 MG TAB PO SCH (09:00)
[2017-12-26] MEDS: Heparin 5,000 UNITS/ML VIAL SC SCH ×3 (09:00→20:24)
[2017-12-26] MEDS: Amlodipine 5 MG TAB PO SCH (09:01)
[2017-12-26] MEDS: Glimepiride 4 MG TAB PO SCH (09:01)
[2017-12-26] MEDS: Saccharomyces boulardii 250 MG CAP PO SCH (09:01)
[2017-12-26] MEDS: Insulin Glargine 25 UNITS in Pre-Filled Syringe 1 EACH SC SCH ×2 (09:02→20:24)
[2017-12-26] MEDS: Piperacillin/Tazobactam 3.375 GM in Sodium Chloride 0.9% 100 ML IVPB SCH ×3 (09:15→23:04)
--- NOTE | 2017-12-26 10:12 | PDOC.PN ---
- Subjective Encounter Start Date: 12/26/17 Encounter Start Time: 08:50 Patient seen and examined. No new complaints. No overnight events - Objective Resuscitation Status: Resuscitation Status FULL:Full Resuscitation MAR Reviewed: Yes Vital Signs & Weight: Vital Signs (12 hours) Temp Pulse Resp BP BP Pulse Ox 12/26/17 09:01 92 149/77 H 12/26/17 08:00 98.7 F 92 18 149/77 H 96 12/26/17 04:00 98.8 F 92 22 H 150/71 H 96 12/26/17 00:00 99.1 F 100 22 H 136/77 96 Weight Admit Weight 262 lb 8 oz Weight 262 lb 8 oz I&O: 12/25/17 12/26/17 12/27/17 06:59 06:59 06:59 Intake Total 2130 1784 Balance 2130 1784 Result Diagrams: 12/26/17 04:59 12/26/17 04:59 Additional Labs: Accuchecks 12/25/17 12/25/17 12/25/17 19:55 16:43 12:03 POC Glucose 223 H 266 H 113 H Phys Exam - Physical Examination Constitutional: NAD HEENT: PERRLA, moist MMs, sclera anicteric Neck: no JVD, supple Respiratory: no wheezing, no rales, no rhonchi Cardiovascular: RRR, no significant murmur, no rub Gastrointestinal: soft, non-tender, no distention, positive bowel sounds Musculoskeletal: no edema, pulses present Neurological: non-focal, normal sensation, moves all 4 limbs Lymphatic: no nodes Psychiatric: normal affect, A&O x 3 Skin: no rash, normal turgor Dx/Plan (1) Sepsis Code(s): A41.9 - SEPSIS, UNSPECIFIED ORGANISM Status: Acute (2) Diabetic ulcer of left great toe Code(s): E11.621 - TYPE 2 DIABETES MELLITUS WITH FOOT ULCER; L97.529 - NON- PRESSURE CHRONIC ULCER OTH PRT LEFT FOOT W UNSP SEVERITY Status: Acute (3) Diabetic infection of left foot Code(s): E11.628 - TYPE 2 DIABETES MELLITUS WITH OTHER SKIN COMPLICATIONS; L08.9 - LOCAL INFECTION OF THE SKIN AND SUBCUTANEOUS TISSUE, UNSP Status: Acute (4) Abnormal LFTs Code(s): R94.5 - ABNORMAL RESULTS OF LIVER FUNCTION STUDIES Status: Acute (5) Hyponatremia Code(s): E87.1 - HYPO-OSMOLALITY AND HYPONATREMIA Status: Acute (6) UTI (urinary tract infection) Status: Acute (7) Anemia, normocytic normochromic Code(s): D64.9 - ANEMIA, UNSPECIFIED Status: Chronic (8) Anxiety and depression Code(s): F41.9 - ANXIETY DISORDER, UNSPECIFIED; F32.9 - MAJOR DEPRESSIVE DISORDER, SINGLE EPISODE, UNSPECIFIED Status: Chronic (9) CKD (chronic kidney disease) stage 3, GFR 30-59 ml/min Code(s): N18.3 - CHRONIC KIDNEY DISEASE, STAGE 3 (MODERATE) Status: Chronic (10) Chronic low back pain Code(s): M54.5 - LOW BACK PAIN; G89.29 - OTHER CHRONIC PAIN Status: Chronic (11) Chronic steroid use Code(s): [id number] - Status: Chronic (12) Dyslipidemia Code(s): E78.5 - HYPERLIPIDEMIA, UNSPECIFIED Status: Chronic (13) Morbid obesity with BMI of 50.0-59.9, adult Code(s): E66.01 - MORBID (SEVERE) OBESITY DUE TO EXCESS CALORIES; Z68.43 - BODY MASS INDEX (BMI) 50-59.9, ADULT Status: Chronic (14) MEHRDAD (obstructive sleep apnea) Code(s): G47.33 - OBSTRUCTIVE SLEEP APNEA (ADULT) (PEDIATRIC) Status: Chronic (15) Restless leg syndrome Status: Chronic (16) Rosacea Code(s): L71.9 - ROSACEA, UNSPECIFIED Status: Chronic (17) Sarcoidosis of lung Code(s): D86.0 - SARCOIDOSIS OF LUNG Status: Chronic Comment: (18) Hypokalemia Code(s): E87.6 - HYPOKALEMIA Status: Acute - Plan cont current plan of care, plan discussed w/ family, continue antibiotics * replace potassium * continue current IV antibiotics one more day * wound care * repeat labs tomorrow * mag checked, normal * medication reviewed as below * symptomatic treatment * discussed with family bedside. Review of Systems - Review of Systems ENT: negative: Ear Pain, Ear Discharge, Nose Pain, Nose Discharge, Nose Congestion, Mouth Pain, Mouth Swelling, Throat Pain, Throat Swelling, Other Respiratory: negative: Cough, Dry, Shortness of Breath, Hemoptysis, SOB with Excertion, Pleuritic Pain, Sputum, Wheezing Cardiovascular: negative: chest pain, palpitations, orthopnea, paroxysmal nocturnal dyspnea, edema, light headedness, other Gastrointestinal: negative: Nausea, Vomiting, Abdominal Pain, Diarrhea, Constipation, Melena, Hematochezia, Other Genitourinary: negative: Dysuria, Frequency, Incontinence, Hematuria, Retention , Other Musculoskeletal: negative: Neck Pain, Shoulder Pain, Arm Pain, Back Pain, Hand Pain, Leg Pain, Foot Pain, Other Skin: negative: Rash, Lesions, Enoc, Bruising, Other - Medications/Allergies Allergies/Adverse Reactions: Allergies Allergy/AdvReac Type Severity Reaction Status Date / Time sitagliptin [From ] Allergy Intermediate Hives Verified 12/23/17 02:37 Medications: Current Medications Acetaminophen (Tylenol) 650 mg PO Q4H PRN PRN Reason: Headache/Fever/Mild Pain (1-3) Hydrocodone Bitart/Acetaminophen ([place]thel 5/325) 1 tab PO Q4H PRN PRN Reason: Moderate Pain (4-6) Last Admin: 12/25/17 16:25 Dose: 1 tab Amlodipine Besylate (Norvasc) [address] [facility] Last Admin: 12/26/17 09:01 Dose: 5 mg Artificial Tears (Tears Naturale) 2 drop EA EYE PRN PRN PRN Reason: Dry Eyes Aspirin (Aspirin Chewable) [address] [facility] Last Admin: 12/26/17 08:57 Dose: 81 mg Bisacodyl (Dulcolax) 10 mg PO DAILYPRN PRN PRN Reason: Constipation Calcium Carbonate (Tums) 1,000 mg PO Q4H PRN PRN Reason: Heartburn or Indigestion Cholecalciferol (Vitamin D3) 5,[address] [facility] Last Admin: 12/26/17 08:59 Dose: 5,000 units Dextrose/Water (Dextrose 50%) 25 gm SLOW IVP PRN PRN PRN Reason: Hypoglycemia Famotidine (Pepcid) [address] [facility] Last Admin: 12/26/17 08:58 Dose: 20 mg Furosemide (Lasix) [address] [facility] Last Admin: 12/26/17 08:57 Dose: 40 mg Gabapentin (Neurontin) [address] [facility] Last Admin: 12/26/17 08:58 Dose: 300 mg Glimepiride (Amaryl) 8 mg PO [facility] Last Admin: 12/26/17 09:01 Dose: 8 mg Glucagon (Glucagon) 1 mg IM PRN PRN PRN Reason: Hypoglycemia Guaifenesin (Robitussin Sf) 200 mg PO Q4H PRN PRN Reason: Cough Heparin Sodium (Porcine) (Heparin) 5,[address] [facility] Last Admin: 12/26/17 09:00 Dose: 5,000 units Hydralazine HCl (Apresoline) 10 mg SLOW IVP Q4H PRN PRN Reason: SBP Greater Than 170 Piperacillin Sod/Tazobactam (Sod 3.375 gm/ Sodium Chloride) 100 mls @ 200 mls/ hr IVPB 0800,1600,2359 [facility] Last Admin: 12/26/17 09:15 Dose: 100 mls Dextrose/Water (D5w) 1,000 mls @ 0 mls/hr IV .Q0M PRN PRN Reason: Hypoglycemia Insulin Glargine 25 units/ (Miscellaneous Medication) 0.25 mls @ 0 mls/hr SC [facility] Last Admin: 12/25/17 21:09 Dose: 0.25 mls Insulin Glargine 25 units/ (Miscellaneous Medication) 0.25 mls @ 0 mls/hr SC [facility] Last Admin: 12/26/17 09:02 Dose: 0.25 mls Vancomycin HCl 750 mg/ Sodium (Chloride) 250 mls @ 250 mls/hr IVPB 0200,1400 [facility] Last Admin: 12/26/17 01:48 Dose: 250 mls Insulin Human Regular (Humulin R) 0 units SC .MODERATE SLIDING SC PRN PRN Reason: Moderate Correctional Scale Last Admin: 12/25/17 16:55 Dose: 6 unit Insulin Human Regular (Humulin R) 0 units SC .BEDTIME SLIDING SC PRN PRN Reason: Bedtime Correctional Scale Loperamide HCl (Imodium) 2 mg PO PRN PRN PRN Reason: Diarrhea/Loose Stools Loratadine (Claritin) 10 mg PO [facility] Last Admin: 12/26/17 08:58 Dose: 10 mg Melatonin (Melatonin) 6 mg PO [facility] Last Admin: 12/25/17 21:08 Dose: 6 mg Mineral Oil/White Petrolatum (Eucerin Cream) 0 gm TOP BIDPRN PRN PRN Reason: Dry Skin Miscellaneous Medication (Pharmacy To Dose) 1 each IVPB PRN PRN PRN Reason: Pharmacy to dose Ondansetron HCl (Zofran Odt) 4 mg PO Q6H PRN PRN Reason: Nausea/Vomiting Last Admin: 12/24/17 11:37 Dose: 4 mg Ondansetron HCl (Zofran) 4 mg IVP Q6H PRN PRN Reason: Nausea/Vomiting Last Admin: 12/24/17 07:33 Dose: 4 mg Potassium Chloride (Klor-Con 10) [address] [facility] Last Admin: 12/26/17 08:59 Dose: 10 meq Potassium Chloride (K-Dur) 40 meq PO 0700,1700 [facility] Stop: 12/26/17 17:01 Last Admin: 12/26/17 08:57 Dose: 40 meq Prednisone (Prednisone) [address] [facility] Last Admin: 12/26/17 09:00 Dose: 5 mg Ropinirole HCl (Requip) 0.[address] [facility] Last Admin: 12/25/17 21:08 Dose: 0.5 mg Saccharomyces Boulardii (Florastor) [address] [facility] Last Admin: 12/26/17 09:01 Dose: 250 mg Senna/Docusate Sodium (Senokot S) 2 tab PO BID PRN PRN Reason: Constipation Sertraline HCl (Zoloft) [address] [facility] Last Admin: 12/26/17 09:01 Dose: 25 mg Sodium Chloride (Flush - Normal Saline) [address] [facility] Last Admin: 12/26/17 09:01 Dose: 10 ml Sodium Chloride (Flush - Normal Saline) 10 ml IVF PRN PRN PRN Reason: Saline Flush Sodium Chloride ([place] Nasal [place] 0.65%) 0 ml EA NARE QIDPRN PRN PRN Reason: Nasal Congestion Throat Lozenges (Cepastat Lozenges) 1 brock PO Q2H PRN PRN Reason: Sore Throat Zolpidem Tartrate (Ambien) 5 mg PO HSPRN PRN PRN Reason: Insomnia
[2017-12-26] MEDS: HYDROcodone/Acetaminophen 5/325 mg Tablet PO PRN (10:40)
[2017-12-26] MEDS: Loperamide HCl 2 MG CAP PO PRN (10:44)
[2017-12-26] MEDS: Insulin Regular 300 UNITS/3 ML VIAL SC PRN (17:06)
[2017-12-26] MEDS: rOPINIRole HCl 0.5 MG TAB PO SCH (20:24)
[2017-12-26] MEDS: Melatonin 3 MG TAB PO SCH (20:24)
[2017-12-27] MEDS: Vancomycin HCl 750 MG in Sodium Chloride 0.9% 250 ML 250 ML IVPB SCH ×2 (01:06→13:40)
[2017-12-27] MEDS: HYDROcodone/Acetaminophen 5/325 mg Tablet PO PRN (03:57)
[2017-12-27 05:16] LABS: #Eosinphils 0.2 thou/uL (0.0-0.7); #Lymphocytes 2.4 thou/uL (1.20-3.40); #Monocytes 0.9 thou/uL (0.11-0.59); #Neutrophils 11.6 thou/uL (1.40-6.50); %Basophils 0.2 % (0.0-1.0); %Eosinophils 1.3 % (0.0-10.0); %Lymphocytes 15.6 % (21.0-51.0); %Monocytes 5.6 % (0.0-10.0); %Neutrophils 77.3 % (42.0-75.0); Hemoglobin 9.1 g/dL (12.0-16.0); Mean Corpuscular HGB CONC 30.7 g/dL (32.0-36.0); Mean Corpuscular Hemoglobin 26.4 pg (27.0-31.0); Mean Corpuscular Volume 86.2 fL (78.0-98.0); Mean Platelet Volume 7.9 fL (7.4-10.4); Platelet Count 372 thou/uL (130-400); RBC Distribution Width 16.2 % (11.5-14.5); Red Blood Cell (RBC) Count 3.43 mill/uL (4.20-5.40); White Blood Cell (WBC) Count 15.1 thou/uL (4.8-10.8)
[2017-12-27 05:35] LABS: Anion Gap 11 mmol/L (10-20); BUN (Urea Nitrogen) 15 mg/dL (9.8-20.1); Calc. Creatinine Clearance 84 mL/min (70-130); Calcium 8.9 mg/dL (7.8-10.44); Carbon Dioxide 27 mmol/L (22-29); Chloride 104 mmol/L (98-107); Estimated GFR-MDRD 40; Glucose 60 mg/dL (70-105); Potassium 3.4 mmol/L (3.5-5.1); Sodium 139 mmol/L (136-145)
[2017-12-27] MEDS ORDERED: Potassium Chloride 20 MEQ TAB PO SCH (07:00)
[2017-12-27] MEDS: Acetaminophen 325 MG TAB PO PRN (07:26)
[2017-12-27] MEDS: Gabapentin 300 MG CAP PO SCH ×3 (08:05→20:44)
[2017-12-27] MEDS: Piperacillin/Tazobactam 3.375 GM in Sodium Chloride 0.9% 100 ML IVPB SCH (08:05)
[2017-12-27] MEDS: Glimepiride 4 MG TAB PO SCH (08:05)
[2017-12-27] MEDS: Saccharomyces boulardii 250 MG CAP PO SCH (08:06)
[2017-12-27] MEDS: Furosemide 40 MG TAB PO SCH (08:06)
[2017-12-27] MEDS: Amlodipine 5 MG TAB PO SCH (08:06)
[2017-12-27] MEDS: Famotidine 20 MG TAB PO SCH (08:06)
[2017-12-27] MEDS: predniSONE 5 MG TAB PO SCH (08:06)
[2017-12-27] MEDS: Potassium Chloride 10 MEQ TAB PO SCH (08:06)
[2017-12-27] MEDS: Loratadine 10 MG TAB PO SCH (08:06)
[2017-12-27] MEDS: Heparin 5,000 UNITS/ML VIAL SC SCH ×3 (08:09→20:45)
[2017-12-27] MEDS: Insulin Glargine 25 UNITS in Pre-Filled Syringe 1 EACH SC SCH ×2 (08:17→20:58)
--- NOTE | 2017-12-27 08:47 | PDOC.PN ---
- Subjective Encounter Start Date: 12/27/17 Encounter Start Time: 08:20 Patient seen and examined. No new complaints. No overnight events has foot pain, no fever - Objective Resuscitation Status: Resuscitation Status FULL:Full Resuscitation MAR Reviewed: Yes Vital Signs & Weight: Vital Signs (12 hours) Temp Pulse Resp BP Pulse Ox 12/27/17 08:06 97 12/27/17 04:00 98.8 F 97 18 118/64 94 L 12/27/17 00:00 98.4 F 104 H 18 165/82 H 92 L Weight Admit Weight 262 lb 8 oz Weight 262 lb 8 oz I&O: 12/26/17 12/27/17 12/28/17 06:59 06:59 06:59 Intake Total 1784 810 Balance 1784 810 Result Diagrams: 12/27/17 04:40 12/27/17 04:40 Additional Labs: Accuchecks 12/27/17 12/27/17 12/26/17 05:43 05:06 19:54 POC Glucose 110 90 239 H 12/26/17 12/26/17 12/26/17 16:34 11:23 04:32 POC Glucose 218 H 139 H 80 Phys Exam - Physical Examination Constitutional: NAD HEENT: PERRLA, moist MMs, sclera anicteric Neck: no JVD, supple Respiratory: no wheezing, no rales, no rhonchi Cardiovascular: RRR, no significant murmur, no rub Gastrointestinal: soft, non-tender, no distention, positive bowel sounds Musculoskeletal: no edema, pulses present left foot cellulitis improving, left great toe with dressing Neurological: non-focal, normal sensation, moves all 4 limbs Psychiatric: normal affect, A&O x 3 Skin: no rash, normal turgor Dx/Plan (1) Sepsis Code(s): A41.9 - SEPSIS, UNSPECIFIED ORGANISM Status: Acute (2) Diabetic ulcer of left great toe Code(s): E11.621 - TYPE 2 DIABETES MELLITUS WITH FOOT ULCER; L97.529 - NON- PRESSURE CHRONIC ULCER OTH PRT LEFT FOOT W UNSP SEVERITY Status: Acute (3) Diabetic infection of left foot Code(s): E11.628 - TYPE 2 DIABETES MELLITUS WITH OTHER SKIN COMPLICATIONS; L08.9 - LOCAL INFECTION OF THE SKIN AND SUBCUTANEOUS TISSUE, UNSP Status: Acute (4) Abnormal LFTs Code(s): R94.5 - ABNORMAL RESULTS OF LIVER FUNCTION STUDIES Status: Acute (5) Hyponatremia Code(s): E87.1 - HYPO-OSMOLALITY AND HYPONATREMIA Status: Acute (6) UTI (urinary tract infection) Status: Acute (7) Anemia, normocytic normochromic Code(s): D64.9 - ANEMIA, UNSPECIFIED Status: Chronic (8) Anxiety and depression Code(s): F41.9 - ANXIETY DISORDER, UNSPECIFIED; F32.9 - MAJOR DEPRESSIVE DISORDER, SINGLE EPISODE, UNSPECIFIED Status: Chronic (9) CKD (chronic kidney disease) stage 3, GFR 30-59 ml/min Code(s): N18.3 - CHRONIC KIDNEY DISEASE, STAGE 3 (MODERATE) Status: Chronic (10) Chronic low back pain Code(s): M54.5 - LOW BACK PAIN; G89.29 - OTHER CHRONIC PAIN Status: Chronic (11) Chronic steroid use Code(s): [id number] - Status: Chronic (12) Dyslipidemia Code(s): E78.5 - HYPERLIPIDEMIA, UNSPECIFIED Status: Chronic (13) Morbid obesity with BMI of 50.0-59.9, adult Code(s): E66.01 - MORBID (SEVERE) OBESITY DUE TO EXCESS CALORIES; Z68.43 - BODY MASS INDEX (BMI) 50-59.9, ADULT Status: Chronic (14) MEHRDAD (obstructive sleep apnea) Code(s): G47.33 - OBSTRUCTIVE SLEEP APNEA (ADULT) (PEDIATRIC) Status: Chronic (15) Restless leg syndrome Status: Chronic (16) Rosacea Code(s): L71.9 - ROSACEA, UNSPECIFIED Status: Chronic (17) Sarcoidosis of lung Code(s): D86.0 - SARCOIDOSIS OF LUNG Status: Chronic Comment: - Plan cont current plan of care, plan discussed w/ family, continue antibiotics * medication reviewed as below * symptomatic treatment * continue vancomycin and zosyn * follow on wound culture result to decide antibiotic on discharge * wound care * replace potassium. Review of Systems - Review of Systems ENT: negative: Ear Pain, Ear Discharge, Nose Pain, Nose Discharge, Nose Congestion, Mouth Pain, Mouth Swelling, Throat Pain, Throat Swelling, Other Respiratory: negative: Cough, Dry, Shortness of Breath, Hemoptysis, SOB with Excertion, Pleuritic Pain, Sputum, Wheezing Cardiovascular: negative: chest pain, palpitations, orthopnea, paroxysmal nocturnal dyspnea, edema, light headedness, other Gastrointestinal: negative: Nausea, Vomiting, Abdominal Pain, Diarrhea, Constipation, Melena, Hematochezia, Other Genitourinary: negative: Dysuria, Frequency, Incontinence, Hematuria, Retention , Other Musculoskeletal: Foot Pain. negative: Neck Pain, Shoulder Pain, Arm Pain, Back Pain, Hand Pain, Leg Pain, Other Skin: negative: Rash, Lesions, Enoc, Bruising, Other - Medications/Allergies Allergies/Adverse Reactions: Allergies Allergy/AdvReac Type Severity Reaction Status Date / Time sitagliptin [From ] Allergy Intermediate Hives Verified 12/23/17 02:37 Medications: Current Medications Acetaminophen (Tylenol) 650 mg PO Q4H PRN PRN Reason: Headache/Fever/Mild Pain (1-3) Last Admin: 12/27/17 07:26 Dose: 650 mg Hydrocodone Bitart/Acetaminophen ([place] 5/325) 1 tab PO Q4H PRN PRN Reason: Moderate Pain (4-6) Last Admin: 12/27/17 03:57 Dose: 1 tab Amlodipine Besylate (Norvasc) 5 mg PO DAILY [facility] Last Admin: 12/27/17 08:06 Dose: 5 mg Artificial Tears (Tears Naturale) 2 drop EA EYE PRN PRN PRN Reason: Dry Eyes Aspirin (Aspirin Chewable) 81 mg PO DAILY [facility] Last Admin: 12/27/17 08:05 Dose: 81 mg Bisacodyl (Dulcolax) 10 mg PO DAILYPRN PRN PRN Reason: Constipation Calcium Carbonate (Tums) 1,000 mg PO Q4H PRN PRN Reason: Heartburn or Indigestion Cholecalciferol (Vitamin D3) 5,000 units PO DAILY [facility] Last Admin: 12/27/17 08:05 Dose: 5,000 units Dextrose/Water (Dextrose 50%) 25 gm SLOW IVP PRN PRN PRN Reason: Hypoglycemia Famotidine (Pepcid) 20 mg PO QAM [facility] Last Admin: 12/27/17 08:06 Dose: 20 mg Furosemide (Lasix) 40 mg PO DAILY [facility] Last Admin: 12/27/17 08:06 Dose: 40 mg Gabapentin (Neurontin) 300 mg PO TID [facility] Last Admin: 12/27/17 08:05 Dose: 300 mg Glimepiride (Amaryl) 8 [place] Last Admin: 12/27/17 08:05 Dose: 8 mg Glucagon (Glucagon) 1 mg IM PRN PRN PRN Reason: Hypoglycemia Guaifenesin (Robitussin Sf) 200 mg PO Q4H PRN PRN Reason: Cough Heparin Sodium (Porcine) (Heparin) 5,000 units SC TID [facility] Last Admin: 12/27/17 08:09 Dose: 5,000 units Hydralazine HCl (Apresoline) 10 mg SLOW IVP Q4H PRN PRN Reason: SBP Greater Than 170 Piperacillin Sod/Tazobactam (Sod 3.375 gm/ Sodium Chloride) 100 mls @ 200 mls/ hr IVPB 0800,1600,2359 [facility] Last Admin: 12/27/17 08:05 Dose: 100 mls Dextrose/Water (D5w) 1,000 mls @ 0 mls/hr IV .Q0M PRN PRN Reason: Hypoglycemia Insulin Glargine 25 units/ (Miscellaneous Medication) 0.25 mls @ 0 mls/hr SC [facility] Last Admin: 12/26/17 20:24 Dose: 0.25 mls Insulin Glargine 25 units/ (Miscellaneous Medication) 0.25 mls @ 0 mls/hr SC [facility] Last Admin: 12/27/17 08:17 Dose: 0.25 mls Vancomycin HCl 750 mg/ Sodium (Chloride) 250 mls @ 250 mls/hr IVPB 0200,1400 [facility] Last Admin: 12/27/17 01:06 Dose: 250 mls Insulin Human Regular (Humulin R) 0 units SC .MODERATE SLIDING SC PRN PRN Reason: Moderate Correctional Scale Last Admin: 12/26/17 17:06 Dose: 4 unit Insulin Human Regular (Humulin R) 0 units SC .BEDTIME SLIDING SC PRN PRN Reason: Bedtime Correctional Scale Loperamide HCl (Imodium) 2 mg PO PRN PRN PRN Reason: Diarrhea/Loose Stools Last Admin: 12/26/17 10:44 Dose: 2 mg Loratadine (Claritin) 10 mg PO [facility] Last Admin: 12/27/17 08:06 Dose: 10 mg Melatonin (Melatonin) 6 mg PO [facility] Last Admin: 12/26/17 20:24 Dose: 6 mg Mineral Oil/White Petrolatum (Eucerin Cream) 0 gm TOP BIDPRN PRN PRN Reason: Dry Skin Miscellaneous Medication (Pharmacy To Dose) 1 each IVPB PRN PRN PRN Reason: Pharmacy to dose Ondansetron HCl (Zofran Odt) 4 mg PO Q6H PRN PRN Reason: Nausea/Vomiting Last Admin: 12/24/17 11:37 Dose: 4 mg Ondansetron HCl (Zofran) 4 mg IVP Q6H PRN PRN Reason: Nausea/Vomiting Last Admin: 12/24/17 07:33 Dose: 4 mg Potassium Chloride (Klor-Con 10) 10 meq PO DAILY [facility] Last Admin: 12/27/17 08:06 Dose: 10 meq Potassium Chloride (K-Dur) 40 meq PO NOW [facility] Stop: 12/27/17 09:00 Last Admin: 12/27/17 07:12 Dose: 40 meq Prednisone (Prednisone) 5 mg PO DAILY [facility] Last Admin: 12/27/17 08:06 Dose: 5 mg Ropinirole HCl (Requip) 0.5 mg PO [facility] Last Admin: 12/26/17 20:24 Dose: 0.5 mg Saccharomyces Boulardii (Florastor) 250 mg PO DAILY [facility] Last Admin: 12/27/17 08:06 Dose: 250 mg Senna/Docusate Sodium (Senokot S) 2 tab PO BID PRN PRN Reason: Constipation Sertraline HCl (Zoloft) 25 mg PO QAM [facility] Last Admin: 12/27/17 08:05 Dose: 25 mg Sodium Chloride (Flush - Normal Saline) 10 ml IVF Q12HR [facility] Last Admin: 12/27/17 08:16 Dose: 10 ml Sodium Chloride (Flush - Normal Saline) 10 ml IVF PRN PRN PRN Reason: Saline Flush Sodium Chloride ([place] Nasal [place] 0.65%) 0 ml EA NARE QIDPRN PRN PRN Reason: Nasal Congestion Throat Lozenges (Cepastat Lozenges) 1 brock PO Q2H PRN PRN Reason: Sore Throat Zolpidem Tartrate (Ambien) 5 mg PO HSPRN PRN PRN Reason: Insomnia
[2017-12-27] MEDS: Loperamide HCl 2 MG CAP PO PRN ×2 (10:43→20:45)
[2017-12-27 13:43] LABS: Vancomycin, Trough 14.8 ug/mL
[2017-12-27] MEDS ORDERED: cefTRIAXone\\ROCEPHIN 2 GM in Sodium Chloride 0.9% 100 ML IVPB SCH (14:00)
[2017-12-27] MEDS: cefTRIAXone\\ROCEPHIN 2 GM in Sodium Chloride 0.9% 100 ML IVPB SCH (15:54)
--- NOTE | 2017-12-27 16:39 | PRG ---
DATE OF SERVICE: 12/27/2017 SUBJECTIVE: Ms. Medina is about the same. She has still quite a bit of pain in the left first toe. No respiratory symptoms or abdominal pain. No diarrhea. OBJECTIVE: VITALS: T-max 98.8, blood pressure 150/80, pulse 90, respirations 20, O2 saturation 97%, in no distress. HEENT: Ocular movements are conjugate. LUNGS: Clear. CARDIOVASCULAR: S1, S2, regular rate. ABDOMEN: Soft, not distended or tender. EXTREMITIES: Left foot with improvement in inflammatory process, still quite a bit of epidermolysis in the volar aspect of the first toe, left side. LABORATORY DATA: White cell count 15,000, hemoglobin 9.1, platelets 272 with 77 % neutrophils. Sodium 139, creatinine 1.35, which is stable. Microbiology with Proteus mirabilis, Staph aureus, Enterococcus faecalis, very broad susceptibility profile. ASSESSMENT AND DISCUSSION: Type 2 diabetes with ulceration, left first toe with inflammatory changes, purulent drainage. MRI did not show overt osteomyelitis but there is early osteitis. I have opted for IV therapy with Rocephin and vancomycin. PICC line placement and treat for a protracted period of time. MTDD
[2017-12-27] MEDS: Melatonin 3 MG TAB PO SCH (20:45)
[2017-12-27] MEDS: rOPINIRole HCl 0.5 MG TAB PO SCH (20:45)
[2017-12-28] MEDS: Vancomycin HCl 750 MG in Sodium Chloride 0.9% 250 ML 250 ML IVPB SCH ×2 (02:15→13:55)
[2017-12-28] MEDS: Loratadine 10 MG TAB PO SCH (07:52)
[2017-12-28] MEDS: Potassium Chloride 10 MEQ TAB PO SCH (07:52)
[2017-12-28] MEDS: Gabapentin 300 MG CAP PO SCH ×3 (07:52→20:48)
[2017-12-28] MEDS: Famotidine 20 MG TAB PO SCH (07:52)
[2017-12-28] MEDS: Saccharomyces boulardii 250 MG CAP PO SCH (07:52)
[2017-12-28] MEDS: Furosemide 40 MG TAB PO SCH (07:52)
[2017-12-28] MEDS: Glimepiride 4 MG TAB PO SCH (07:53)
[2017-12-28] MEDS: Amlodipine 5 MG TAB PO SCH (07:53)
[2017-12-28] MEDS: HYDROcodone/Acetaminophen 5/325 mg Tablet PO PRN (07:53)
[2017-12-28] MEDS: predniSONE 5 MG TAB PO SCH (07:53)
[2017-12-28] MEDS: Heparin 5,000 UNITS/ML VIAL SC SCH ×3 (07:54→20:49)
[2017-12-28] MEDS: Insulin Glargine 25 UNITS in Pre-Filled Syringe 1 EACH SC SCH ×2 (09:16→20:49)
--- NOTE | 2017-12-28 09:35 | PDOC.PN ---
- Subjective Encounter Start Date: 12/28/17 Encounter Start Time: 08:30 Patient seen and examined. No new complaints. No overnight events - Objective Resuscitation Status: Resuscitation Status FULL:Full Resuscitation MAR Reviewed: Yes Vital Signs & Weight: Vital Signs (12 hours) Temp Pulse Resp BP BP Pulse Ox 12/28/17 08:00 93 L 12/28/17 07:53 107 H 12/28/17 07:21 98.5 F 107 H 18 168/83 H 93 L 12/28/17 03:31 98.6 F 100 16 170/73 H 93 L 12/28/17 00:00 98.6 F 105 H 18 161/80 H 91 L Weight Admit Weight 262 lb 8 oz Weight 262 lb 8 oz I&O: 12/27/17 12/28/17 12/29/17 06:59 06:59 06:59 Intake Total 810 960 370 Balance 810 960 370 Result Diagrams: 12/27/17 04:40 12/27/17 04:40 Additional Labs: Accuchecks 12/28/17 12/27/17 12/27/17 05:20 19:24 16:43 POC Glucose 70 167 H 221 H 12/27/17 11:47 POC Glucose 109 Phys Exam - Physical Examination Constitutional: NAD HEENT: PERRLA, moist MMs, sclera anicteric Neck: no JVD, supple Respiratory: no wheezing, no rales, no rhonchi Cardiovascular: RRR, no significant murmur, no rub Gastrointestinal: soft, non-tender, no distention, positive bowel sounds morbid obesity+ Musculoskeletal: no edema, pulses present left foot with dressing Neurological: non-focal, normal sensation, moves all 4 limbs Psychiatric: normal affect, A&O x 3 Skin: no rash, normal turgor Dx/Plan (1) Sepsis Code(s): A41.9 - SEPSIS, UNSPECIFIED ORGANISM Status: Acute (2) Diabetic ulcer of left great toe Code(s): E11.621 - TYPE 2 DIABETES MELLITUS WITH FOOT ULCER; L97.529 - NON- PRESSURE CHRONIC ULCER OTH PRT LEFT FOOT W UNSP SEVERITY Status: Acute (3) Diabetic infection of left foot Code(s): E11.628 - TYPE 2 DIABETES MELLITUS WITH OTHER SKIN COMPLICATIONS; L08.9 - LOCAL INFECTION OF THE SKIN AND SUBCUTANEOUS TISSUE, UNSP Status: Acute (4) Abnormal LFTs Code(s): R94.5 - ABNORMAL RESULTS OF LIVER FUNCTION STUDIES Status: Acute (5) Hyponatremia Code(s): E87.1 - HYPO-OSMOLALITY AND HYPONATREMIA Status: Acute (6) UTI (urinary tract infection) Status: Acute (7) Anemia, normocytic normochromic Code(s): D64.9 - ANEMIA, UNSPECIFIED Status: Chronic (8) Anxiety and depression Code(s): F41.9 - ANXIETY DISORDER, UNSPECIFIED; F32.9 - MAJOR DEPRESSIVE DISORDER, SINGLE EPISODE, UNSPECIFIED Status: Chronic (9) CKD (chronic kidney disease) stage 3, GFR 30-59 ml/min Code(s): N18.3 - CHRONIC KIDNEY DISEASE, STAGE 3 (MODERATE) Status: Chronic (10) Chronic low back pain Code(s): M54.5 - LOW BACK PAIN; G89.29 - OTHER CHRONIC PAIN Status: Chronic (11) Chronic steroid use Code(s): [id number] - Status: Chronic (12) Dyslipidemia Code(s): E78.5 - HYPERLIPIDEMIA, UNSPECIFIED Status: Chronic (13) Morbid obesity with BMI of 50.0-59.9, adult Code(s): E66.01 - MORBID (SEVERE) OBESITY DUE TO EXCESS CALORIES; Z68.43 - BODY MASS INDEX (BMI) 50-59.9, ADULT Status: Chronic (14) MEHRDAD (obstructive sleep apnea) Code(s): G47.33 - OBSTRUCTIVE SLEEP APNEA (ADULT) (PEDIATRIC) Status: Chronic (15) Restless leg syndrome Status: Chronic (16) Rosacea Code(s): L71.9 - ROSACEA, UNSPECIFIED Status: Chronic (17) Sarcoidosis of lung Code(s): D86.0 - SARCOIDOSIS OF LUNG Status: Chronic Comment: - Plan cont current plan of care, continue antibiotics, social work associate * will repeat labs tomorrow * will get PICC line if possible today * as per ID, 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 Review of Systems - Review of Systems ENT: negative: Ear Pain, Ear Discharge, Nose Pain, Nose Discharge, Nose Congestion, Mouth Pain, Mouth Swelling, Throat Pain, Throat Swelling, Other Respiratory: negative: Cough, Dry, Shortness of Breath, Hemoptysis, SOB with Excertion, Pleuritic Pain, Sputum, Wheezing Cardiovascular: negative: chest pain, palpitations, orthopnea, paroxysmal nocturnal dyspnea, edema, light headedness, other Gastrointestinal: negative: Nausea, Vomiting, Abdominal Pain, Diarrhea, Constipation, Melena, Hematochezia, Other Genitourinary: negative: Dysuria, Frequency, Incontinence, Hematuria, Retention , Other Musculoskeletal: Foot Pain. negative: Neck Pain, Shoulder Pain, Arm Pain, Back Pain, Hand Pain, Leg Pain, Other - Medications/Allergies Allergies/Adverse Reactions: Allergies Allergy/AdvReac Type Severity Reaction Status Date / Time sitagliptin [From ] Allergy Intermediate Hives Verified 12/23/17 02:37 Medications: Current Medications Acetaminophen (Tylenol) 650 mg PO Q4H PRN PRN Reason: Headache/Fever/Mild Pain (1-3) Last Admin: 12/27/17 07:26 Dose: 650 mg Hydrocodone Bitart/Acetaminophen ([place] 5/325) 1 tab PO Q4H PRN PRN Reason: Moderate Pain (4-6) Last Admin: 12/28/17 07:53 Dose: 1 tab Amlodipine Besylate (Norvasc) 5 mg PO DAILY [facility] Last Admin: 12/28/17 07:53 Dose: 5 mg Artificial Tears (Tears Naturale) 2 drop EA EYE PRN PRN PRN Reason: Dry Eyes Aspirin (Aspirin Chewable) 81 mg PO DAILY [facility] Last Admin: 12/28/17 07:52 Dose: 81 mg Bisacodyl (Dulcolax) 10 mg PO DAILYPRN PRN PRN Reason: Constipation Calcium Carbonate (Tums) 1,000 mg PO Q4H PRN PRN Reason: Heartburn or Indigestion Calcium Carbonate (Oscal-500) 500 mg [facility] Cholecalciferol (Vitamin D3) 5,000 units PO DAILY [facility] Last Admin: 12/28/17 07:54 Dose: 5,000 units Dextrose/Water (Dextrose 50%) 25 gm SLOW IVP PRN PRN PRN Reason: Hypoglycemia Famotidine (Pepcid) 20 mg PO QAM [facility] Last Admin: 12/28/17 07:52 Dose: 20 mg Furosemide (Lasix) 40 mg PO DAILY [facility] Last Admin: 12/28/17 07:52 Dose: 40 mg Gabapentin (Neurontin) 300 mg PO TID [facility] Last Admin: 12/28/17 07:52 Dose: 300 mg Glimepiride (Amaryl) 8 mg PO [facility] Last Admin: 12/28/17 07:53 Dose: 8 mg Glucagon (Glucagon) 1 mg IM PRN PRN PRN Reason: Hypoglycemia Guaifenesin (Robitussin Sf) 200 mg PO Q4H PRN PRN Reason: Cough Heparin Sodium (Porcine) (Heparin) 5,000 units SC TID [facility] Last Admin: 12/28/17 07:54 Dose: 5,000 units Hydralazine HCl (Apresoline) 10 mg SLOW IVP Q4H PRN PRN Reason: SBP Greater Than 170 Dextrose/Water (D5w) 1,000 mls @ 0 mls/hr IV .Q0M PRN PRN Reason: Hypoglycemia Insulin Glargine 25 units/ (Miscellaneous Medication) 0.25 mls @ 0 mls/hr SC [facility] Last Admin: 12/27/17 20:58 Dose: Not Given Insulin Glargine 25 units/ (Miscellaneous Medication) 0.25 mls @ 0 mls/hr SC [facility] Last Admin: 12/28/17 09:16 Dose: 0.25 mls Vancomycin HCl 750 mg/ Sodium (Chloride) 250 mls @ 250 mls/hr IVPB 0200,1400 [facility] Last Admin: 12/28/17 02:15 Dose: 250 mls Ceftriaxone Sodium 2 gm/ (Sodium Chloride) 100 mls @ 200 mls/hr IVPB Q24HR [facility] Last Admin: 12/27/17 15:54 Dose: 100 mls Insulin Human Regular (Humulin R) 0 units SC .MODERATE SLIDING SC PRN PRN Reason: Moderate Correctional Scale Last Admin: 12/26/17 17:06 Dose: 4 unit Insulin Human Regular (Humulin R) 0 units SC .BEDTIME SLIDING SC PRN PRN Reason: Bedtime Correctional Scale Loperamide HCl (Imodium) 2 mg PO PRN PRN PRN Reason: Diarrhea/Loose Stools Last Admin: 12/27/17 20:45 Dose: 2 mg Loratadine (Claritin) 10 mg PO [facility] Last Admin: 12/28/17 07:52 Dose: 10 mg Melatonin (Melatonin) 6 mg PO [facility] Last Admin: 12/27/17 20:45 Dose: 6 mg Mineral Oil/White Petrolatum (Eucerin Cream) 0 gm TOP BIDPRN PRN PRN Reason: Dry Skin Miscellaneous Medication (Pharmacy To Dose) 1 each IVPB PRN PRN PRN Reason: Pharmacy to dose Ondansetron HCl (Zofran Odt) 4 mg PO Q6H PRN PRN Reason: Nausea/Vomiting Last Admin: 12/24/17 11:37 Dose: 4 mg Ondansetron HCl (Zofran) 4 mg IVP Q6H PRN PRN Reason: Nausea/Vomiting Last Admin: 12/24/17 07:33 Dose: 4 mg Potassium Chloride (Klor-Con 10) 10 meq PO DAILY [facility] Last Admin: 12/28/17 07:52 Dose: 10 meq Prednisone (Prednisone) 5 mg PO DAILY [facility] Last Admin: 12/28/17 07:53 Dose: 5 mg Ropinirole HCl (Requip) 0.5 mg PO [facility] Last Admin: 12/27/17 20:45 Dose: 0.5 mg Saccharomyces Boulardii (Florastor) 250 mg PO DAILY [facility] Last Admin: 12/28/17 07:52 Dose: 250 mg Senna/Docusate Sodium (Senokot S) 2 tab PO BID PRN PRN Reason: Constipation Sertraline HCl (Zoloft) 25 mg PO QAM [facility] Last Admin: 12/28/17 07:53 Dose: 25 mg Sodium Chloride (Flush - Normal Saline) 10 ml IVF Q12HR [facility] Last Admin: 12/28/17 07:54 Dose: 10 ml Sodium Chloride (Flush - Normal Saline) 10 ml IVF PRN PRN PRN Reason: Saline Flush Sodium Chloride ([place] 0.65%) 0 ml EA NARE QIDPRN PRN PRN Reason: Nasal Congestion Throat Lozenges (Cepastat Lozenges) 1 brock PO Q2H PRN PRN Reason: Sore Throat Zolpidem Tartrate (Ambien) 5 mg PO HSPRN PRN PRN Reason: Insomnia
[2017-12-28] MEDS: Calcium Carbonate 500 MG TAB PO SCH ×2 (11:00→16:59)
--- NOTE | 2017-12-28 11:33 | SPC ---
ULTRASOUND AND FLUOROSCOPIC GUIDED PICC LINE PLACEMENT: Date: 12/28/17 HISTORY: Need for long-term IV antibiotics. COMPARISON: None. TECHNIQUE/FINDINGS: The patient was brought to the specials suite. All questions were answered. The patient was prepped a nd draped in the normal sterile fashion. Initially, the left cephalic vein was accessed, although the re was a stenosis at the level of the shoulder. Subsequently, the left brachial vein was accessed bec ause the basilic was too small. Over a wire and through a peel-away sheath, a 47 cm single lumen PICC was placed. The patient tolerated the procedure well and without complication. IMPRESSION: Technically successful ultrasound and fluoroscopic guided PICC line placement. Fluoro Time: 1 minute. Dose: 8717 mGy*cm^2. POS: [facility]
[2017-12-28] MEDS: Loperamide HCl 2 MG CAP PO PRN (15:07)
[2017-12-28] MEDS: cefTRIAXone\\ROCEPHIN 2 GM in Sodium Chloride 0.9% 100 ML IVPB SCH (16:19)
[2017-12-28] MEDS: Insulin Regular 300 UNITS/3 ML VIAL SC PRN (17:24)
[2017-12-28] MEDS: Melatonin 3 MG TAB PO SCH (20:48)
[2017-12-28] MEDS: rOPINIRole HCl 0.5 MG TAB PO SCH (20:56)
[2017-12-28] MEDS: Acetaminophen 325 MG TAB PO PRN (21:10)
[2017-12-29] MEDS: Vancomycin HCl 750 MG in Sodium Chloride 0.9% 250 ML 250 ML IVPB SCH ×2 (01:35→13:43)
[2017-12-29 06:06] LABS: Anion Gap 11 mmol/L (10-20); BUN (Urea Nitrogen) 12 mg/dL (9.8-20.1); CRP (Inflammatory) 14.28 mg/dL (= or < 0.5); Calc. Creatinine Clearance 94 mL/min (70-130); Calcium 9.1 mg/dL (7.8-10.44); Carbon Dioxide 32 mmol/L (22-29); Chloride 101 mmol/L (98-107); Estimated GFR-MDRD 46; Glucose 60 mg/dL (70-105); Sodium 141 mmol/L (136-145)
[2017-12-29 06:39] LABS: #Eosinphils 0.2 thou/uL (0.0-0.7); #Lymphocytes 1.9 thou/uL (1.20-3.40); #Monocytes 0.9 thou/uL (0.11-0.59); #Neutrophils 8.6 thou/uL (1.40-6.50); %Basophils 0.1 % (0.0-1.0); %Eosinophils 1.7 % (0.0-10.0); %Monocytes 7.7 % (0.0-10.0); %Neutrophils 74.5 % (42.0-75.0); Anisocytosis SLIGHT = 6-15 cells (100X) (0-5/hpf); MDiff Complete? YES; Mean Corpuscular HGB CONC 29.6 g/dL (32.0-36.0); Mean Corpuscular Hemoglobin 25.6 pg (27.0-31.0); Mean Corpuscular Volume 86.5 fL (78.0-98.0); Mean Platelet Volume 7.4 fL (7.4-10.4); Platelet Count 409 thou/uL (130-400); RBC Distribution Width 16.4 % (11.5-14.5); Stomatocytes SLIGHT = 2-5 cells (100X) (0-1/hpf); White Blood Cell (WBC) Count 11.6 thou/uL (4.8-10.8)
[2017-12-29] MEDS: Heparin 5,000 UNITS/ML VIAL SC SCH ×3 (07:34→21:38)
[2017-12-29] MEDS: Famotidine 20 MG TAB PO SCH (07:35)
[2017-12-29] MEDS: Saccharomyces boulardii 250 MG CAP PO SCH (07:35)
[2017-12-29] MEDS: Calcium Carbonate 500 MG TAB PO SCH ×2 (07:35→17:23)
[2017-12-29] MEDS: Gabapentin 300 MG CAP PO SCH ×3 (07:35→21:35)
[2017-12-29] MEDS: HYDROcodone/Acetaminophen 5/325 mg Tablet PO PRN (07:36)
[2017-12-29] MEDS: Potassium Chloride 10 MEQ TAB PO SCH (07:37)
[2017-12-29] MEDS: Glimepiride 4 MG TAB PO SCH (07:37)
[2017-12-29] MEDS: Loratadine 10 MG TAB PO SCH (07:37)
[2017-12-29] MEDS: predniSONE 5 MG TAB PO SCH (07:37)
[2017-12-29] MEDS: Furosemide 40 MG TAB PO SCH (07:38)
[2017-12-29] MEDS: Amlodipine 5 MG TAB PO SCH (07:38)
[2017-12-29] MEDS ORDERED: Potassium Chloride 20 MEQ TAB PO SCH (08:30)
[2017-12-29] MEDS: Insulin Glargine 25 UNITS in Pre-Filled Syringe 1 EACH SC SCH ×2 (08:39→21:37)
--- NOTE | 2017-12-29 10:30 | PDOC.PN ---
- Subjective Encounter Start Date: 12/29/17 Encounter Start Time: 08:30 Patient seen and examined. No new complaints. No overnight events - Objective Resuscitation Status: Resuscitation Status FULL:Full Resuscitation MAR Reviewed: Yes Vital Signs & Weight: Vital Signs (12 hours) Temp Pulse Resp BP Pulse Ox 12/29/17 08:00 98.5 F 98 18 154/80 H 94 L 12/29/17 07:38 117 H 12/29/17 04:00 98.3 F Weight Admit Weight 262 lb 8 oz Weight 262 lb 8 oz I&O: 12/28/17 12/29/17 12/30/17 06:59 06:59 06:59 Intake Total 960 1210 360 Balance 960 1210 360 Result Diagrams: 12/29/17 05:18 12/29/17 05:18 Additional Labs: Accuchecks 12/29/17 12/28/17 12/28/17 05:25 21:01 15:57 POC Glucose 65 L 190 H 346 H 12/28/17 11:48 POC Glucose 254 H Phys Exam - Physical Examination Constitutional: NAD HEENT: PERRLA, moist MMs, sclera anicteric Neck: no JVD, supple Respiratory: no wheezing, no rales, no rhonchi Cardiovascular: RRR, no significant murmur, no rub Gastrointestinal: soft, non-tender, no distention, positive bowel sounds morbid obesity+ cushingoid Musculoskeletal: no edema, pulses present PICC line in place in left UE left foot with dressing Neurological: non-focal, normal sensation, moves all 4 limbs Lymphatic: no nodes Psychiatric: normal affect, A&O x 3 Skin: no rash, normal turgor Dx/Plan (1) Sepsis Code(s): A41.9 - SEPSIS, UNSPECIFIED ORGANISM Status: Acute (2) Diabetic ulcer of left great toe Code(s): E11.621 - TYPE 2 DIABETES MELLITUS WITH FOOT ULCER; L97.529 - NON- PRESSURE CHRONIC ULCER OTH PRT LEFT FOOT W UNSP SEVERITY Status: Acute (3) Diabetic infection of left foot Code(s): E11.628 - TYPE 2 DIABETES MELLITUS WITH OTHER SKIN COMPLICATIONS; L08.9 - LOCAL INFECTION OF THE SKIN AND SUBCUTANEOUS TISSUE, UNSP Status: Acute (4) Abnormal LFTs Code(s): R94.5 - ABNORMAL RESULTS OF LIVER FUNCTION STUDIES Status: Acute (5) Hyponatremia Code(s): E87.1 - HYPO-OSMOLALITY AND HYPONATREMIA Status: Acute (6) UTI (urinary tract infection) Status: Acute (7) Anemia, normocytic normochromic Code(s): D64.9 - ANEMIA, UNSPECIFIED Status: Chronic (8) Anxiety and depression Code(s): F41.9 - ANXIETY DISORDER, UNSPECIFIED; F32.9 - MAJOR DEPRESSIVE DISORDER, SINGLE EPISODE, UNSPECIFIED Status: Chronic (9) CKD (chronic kidney disease) stage 3, GFR 30-59 ml/min Code(s): N18.3 - CHRONIC KIDNEY DISEASE, STAGE 3 (MODERATE) Status: Chronic (10) Chronic low back pain Code(s): M54.5 - LOW BACK PAIN; G89.29 - OTHER CHRONIC PAIN Status: Chronic (11) Chronic steroid use Code(s): [id number] - Status: Chronic (12) Dyslipidemia Code(s): E78.5 - HYPERLIPIDEMIA, UNSPECIFIED Status: Chronic (13) Morbid obesity with BMI of 50.0-59.9, adult Code(s): E66.01 - MORBID (SEVERE) OBESITY DUE TO EXCESS CALORIES; Z68.43 - BODY MASS INDEX (BMI) 50-59.9, ADULT Status: Chronic (14) MEHRDAD (obstructive sleep apnea) Code(s): G47.33 - OBSTRUCTIVE SLEEP APNEA (ADULT) (PEDIATRIC) Status: Chronic (15) Restless leg syndrome Status: Chronic (16) Rosacea Code(s): L71.9 - ROSACEA, UNSPECIFIED Status: Chronic (17) Sarcoidosis of lung Code(s): D86.0 - SARCOIDOSIS OF LUNG Status: Chronic Comment: - Plan cont current plan of care, continue antibiotics * she will need outpt IV antibiotics arrangement and then will consider discharge * medication reviewed as below * symptomatic treatment * wound care * pain controlled. * replace potassium today Review of Systems - Review of Systems ENT: negative: Ear Pain, Ear Discharge, Nose Pain, Nose Discharge, Nose Congestion, Mouth Pain, Mouth Swelling, Throat Pain, Throat Swelling, Other Respiratory: negative: Cough, Dry, Shortness of Breath, Hemoptysis, SOB with Excertion, Pleuritic Pain, Sputum, Wheezing Cardiovascular: negative: chest pain, palpitations, orthopnea, paroxysmal nocturnal dyspnea, edema, light headedness, other Gastrointestinal: negative: Nausea, Vomiting, Abdominal Pain, Diarrhea, Constipation, Melena, Hematochezia, Other Genitourinary: negative: Dysuria, Frequency, Incontinence, Hematuria, Retention , Other Musculoskeletal: Foot Pain. negative: Neck Pain, Shoulder Pain, Arm Pain, Back Pain, Hand Pain, Leg Pain, Other Skin: negative: Rash, Lesions, Enoc, Bruising, Other - Medications/Allergies Allergies/Adverse Reactions: Allergies Allergy/AdvReac Type Severity Reaction Status Date / Time sitagliptin [From ] Allergy Intermediate Hives Verified 12/23/17 02:37 Medications: Current Medications Acetaminophen (Tylenol) 650 mg PO Q4H PRN PRN Reason: Headache/Fever/Mild Pain (1-3) Last Admin: 12/28/17 21:10 Dose: 650 mg Hydrocodone Bitart/Acetaminophen ([place] 5/325) 1 tab PO Q4H PRN PRN Reason: Moderate Pain (4-6) Last Admin: 12/29/17 07:36 Dose: 1 tab Amlodipine Besylate (Norvasc) 5 mg PO DAILY [facility] Last Admin: 12/29/17 07:38 Dose: 5 mg Artificial Tears (Tears Naturale) 2 drop EA EYE PRN PRN PRN Reason: Dry Eyes Aspirin (Aspirin Chewable) 81 mg PO DAILY [facility] Last Admin: 12/29/17 07:35 Dose: 81 mg Bisacodyl (Dulcolax) 10 mg PO DAILYPRN PRN PRN Reason: Constipation Calcium Carbonate (Tums) 1,000 mg PO Q4H PRN PRN Reason: Heartburn or Indigestion Calcium Carbonate (Oscal-500) 500 mg PO BID-[facility] Last Admin: 12/29/17 07:35 Dose: 500 mg Cholecalciferol (Vitamin D3) 5,000 units PO DAILY [facility] Last Admin: 12/29/17 07:36 Dose: 5,000 units Dextrose/Water (Dextrose 50%) 25 gm SLOW IVP PRN PRN PRN Reason: Hypoglycemia Famotidine (Pepcid) 20 mg PO QAM [facility] Last Admin: 12/29/17 07:35 Dose: 20 mg Furosemide (Lasix) 40 mg PO DAILY [facility] Last Admin: 12/29/17 07:38 Dose: 40 mg Gabapentin (Neurontin) 300 mg PO TID [facility] Last Admin: 12/29/17 07:35 Dose: 300 mg Glimepiride (Amaryl) [facility] Last Admin: 12/29/17 07:37 Dose: 8 mg Glucagon (Glucagon) 1 mg IM PRN PRN PRN Reason: Hypoglycemia Guaifenesin (Robitussin Sf) 200 mg PO Q4H PRN PRN Reason: Cough Heparin Sodium (Porcine) (Heparin) 5,000 units SC TID [facility] Last Admin: 12/29/17 07:34 Dose: 5,000 units Hydralazine HCl (Apresoline) 10 mg SLOW IVP Q4H PRN PRN Reason: SBP Greater Than 170 Dextrose/Water (D5w) 1,000 mls @ 0 mls/hr IV .Q0M PRN PRN Reason: Hypoglycemia Insulin Glargine 25 units/ (Miscellaneous Medication) 0.25 mls @ 0 mls/hr SC [facility] Last Admin: 12/28/17 20:49 Dose: 0.25 mls Insulin Glargine 25 units/ (Miscellaneous Medication) 0.25 mls @ 0 mls/hr SC [facility] Last Admin: 12/29/17 08:39 Dose: 0.25 mls Vancomycin HCl 750 mg/ Sodium (Chloride) 250 mls @ 250 mls/hr IVPB 0200,1400 [facility] Last Admin: 12/29/17 01:35 Dose: 250 mls Ceftriaxone Sodium 2 gm/ (Sodium Chloride) 100 mls @ 200 mls/hr IVPB Q24HR [facility] Last Admin: 12/28/17 16:19 Dose: 100 mls Insulin Human Regular (Humulin R) 0 units SC .MODERATE SLIDING SC PRN PRN Reason: Moderate Correctional Scale Last Admin: 12/28/17 17:24 Dose: 8 unit Insulin Human Regular (Humulin R) 0 units SC .BEDTIME SLIDING SC PRN PRN Reason: Bedtime Correctional Scale Loperamide HCl (Imodium) 2 mg PO PRN PRN PRN Reason: Diarrhea/Loose Stools Last Admin: 12/28/17 15:07 Dose: 2 mg Loratadine (Claritin) 10 mg PO [facility] Last Admin: 12/29/17 07:37 Dose: 10 mg Melatonin (Melatonin) 6 mg PO [facility] Last Admin: 12/28/17 20:48 Dose: 6 mg Mineral Oil/White Petrolatum (Eucerin Cream) 0 gm TOP BIDPRN PRN PRN Reason: Dry Skin Miscellaneous Medication (Pharmacy To Dose) 1 each IVPB PRN PRN PRN Reason: Pharmacy to dose Ondansetron HCl (Zofran Odt) 4 mg PO Q6H PRN PRN Reason: Nausea/Vomiting Last Admin: 12/24/17 11:37 Dose: 4 mg Ondansetron HCl (Zofran) 4 mg IVP Q6H PRN PRN Reason: Nausea/Vomiting Last Admin: 12/24/17 07:33 Dose: 4 mg Potassium Chloride (Klor-Con 10) 10 meq PO DAILY [facility] Last Admin: 12/29/17 07:37 Dose: 10 meq Prednisone (Prednisone) 5 mg PO DAILY [facility] Last Admin: 12/29/17 07:37 Dose: 5 mg Ropinirole HCl (Requip) 0.5 mg PO HS [facility] Last Admin: 12/28/17 20:56 Dose: 0.5 mg Saccharomyces Boulardii (Florastor) 250 mg PO DAILY [facility] Last Admin: 12/29/17 07:35 Dose: 250 mg Senna/Docusate Sodium (Senokot S) 2 tab PO BID PRN PRN Reason: Constipation Sertraline HCl (Zoloft) 25 mg PO QAM [facility] Last Admin: 12/29/17 07:35 Dose: 25 mg Sodium Chloride (Flush - Normal Saline) 10 ml IVF Q12HR [facility] Last Admin: 12/29/17 08:40 Dose: 10 ml Sodium Chloride (Flush - Normal Saline) 10 ml IVF PRN PRN PRN Reason: Saline Flush Sodium Chloride ([place] Nasal [place] 0.65%) 0 ml EA NARE QIDPRN PRN PRN Reason: Nasal Congestion Throat Lozenges (Cepastat Lozenges) 1 brock PO Q2H PRN PRN Reason: Sore Throat Zolpidem Tartrate (Ambien) 5 mg PO HSPRN PRN PRN Reason: Insomnia
[2017-12-29 14:33] LABS: Vancomycin, Trough 16.7 ug/mL
[2017-12-29] MEDS: cefTRIAXone\\ROCEPHIN 2 GM in Sodium Chloride 0.9% 100 ML IVPB SCH (15:43)
[2017-12-29] MEDS: rOPINIRole HCl 0.5 MG TAB PO SCH (21:35)
[2017-12-29] MEDS: Melatonin 3 MG TAB PO SCH (21:35)
[2017-12-29] MEDS: Acetaminophen 325 MG TAB PO PRN (21:36)
[2017-12-30] MEDS: Vancomycin HCl 750 MG in Sodium Chloride 0.9% 250 ML 250 ML IVPB SCH ×2 (02:51→13:35)
[2017-12-30 05:30] LABS: #Basophils 0.1 thou/uL (0.0-0.2); #Eosinphils 0.3 thou/uL (0.0-0.7); #Lymphocytes 2.6 thou/uL (1.20-3.40); #Monocytes 0.7 thou/uL (0.11-0.59); %Basophils 0.4 % (0.0-1.0); %Eosinophils 2.1 % (0.0-10.0); %Lymphocytes 20.9 % (21.0-51.0); %Monocytes 5.3 % (0.0-10.0); %Neutrophils 71.4 % (42.0-75.0); Hemoglobin 9.3 g/dL (12.0-16.0); Mean Corpuscular HGB CONC 30.8 g/dL (32.0-36.0); Mean Corpuscular Hemoglobin 26.5 pg (27.0-31.0); Mean Platelet Volume 7.5 fL (7.4-10.4); Platelet Count 421 thou/uL (130-400); RBC Distribution Width 16.4 % (11.5-14.5); Red Blood Cell (RBC) Count 3.52 mill/uL (4.20-5.40); White Blood Cell (WBC) Count 12.6 thou/uL (4.8-10.8)
[2017-12-30 05:50] LABS: Anion Gap 10 mmol/L (10-20); BUN (Urea Nitrogen) 11 mg/dL (9.8-20.1); Calc. Creatinine Clearance 96 mL/min (70-130); Calcium 9.3 mg/dL (7.8-10.44); Carbon Dioxide 34 mmol/L (22-29); Chloride 100 mmol/L (98-107); Estimated GFR-MDRD 46; Glucose 61 mg/dL (70-105); Sodium 141 mmol/L (136-145)
[2017-12-30] MEDS: Glimepiride 4 MG TAB PO SCH (08:51)
[2017-12-30] MEDS: Saccharomyces boulardii 250 MG CAP PO SCH (08:52)
[2017-12-30] MEDS: Loratadine 10 MG TAB PO SCH (08:52)
[2017-12-30] MEDS: Amlodipine 5 MG TAB PO SCH (08:52)
[2017-12-30] MEDS: predniSONE 5 MG TAB PO SCH (08:53)
[2017-12-30] MEDS: Calcium Carbonate 500 MG TAB PO SCH ×2 (08:53→18:13)
[2017-12-30] MEDS: Famotidine 20 MG TAB PO SCH (08:53)
[2017-12-30] MEDS: Potassium Chloride 10 MEQ TAB PO SCH (08:53)
[2017-12-30] MEDS: Furosemide 40 MG TAB PO SCH (08:53)
[2017-12-30] MEDS: Gabapentin 300 MG CAP PO SCH ×2 (08:53→14:49)
[2017-12-30] MEDS: Insulin Glargine 25 UNITS in Pre-Filled Syringe 1 EACH SC SCH (08:54)
[2017-12-30] MEDS: Heparin 5,000 UNITS/ML VIAL SC SCH ×2 (08:54→14:48)
--- NOTE | 2017-12-30 10:12 | PDOC.PN ---
- Subjective Encounter Start Date: 12/30/17 Encounter Start Time: 09:30 Patient seen and examined. No new complaints. No overnight events - Objective Resuscitation Status: Resuscitation Status FULL:Full Resuscitation MAR Reviewed: Yes Vital Signs & Weight: Vital Signs (12 hours) Temp Pulse Resp BP BP Pulse Ox 12/30/17 08:52 104 H 158/88 H 12/30/17 08:00 98.4 F 104 H 16 158/88 H 94 L 12/30/17 04:00 98.4 F 12/30/17 00:00 98.6 F Weight Admit Weight 262 lb 8 oz Weight 262 lb 8 oz I&O: 12/29/17 12/30/17 12/31/17 06:59 06:59 06:59 Intake Total 1210 1080 Balance 1210 1080 Result Diagrams: 12/30/17 04:38 12/30/17 04:38 Additional Labs: Accuchecks 12/30/17 12/29/17 12/29/17 04:27 19:46 16:48 POC Glucose 63 L 239 H 313 H 12/29/17 11:42 POC Glucose 220 H Phys Exam - Physical Examination Constitutional: NAD HEENT: PERRLA, moist MMs, sclera anicteric Neck: no JVD, supple Respiratory: no wheezing, no rales, no rhonchi Cardiovascular: RRR, no significant murmur, no rub Gastrointestinal: soft, non-tender, no distention, positive bowel sounds Musculoskeletal: no edema, pulses present left foot with dressing Neurological: non-focal, normal sensation, moves all 4 limbs Lymphatic: no nodes Psychiatric: normal affect, A&O x 3 Skin: no rash, normal turgor Dx/Plan (1) Sepsis Code(s): A41.9 - SEPSIS, UNSPECIFIED ORGANISM Status: Acute (2) Diabetic ulcer of left great toe Code(s): E11.621 - TYPE 2 DIABETES MELLITUS WITH FOOT ULCER; L97.529 - NON- PRESSURE CHRONIC ULCER OTH PRT LEFT FOOT W UNSP SEVERITY Status: Acute (3) Diabetic infection of left foot Code(s): E11.628 - TYPE 2 DIABETES MELLITUS WITH OTHER SKIN COMPLICATIONS; L08.9 - LOCAL INFECTION OF THE SKIN AND SUBCUTANEOUS TISSUE, UNSP Status: Acute (4) Abnormal LFTs Code(s): R94.5 - ABNORMAL RESULTS OF LIVER FUNCTION STUDIES Status: Acute (5) Hyponatremia Code(s): E87.1 - HYPO-OSMOLALITY AND HYPONATREMIA Status: Acute (6) UTI (urinary tract infection) Status: Acute (7) Anemia, normocytic normochromic Code(s): D64.9 - ANEMIA, UNSPECIFIED Status: Chronic (8) Anxiety and depression Code(s): F41.9 - ANXIETY DISORDER, UNSPECIFIED; F32.9 - MAJOR DEPRESSIVE DISORDER, SINGLE EPISODE, UNSPECIFIED Status: Chronic (9) CKD (chronic kidney disease) stage 3, GFR 30-59 ml/min Code(s): N18.3 - CHRONIC KIDNEY DISEASE, STAGE 3 (MODERATE) Status: Chronic (10) Chronic low back pain Code(s): M54.5 - LOW BACK PAIN; G89.29 - OTHER CHRONIC PAIN Status: Chronic (11) Chronic steroid use Code(s): [id number] - Status: Chronic (12) Dyslipidemia Code(s): E78.5 - HYPERLIPIDEMIA, UNSPECIFIED Status: Chronic (13) Morbid obesity with BMI of 50.0-59.9, adult Code(s): E66.01 - MORBID (SEVERE) OBESITY DUE TO EXCESS CALORIES; Z68.43 - BODY MASS INDEX (BMI) 50-59.9, ADULT Status: Chronic (14) MEHRDAD (obstructive sleep apnea) Code(s): G47.33 - OBSTRUCTIVE SLEEP APNEA (ADULT) (PEDIATRIC) Status: Chronic (15) Restless leg syndrome Status: Chronic (16) Rosacea Code(s): L71.9 - ROSACEA, UNSPECIFIED Status: Chronic (17) Sarcoidosis of lung Code(s): D86.0 - SARCOIDOSIS OF LUNG Status: Chronic Comment: - Plan cont current plan of care, plan discussed w/ family, continue antibiotics, social worker delinquency prevention * once IV antibiotic at home and wound care arranged, will consider discharge * medication reviewed as below * symptomatic treatment * wound care * pain controlled. Review of Systems - Review of Systems ENT: negative: Ear Pain, Ear Discharge, Nose Pain, Nose Discharge, Nose Congestion, Mouth Pain, Mouth Swelling, Throat Pain, Throat Swelling, Other Respiratory: negative: Cough, Dry, Shortness of Breath, Hemoptysis, SOB with Excertion, Pleuritic Pain, Sputum, Wheezing Cardiovascular: negative: chest pain, palpitations, orthopnea, paroxysmal nocturnal dyspnea, edema, light headedness, other Gastrointestinal: negative: Nausea, Vomiting, Abdominal Pain, Diarrhea, Constipation, Melena, Hematochezia, Other Genitourinary: negative: Dysuria, Frequency, Incontinence, Hematuria, Retention , Other Musculoskeletal: negative: Neck Pain, Shoulder Pain, Arm Pain, Back Pain, Hand Pain, Leg Pain, Foot Pain, Other Skin: negative: Rash, Lesions, Enoc, Bruising, Other - Medications/Allergies Allergies/Adverse Reactions: Allergies Allergy/AdvReac Type Severity Reaction Status Date / Time sitagliptin [From ] Allergy Intermediate Hives Verified 12/23/17 02:37 Medications: Current Medications Acetaminophen (Tylenol) 650 mg PO Q4H PRN PRN Reason: Headache/Fever/Mild Pain (1-3) Last Admin: 12/29/17 21:36 Dose: 650 mg Hydrocodone Bitart/Acetaminophen ([place] 5/325) 1 tab PO Q4H PRN PRN Reason: Moderate Pain (4-6) Last Admin: 12/29/17 07:36 Dose: 1 tab Amlodipine Besylate (Norvasc) 5 mg PO DAILY [facility] Last Admin: 12/30/17 08:52 Dose: 5 mg Artificial Tears (Tears Naturale) 2 drop EA EYE PRN PRN PRN Reason: Dry Eyes Aspirin (Aspirin Chewable) 81 mg PO DAILY [facility] Last Admin: 12/30/17 08:54 Dose: 81 mg Bisacodyl (Dulcolax) 10 mg PO DAILYPRN PRN PRN Reason: Constipation Calcium Carbonate (Tums) 1,000 mg PO Q4H PRN PRN Reason: Heartburn or Indigestion Calcium Carbonate (Oscal-500) 500 mg PO BID-[facility] Last Admin: 12/30/17 08:53 Dose: 500 mg Cholecalciferol (Vitamin D3) 5,000 units PO DAILY [facility] Last Admin: 12/30/17 08:52 Dose: 5,000 units Dextrose/Water (Dextrose 50%) 25 gm SLOW IVP PRN PRN PRN Reason: Hypoglycemia Famotidine (Pepcid) 20 mg PO QAM [facility] Last Admin: 12/30/17 08:53 Dose: 20 mg Furosemide (Lasix) 40 mg PO DAILY [facility] Last Admin: 12/30/17 08:53 Dose: 40 mg Gabapentin (Neurontin) 300 mg PO TID [facility] Last Admin: 12/30/17 08:53 Dose: 300 mg Glimepiride (Amaryl) [facility] [place] Admin: 12/30/17 08:51 Dose: 8 mg Glucagon (Glucagon) 1 mg IM PRN PRN PRN Reason: Hypoglycemia Guaifenesin (Robitussin Sf) 200 mg PO Q4H PRN PRN Reason: Cough Heparin Sodium (Porcine) (Heparin) 5,000 units SC TID [facility] Last Admin: 12/30/17 08:54 Dose: 5,000 units Hydralazine HCl (Apresoline) 10 mg SLOW IVP Q4H PRN PRN Reason: SBP Greater Than 170 Dextrose/Water (D5w) 1,000 mls @ 0 mls/hr IV .Q0M PRN PRN Reason: Hypoglycemia Insulin Glargine 25 units/ (Miscellaneous Medication) 0.25 mls @ 0 mls/hr SC [facility] Last Admin: 12/29/17 21:37 Dose: 0.25 mls Insulin Glargine 25 units/ (Miscellaneous Medication) 0.25 mls @ 0 mls/hr SC [facility] Last Admin: 12/30/17 08:54 Dose: 0.25 mls Vancomycin HCl 750 mg/ Sodium (Chloride) 250 mls @ 250 mls/hr IVPB 0200,1400 [facility] Last Admin: 12/30/17 02:51 Dose: 250 mls Ceftriaxone Sodium 2 gm/ (Sodium Chloride) 100 mls @ 200 mls/hr IVPB Q24HR [facility] Last Admin: 12/29/17 15:43 Dose: 100 mls Insulin Human Regular (Humulin R) 0 units SC .MODERATE SLIDING SC PRN PRN Reason: Moderate Correctional Scale Last Admin: 12/28/17 17:24 Dose: 8 unit Insulin Human Regular (Humulin R) 0 units SC .BEDTIME SLIDING SC PRN PRN Reason: Bedtime Correctional Scale Loperamide HCl (Imodium) 2 mg PO PRN PRN PRN Reason: Diarrhea/Loose Stools Last Admin: 12/28/17 15:07 Dose: 2 mg Loratadine (Claritin) 10 mg PO [facility] Last Admin: 12/30/17 08:52 Dose: 10 mg Melatonin (Melatonin) 6 mg PO [facility] Last Admin: 12/29/17 21:35 Dose: 6 mg Mineral Oil/White Petrolatum (Eucerin Cream) 0 gm TOP BIDPRN PRN PRN Reason: Dry Skin Miscellaneous Medication (Pharmacy To Dose) 1 each IVPB PRN PRN PRN Reason: Pharmacy to dose Ondansetron HCl (Zofran Odt) 4 mg PO Q6H PRN PRN Reason: Nausea/Vomiting Last Admin: 12/24/17 11:37 Dose: 4 mg Ondansetron HCl (Zofran) 4 mg IVP Q6H PRN PRN Reason: Nausea/Vomiting Last Admin: 12/24/17 07:33 Dose: 4 mg Potassium Chloride (Klor-Con 10) 10 meq PO DAILY [facility] Last Admin: 12/30/17 08:53 Dose: 10 meq Prednisone (Prednisone) 5 mg PO DAILY [facility] Last Admin: 12/30/17 08:53 Dose: 5 mg Ropinirole HCl (Requip) 0.5 mg PO [facility] Last Admin: 12/29/17 21:35 Dose: 0.5 mg Saccharomyces Boulardii (Florastor) 250 mg PO DAILY [facility] Last Admin: 12/30/17 08:52 Dose: 250 mg Senna/Docusate Sodium (Senokot S) 2 tab PO BID PRN PRN Reason: Constipation Sertraline HCl (Zoloft) 25 mg PO QAM [facility] Last Admin: 12/30/17 08:52 Dose: 25 mg Sodium Chloride (Flush - Normal Saline) 10 ml IVF Q12HR [facility] Last Admin: 12/30/17 08:54 Dose: 10 ml Sodium Chloride (Flush - Normal Saline) 10 ml IVF PRN PRN PRN Reason: Saline Flush Sodium Chloride ([place] Nasal [place] 0.65%) 0 ml EA NARE QIDPRN PRN PRN Reason: Nasal Congestion Throat Lozenges (Cepastat Lozenges) 1 brock PO Q2H PRN PRN Reason: Sore Throat Zolpidem Tartrate (Ambien) 5 mg PO HSPRN PRN PRN Reason: Insomnia
--- NOTE | 2017-12-30 11:43 | DIS ---
DATE OF ADMISSION: 12/23/2017 DATE OF DISCHARGE: 12/30/2017 PRIMARY CARE PHYSICIAN: Jp Moran M.D. DISCHARGE DISPOSITION: Home with outpatient IV antibiotic therapy and home health. PRIMARY DISCHARGE DIAGNOSES: 1. Sepsis due to diabetic foot infection. 2. Left great toe ulcer, status post incision and drainage. 3. Left foot cellulitis. 4. Hypokalemia. 5. Urinary tract infection. SECONDARY DISCHARGE DIAGNOSES: Sarcoidosis of lung, rosacea, restless legs syndrome; obstructive sle ep apnea; morbid obesity with BMI of 5;, dyslipidemia; chronic kidney disease, stage 3; chronic stero id use; chronic low back pain; anxiety; depression; normocytic-normochromic anemia; cushingoid face. PRIMARY PROCEDURE/OPERATION: PICC line placement. Incision and debridement was performed by Dr. Dimas brandt. RADIOLOGICAL INVESTIGATION: Chest x-ray normal. Foot x-ray showed no evidence of osteomyelitis. MR I, lower extremity, also negative for any osteomyelitis. SIGNIFICANT LABORATORIES: WBC 12.6, hemoglobin 9.3, platelets 421. Sodium 141, potassium 3.0, BUN 1 1, creatinine 1.19, calcium 9.3. Urinalysis suggestive of UTI. Blood culture negative. Urine cultu re negative. Stool culture grew Proteus mirabilis, Staph aureus, and Enterococcus faecalis. DISCHARGE MEDICATIONS: Patient will have Rocephin 2 gram IV daily until 01/29/2018. The patient rommel l continue vancomycin 750 mg IV b.i.d. until 01/29/2018. Patient will have weekly CBC, CMP, CRP, and vancomycin trough level. The patient will continue following medication: Amlodipine 5 mg p.o. daily, aspirin 81 mg daily, cet irizine 10 mg daily, vitamin D3 5000 units p.o. daily, Lasix 40 mg p.o. daily, gabapentin 300 mg t.i. d., Amaryl 2 mg p.o. daily, Tresiba 120 units subcutaneously daily, magnesium 400 mg daily, vitamin B 12 1000 mcg p.o. daily, melatonin 5 mg p.o. at bedtime, potassium chloride 10 mEq p.o. daily, prednis one 5 mg daily, ropinirole 0.5 mg p.o. at bedtime, Zoloft 25 mg p.o. daily, vitamin B complex 1 table t daily, Florastor 250 mg p.o. daily until 01/29/2018. CONTRAINDICATIONS: None. CODE STATUS: FULL CODE. INPATIENT CONSULTANTS: Dr. Shahid Braga was following while in hospital, who did bedside I and D. Dr Laura Murcia was following while in hospital, who recommended IV antibiotic therapy. TEST RESULTS PENDING ON DISCHARGE: None. ALLERGIES: SITAGLIPTIN. DISCHARGE PLAN: Post hospital, the patient will follow up with Dr. Murcia, Dr. Braga, and Dr. Jp Moran as instructed. The patient will need IV antibiotic therapy until 01/29/2018 and patient rommel l have weekly CBC, CMP, CRP, and vancomycin trough level. HOSPITAL COURSE: This is a 57-year-old female with above-mentioned medical problem, who was admitted by Dr. Kash Richards on 12/23/2017. Please see his H and P for further details. The patient was havi ng left great toe ulcer, which clinically appeared infected and the patient was also having left foot infection with cellulitis. The patient was meeting sepsis criteria. Patient was admitted to [facility] floor. She was treated with broad-spectrum antibiotic therapy with vancomycin and Rocephin. [facility] was consulted and they did a bedside I and D, and subsequently, culture grew Proteus mirabilis and Staph aureus and Enterococcus faecalis. The patient was continued with IV antibiotic therapy whi alexandra in hospital. The patient also had MRI lower extremity that was negative for any osteomyelitis. Hernandez Murcia recommended to continue IV antibiotic therapy upon discharge and that is why a PICC line was placed and upper caser is working on to arrange outpatient IV antibiotic therapy and Home Health fo r wound care. Once this is arranged, then we will consider discharging her home. Otherwise, the pat ient is medically stable with current treatment. Plan of care discussed with the patient and family member today. Patient is seen and examined at bedside today. Please see my progress note from today for further details.
[2017-12-30] MEDS: cefTRIAXone\\ROCEPHIN 2 GM in Sodium Chloride 0.9% 100 ML IVPB SCH (14:49)
[2017-12-30 15:56] VITALS: TEMP 99.1
[2017-12-30 17:34] VITALS: BP 183/96
--- NOTE | 2018-01-02 08:24 | PQF ---
NIC HUANGLEXIE [id number] CLINICAL DOCUMENTATION CLARIFICATION FORM: POST DISCHARGE Addendum to original discharge summary date: ____ Late entry note date: __ DATE: 01/02/2018 ATTN: DR. SANCHEZ Please exercise your independent, professional judgment in responding to the clarification form. Clinical indicators are provided on the bottom of this form for your review Please check appropriate box(s): [ ] Excisional Debridement: [ ] Excised [ ] Cut away [ ] Other: Depth / layer: (deepest layer of debridement): [ ] Skin[ ] SubQ Tissue [ ] Fascia [ ] Muscle [ ] Tendon [ ] Bone Appearance of wound: (e.g., down to fresh bleeding tissue, etc.)___ Margins: (please specify): / x x Instruments used: [ ] Scissors [ ] Scalpel [ ] Curette [ ] Soft tissue clipper [ ] Other: [ ] Non-excisional Debridement: (Removal by flushing, brushing, chemical, or washing) Depth / layer: (deepest layer of debridement): [ ] Skin[ ] Subcutaneous [ ] Fascia [ ] Muscle [ ] Tendon [ ] Bone [ ] Incision and Drainage only (No Debridement): Depth:[ ] Skin [ ] Subcutaneous [ ] Fascia [ ] Muscle [ ] Tendon [ ] Bone [ ] Other procedure diagnosis [ ] Unable to determine For continuity of documentation, please document condition throughout progress notes and discharge summary. Thank You. CLINICAL INDICATORS - SIGNS / SYMPTOMS / LABS: 12/23 - Consult note - Bedside debridement, "the wound had good bleeding tissues and fibrotic tissue was debrided successfully. No depth seen. No tracking to the bone or the joint noted at this time. The wound measured 5 x 2.7 cm." RISK FACTORS: Infected/ulcer - H&P - diabetic foot infection (left great toe ulcer) Sepsis due to diabetic foot infection DS - Left foot cellulitis Sepsis due to diabetic foot infection TREATMENTS: Surgical intervention - 12/23 - Bedside debridement 12/28 - PICC line placement IV Antibiotics Wound care dressing (This form is maintained as a part of the permanent medical record) 2014 [employer], [employer]. All Rights Reserved Madelin Grimes, JANEEN, [facility] [email or web address] MTDD
[2018-01-03] MEDS ORDERED: Heparin 1,000 UNITS/ML VIAL ONE (14:22)
--- NOTE | 2018-01-03 16:39 | EKG ---
Test Reason : Blood Pressure : / mmHG Vent. Rate : 114 BPM Atrial Rate : 114 BPM P-R Int : 144 ms QRS Dur : 076 ms QT Int : 318 ms P-R-T Axes : 065 000 058 degrees QTc Int : 438 ms Sinus tachycardia Septal infarct , age undetermined Abnormal ECG Confirmed by NEEL BAI, JOSEPH ([id number]), newspaper copy editor BEULAH MCDOWELL ([id number]) on 01/03/2018 4:39:14 PM Referred By: Confirmed By:JOSEPH SHAIKH MD
== END 2017-12-30 18:42 | disposition home health service (06) | DRG 854 ==
LOC: ERS 21:52 → T4-B 12-23 02:12
PROVIDERS: ADMIT Internal Medicine; ATTEND Internal Medicine
PROC: 0JDR0ZZ Extraction of Left Foot Subcutaneous Tissue and Fascia, Open Approach (ICD-10-PCS; principal; 2017-12-23)
PROC: 02HV33Z Insertion of Infusion Device into Superior Vena Cava, Percutaneous Approach (ICD-10-PCS; 2017-12-28)
PROC: B548ZZA Ultrasonography of Superior Vena Cava, Guidance (ICD-10-PCS; 2017-12-28)
DX: A41.9 Sepsis, unspecified organism (principal); Z68.43 Body mass index [BMI] 50.0-59.9, adult; E87.1 Hypo-osmolality and hyponatremia; N39.0 Urinary tract infection, site not specified; L03.116 Cellulitis of left lower limb; E11.621 Type 2 diabetes mellitus with foot ulcer; L97.529 Non-pressure chronic ulcer of other part of left foot with unspecified severity; E66.01 Morbid (severe) obesity due to excess calories; I12.9 Hypertensive chronic kidney disease with stage 1 through stage 4 chronic kidney disease, or unspecified chronic kidney disease; E11.22 Type 2 diabetes mellitus with diabetic chronic kidney disease; N18.3 Chronic kidney disease, stage 3 (moderate); Z79.82 Long term (current) use of aspirin; Z79.4 Long term (current) use of insulin; D63.1 Anemia in chronic kidney disease; G25.81 Restless legs syndrome; L71.9 Rosacea, unspecified; E78.5 Hyperlipidemia, unspecified; G47.33 Obstructive sleep apnea (adult) (pediatric); F32.9 Major depressive disorder, single episode, unspecified; Z23 Encounter for immunization; E87.6 Hypokalemia; F41.9 Anxiety disorder, unspecified; M54.5 Low back pain; Z79.52 Long term (current) use of systemic steroids; E11.628 Type 2 diabetes mellitus with other skin complications; B96.4 Proteus (mirabilis) (morganii) as the cause of diseases classified elsewhere; B95.61 Methicillin susceptible Staphylococcus aureus infection as the cause of diseases classified elsewhere; B95.2 Enterococcus as the cause of diseases classified elsewhere; R94.5 Abnormal results of liver function studies; D86.0 Sarcoidosis of lung
CPT/HCPCS: 36415; 36416; 36569; 71045; 80048; 80053; 80202; 81003; 81015; 83605; 83735; 85025; 86140; 87040; 87070; 87077; 87086; 87186; 87205; 90471; 90670; 93005; 96360; 96361; 96365; 96367; C1751; G0009; G8978-GP-CK; G8979-GP-CI; J0360; J0696; J1644; J1815; J2405; J2543; J3370; J3490; J7050; Q0162

== ENCOUNTER 2018-01-17 20:02 | Inpatient (IN) | payer OTHER ==
[2018-01-17 21:33] LABS: #Eosinphils 0.3 thou/uL (0.0-0.7); #Monocytes 0.5 thou/uL (0.11-0.59); #Neutrophils 6.4 thou/uL (1.40-6.50); %Basophils 0.2 % (0.0-1.0); %Eosinophils 3.6 % (0.0-10.0); %Lymphocytes 11.7 % (21.0-51.0); %Monocytes 5.7 % (0.0-10.0); %Neutrophils 78.8 % (42.0-75.0); Hemoglobin 9.8 g/dL (12.0-16.0); Mean Corpuscular HGB CONC 32.3 g/dL (32.0-36.0); Mean Corpuscular Hemoglobin 27.4 pg (27.0-31.0); Mean Platelet Volume 8.3 fL (7.4-10.4); Platelet Count 282 thou/uL (130-400); Red Blood Cell (RBC) Count 3.57 mill/uL (4.20-5.40); White Blood Cell (WBC) Count 8.1 thou/uL (4.8-10.8)
[2018-01-17 22:02] LABS: ALT (SGPT) 50 U/L (8-55); AST (SGOT) 39 U/L (5-34); Albumin 3.3 g/dL (3.5-5.0); Alkaline Phosphatase 349 U/L (40-150); Anion Gap 14 mmol/L (10-20); BUN (Urea Nitrogen) 36 mg/dL (9.8-20.1); Bilirubin, Total 0.5 mg/dL (0.2-1.2); Calc. Creatinine Clearance 0 mL/min (70-130); Calcium 9.3 mg/dL (7.8-10.44); Carbon Dioxide 30 mmol/L (22-29); Chloride 100 mmol/L (98-107); Estimated GFR-MDRD 13; Globulin 4.4 g/dL (2.4-3.5); Glucose 341 mg/dL (70-105); Potassium 4.8 mmol/L (3.5-5.1); Protein, Total 7.7 g/dL (6.0-8.3); Sodium 139 mmol/L (136-145)
[2018-01-17 22:09] LABS: Vancomycin, Trough 50.7 ug/mL
[2018-01-18] MEDS ORDERED: Acetaminophen 650 MG Suppository PR PRN (01:18)
[2018-01-18] MEDS ORDERED: Ondansetron PF 4 MG/2 ML Vial IVP PRN (01:18)
[2018-01-18] MEDS ORDERED: Zolpidem Tartrate 5 MG TAB PO PRN (01:18)
[2018-01-18] MEDS ORDERED: Bisacodyl 5 MG TAB PO PRN (01:18)
[2018-01-18] MEDS ORDERED: Guaifenesin DM 100-10/5 ML UDCUP PO PRN (01:18)
[2018-01-18] MEDS ORDERED: Senokot S 8.6-50 MG TAB PO PRN (01:18)
[2018-01-18] MEDS ORDERED: Ondansetron ODT 4 MG TAB PO PRN (01:18)
[2018-01-18] MEDS ORDERED: Dextrose 5% in Water 1,000 ML IV PRN (01:24)
[2018-01-18] MEDS ORDERED: Dextrose 50% Abboject 50 ML SYRINGE SLOW IVP PRN (01:24)
[2018-01-18] MEDS: Sodium Chloride 0.9% 1,000 ML IV SCH ×2 (02:16→15:44)
[2018-01-18 02:37] VITALS: BMI 51.7
[2018-01-18 05:33] LABS: #Eosinphils 0.5 thou/uL (0.0-0.7); #Lymphocytes 1.1 thou/uL (1.20-3.40); #Monocytes 0.6 thou/uL (0.11-0.59); #Neutrophils 5.7 thou/uL (1.40-6.50); %Basophils 0.2 % (0.0-1.0); %Eosinophils 5.8 % (0.0-10.0); %Lymphocytes 14.4 % (21.0-51.0); %Monocytes 7.4 % (0.0-10.0); %Neutrophils 72.2 % (42.0-75.0); Hemoglobin 9.1 g/dL (12.0-16.0); Mean Corpuscular HGB CONC 32.1 g/dL (32.0-36.0); Mean Corpuscular Hemoglobin 27.2 pg (27.0-31.0); Mean Corpuscular Volume 84.8 fL (78.0-98.0); Mean Platelet Volume 8.5 fL (7.4-10.4); Platelet Count 268 thou/uL (130-400); RBC Distribution Width 16.9 % (11.5-14.5); Red Blood Cell (RBC) Count 3.34 mill/uL (4.20-5.40); White Blood Cell (WBC) Count 7.9 thou/uL (4.8-10.8)
[2018-01-18 05:44] LABS: Band 3 % (5-11); Eosinophils 5 % (0-10); Lymphocytes 10 % (21-51); MDiff Complete? YES; Mean Corpuscular HGB CONC 32.2 g/dL (32.0-36.0); Mean Corpuscular Hemoglobin 27.2 pg (27.0-31.0); Mean Corpuscular Volume 84.6 fL (78.0-98.0); Mean Platelet Volume 8.5 fL (7.4-10.4); Monocytes 5 % (0-10); Neutrophil 77 % (42-75); PLT Morphology Comment Appears Adequate; Platelet Count 266 thou/uL (130-400); RBC Morphology Normal; Red Blood Cell (RBC) Count 3.31 mill/uL (4.20-5.40); White Blood Cell (WBC) Count 7.8 thou/uL (4.8-10.8)
[2018-01-18 05:50] LABS: ALT (SGPT) 41 U/L (8-55); AST (SGOT) 31 U/L (5-34); Alkaline Phosphatase 311 U/L (40-150); Anion Gap 11 mmol/L (10-20); BUN (Urea Nitrogen) 35 mg/dL (9.8-20.1); Bilirubin, Total 0.5 mg/dL (0.2-1.2); Calc. Creatinine Clearance 35 mL/min (70-130); Calcium 8.9 mg/dL (7.8-10.44); Carbon Dioxide 29 mmol/L (22-29); Chloride 102 mmol/L (98-107); Estimated GFR-MDRD 14; Glucose 202 mg/dL (70-105); Potassium 4.1 mmol/L (3.5-5.1); Sodium 138 mmol/L (136-145)
[2018-01-18] MEDS: HumaLOG 300 UNITS/3 ML VIAL SC PRN ×4 (06:25→21:27)
--- NOTE | 2018-01-18 08:04 | HP ---
CHIEF COMPLAINT: Abnormal labs. HISTORY OF PRESENT ILLNESS: This is a 57-year-old female with past medical history of diabetes mellitus type 2, left foot ulcer of the great toe, hyperlipidemia, hypertension, presenting to the ED because of abnormal labs. The patient stated that she was at home when she was contacted by her PCP, Dr. Murcia for elevated vancomycin levels. The patient had a vancomycin trough that was ordered, and the vancomycin trough level was 29; therefore, the patient was told to come to the hospital. The patient was being seen by Dr. Murcia for her left toe infection, and the patient is supposed to be on vancomycin until 01/29/2018. At this point, the patient denies any fever, chills, chest pain, palpitation, abdominal pain, nausea, vomiting, diarrhea, dysuria, hematuria, melena, hematochezia. Of note, the patient was recently seen in our hospital on 12/23/2017, during that time, the patient was admitted for sepsis secondary to diabetic foot infection. The patient was treated with broad-spectrum antibiotics of vancomycin and Rocephin. Podiatry was consulted during that time, and bedside I and D was done, and the culture that was sent out grew Proteus mirabilis, Staph aureus, and Enterococcus faecalis. The patient also had an MRI during that period, and the patient's MRI of the lower extremities was negative for osteomyelitis. Dr. Murcia at that point recommended that the patient continue IV antibiotics therapy until discharge. A PICC line was placed, and the patient was sent out, so that the patient can be able to continue the course of antibiotics. PAST MEDICAL HISTORY: Significant for kidney stones, diabetes mellitus type 2, hypertension, hyperlipidemia. FAMILY HISTORY: Reviewed and noncontributory to this visit. PAST SURGICAL HISTORY: Left foot bunion removal, right rotator cuff repair, left wrist surgery, carpal tunnel right hand. PSYCHIATRIC HISTORY: Depression. SOCIAL HISTORY: The patient drinks socially. Denies illicit drug use and denies any smoking history. ALLERGIES: THE PATIENT IS ALLERGIC TO JANUVIA AND SITAGLIPTIN. CURRENT MEDICATIONS: The patient is on: 1. Ropinirole 0.5 mg. 2. Glimepiride 4 mg. 3. Gabapentin 300 mg t.i.d. 4. Amlodipine 5 mg. 5. Sertraline 25 mg. 6. Aspirin 81 mg. 7. Furosemide 40 mg. 8. Potassium chloride 10 mEq. 9. Prednisone 5 mg. 10. Vitamin D3 of 5000 units. 11. Melatonin 5 mg. 12. Magnesium 200 mg. 13. Super B-Complex. PHYSICAL EXAMINATION: VITAL SIGNS: Blood pressure is 190/90, pulse is 111, respiratory rate of 18, O2 saturation of 91%. GENERAL: The patient is lying in bed comfortably, does not appear to be in any acute distress. The patient states that she does not have any problem with her respirations, and the patient is alert and oriented x3, speaking in full sentences. The patient is morbidly obese. HEENT: Normocephalic and atraumatic. Pupils are equally round and reactive to light. Extraocular movements are intact. No scleral icterus. No conjunctival pallor. Mucous membranes are moist. NECK: Trachea is midline. Full range of motion. Supple. No JVD. LUNGS: Clear to auscultation bilaterally. No wheezing, no rales, no rhonchi appreciated. CARDIAC: Positive S1 and S2. Regular rate and rhythm. No murmurs, no gallops, no rubs appreciated. ABDOMEN: Soft, nontender, and nondistended. Obese abdomen. Positive bowel sounds in all quadrants. EXTREMITIES: The patient has a PICC line in left upper arm. 5/5 upper extremities strength with no edema. Good radial pulses. Lower extremities, the patient has 5/5 lower extremities strength. No edema noted. The patient has a left great toe bandage, and there is no erythema noted. There is no purulence and no ecchymosis noted on the lower extremities. NEURO: Cranial nerves 2 through 12 grossly intact. No neurological deficits noted. SKIN: Warm, dry, and intact. PSYCH: Normal affect. DIAGNOSTIC STUDIES: EKG shows sinus tachycardia. LABORATORY DATA: WBC is 8.1, hemoglobin is 9.8, hematocrit is 30.3, RDW is 17.0, neutrophils are 78.8%. Sodium is 139, potassium is 4.8, chloride is 100, carbon dioxide of 30, anion gap of 14, BUN is 36, creatinine is 3.57, glucose is 341. AST is 39, ALT is 50, alk phos is 349. Vancomycin trough is 50.7. ASSESSMENT AND PLAN: This is a 57-year-old female, being admitted for elevated vancomycin levels. At this time, the patient is being treated for left toe diabetic infection, and the patient is being given vancomycin. The patient's vancomycin trough levels are elevated. Due to this, the patient has now been instructed to be admitted to the hospital, so that we can monitor the patient's vancomycin trough levels. We will continue IV hydration. We have consulted Dr. Murcia and controls operator molded goods. We will follow up with their recommendations. 1. Acute on chronic kidney disease. At this point, we will stop all nephrotoxic drugs, and we will also renally dose all medications. We will continue to monitor the patient's creatinine closely, and we have consulted Nephrology. We will follow up with their recommendations. 2. Diabetes mellitus type 2. We will continue the patient on insulin sliding scale. We will monitor the patient's blood sugars closely. We will keep the patient's blood sugars between 140 and 180. 3. History of hyperlipidemia. Continue the patient on home medications. We will monitor the patient closely. 4. Hypertension, uncontrolled. At this time, we will start the patient on IV blood pressure medications. We are going to continue the patient on blood pressure medication, and we will continue to recheck the patient's blood pressure around the clock, and we will adjust the patient's blood pressure medications accordingly. 5. Deep venous thrombosis and gastrointestinal prophylaxis. Job ID: [id number]
[2018-01-18] MEDS: Saccharomyces boulardii 250 MG CAP PO SCH (08:54)
[2018-01-18] MEDS: Folic Acid/Vit B Comp W-C PO SCH (08:55)
[2018-01-18] MEDS: Gabapentin 300 MG CAP PO SCH ×3 (08:55→21:30)
[2018-01-18] MEDS: Famotidine 20 MG TAB PO SCH (08:56)
[2018-01-18] MEDS: Loratadine 10 MG TAB PO SCH (08:56)
[2018-01-18] MEDS: Amlodipine 5 MG TAB PO SCH (08:56)
[2018-01-18] MEDS: predniSONE 5 MG TAB PO SCH (08:57)
[2018-01-18] MEDS ORDERED: Famotidine/PF 20 mg/2ml Vial SLOW IVP SCH (09:00)
[2018-01-18] MEDS ORDERED: CETIRIZINE HCL PO SCH (09:00)
[2018-01-18] MEDS: Acetaminophen 325 MG TAB PO PRN ×3 (11:36→21:29)
[2018-01-18 12:31] LABS: Bilirubin Negative (Negative); Blood, Urine Negative (Negative); Clarity CLEAR (Clear); Glucose, Urine (Dipstick) Negative (Negative); Leukocyte Trace (Negative); Nitrite Negative (Negative); Protein, Urine (Dipstick) 30 mg/dL (Neg-Trace); Urobilinogen 0.2 mg/dL (0.2-1.0); pH, Urine 5.5 (5.0-9.0)
[2018-01-18 12:33] LABS: Bacteria/HPF None Seen HPF (None Seen); Hyaline Casts/LPF 0-3 HYALINE CAST LPF (0-3 Hyaline); Squamous Epithelial None Seen HPF (0-3)
--- NOTE | 2018-01-18 13:37 | CON ---
DATE OF CONSULTATION: HISTORY OF PRESENT ILLNESS: Ms. Medina is a 57-year-old white female followed up by the Renal Service for chronic renal failure. She has a previous history of sarcoidosis. She was treated with steroids with improvement of her hypercalcemia as well as renal dysfunction. She is now admitted for an acute kidney injury. She was found to have elevated levels of vancomycin. The initial level was 26 and repeat showed it had a level of 50. The issue is whether this patient may have a vancomycin-induced renal dysfunction versus simple hemodynamically-mediated renal dysfunction. I have examined the patient. I have ordered some urinalysis and urine chemistries. She is on empiric IV hydration. REVIEW OF SYSTEMS: No chest pain. Positive for chronic leg edema. No nausea. No vomiting. No diarrhea. No constipation. No productive cough. No fever or chills. No syncopal episode. No new skin rash. No joint pains. No hematochezia. No melena. No hematemesis. No diarrhea. Appetite is fair. Energy level is fair. MEDICATIONS: 1. On vancomycin for several weeks - on hold. 2. Aspirin 81 mg once a day. 3. Vitamin D3 5000 International Units daily. 4. Neurontin 300 mg p.o. t.i.d. 5. Humalog sliding scale. 6. Melatonin 6 mg at bedtime. 7. Prednisone 5 mg daily. 8. Requip 0.5 mg at bedtime. 9. Zoloft 25 mg once a day. 10. Normal saline at 70 mL/h. 11. Nephro-Le one tab daily. 12. Ambien 5 mg at bedtime p.r.n. PAST MEDICAL HISTORY: 1. Status post acute kidney injury. 2. Hypercalcemia. 3. History of sarcoidosis. 4. Cervical cancer in remission. 5. Hypertension. 6. Depression. 7. History of hepatosplenomegaly secondary to sarcoidosis. 8. Status post nephrolithiasis. 9. Type 2 diabetes mellitus. 10. Diabetic neuropathy. 11. Biopsy-proven sarcoidosis. 12. History of leg/foot osteomyelitis. PAST SURGICAL HISTORY: Status post cervical biopsy, status post abdominal hysterectomy, status post lithotripsy, status post skin biopsy, status post left wrist surgery, status post trigger finger release, status post right carpal tunnel release, status post left foot bunionectomy. SOCIAL HISTORY: The patient lives in [place], lives with her sister. 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 Alcohol rarely. No smoking. No blood transfusion or drug abuse. Active lifestyle. FAMILY HISTORY: No family history of ESRD. ALLERGIES: NONE. TRAUMA: None. IMMUNIZATION: Up-to-date. HOSPITALIZATIONS: Please see past medical history. PHYSICAL EXAMINATION: VITAL SIGNS: Blood pressure is noted at 145/71, heart rate 107, respiratory rate 18, temperature 98.7, pulse ox 94%. GENERAL: Noted to be awake, sitting comfortable, not in distress. SKIN: Adequate turgor. HEENT: Pinkish conjunctivae. Anicteric sclerae. NECK: No neck mass. No carotid bruits. No JVD. CHEST: No deformities. LUNGS: Clear breath sounds. No wheezing. No crackles. HEART: Normal sinus rhythm. No murmurs, gallops, or rubs. ABDOMEN: Globular, soft, nontender. No masses. EXTREMITIES: Positive for edema. NEUROLOGIC: Awake, oriented to three spheres. Moving all extremities. No tremors or asterixis. No ataxia. LABORATORY DATA: Laboratories of January 18, 2018, sodium 138, potassium 4.1, chloride 102, carbon dioxide 29, BUN 35, creatinine 3.31, glucose 202, AST 31, ALT 41, ALP 311, calcium is 8.9. Albumin 3.0. January 17, 2018, creatinine 2.57. December 30, 2017, creatinine 1.19. ASSESSMENT AND PLAN: 1. Acute kidney injury - consider hemodynamically-mediated renal dysfunction. Agree with IV hydration. Unclear if this could be related to vancomycin-induced acute renal dysfunction. We will review urinalysis to see if there is any activity of the urine sediment. For the moment, agree with current management. No indication when to dialyze the patient. 2. Sarcoidosis - I would maintain her prednisone at 5 mg tab once a day. 3. Hypercalcemia - resolved. 4. Chronic osteomyelitis - currently on IV vancomycin. Job ID: [id number]
[2018-01-18] MEDS: rOPINIRole HCl 0.5 MG TAB PO SCH (21:28)
[2018-01-18] MEDS: Melatonin 3 MG TAB PO SCH (21:29)
[2018-01-19 05:58] LABS: #Eosinphils 0.5 thou/uL (0.0-0.7); #Lymphocytes 1.3 thou/uL (1.20-3.40); #Monocytes 0.5 thou/uL (0.11-0.59); #Neutrophils 4.9 thou/uL (1.40-6.50); %Eosinophils 6.8 % (0.0-10.0); %Lymphocytes 18.2 % (21.0-51.0); %Monocytes 6.6 % (0.0-10.0); %Neutrophils 68.4 % (42.0-75.0); Hemoglobin 9.2 g/dL (12.0-16.0); Mean Corpuscular HGB CONC 32.1 g/dL (32.0-36.0); Mean Corpuscular Hemoglobin 27.5 pg (27.0-31.0); Mean Corpuscular Volume 85.6 fL (78.0-98.0); Mean Platelet Volume 8.5 fL (7.4-10.4); Platelet Count 279 thou/uL (130-400); Red Blood Cell (RBC) Count 3.34 mill/uL (4.20-5.40); White Blood Cell (WBC) Count 7.2 thou/uL (4.8-10.8)
[2018-01-19 06:07] LABS: Anion Gap 12 mmol/L (10-20); BUN (Urea Nitrogen) 29 mg/dL (9.8-20.1); Calc. Creatinine Clearance 35 mL/min (70-130); Carbon Dioxide 26 mmol/L (22-29); Chloride 102 mmol/L (98-107); Estimated GFR-MDRD 14; Glucose 274 mg/dL (70-105); Sodium 136 mmol/L (136-145)
[2018-01-19] MEDS: HumaLOG 300 UNITS/3 ML VIAL SC PRN ×4 (06:13→21:12)
[2018-01-19] MEDS: Sodium Chloride 0.9% 1,000 ML IV SCH ×2 (07:50→22:10)
[2018-01-19] MEDS: Gabapentin 300 MG CAP PO SCH ×3 (07:51→23:01)
[2018-01-19] MEDS: Famotidine 20 MG TAB PO SCH (07:51)
[2018-01-19] MEDS: predniSONE 5 MG TAB PO SCH (07:51)
[2018-01-19] MEDS: Loratadine 10 MG TAB PO SCH (07:51)
[2018-01-19] MEDS: Folic Acid/Vit B Comp W-C PO SCH (07:51)
[2018-01-19] MEDS: Saccharomyces boulardii 250 MG CAP PO SCH (07:52)
[2018-01-19] MEDS: Amlodipine 5 MG TAB PO SCH (07:52)
[2018-01-19] MEDS ORDERED: predniSONE 20 MG TAB PO SCH (12:30)
[2018-01-19] MEDS: cefTRIAXone\\ROCEPHIN 2 GM in Sodium Chloride 0.9% 100 ML IVPB SCH (16:28)
--- NOTE | 2018-01-19 18:55 | PDOC.PN ---
- Subjective Encounter Start Date: 01/19/18 Encounter Start Time: 18:55 Patient lying in bed, no acute distress noted. No events over night. No chest pain, shortness of breath or abdominal pain. Dr Divina changed antibiotics to Rocephin for osteomyelitis. She reports pain controlled at the moment. Cr slightly better today with Cr 3.29 - Objective Resuscitation Status - Order Detail: 01/18/18 01:18 Resuscitation Status Routine Resuscitation Status: FULL: Full Resuscitation MAR Reviewed: Yes Vital Signs & Weight: Vital Signs (12 hours) Temp Pulse Resp BP Pulse Ox 01/19/18 15:13 98.1 F 105 H 18 147/66 H 95 01/19/18 11:49 98.2 F 96 16 135/63 95 01/19/18 07:52 86 01/19/18 07:45 98.3 F 92 16 129/63 97 Weight Admit Weight 265 lb 3.2 oz Weight 265 lb 3.2 oz I&O: 01/18/18 01/19/18 01/20/18 06:59 06:59 06:59 Intake Total 319 2678 1550 Output Total 200 1550 600 Balance 119 1128 950 Result Diagrams: 01/19/18 05:19 01/19/18 05:19 Additional Labs: Accuchecks 01/19/18 01/19/18 01/19/18 16:16 10:48 06:08 POC Glucose 348 H 254 H 298 H 01/18/18 20:30 POC Glucose 308 H Radiology Reviewed by me: Yes EKG Reviewed by me: Yes <Clarence Lubin - Last Filed: 01/19/18 18:52> - Objective Resuscitation Status - Order Detail: 01/18/18 01:18 Resuscitation Status Routine Resuscitation Status: FULL: Full Resuscitation Vital Signs & Weight: Vital Signs (12 hours) Temp Pulse Resp BP BP Pulse Ox 01/21/18 07:53 91 145/81 H 01/21/18 07:49 95 01/21/18 07:00 97.6 F 91 20 145/81 H 95 01/21/18 04:00 98.2 F 90 18 137/88 97 01/21/18 00:00 97.8 F 95 16 159/83 H 93 L Weight Admit Weight 265 lb 3.2 oz Weight 276 lb I&O: 01/20/18 01/21/18 01/22/18 06:59 06:59 06:59 Intake Total 2870 Output Total 2000 Balance 870 Result Diagrams: 01/21/18 08:19 01/21/18 08:19 Additional Labs: Accuchecks 01/21/18 01/21/18 01/20/18 11:07 05:41 20:42 POC Glucose 253 H 302 H 398 H 01/20/18 01/20/18 17:00 10:34 POC Glucose 429 H 247 H <EMILEE CASTILLO - Last Filed: 01/21/18 11:44> Phys Exam - Physical Examination Constitutional: NAD HEENT: PERRLA, moist MMs, sclera anicteric, oral pharynx no lesions Neck: no nodes, no JVD, supple Respiratory: no wheezing, no rales, no rhonchi, clear to auscultation bilateral Cardiovascular: RRR, no significant murmur, no rub Gastrointestinal: soft, non-tender, positive bowel sounds Morbid obese Musculoskeletal: no edema, pulses present Bandage applied to left great toe, intact clean and dry. No erythema noted. PICC line left upper arm Neurological: non-focal, normal sensation, moves all 4 limbs Lymphatic: no nodes Psychiatric: normal affect, A&O x 3 Skin: no rash, normal turgor, cap refill <2 seconds <Clarence Lubin - Last Filed: 01/19/18 18:52> Dx/Plan (1) Diabetes mellitus Code(s): E11.9 - TYPE 2 DIABETES MELLITUS WITHOUT COMPLICATIONS Status: Acute (2) Hypertension Code(s): I10 - ESSENTIAL (PRIMARY) HYPERTENSION Status: Acute (3) Diabetic infection of left foot Code(s): E11.628 - TYPE 2 DIABETES MELLITUS WITH OTHER SKIN COMPLICATIONS; L08.9 - LOCAL INFECTION OF THE SKIN AND SUBCUTANEOUS TISSUE, UNSP Status: Acute (4) CKD (chronic kidney disease) stage 3, GFR 30-59 ml/min Code(s): N18.3 - CHRONIC KIDNEY DISEASE, STAGE 3 (MODERATE) Status: Chronic (5) Morbid obesity with BMI of 50.0-59.9, adult Code(s): E66.01 - MORBID (SEVERE) OBESITY DUE TO EXCESS CALORIES; Z68.43 - BODY MASS INDEX (BMI) 50-59.9, ADULT Status: Chronic - Plan cont current plan of care, plan discussed w/ family, continue antibiotics * Continue IV abx per Dr Murcia including ceftriaxone * Nephrology services following, continue IV hydration with NS, monitor BMP * Continue home medications and adjust accordingly pending patient progress * Continue wound care for wound <Clarence Lubin - Last Filed: 01/19/18 18:52> (1) Osteomyelitis Code(s): M86.9 - OSTEOMYELITIS, UNSPECIFIED Status: Acute Comment: Changing abx per Divina recommendations. - Plan * . <EMILEE CASTILLO - Last Filed: 01/21/18 11:44>
[2018-01-19] MEDS: Melatonin 3 MG TAB PO SCH (23:01)
[2018-01-19] MEDS: rOPINIRole HCl 0.5 MG TAB PO SCH (23:01)
[2018-01-20 04:05] LABS: #Lymphocytes 0.9 thou/uL (1.20-3.40); #Monocytes 0.3 thou/uL (0.11-0.59); #Neutrophils 7.7 thou/uL (1.40-6.50); %Basophils 0.3 % (0.0-1.0); %Eosinophils 0.4 % (0.0-10.0); %Lymphocytes 9.7 % (21.0-51.0); %Monocytes 3.8 % (0.0-10.0); %Neutrophils 85.8 % (42.0-75.0); Hemoglobin 9.1 g/dL (12.0-16.0); Mean Corpuscular HGB CONC 31.4 g/dL (32.0-36.0); Mean Corpuscular Hemoglobin 26.7 pg (27.0-31.0); Mean Corpuscular Volume 85.1 fL (78.0-98.0); Mean Platelet Volume 8.7 fL (7.4-10.4); Platelet Count 279 thou/uL (130-400); RBC Distribution Width 16.9 % (11.5-14.5); Red Blood Cell (RBC) Count 3.41 mill/uL (4.20-5.40); White Blood Cell (WBC) Count 8.9 thou/uL (4.8-10.8)
[2018-01-20 04:24] LABS: Vancomycin, Random 26.8 ug/mL (See Comment)
[2018-01-20 04:28] LABS: Anion Gap 12 mmol/L (10-20); BUN (Urea Nitrogen) 37 mg/dL (9.8-20.1); Calc. Creatinine Clearance 33 mL/min (70-130); Calcium 9.1 mg/dL (7.8-10.44); Carbon Dioxide 27 mmol/L (22-29); Chloride 100 mmol/L (98-107); Estimated GFR-MDRD 13; Glucose 373 mg/dL (70-105); Potassium 4.7 mmol/L (3.5-5.1); Sodium 134 mmol/L (136-145)
[2018-01-20] MEDS: HumaLOG 300 UNITS/3 ML VIAL SC PRN ×4 (05:55→20:56)
--- NOTE | 2018-01-20 07:49 | PRG ---
DATE OF SERVICE: 01/19/2018 SUBJECTIVE: Ms. Medina is a 57-year-old white female, who was admitted due to elevated level of vancomycin. She was getting vancomycin for her chronic foot and leg infection - osteomyelitis. We were consulted due to the acute kidney injury. I did review the urinalysis and there was some pyuria. No evidence of pigmented granular casts to suggest acute tubular necrosis. The elevated creatinine may reflect either exacerbation of her sarcoidosis and/or from vancomycin-induced acute renal failure. My bias is to empirically increase her prednisone from 5 to 20 mg tab once a day. I told her we will do it for one week and then will taper her back to 10 mg once a day after a week of the present being at 20 mg. I do not feel we needed to do a renal biopsy. In addition, it is a relative contraindication with her due to her morbid obesity. No other complaints today. She denies any chest pain or shortness of breath. OBJECTIVE: VITAL SIGNS: Blood pressure is 129/63, heart rate 92, respiratory rate 16, temperature 98.3, pulse ox 97%. GENERAL: Awake, ambulatory, comfortable, obese, not in distress. SKIN: Adequate turgor. HEENT: She has pinkish conjunctivae. Anicteric sclerae. NECK: No neck mass. No carotid bruits. No JVD. CHEST: No deformities. LUNGS: Clear breath sounds. No wheezing. No crackles. HEART: Normal sinus rhythm. No murmurs. No gallops. No rubs. ABDOMEN: Globular, soft, nontender. No masses. EXTREMITIES: Positive for edema. MEDICATIONS: Medications of January 19, 2018, was reviewed. LABORATORY DATA: Laboratories of January 19, 2018, showed a white count of 7.2, hemoglobin 9.2. Sodium 136, potassium 4, chloride 102, carbon dioxide 26, BUN 29, creatinine 3.29, glucose 274, calcium 9.0. ASSESSMENT AND PLAN: 1. Acute kidney injury - unclear etiology, but this could be from exacerbation of her sarcoidosis and/or from a vancomycin-induced renal dysfunction. My bias is to increase prednisone to 20 mg tab once a day. I did explain to the patient possible side effects of the increased dose. There is no indication for any dialytic intervention at this patient. The renal function is relatively stable. 2. Elevated vancomycin level. We will be repeating another reading with a vancomycin level in a.m. Continue supportive care. Continue to hold IV vancomycin. Overall prognosis remains guarded. We will check baseline CBC, vancomycin level in a.m. Job ID: [id number]
--- NOTE | 2018-01-20 07:51 | CON ---
DATE OF CONSULTATION: 01/19/2018 HISTORY OF PRESENT ILLNESS: A 57-year-old, whom I had seen recently when she presented with a history of type 2 diabetes, obesity, hypertension, sarcoidosis, renal insufficiency stage 3 with ulceration and callus, bottom aspect of left first toe. The patient had extensive evaluation in the beginning of December and although the MRI did not show overt osteomyelitis, there was evidence of early osteitis. We decided to provide IV therapy with Rocephin and vancomycin. PICC line was placed and now she is admitted because she developed worsening renal function. Dr. Sauceda has evaluated the patient and he felt that it was hemodynamically mediated renal dysfunction, although vancomycin-induced acute renal dysfunction was considered. She is currently feeling well. She is currently receiving prednisone, but no antimicrobial therapy. PHYSICAL EXAMINATION: VITAL SIGNS: Showed a T-max of 98.3. Other vital signs are normal. GENERAL: Awake, alert, standing up, walking. SKIN: The wound showed still an area of ulceration at the bottom aspect of the left first toe with some callus formation around and 100% granulation at the base of the ulcer, which measures about 2 cm. The patient has a PICC line, which appears normal. HEENT: Noncontributory. LUNGS: Clear. HEART: S1 and S2. Regular rate. ABDOMEN: Soft, not distended or tender. NEURO: Nonfocal. LABORATORY DATA: White cell count 7.2, hemoglobin 9.2, and platelets 279 with normal differential. Creatinine is down to 3.29. The baseline creatinine was 1.21 at the beginning of December. We do not have any microbiology now, but at the beginning of December, we had Staph aureus, Proteus mirabilis, and enterococcus faecalis. ASSESSMENT AND DISCUSSION: Type 2 diabetes, renal insufficiency stage 3 and now stage 4 to 5, possible vancomycin toxicity. We will resume Rocephin and discontinue vancomycin for now and continue Rocephin alone. Keep the patient in the hospital until there is further improvement of the renal function. Job ID: [id number]
[2018-01-20] MEDS: Loratadine 10 MG TAB PO SCH (08:56)
[2018-01-20] MEDS: Amlodipine 5 MG TAB PO SCH (08:56)
[2018-01-20] MEDS: Saccharomyces boulardii 250 MG CAP PO SCH (08:56)
[2018-01-20] MEDS: Folic Acid/Vit B Comp W-C PO SCH (09:02)
[2018-01-20] MEDS: Gabapentin 300 MG CAP PO SCH ×3 (09:03→20:55)
[2018-01-20] MEDS: Famotidine 20 MG TAB PO SCH (09:03)
[2018-01-20] MEDS: predniSONE 20 MG TAB PO SCH (09:03)
--- NOTE | 2018-01-20 10:48 | PDOC.PN ---
- Subjective Encounter Start Date: 01/20/18 Encounter Start Time: 09:30 Subjective: f/u for acute on chronic renal failure -: No complaints today, denies pain, CP, shortness of breath -: Sitting on the side of the bed, does not appear to be in any distress - Objective Resuscitation Status - Order Detail: 01/18/18 01:18 Resuscitation Status Routine Resuscitation Status: FULL: Full Resuscitation Vital Signs & Weight: Vital Signs (12 hours) Temp Pulse Resp BP Pulse Ox 01/20/18 07:51 98.1 F 93 14 155/83 H 93 L 01/20/18 04:19 97.9 F 99 16 169/80 H 99 01/19/18 23:00 98.3 F 113 H 14 148/76 H 96 Weight Admit Weight 120.293 kg Weight 125.191 kg I&O: 01/19/18 01/20/18 01/21/18 06:59 06:59 06:59 Intake Total 2678 2870 Output Total 1550 2000 Balance 1128 870 Result Diagrams: 01/20/18 03:20 01/20/18 03:20 Additional Labs: Accuchecks 01/20/18 01/19/18 01/19/18 05:53 20:42 16:16 POC Glucose 333 H 390 H 348 H 01/19/18 10:48 POC Glucose 254 H Phys Exam - Physical Examination Constitutional: NAD HEENT: PERRLA, moist MMs Neck: no nodes, no JVD Respiratory: no wheezing, clear to auscultation bilateral Cardiovascular: RRR, no significant murmur Gastrointestinal: soft, positive bowel sounds Musculoskeletal: no edema Neurological: non-focal, normal sensation Lymphatic: no nodes Psychiatric: normal affect, A&O x 3 Skin: cap refill <2 seconds Deviation from normal: ciarra skin infection noted to pannus and upper anterior thighs Dx/Plan (1) Acute on chronic renal failure Code(s): N17.9 - ACUTE KIDNEY FAILURE, UNSPECIFIED; N18.9 - CHRONIC KIDNEY DISEASE, UNSPECIFIED Status: Acute (2) Diabetes mellitus Code(s): E11.9 - TYPE 2 DIABETES MELLITUS WITHOUT COMPLICATIONS Status: Chronic (3) Diabetic ulcer of left great toe Code(s): E11.621 - TYPE 2 DIABETES MELLITUS WITH FOOT ULCER; L97.529 - NON- PRESSURE CHRONIC ULCER OTH PRT LEFT FOOT W UNSP SEVERITY Status: Chronic (4) CKD (chronic kidney disease) stage 3, GFR 30-59 ml/min Code(s): N18.3 - CHRONIC KIDNEY DISEASE, STAGE 3 (MODERATE) Status: Chronic (5) Morbid obesity with BMI of 50.0-59.9, adult Code(s): E66.01 - MORBID (SEVERE) OBESITY DUE TO EXCESS CALORIES; Z68.43 - BODY MASS INDEX (BMI) 50-59.9, ADULT Status: Chronic (6) Ciarra albicans infection Code(s): B37.9 - CANDIDIASIS, UNSPECIFIED Status: Acute Plan: Nystatin cream to area BID - Plan cont current plan of care, DVT proph w/lovenox Dr. Murcia changed ABX from Vanc to Rocephin -: Dr. Sauceda in to see patient today, awaiting recommendations -: Status changed to INP today -: Will continue to monitor labs * .
--- NOTE | 2018-01-20 11:06 | PRG ---
DATE OF SERVICE: 01/20/2018 SUBJECTIVE: Ms. Medina is a 57-year-old white female with known history of sarcoidosis, chronic renal failure and recently was seen for an acute kidney injury. She was initially admitted for high vancomycin level. The vancomycin has been discontinued. Level is now much improved. However, renal function remains unimproved. I did increase her prednisone to 20 mg tab once a day yesterday. She had a skin biopsy of her forehead, and there was a finding of sarcoidosis there several months ago. OBJECTIVE: VITAL SIGNS: Blood pressure is 155/83, heart rate 93, respiratory rate 14, temperature 98.1, pulse oximetry 93%. GENERAL: Awake, alert, comfortable, obese, not in distress, ambulatory. SKIN: Adequate turgor. HEENT: Pinkish conjunctivae, anicteric sclerae. NECK: No neck mass. No carotid bruits. No JVD. CHEST: No deformities. LUNGS: Clear breath sounds. No wheezing. No crackles. HEART: Normal sinus rhythm. No murmurs. No gallops. No rubs. ABDOMEN: Globular, soft, nontender. No masses. EXTREMITIES: Positive for edema. MEDICATIONS: Medications of January 20, 2018, reviewed. LABORATORY DATA: Laboratories on January 20, 2018, vancomycin level 26.8, sodium 134, potassium 4.7, chloride 100, carbon dioxide 27, BUN 37, creatinine 3.6, glucose 273, calcium 9.1. ASSESSMENT AND PLAN: 1. Acute kidney injury - this could be a vancomycin-induced acute renal failure versus exacerbation of her advanced sarcoidosis. I have increased prednisone to 20 mg tab once daily. Continue current management. No indication for any dialytic intervention. 2. Chronic osteomyelitis. Dr. Murcia has discontinued IV vancomycin, and she is currently on ceftriaxone. 3. We will recheck basic metabolic panel and CBC in a.m. Job ID: [id number]
[2018-01-20] MEDS: Sodium Chloride 0.9% 1,000 ML IV SCH (12:14)
[2018-01-20] MEDS: cefTRIAXone\\ROCEPHIN 2 GM in Sodium Chloride 0.9% 100 ML IVPB SCH (16:39)
[2018-01-20] MEDS: Nystatin Cream 30 GM TUBE TOP SCH (20:55)
[2018-01-20] MEDS: Melatonin 3 MG TAB PO SCH (20:55)
[2018-01-20] MEDS: rOPINIRole HCl 0.5 MG TAB PO SCH (20:55)
[2018-01-21] MEDS: Sodium Chloride 0.9% 1,000 ML IV SCH (05:38)
[2018-01-21] MEDS: HumaLOG 300 UNITS/3 ML VIAL SC PRN ×2 (05:43→11:30)
[2018-01-21] MEDS: Saccharomyces boulardii 250 MG CAP PO SCH (07:53)
[2018-01-21] MEDS: Loratadine 10 MG TAB PO SCH (07:53)
[2018-01-21] MEDS: Famotidine 20 MG TAB PO SCH (07:53)
[2018-01-21] MEDS: Amlodipine 5 MG TAB PO SCH (07:53)
[2018-01-21] MEDS: predniSONE 20 MG TAB PO SCH (07:53)
[2018-01-21] MEDS: Folic Acid/Vit B Comp W-C PO SCH (07:53)
[2018-01-21] MEDS: Gabapentin 300 MG CAP PO SCH ×2 (07:54→15:42)
[2018-01-21 08:49] LABS: #Eosinphils 0.2 thou/uL (0.0-0.7); #Lymphocytes 1.4 thou/uL (1.20-3.40); #Monocytes 0.7 thou/uL (0.11-0.59); #Neutrophils 6.6 thou/uL (1.40-6.50); %Basophils 0.3 % (0.0-1.0); %Eosinophils 2.8 % (0.0-10.0); %Lymphocytes 15.9 % (21.0-51.0); %Monocytes 7.9 % (0.0-10.0); %Neutrophils 73.1 % (42.0-75.0); Hemoglobin 9.5 g/dL (12.0-16.0); Mean Corpuscular HGB CONC 30.9 g/dL (32.0-36.0); Mean Corpuscular Volume 84.3 fL (78.0-98.0); Platelet Count 289 thou/uL (130-400); RBC Distribution Width 16.8 % (11.5-14.5); Red Blood Cell (RBC) Count 3.65 mill/uL (4.20-5.40)
[2018-01-21 08:51] LABS: Hemoglobin A1c 9.3 % (4.0-6.0)
[2018-01-21 09:03] LABS: Anion Gap 13 mmol/L (10-20); BUN (Urea Nitrogen) 35 mg/dL (9.8-20.1); Calc. Creatinine Clearance 37 mL/min (70-130); Calcium 9.4 mg/dL (7.8-10.44); Carbon Dioxide 25 mmol/L (22-29); Chloride 104 mmol/L (98-107); Estimated GFR-MDRD 15; Glucose 179 mg/dL (70-105); Potassium 3.7 mmol/L (3.5-5.1); Sodium 138 mmol/L (136-145)
[2018-01-21] MEDS: Nystatin Cream 30 GM TUBE TOP SCH (11:30)
[2018-01-21] MEDS: cefTRIAXone\\ROCEPHIN 2 GM in Sodium Chloride 0.9% 100 ML IVPB SCH (15:43)
[2018-01-21 16:09] VITALS: TEMP 98.2
--- NOTE | 2018-01-21 16:23 | PRG ---
DATE OF SERVICE: 01/21/2018 SERVICE: Renal Medicine SUBJECTIVE: Ms. Medina is a 57-year-old white female, was seen for an acute kidney injury on top of her chronic renal failure. She has a history of presumptive sarcoidosis of the kidneys. She was also receiving IV antibiotics for her chronic foot infection/osteomyelitis. Vancomycin level was noted to be elevated for disease and was discontinued. Vancomycin level tends to trend down. However, renal function has worsened since her hospitalization. The possibility that this could be exacerbation of sarcoidosis remains. Another consideration, this could be a vancomycin-induced acute renal dysfunction. I have decided to increase her prednisone from 5 to 20 mg tablet once a day. This morning, she voices no new complaints. She denies any chest pain, shortness of breath, nausea, or vomiting. OBJECTIVE: VITAL SIGNS: Blood pressure is 145/81, heart rate 91, respiratory rate 20, and pulse ox 95%. GENERAL: Noted to be awake, alert, comfortable, sitting, not in distress. SKIN: Adequate turgor, morbidly obese. HEENT: Pinkish conjunctivae. Anicteric sclerae. No neck mass. No carotid bruits. No JVD. CHEST: No deformities. LUNGS: Clear breath sounds. No wheezing. No crackles. HEART: Normal sinus rhythm. No murmur. No gallops. No rubs. ABDOMEN: Globular, soft, and nontender. No masses. EXTREMITIES: Trace edema. MEDICATIONS: Medications of January 21, 2018 was reviewed. LABORATORY DATA: Laboratories of January 21, 2018; white count 9 and hemoglobin 9.5. Sodium 138, potassium 3.7, chloride 104, carbon dioxide 25, BUN 35, and creatinine 3.2. On January 20, 2018; creatinine was 3.6. ASSESSMENT AND PLAN: 1. Acute kidney injury - consider secondary to a possible exacerbation of her renal sarcoidosis versus vancomycin-induced acute kidney dysfunction. Currently, the prednisone has been increased from 5 to 20 mg tablet once a day. Please note, there is some stabilization and/or slight improvement in the creatinine from 3.6 to 3.2. We will continue current dose of the prednisone 20 mg tablet once a day. The plan is to at least leave her on the prednisone at 20 mg tablet for at least one week, then taper it to 10 mg tablet once a day. a. Previously, the patient declined the increased dose of prednisone, and for that reason, she was placed on 5 mg tablet once a day. 2. Elevated vancomycin level, much improved. The last vancomycin level on January 20, 2018 was 26.8 from a peak of 50.7. 3. Agree with current management. From a renal point of view, the patient can be discharged. Job ID: [id number]
[2018-01-21 17:29] VITALS: BP 167/82
--- NOTE | 2018-01-23 13:34 | DIS ---
DATE OF ADMISSION: 01/18/2018 DATE OF DISCHARGE: 01/21/2018 PRIMARY CARE PHYSICIAN: Dr. Moran. CONSULTANTS: 1. Dr. Murcia, Infectious Disease. 2. Dr. Sauceda. PROCEDURES: None. DISCHARGE DIAGNOSES: 1. Acute kidney injury. 2. Elevated vancomycin level, which is much improved. 3. Type 2 diabetes. 4. Hypertension, uncontrolled. 5. History of hyperlipidemia. 6. Osteomyelitis, on IV antibiotics to the left forefoot. HOSPITAL COURSE: Ms. Medina is a pleasant 57-year-old female, who was admitted on 01/18/[address] Murcia had been giving her vancomycin and Rocephin for her left foot osteomyelitis. Reports that the vancomycin trough was too high and told to come to the hospital. She denied any fevers, chills, chest pain, palpitations, abdominal pain, nausea, vomiting, diarrhea, dysuria, or hematuria. She had recently been seen in the hospital on 12/23 when she was admitted for sepsis secondary to her diabetic foot infection, where she was discharged home with PICC line for the antibiotics as stated above. In the emergency room, she was found to have acute on chronic renal injury. Based on lab values and past medical history, the patient was admitted to the observation unit for further management. Here on the observation unit, Dr. Murcia and Dr. Sauceda, were consulted. The patient was taken off her vancomycin and continued on the Rocephin. Over the course of several days, her acute on chronic kidney function improved. Her white blood cell count, hemoglobin, and hematocrit remained stable. Her blood sugar was stable. Vital signs remained stable. Dr. Sauceda agreed with discharge based on improved lab values. Case was discussed with Dr. Waters, who agreed to discharge plan. She will return through Dr. Murcia' office for continuation of the Rocephin for at least another week for her foot infection. REVIEW OF SYSTEMS: The patient was examined on morning of discharge. She complained of some mild pain to her left foot. She also complained of a rash to her pannus, which was treated with some nystatin cream. All other review of systems were reviewed and negative. PHYSICAL EXAMINATION: VITAL SIGNS: Temperature 97.6, pulse is 91, respirations are 20, blood pressure 145/81, and pulse ox is 95% on room air. CONSTITUTIONAL: The patient is afebrile, appears with mild pain. Alert and oriented to person, place, and time. She is pacing in the room with her IV ball. HEAD: Normocephalic and atraumatic. EYES: Eyelids are normal to inspection. Pupils are equally round and reactive to light. Extraocular muscles are intact. ENT: Mouth exam is normal. Mucous membranes are moist. NECK: Normal range of motion. Trachea is midline. No tenderness. RESPIRATORY/CHEST: Breath sounds are clear. No respiratory distress. Expansion is equal bilaterally. CARDIOVASCULAR: Heart sounds are normal. Regular rate and rhythm. ABDOMEN: Female, nontender. Bowel sounds are heard. BACK: Normal inspection. Normal range of motion. No tenderness. EXTREMITIES: Upper extremity; PICC line in upper left arm, otherwise normal range of motion. Motor strength is normal. Sensation and radial pulses are equal bilaterally. Lower extremities; on inspection with bandage to the left distal foot. Range of motion is normal. Motor strength is normal. Sensation is intact. NEUROLOGIC: The patient is alert to person, place, and time. Speech is normal. Gait is normal. Cranial nerves are intact. No focal, motor, or sensory deficits. SKIN: She does have some excoriated nestor appearing skin to bilateral pannus. PSYCHIATRIC: Affect is normal. MEDICATIONS: Home medication will be continued include; 1. Norvasc 5 mg p.o. q.a.m. 2. Aspirin 81 mg p.o. daily. 3. Zyrtec 1 capsule 10 mg p.o. q.a.m. 4. Vitamin D 5000 units p.o. daily. 5. Gabapentin 300 mg p.o. t.i.d. 6. Amaryl 2 tablets 4 mg p.o. q.a.m. 7. Tresiba 120 units subcu a.m. 8. Magnesium 400 mg p.o. q.a.m. 9. Vitamin B12 one tablet p.o. q.a.m. 10. Melatonin 5 mg p.o. at bedtime. 11. Potassium chloride 10 mEq p.o. daily. 12. Prednisone 5 mg p.o. daily. 13. Ropinirole 0.5 mg p.o. at bedtime. 14. Zoloft 25 mg p.o. q.a.m. 15. Vitamin B complex 1 tablet p.o. q.a.m. 16. Rocephin 2 g IV piggyback q.24. We added nystatin cream 1 application topical b.i.d. to pannus area. ALLERGIES: THE PATIENT IS ALLERGIC TO SITAGLIPTIN. DISPOSITION: The patient was discharged home in stable condition. FOLLOWUP: 1. She is to follow up with Dr. Moran, within the next week. 2. Follow up with Dr. Murcia, for the Rocephin infusion. 3. Follow up with Dr. Sauceda, within the next 1 to 2 weeks. Job ID: [id number]
--- NOTE | 2018-01-25 14:28 | EKG ---
Test Reason : Blood Pressure : / mmHG Vent. Rate : 116 BPM Atrial Rate : 116 BPM P-R Int : 144 ms QRS Dur : 076 ms QT Int : 322 ms P-R-T Axes : 054 -04 050 degrees QTc Int : 447 ms Sinus tachycardia Otherwise normal ECG Confirmed by MATTHEW LEIVA D.O. ([id number]), scientific editor JANEL MALIK ([id number]) on 01/25/2018 2:28:16 PM Referred By: Confirmed By:MATTHEW LEIVA D.O.
== END 2018-01-21 17:49 | disposition home or self-care (01) | DRG 683 ==
LOC: ERS 20:02 → 2SW 01-18 00:44 → OBSVTOIN 01-18 00:44 → T4-B 01-20 21:55
PROVIDERS: ADMIT Internal Medicine; ATTEND Internal Medicine
DX: N17.9 Acute kidney failure, unspecified (principal); Z68.43 Body mass index [BMI] 50.0-59.9, adult; M86.672 Other chronic osteomyelitis, left ankle and foot; D86.89 Sarcoidosis of other sites; E11.69 Type 2 diabetes mellitus with other specified complication; E11.621 Type 2 diabetes mellitus with foot ulcer; T36.8X5A Adverse effect of other systemic antibiotics, initial encounter; L97.529 Non-pressure chronic ulcer of other part of left foot with unspecified severity; I12.9 Hypertensive chronic kidney disease with stage 1 through stage 4 chronic kidney disease, or unspecified chronic kidney disease; N18.3 Chronic kidney disease, stage 3 (moderate); E11.22 Type 2 diabetes mellitus with diabetic chronic kidney disease; R21 Rash and other nonspecific skin eruption; E78.5 Hyperlipidemia, unspecified; E11.40 Type 2 diabetes mellitus with diabetic neuropathy, unspecified; E66.01 Morbid (severe) obesity due to excess calories; F32.9 Major depressive disorder, single episode, unspecified; Z88.8 Allergy status to other drugs, medicaments and biological substances; Z79.2 Long term (current) use of antibiotics; Z79.84 Long term (current) use of oral hypoglycemic drugs; Z79.82 Long term (current) use of aspirin; Z79.52 Long term (current) use of systemic steroids
CPT/HCPCS: 36415; 36416; 80048; 80053; 80202; 81001; 83036; 85007; 85025; 85027; 93005; J0696; J7050; J7506

== ENCOUNTER 2018-02-03 11:29 | Outpatient (CLI) | payer OTHER ==
--- NOTE | 2018-02-03 14:38 | PRG ---
DATE OF SERVICE: 02/03/2018 HISTORY: Ms. Lynne Medina is a very pleasant 57-year-old, who [facility] for evaluation of multiple blisters of the right lower leg. The patient was referred to the [facility] by Dr. Jp Moran, on 11/26/2017. The patient states that she is to undergo back surgery later this week. The patient states that she was previously told by Dr. Moran that a blister over her left lower leg was secondary to lower extremity edema. The patient states that treatment with a compression wrap was recommended to her by Dr. Moran. PHYSICAL EXAMINATION: VITAL SIGNS: Temperature 98.0, pulse 110, respirations 21, blood pressure 143/81. Accu-Chek 300. EXTREMITIES: Two intact blisters are present over the right lower leg. One of the blisters was opened with scissors and the serous fluid contained within the blister was sent for aerobic and anaerobic cultures. No cellulitis of the right lower leg is appreciated. No maceration of the skin of the right lower leg is present. ASSESSMENT AND PLAN: 1. Right and left lower extremity edema secondary to venous peripheral insufficiency. Silverlon, Webril, and the 3M coban 2 Layer Compression System will be applied to the right lower leg lesions today. Arrangements will be made for dressing changes 1 to 2 times per week after cleansing and irrigation with the assistance of home health. I have discussed in-home lymphedema therapy with Ms. Medina. The patient will return to the [facility]ound Center in one week or alternatively five weeks for the initiation of in-home lymphedema therapy with a pneumatic pump. 2. Nephrolithiasis. 3. Hypertension. 4. Diabetes mellitus. The patient's Accu-Chek in clinic today is 300. The patient has been reminded that for optimal wound healing her blood glucoses should remain below 150. 5. Obstructive sleep apnea. 6. Sarcoidosis. Job ID: [id number]
== END 2018-02-03 11:30 | disposition home or self-care (01) ==
LOC: WCC 11:29
PROVIDERS: ATTEND Family Medicine
DX: R60.0 Localized edema (principal); I87.8 Other specified disorders of veins; N20.0 Calculus of kidney; I10 Essential (primary) hypertension; E11.9 Type 2 diabetes mellitus without complications; G47.33 Obstructive sleep apnea (adult) (pediatric); D86.9 Sarcoidosis, unspecified
CPT/HCPCS: 80048; 85027; 87070; 87205; 93005; 93010; A4218

== ENCOUNTER 2018-02-03 13:17 | Outpatient (CLI) | payer OTHER ==
[2018-02-03 14:29] LABS: Hemoglobin 10.2 g/dL (12.0-16.0); Mean Corpuscular HGB CONC 31.6 g/dL (32.0-36.0); Mean Corpuscular Hemoglobin 26.4 pg (27.0-31.0); Mean Corpuscular Volume 83.6 fL (78.0-98.0); Mean Platelet Volume 8.8 fL (7.4-10.4); Platelet Count 259 thou/uL (130-400); RBC Distribution Width 16.7 % (11.5-14.5); Red Blood Cell (RBC) Count 3.86 mill/uL (4.20-5.40)
[2018-02-03 14:45] LABS: Anion Gap 17 mmol/L (10-20); BUN (Urea Nitrogen) 56 mg/dL (9.8-20.1); Calc. Creatinine Clearance 0 mL/min (70-130); Calcium 10.2 mg/dL (7.8-10.44); Carbon Dioxide 29 mmol/L (22-29); Chloride 94 mmol/L (98-107); Estimated GFR-MDRD 15; Glucose 527 mg/dL (70-105); Potassium 5.2 mmol/L (3.5-5.1); Sodium 135 mmol/L (136-145)
--- NOTE | 2018-02-03 17:31 | EKG ---
Test Reason : Blood Pressure : / mmHG Vent. Rate : 100 BPM Atrial Rate : 100 BPM P-R Int : 150 ms QRS Dur : 072 ms QT Int : 340 ms P-R-T Axes : 064 017 052 degrees QTc Int : 438 ms Normal sinus rhythm Septal infarct , age undetermined (doubtful)( poor R wave progression.) Abnormal ECG When compared with ECG of 17-JAN-2018 22:57, No significant change was found Confirmed by GAGE CONNOR ([id number]) on 02/03/2018 5:31:02 PM Referred By: FABIO Confirmed By:GAGE CONNOR
== END 2018-02-03 13:18 | disposition home or self-care (01) ==
LOC: LABBT 13:17
PROVIDERS: ATTEND Neurological Surgery
DX: Z01.818 Encounter for other preprocedural examination (principal)
CPT/HCPCS: 80048; 85027; 87070; 87205; 93005; 93010

== ENCOUNTER 2018-02-06 12:42 | Day surgery (SDC) | payer OTHER ==
[2018-02-03 13:33] VITALS: BMI 50.8
--- NOTE | 2018-02-06 09:46 | HP ---
HISTORY OF PRESENT ILLNESS: Ms. Medina returns today for evaluation of lower back pain with bilateral lower extremity radicular L5 pain that have worsened since 2 years ago at her last evaluation. Dr. Guardado discontinued steroid injections, which do help her, but her pains are more profound at this time. She has a new MRI from the [facility] that revealed left L4 synovial cyst impinging the L5 nerve root and severe right L5 foraminal stenosis. These are likely the greatest culprits in her pain symptoms. PAST MEDICAL HISTORY: Significant for hypercholesterolemia, renal disease, COPD, history of cancer, hypertension, and diabetes. CURRENT MEDICATIONS: Include: 1. Doxycycline. 2. Potassium. 3. Aspirin. 4. Prednisone. 5. Melatonin. 6. Glimepiride. 7. Gabapentin. 8. Amlodipine. 9. Ropinirole. 10. Tresiba. 11. Sertraline. 12. Humalog. 13. Furosemide. 14. Tizanidine. 15. [place]. 16. Clotrimazole. ALLERGIES: NO KNOWN DRUG ALLERGIES. PAST SURGICAL HISTORY: Bunionectomy, lithotripsy, hysterectomy, and a left wrist surgery unspecified. PHYSICAL EXAMINATION: GENERAL: The patient is alert and oriented x3. Gait is severely antalgic. ASSESSMENT: Lumbar radiculopathy. PLAN: Dr. Freitas met with the patient, reviewed imaging, and advocated for an L4-S1 decompression. He explained to the patient the risks, benefits, and alternatives to the procedure. The patient expressed understanding and elected to move forward with surgery as discussed. I do believe that the patient is mentally competent and capable of making medical decisions for herself. We will move forward with surgery as planned. Job ID: [id number]
[2018-02-06] MEDS ORDERED: CEFAZOLIN 2 GM/50 ML BAG ONE ×2 (14:14→20:53)
[2018-02-06] MEDS ORDERED: Bupivacaine HCl 0.5%/Epinephrine 1:200,000/PF 30 ml Vial ONE (15:36)
[2018-02-06] MEDS ORDERED: Thrombin 5000 UNITS/5 ML VIAL ONE (15:36)
[2018-02-06] MEDS ORDERED: Fentanyl 100 MCG/2 ML VIAL ONE ×2 (15:44→17:56)
[2018-02-06] MEDS ORDERED: Midazolam HCl 2 mg/2 ml Vial ONE (15:44)
[2018-02-06] MEDS ORDERED: Ondansetron PF 4 MG/2 ML Vial ONE (16:59)
[2018-02-06] MEDS ORDERED: PROPOFOL 200 MG/20 ML VIAL ONE (16:59)
[2018-02-06] MEDS ORDERED: PHENYLEPHRINE-NS 100 MCG/ML 10 ML SYRINGE ONE (16:59)
[2018-02-06] MEDS ORDERED: SUGAMMADEX SODIUM 200 MG/2 ML VIAL ONE (17:12)
[2018-02-06] MEDS ORDERED: HYDROcodone/Acetaminophen 5/325 mg Tablet ONE (20:53)
--- NOTE | 2018-02-07 13:51 | OP ---
DATE OF PROCEDURE: 02/06/2018 RADIOLOGY TRANSCRIPTIONIST: Darrell Escalona PA-C INDICATION: Pain. DIAGNOSES: Lumbar stenosis with neurogenic claudication. PROCEDURES PERFORMED: L4 through S1 lumbar decompression. ANESTHESIA: General. TECHNIQUE: The patient was brought into the operating room and placed under general anesthesia. She was flipped from the supine to prone position on the operating room table. A linear incision was planned spanning L4 through S1. After prepping and draping and after preoperative pause, the incision was created. The soft tissues were swept away from midline. After confirming appropriate level of C-arm fluoroscopy, Adson rongeur, high-speed cutting drill bit, and 2, 3, and 4 mm Kerrisons were then used to perform a laminectomy, which extended from L4 through the top of S1. The laminectomy was extended laterally to encompass the medial aspect of the facet joints in order to decompress the lateral recesses as well. After complete decompression, the wound was irrigated. Hemostasis was maintained throughout. The wound was then closed in anatomic layers and a pressure dressing was applied. There were no known procedural complications. Job ID: [id number]
== END 2018-02-06 21:51 | disposition home or self-care (01) ==
LOC: SDC 12:42
PROVIDERS: ATTEND Neurological Surgery
PROC: 01NB0ZZ Release Lumbar Nerve, Open Approach (ICD-10-PCS; principal; 2018-02-06)
DX: M48.062 Spinal stenosis, lumbar region with neurogenic claudication (principal); M54.16 Radiculopathy, lumbar region; E78.00 Pure hypercholesterolemia, unspecified; J44.9 Chronic obstructive pulmonary disease, unspecified; E11.9 Type 2 diabetes mellitus without complications; I10 Essential (primary) hypertension; Z79.4 Long term (current) use of insulin; Z79.82 Long term (current) use of aspirin; Z79.899 Other long term (current) drug therapy; Z88.8 Allergy status to other drugs, medicaments and biological substances
CPT/HCPCS: 36416; 76001; 96374; J0670; J2250; J2405; J2704; J3010

== ENCOUNTER 2018-02-10 14:25 | Inpatient (IN) | payer OTHER ==
[2018-02-10] MEDS ORDERED: Naloxone HCl 0.4 mg/ml Vial ONE (14:28)
[2018-02-10] MEDS ORDERED: Naloxone HCl 2 mg/2 ml Syringe ONE (14:30)
[2018-02-10 14:42] LABS: #Eosinphils 0.1 thou/uL (0.0-0.7); #Monocytes 0.7 thou/uL (0.11-0.59); #Neutrophils 14.3 thou/uL (1.40-6.50); %Basophils 0.1 % (0.0-1.0); %Eosinophils 0.6 % (0.0-10.0); %Lymphocytes 6.4 % (21.0-51.0); %Monocytes 4.3 % (0.0-10.0); %Neutrophils 88.7 % (42.0-75.0); Mean Corpuscular Volume 81.8 fL (78.0-98.0); Mean Platelet Volume 8.7 fL (7.4-10.4); Platelet Count 316 thou/uL (130-400); RBC Distribution Width 16.8 % (11.5-14.5); White Blood Cell (WBC) Count 16.1 thou/uL (4.8-10.8)
[2018-02-10 14:56] LABS: Bilirubin Negative (Negative); Blood, Urine Moderate (Negative); Clarity CLOUDY (Clear); Glucose, Urine (Dipstick) 100 mg/dL (Negative); Leukocyte Small (Negative); Nitrite Negative (Negative); Protein, Urine (Dipstick) 30 mg/dL (Neg-Trace); Specific Gravity, Urine 1.015 (1.002-1.036); Urobilinogen 0.2 mg/dL (0.2-1.0)
[2018-02-10 14:56] LABS: ALT (SGPT) 43 U/L (8-55); AST (SGOT) 133 U/L (5-34); Acetaminophen Less than 6.0 mcg/mL (10.0-30.0); Albumin 3.5 g/dL (3.5-5.0); Alcohol Less than 10 mg/dL (Less than 10); Alkaline Phosphatase 571 U/L (40-150); Anion Gap 20 mmol/L (10-20); BUN (Urea Nitrogen) 83 mg/dL (9.8-20.1); Bilirubin, Total 0.9 mg/dL (0.2-1.2); CK (CPK) 672 U/L (29-168); Calc. Creatinine Clearance 0 mL/min (70-130); Calcium 8.9 mg/dL (7.8-10.44); Carbon Dioxide 19 mmol/L (22-29); Chloride 96 mmol/L (98-107); Estimated GFR-MDRD 9; Globulin 4.4 g/dL (2.4-3.5); Potassium 5.5 mmol/L (3.5-5.1); Protein, Total 7.9 g/dL (6.0-8.3); Salicylate Less than 8.0 mg/dL (15.0-30.0); Sodium 129 mmol/L (136-145)
[2018-02-10 14:58] LABS: Bacteria/HPF None Seen HPF (None Seen); Pathc Cast-AUWi Flag 2.03 (0-2.49); RBC/HPF 0-3 HPF (0-3); WBC/HPF 21-50 HPF (0-3)
[2018-02-10 14:59] LABS: Yeast-AUWi Flag 67.5 (0-25.0)
[2018-02-10 15:02] LABS: Glucose 53 mg/dL (70-105)
[2018-02-10] MEDS ORDERED: Dextrose 50% Abboject 50 ML SYRINGE ONE (15:04)
[2018-02-10 15:06] LABS: Amphetamine Not Detected (NotDetected); Barbiturates Screen Not Detected (NotDetected); Benzodiazepine Screen Not Detected (NotDetected); Cocaine Metabolite Screen Not Detected (NotDetected); Medtox Control Line Valid? VALID (VALID); Medtox Reader # READER 1; Methadone Not Detected (NotDetected); Methamphetamine Not Detected (NotDetected); Opiate Screen Detected (NotDetected); Oxycodone Screen Not Detected (NotDetected); Phencyclidine (PCP) Not Detected (NotDetected); THC/Cannabinoid Screen Not Detected (NotDetected); Tricyclic Screen Not Detected (NotDetected)
[2018-02-10 15:09] LABS: Hyaline Casts/LPF 0-3 HYALINE CAST LPF (0-3 Hyaline); Yeast-All Forms Rare HPF (None Seen)
[2018-02-10] MEDS ORDERED: cefTRIAXone\\ROCEPHIN 1 GM VIAL ONE (15:15)
--- NOTE | 2018-02-10 15:26 | RAD ---
PORTABLE CHEST 1 VIEW: Date: 02/10/18 Time: 1445 hours HISTORY: Altered mental status. Drug overdose. FINDINGS/IMPRESSION: Comparison made with exam of 12/22/17. The heart size is normal. There is elevation of the right hemidiaphragm. Mild bibasilar atelectatic c hanges are present. No pneumothoraces or large effusions are seen. There is no lobar consolidation. POS: [facility]
--- NOTE | 2018-02-10 15:32 | CT ---
CT BRAIN WITHOUT CONTRAST: Date: 02/10/18 HISTORY: Altered mental status, possible overdose. FINDINGS: No evidence of infarct, hemorrhage, midline shift, or abnormal extra-axial fluid collections are seen . The ventricular size is appropriate and the basilar cisterns are patent. The bony calvarium is inta ct. The visualized paranasal sinuses and mastoid air cells are well aerated. IMPRESSION: No CT evidence of acute intracranial process. POS: [facility]
[2018-02-10] MEDS ORDERED: Dextrose 5% in Water 1,000 ML IV PRN (16:25)
[2018-02-10] MEDS ORDERED: Dextrose 50% Abboject 50 ML SYRINGE SLOW IVP PRN (16:25)
--- NOTE | 2018-02-10 18:11 | HP ---
CHIEF COMPLAINT: Altered mental status. HISTORY: This patient is a 57-year-old female, who has a history of renal sarcoidosis with chronic kidney disease, whose baseline appears to be around stage 3. The patient was admitted here on the first of this month with some worsening renal insufficiency. She also came back and had outpatient surgery with Dr. Freitas on 02/06/2018, for lumbar decompression secondary to foraminal stenosis, causing some nerve root compression. The patient was discharged to home. She continued to be profoundly weak. After that, she was having some difficulty even getting up and off the toilet. The patient was at home with the care being provided by her sister yesterday. The patient developed some loose stools and for 3 hours, she and her sister attempted to get her up, so that she could get cleaned up, but she was just too weak to do so and ultimately they had to call the Fire Department to get some help to get her up. They had to cut her clothes off her, so they can get her cleaned up. She is subsequent to that, however, she was able to get up a little bit on her own. This morning, the patient got up around 5 o'clock in the morning and with the help of her sister got to the bathroom, got back to bed. She had a loose bowel movement again. However, she also took a pain pill at that time, she went to sleep and the sister noted after a long period of time, the patient had not woken. She tried to wake her and could not get her wake, so she called for an ambulance and brought the patient to the hospital. In the Emergency Department, the patient did receive a dose of Narcan, which seemed to help a little. The patient has subsequently eventually returned back to her baseline mental state. Currently, her only complaint is some pain in her lower back and her buttocks from being on it too much. REVIEW OF SYSTEMS: She denies any fevers or chills, although she seems to be having some chills presently and has about 7 blankets on her. She reports she has not been eating and drinking well. She will eat a little bit, but not drinking a lot. She says she has a tremor in her hands that was present before the surgery, but has gotten significantly worse after the surgery, which has made it difficult for her to hold a glass. She also reports that she has not made much urine and when she does, it has been fairly dark. She has the back and buttock pain. She also had loose bowel movements mentioned above. All other systems were reviewed and all pertinent positives and negatives were noted in the HPI. PAST MEDICAL HISTORY: Notable for the; 1. Sarcoid kidney with chronic kidney disease stage 3. 2. Diabetes mellitus. 3. Hyperlipidemia. 4. Hypertension. 5. She has a chronic diabetic ulcer on the left great toe. She was receiving antibiotics for that with vancomycin when she had the worsening renal function earlier this month. PAST SURGICAL HISTORY: 1. Left bunionectomy. 2. Right rotator cuff repair. 3. Left wrist surgery. 4. Carpal tunnel release of the right hand and the recent lumbar decompression surgery. FAMILY HISTORY: Father of a CVA. Mother had dementia. She also had a sister, who of a CVA. SOCIAL HISTORY: She is a nonsmoker and nondrinker. She is unmarried. She is full code and her sister would be her surrogate decision maker. ALLERGIES: SITAGLIPTIN. CURRENT MEDICATIONS: 1. Ropinirole 0.5 mg at bedtime. 2. Glimepiride 4 mg daily. 3. Gabapentin 300 mg t.i.d. 4. Amlodipine 5 mg daily. 5. Sertraline 25 mg daily. 6. Aspirin 81 mg daily. 7. Lasix 40 daily. 8. Potassium 10 mEq daily. 9. Prednisone 5 mg daily. 10. Vitamin D3 of 5000 units daily. 11. Melatonin 5 mg at bedtime. 12. Magnesium 200 mg two p.o. daily. 13. Super B complex one p.o. daily. PHYSICAL EXAMINATION: VITAL SIGNS: Blood pressure 165/99, pulse 96, respirations 15, temperature 97.9, and O2 saturation 97% on 2 L. GENERAL APPEARANCE: Age-appropriate female. She is awake and alert. She is morbidly obese. She is in no distress. HEENT: PERRL. Pupils are slightly constricted. She has no OP lesions. Small oropharyngeal airway. NECK: Supple and symmetric without lymphadenopathy. HEART: Regular rate and rhythm without murmurs, gallops, or rubs. LUNGS: Clear to auscultation bilaterally with good chest wall expansion and air exchange. ABDOMEN: Soft, nontender, and nondistended. Positive bowel sounds. No masses. No organomegaly. EXTREMITIES: There is a small superficial abrasion on the right pretibial area that is covered with a non-adherent pad and wrapped. There is 2+ pretibial edema in the right lower extremity. The left lower extremity has an ulcerated area on the dorsum on the plantar surface of the left great toe also dressed. There is less edema in this leg. There is no significant erythema or warmth in either lower extremity. NEUROLOGIC: The patient does not demonstrate a significant tremor. She appears to move all extremities spontaneously. She is cognitively intact with no evidence of any focal deficits. PSYCH: The patient has normal affect and behavior. LABORATORY DATA: White count 16.1, hemoglobin 10.0, and platelets 316. Sodium 129, potassium 5.5, chloride 96, CO2 is 19, BUN 83, creatinine is 4.85, and glucose initially 53 subsequent 107. Lactic acid 0.6 and calcium 8.9. AST 133, ALT 43, and alkaline phosphatase 571. CK 672, troponin 0.017, total protein 7.9, and albumin 3.5. Urinalysis shows trace protein, trace glucose, moderate blood, small leukocyte esterase, 21 to 50 white blood cells, and 0 to 3 red cells. Urine drug screen positive for opiates. DIAGNOSTIC DATA: Chest x-ray is clear. CT of the brain clear. EKG shows sinus rhythm with some nonspecific T-wave changes. IMPRESSION AND PLAN: 1. Metabolic encephalopathy. This may be related to a combination of the urinary tract infection, some uremia and pain medications. She appears to be back at her baseline mental state at the moment. 2. Urinary tract infection. The patient received a dose Rocephin. We will continue with that for the time being, adjusted dose for her renal function. Follow up on urine cultures. 3. Acute on chronic renal failure. The patient appears to have a baseline renal function around stage 3. Presently, her GFR is estimated at 9. We will give her some gentle hydration and see how she responds to that. She has some peripheral edema and whole-body isidro, I believe she is actually a little volume overloaded, but likely intravascularly deplete. Need to watch her volume status as we hydrate. After renally adjust medications, we will consult Dr. Sauceda who is the patient's insurance collector. Also, bumping her prednisone up from 5 to 10 mg, both for stress dose and to treat sarcoidosis of the kidney a little more aggressively. 4. Chronic kidney disease stage 3, secondary to sarcoidosis of the kidney. 5. Diabetes mellitus. Given her renal function, I am going to hold her oral hypoglycemic just cover with the sliding scale. We will perform Accu-Cheks and give her diabetic diet. 6. Hypertension, stable. Continue her usual home medications. I suspect the patient will be in the hospital for couple of days while we follow up on her urine culture. She will be inpatient status. We will provide DVT and PUD prophylaxis. Job ID: [id number]
[2018-02-10] MEDS: Sodium Chloride 0.9% 1,000 ML IV SCH (18:31)
[2018-02-10] MEDS: rOPINIRole HCl 0.5 MG TAB PO SCH (20:39)
[2018-02-10] MEDS: Gabapentin 100 MG CAP PO SCH (20:40)
[2018-02-10] MEDS: HYDROcodone/Acetaminophen 5/325 mg Tablet PO PRN (20:40)
[2018-02-10] MEDS: Famotidine 20 MG TAB PO SCH (20:41)
[2018-02-10] MEDS: Heparin 5,000 UNITS/ML VIAL SC SCH (20:42)
[2018-02-11] MEDS: HYDROcodone/Acetaminophen 5/325 mg Tablet PO PRN (00:42)
[2018-02-11] MEDS ORDERED: Dextrose 50% Abboject 50 ML SYRINGE ONE (05:11)
[2018-02-11 05:19] LABS: #Eosinphils 0.4 thou/uL (0.0-0.7); #Lymphocytes 1.5 thou/uL (1.20-3.40); #Monocytes 1.2 thou/uL (0.11-0.59); %Basophils 0.1 % (0.0-1.0); %Eosinophils 2.7 % (0.0-10.0); %Lymphocytes 9.5 % (21.0-51.0); %Monocytes 7.6 % (0.0-10.0); %Neutrophils 80.1 % (42.0-75.0); Hemoglobin 9.5 g/dL (12.0-16.0); Mean Corpuscular HGB CONC 32.9 g/dL (32.0-36.0); Mean Corpuscular Hemoglobin 26.9 pg (27.0-31.0); Mean Corpuscular Volume 81.7 fL (78.0-98.0); Mean Platelet Volume 8.8 fL (7.4-10.4); Platelet Count 351 thou/uL (130-400); RBC Distribution Width 16.9 % (11.5-14.5); Red Blood Cell (RBC) Count 3.55 mill/uL (4.20-5.40); White Blood Cell (WBC) Count 16.2 thou/uL (4.8-10.8)
[2018-02-11] MEDS: Sodium Chloride 0.9% 1,000 ML IV SCH (05:28)
[2018-02-11 05:40] LABS: Anion Gap 16 mmol/L (10-20); BUN (Urea Nitrogen) 76 mg/dL (9.8-20.1); Calc. Creatinine Clearance 29 mL/min (70-130); Calcium 8.2 mg/dL (7.8-10.44); Carbon Dioxide 21 mmol/L (22-29); Chloride 99 mmol/L (98-107); Estimated GFR-MDRD 11; Potassium 4.3 mmol/L (3.5-5.1); Sodium 132 mmol/L (136-145)
[2018-02-11 05:45] LABS: Glucose 30 mg/dL (70-105)
[2018-02-11] MEDS: Dextrose 5 % And 0.9 % NaCl 1,000 ML IV SCH ×2 (06:42→20:33)
[2018-02-11] MEDS ORDERED: predniSONE 20 MG TAB PO SCH ×4 (08:00→09:45)
[2018-02-11] MEDS ORDERED: Albumin 25% 25 GM/100 ML BOT IVPB ONE (08:09)
[2018-02-11] MEDS: cefTRIAXone\\ROCEPHIN 1 GM in Sodium Chloride 0.9% 100 ML IVPB SCH (08:29)
[2018-02-11] MEDS: Aspirin 81 mg Enteric Coated Tablet PO SCH (08:30)
[2018-02-11] MEDS: Heparin 5,000 UNITS/ML VIAL SC SCH ×3 (08:30→20:33)
[2018-02-11] MEDS: Gabapentin 100 MG CAP PO SCH ×3 (08:30→20:33)
[2018-02-11] MEDS: Amlodipine 5 MG TAB PO SCH (08:30)
--- NOTE | 2018-02-11 10:31 | PRG ---
DATE OF SERVICE: 02/11/2018 SERVICE: Renal Medicine. SUBJECTIVE: Ms. 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 She was admitted for mental status change. She was noted to be hypoglycemic at that time. In addition, she recently had back surgery-lumbar spine decompression. We are now being consulted for elevated creatinine. Initially, it was felt that she was simply dehydrated. Volume repletion was given with slight improvement of the creatinine from 4.8 to most recent one of 4.0. We are now being consulted for further management with this acute kidney injury. Please note, the patient was seen two weeks ago by the Renal Service at the hospital. At that time, her creatinine was noted to be about 3.2, which improved to about 3.13 with volume repletion. I did increase her prednisone at that time. Currently her prednisone at home was 5 mg tablet once a day, but this was decreased yesterday to 10 mg tablet once a day. My advice is to further increase it to 20 mg tablet once a day. Her mentation is slightly improved today. REVIEW OF SYSTEMS: No chest pain. No occasional leg edema. No shortness of breath. No syncopal episode. Decreased mentation. No fever or chills. No abdominal pain. No dysuria. No urinary frequency. No hematochezia. No melena. No hematemesis. No diarrhea. Positive for nausea and vomiting. Positive for decreased appetite. MEDICATIONS: 1. Tylenol 650 mg q.4h p.r.n. 2. [place] 5/325 q.4h p.r.n. 3. Norvasc 5 mg daily. 4. Ecotrin 81 mg tablet once a day. 5. Ceftriaxone 1 g IV daily. 6. Normal saline 75 mL/h. 7. Pepcid 20 mg q.p.m. 8. Neurontin 100 mg p.o. t.i.d. 9. Glucagon p.r.n. 10. Heparin 5000 units subcu t.i.d. 11. Humalog sliding scale. 12. Prednisone 10 mg tablet q.a.m. 13. Requip 0.5 mg at bedtime. PAST MEDICAL HISTORY: 1. Chronic low back pain. 2. 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 3. History of sarcoidosis. 4. Type 2 diabetes mellitus. 5. Status post acute kidney injury. 6. Cervical cancer in remission. 7. History of hypercalcemia. 8. Hypertension. 9. Depression. 10. History of hepatosplenomegaly secondary to sarcoidosis. 11. Status post nephrolithiasis. 12. Diabetic neuropathy. 13. History of biopsy-proven sarcoidosis. 14. History of left leg/foot osteomyelitis. PAST SURGICAL HISTORY: 1. Status post cervical biopsy. 2. Status post back surgery recently for lumbar spine decompression. 3. Status post abdominal hysterectomy. 4. Status post left foot bunionectomy. 5. Status post right carpal tunnel release. 6. Status post trigger finger release. 7. Status post left wrist surgery. 8. Status post skin biopsy. 9. Status post lithotripsy. SOCIAL HISTORY: The patient is single and lives with her sister in [place]. Part-time worker at [employer]. Alcohol rarely. No smoking. No blood transfusion or IV drug abuse. Active lifestyle. FAMILY HISTORY: No family history of ESRD. ALLERGIES: NONE. TRAUMA: None. IMMUNIZATION: Up-to-date. HOSPITALIZATIONS: Please see past medical history. PHYSICAL EXAMINATION: VITAL SIGNS: Blood pressure is noted at 167/75, heart rate 95, respiratory rate 20, temperature 98, and pulse ox 97%. GENERAL: Noted to be awake, comfortable, obese, not in distress. SKIN: Adequate turgor. HEENT: She has a pinkish conjunctivae. Anicteric sclerae. No neck mass. No carotid bruits. No JVD. CHEST: No deformities. LUNGS: Clear breath sounds. No wheezing. No crackles. HEART: Normal sinus rhythm. No murmurs, gallops, or rubs. ABDOMEN: Globular, soft, and nontender. No masses. EXTREMITIES: Trace edema. NEUROLOGICAL: Decreased motor of her lower extremities secondary to pain? LABORATORY DATA: Laboratories of February 11, 2018; white count 16.2, hemoglobin 9.5, and hematocrit 29. On February 10, 2018; sodium 129, potassium 5.5, chloride is 96, carbon dioxide 19, BUN 83, creatinine 4.85, AST 133, and ALT 43. On February 11, 2018; sodium 132, potassium 4.3, chloride 99, carbon dioxide 21, BUN 76, creatinine 4.06, glucose is 30, and calcium 8.2. Further review of her serum creatinine shows the following: On February 03, 2018, creatinine was 3.13. On January 21, 2018, creatinine 3.20. On January 20, 2018, creatinine 3.6. On December 30, 2017, creatinine 1.19. ASSESSMENT AND PLAN: 1. Acute kidney injury on top of her chronic renal failure-consider a superimposed pre-renal azotemia. IV hydration has been given. Albumin infusion has also been started. Close differential is that she may have again an exacerbation of sarcoidosis?-this is less likely due to the fact she did have history of decreased p.o. intake and some degree of nausea and vomiting. Agree with current management. Add albumin infusion. No indication for any dialytic intervention. 2. Chronic renal failure-possibility of underlying renal sarcoidosis. I have had no biopsy with this patient. In the near future, I have not excluded in doing a renal biopsy. 3. Status post back surgery, stable. Continue Pain Management. 4. Decreased mentation-much improved with improving blood sugar. 5. Overall, I agree with current management. Job ID: [id number]
[2018-02-11] MEDS: Acetaminophen 325 MG TAB PO PRN (11:07)
[2018-02-11] MEDS: Albumin 25% 25 GM/100 ML BOT IVPB SCH ×3 (11:43→22:15)
--- NOTE | 2018-02-11 12:31 | PDOC.PN ---
- Subjective Encounter Start Date: 02/11/18 Encounter Start Time: 08:45 Had hypoglycemia this morning. Reports she is still having pain. Mostly in her buttocks, but in lower back as well. - Objective Resuscitation Status - Order Detail: 02/10/18 16:22 Resuscitation Status Routine Resuscitation Status: FULL: Full Resuscitation Discussed with: Sister Vital Signs & Weight: Vital Signs (12 hours) Temp Pulse Resp BP Pulse Ox 02/11/18 11:29 97 18 130/60 99 02/11/18 07:27 98.0 F 95 20 167/75 H 97 02/11/18 04:05 98.6 F 109 H 18 138/63 97 Weight Weight 269 lb 1.6 oz I&O: 02/10/18 02/11/18 02/12/18 06:59 06:59 06:59 Intake Total 1400 Output Total 1250 Balance 150 Result Diagrams: 02/11/18 04:45 02/11/18 04:45 Additional Labs: Accuchecks 02/11/18 02/11/18 02/11/18 10:32 05:48 05:05 POC Glucose 88 103 58 L* 02/10/18 02/10/18 02/10/18 21:57 20:23 17:09 POC Glucose 93 67 L 84 02/10/18 15:59 POC Glucose 107 Phys Exam - Physical Examination Constitutional: NAD Morbidly obese. Respiratory: no wheezing, no rales, no rhonchi, clear to auscultation bilateral Cardiovascular: RRR, no significant murmur, no rub Gastrointestinal: soft, non-tender, no distention, positive bowel sounds Musculoskeletal: no edema Still looks groggy. Still has slow, non-rhythmic shaking in hands. Deviation from normal: Left great toe plantar ulcer, Right pre-tib ulcer, stage I buttock. -: Lumbar incision without drainage or inflammation. Skin not healed superfic Dx/Plan (1) Metabolic encephalopathy Code(s): G93.41 - METABOLIC ENCEPHALOPATHY Status: Acute (2) Hypoglycemia Code(s): E16.2 - HYPOGLYCEMIA, UNSPECIFIED Status: Acute (3) Acute on chronic renal failure Code(s): N17.9 - ACUTE KIDNEY FAILURE, UNSPECIFIED; N18.9 - CHRONIC KIDNEY DISEASE, UNSPECIFIED Status: Acute (4) UTI (urinary tract infection) Status: Acute (5) CKD (chronic kidney disease) stage 3, GFR 30-59 ml/min Code(s): N18.3 - CHRONIC KIDNEY DISEASE, STAGE 3 (MODERATE) Status: Chronic (6) Diabetes mellitus Code(s): E11.9 - TYPE 2 DIABETES MELLITUS WITHOUT COMPLICATIONS Status: Chronic (7) Diabetic ulcer of left great toe Code(s): E11.621 - TYPE 2 DIABETES MELLITUS WITH FOOT ULCER; L97.529 - NON- PRESSURE CHRONIC ULCER OTH PRT LEFT FOOT W UNSP SEVERITY Status: Chronic (8) Dyslipidemia Code(s): E78.5 - HYPERLIPIDEMIA, UNSPECIFIED Status: Chronic (9) Hypertension Code(s): I10 - ESSENTIAL (PRIMARY) HYPERTENSION Status: Chronic (10) Morbid obesity with BMI of 50.0-59.9, adult Code(s): E66.01 - MORBID (SEVERE) OBESITY DUE TO EXCESS CALORIES; Z68.43 - BODY MASS INDEX (BMI) 50-59.9, ADULT Status: Chronic - Plan * Continue IVF as renal function appears to be improving. Appreciate Nephrology input. * Albumin was added. * Increase Prednisone to 20 qd. Patient has presumed sarcoid of the kidneys and this may help. May also need it as stress dose. * Oral hypoglycemic agent was held, but hypoglycemic this morning. Should improve. * Back would looks ok, but would expect a little less pain and a little better wound healing at this stage. Will Neurosurg to consult. * Follow up cultures. * Continue abx. * May need to see Neuro at some point if the shaking in the hands does not improve. * ABG to see if she has some hypoventilation syndrome.
[2018-02-11 14:07] LABS: Actual Bicarbonate (HCO3a) 22.2 mEq/L (22-28); Base Excess (BEa) -4.4 mEq/L (-2.0 to +3.0); CO2 Tension 47.8 mmHg (35.0-45.0); Calcium, Ionized 1.11 mmol/L (1.12-1.30); Hemoglobin (Hb) 10.3 g/dL (12.0-16.0); O2 Tension (PaO2) 92.6 mmHg (80.0-100.0); Potassium - ABG Lab 5.13 mmol/L (3.70-5.30); pH, Arterial 7.29 (7.35-7.45)
[2018-02-11 14:08] LABS: Puncture Site RRA
--- NOTE | 2018-02-11 16:25 | PDOC.EVN ---
Event Note - Event Note Event Note: Notified by patient's nurse that she had several liquid stools today. C diff sent and is positive. Will start oral Vancomycin.
[2018-02-11] MEDS: Vancomycin HCl 25 MG/ML Oral PO SCH ×2 (18:00→20:34)
[2018-02-11] MEDS: Famotidine 20 MG TAB PO SCH (20:33)
[2018-02-11] MEDS: rOPINIRole HCl 0.5 MG TAB PO SCH (20:34)
[2018-02-11] MEDS: HumaLOG 300 UNITS/3 ML VIAL SC PRN (22:15)
[2018-02-12] MEDS: Albumin 25% 25 GM/100 ML BOT IVPB SCH ×6 (06:30→23:29)
[2018-02-12] MEDS: cefTRIAXone\\ROCEPHIN 1 GM in Sodium Chloride 0.9% 100 ML IVPB SCH (06:36)
[2018-02-12 08:19] LABS: #Eosinphils 0.2 thou/uL (0.0-0.7); #Lymphocytes 0.9 thou/uL (1.20-3.40); #Monocytes 0.9 thou/uL (0.11-0.59); #Neutrophils 10.3 thou/uL (1.40-6.50); %Basophils 0.2 % (0.0-1.0); %Eosinophils 1.4 % (0.0-10.0); %Monocytes 7.1 % (0.0-10.0); %Neutrophils 84.4 % (42.0-75.0); Hemoglobin 8.6 g/dL (12.0-16.0); Mean Corpuscular Hemoglobin 26.3 pg (27.0-31.0); Mean Corpuscular Volume 82.1 fL (78.0-98.0); Mean Platelet Volume 8.9 fL (7.4-10.4); Platelet Count 275 thou/uL (130-400); RBC Distribution Width 16.7 % (11.5-14.5); Red Blood Cell (RBC) Count 3.28 mill/uL (4.20-5.40); White Blood Cell (WBC) Count 12.2 thou/uL (4.8-10.8)
[2018-02-12 08:33] LABS: Anion Gap 16 mmol/L (10-20); BUN (Urea Nitrogen) 65 mg/dL (9.8-20.1); Calc. Creatinine Clearance 38 mL/min (70-130); Calcium 8.6 mg/dL (7.8-10.44); Carbon Dioxide 22 mmol/L (22-29); Chloride 104 mmol/L (98-107); Estimated GFR-MDRD 15; Glucose 134 mg/dL (70-105); Potassium 4.6 mmol/L (3.5-5.1); Sodium 137 mmol/L (136-145)
[2018-02-12] MEDS: Gabapentin 100 MG CAP PO SCH ×3 (09:01→20:42)
[2018-02-12] MEDS: predniSONE 20 MG TAB PO SCH (09:01)
[2018-02-12] MEDS: Acetaminophen 325 MG TAB PO PRN (09:01)
[2018-02-12] MEDS: Amlodipine 5 MG TAB PO SCH (09:02)
[2018-02-12] MEDS: Aspirin 81 mg Enteric Coated Tablet PO SCH (09:02)
[2018-02-12] MEDS: Heparin 5,000 UNITS/ML VIAL SC SCH ×3 (09:02→20:42)
[2018-02-12] MEDS: Vancomycin HCl 25 MG/ML Oral PO SCH ×4 (09:10→20:42)
--- NOTE | 2018-02-12 10:02 | PRG ---
DATE OF SERVICE: 02/12/2018 SERVICE: Renal Medicine. SUBJECTIVE: Ms. Medina is a 57-year-old white female with chronic renal failure from presumed renal sarcoidosis and admitted for nausea, diarrhea. She was noted to have superimposed acute kidney injury. I felt at that time she had superimposed prerenal azotemia volume repletion is being done with this patient. She is currently on albumin infusion. No chest pain or shortness of breath. However, the patient still tells me that she still continues to have ongoing diarrhea. Her p.o. intake is somewhat decreased. Please note, she was checked for C diff and antigen toxin was reported to have been positive. PHYSICAL EXAMINATION: VITAL SIGNS: Blood pressure 169/70, heart rate 107, respiratory rate 20, temperature 99.3, pulse ox 95%. GENERAL: The patient is noted to be awake, supine, comfortable, obese. SKIN: Adequate turgor. HEENT: Slightly pale conjunctivae. Anicteric sclerae. No neck mass. No carotid bruits. No JVD. CHEST: No deformities. LUNGS: Decreased breath sounds. HEART: Normal sinus rhythm. No murmurs, gallops, or rubs. ABDOMEN: Globular, soft, nontender. No masses. EXTREMITIES: No edema. MEDICATIONS: Medications of February 12, 2018, were reviewed. LABORATORY DATA: Laboratories of February 12, 2018: White count 12.2, hemoglobin 8.6. Sodium 137, potassium 4.6, chloride 104, carbon dioxide 22, BUN 65, creatinine 3.09, glucose 134, calcium 8.6. ASSESSMENT AND PLAN: 1. Acute kidney injury-superimposed prerenal azotemia, slightly improved. Continue IV hydration. Continue albumin and increase her infusion if needed. 2. Chronic renal failure-secondary to presumed renal sarcoidosis, on increased dose of prednisone at 20 mg p.o. once a day. 3. Diarrhea-positive for Clostridium difficile-supportive care. Hospitalist Service currently following up the patient. The patient is currently on isolation. Please note, the patient has been started on vancomycin 125 mg p.o. q.i.d. We will check basic metabolic and CBC in a.m. Job ID: [id number]
[2018-02-12] MEDS: Dextrose 5 % And 0.9 % NaCl 1,000 ML IV SCH (11:39)
[2018-02-12] MEDS: HumaLOG 300 UNITS/3 ML VIAL SC PRN ×3 (13:30→20:57)
[2018-02-12] MEDS: HYDROcodone/Acetaminophen 5/325 mg Tablet PO PRN (15:49)
[2018-02-12 16:22] VITALS: BMI 52.5
--- NOTE | 2018-02-12 16:34 | PDOC.PN ---
- Subjective Encounter Start Date: 02/12/18 Encounter Start Time: 10:00 Subjective: pt up in bed still having diarrhea - Objective Resuscitation Status - Order Detail: 02/10/18 16:22 Resuscitation Status Routine Resuscitation Status: FULL: Full Resuscitation Discussed with: Sister Vital Signs & Weight: Vital Signs (12 hours) Temp Pulse Pulse Pulse Resp BP BP 02/12/18 15:20 114 H 113 H 176/80 H 173/73 H 02/12/18 12:00 98.8 F 103 H 18 02/12/18 08:00 02/12/18 07:28 99.3 F 107 H 20 BP Pulse Ox 02/12/18 15:20 02/12/18 12:00 171/77 H 95 02/12/18 08:00 95 02/12/18 07:28 169/70 H 95 Weight Admit Weight 269 lb 1.6 oz Weight 269 lb 1.6 oz I&O: 02/11/18 02/12/18 02/13/18 06:59 06:59 06:59 Intake Total 1400 Output Total 1250 Balance 150 Result Diagrams: 02/12/18 07:30 02/12/18 07:30 Additional Labs: Accuchecks 02/12/18 02/12/18 02/11/18 11:07 05:39 20:03 POC Glucose 246 H 165 H 304 H 02/11/18 18:38 POC Glucose 187 H Phys Exam - Physical Examination Neck: no nodes, no JVD, supple, full ROM Respiratory: no wheezing, no rales, no rhonchi, wheezing present, clear to auscultation bilateral Cardiovascular: RRR, no significant murmur, no rub, gallop, irregular Gastrointestinal: soft, non-tender, no distention, positive bowel sounds Musculoskeletal: no edema, pulses present, edema present back incision intact Dx/Plan (1) Metabolic encephalopathy Code(s): G93.41 - METABOLIC ENCEPHALOPATHY Status: Acute (2) C. difficile diarrhea Code(s): A04.72 - ENTEROCOLITIS D/T CLOSTRIDIUM DIFFICILE, NOT SPCF RECUR Status: Acute (3) Diabetes mellitus Code(s): E11.9 - TYPE 2 DIABETES MELLITUS WITHOUT COMPLICATIONS Status: Chronic (4) Dehydration Code(s): E86.0 - DEHYDRATION Status: Acute - Plan will continue oral vanco -: will stop ceftriaxone since cx is negative -: will get PT/OT to see pt -: will titrate pt's insulin up for better control * . Review of Systems - Review of Systems Respiratory: negative: Cough, Dry, Shortness of Breath, Hemoptysis, SOB with Excertion, Pleuritic Pain, Sputum, Wheezing Cardiovascular: negative: chest pain, palpitations, orthopnea, paroxysmal nocturnal dyspnea, edema, light headedness, other Gastrointestinal: Diarrhea Genitourinary: negative: Dysuria, Frequency, Incontinence, Hematuria, Retention , Other - Medications/Allergies Allergies/Adverse Reactions: Allergies Allergy/AdvReac Type Severity Reaction Status Date / Time sitagliptin [From Feb] Allergy Intermediate Hives Verified 02/10/18 17:59 Medications: Current Medications Acetaminophen (Tylenol) 650 mg PO Q4H PRN PRN Reason: Headache/Fever/Mild Pain (1-3) Last Admin: 02/12/18 09:01 Dose: 650 mg Hydrocodone Bitart/Acetaminophen ([place] 5/325) 1 tab PO Q4H PRN PRN Reason: Moderate Pain (4-6) Last Admin: 02/12/18 15:49 Dose: 1 tab Hydrocodone Bitart/Acetaminophen ([place] 5/325) 2 tab PO Q4H PRN PRN Reason: Severe Pain (7-10) Last Admin: 02/11/18 00:42 Dose: 2 tab Albumin Human (Albumin 25%) 25 gm IVPB Q6HR [facility] Stop: 02/14/18 06:01 Last Admin: 02/12/18 12:30 Dose: 25 gm Amlodipine Besylate (Norvasc) 5 mg PO DAILY [facility] Last Admin: 02/12/18 09:02 Dose: 5 mg Aspirin (Ecotrin) 81 mg PO DAILY [facility] Last Admin: 02/12/18 09:02 Dose: 81 mg Dextrose/Water (Dextrose 50%) 25 gm SLOW IVP PRN PRN PRN Reason: Hypoglycemia Last Admin: 02/11/18 05:13 Dose: 25 gm Famotidine (Pepcid) 20 mg PO QPM [facility] Last Admin: 02/11/18 20:33 Dose: 20 mg Gabapentin (Neurontin) 100 mg PO TID [facility] Last Admin: 02/12/18 15:49 Dose: 100 mg Glucagon (Glucagon) 1 mg IM PRN PRN PRN Reason: Hypoglycemia Heparin Sodium (Porcine) (Heparin) 5,000 units SC TID [facility] Last Admin: 02/12/18 15:49 Dose: 5,000 units Dextrose/Water (D5w) 1,000 mls @ 0 mls/hr IV .Q0M PRN PRN Reason: Hypoglycemia Insulin Human Lispro (Humalog) 0 units SC .MILD SLIDING SCALE PRN PRN Reason: Mild Correctional Scale Last Admin: 02/12/18 13:30 Dose: 3 unit Insulin Human Lispro (Humalog) 0 units SC .BEDTIME SLIDING SC PRN; Protocol PRN Reason: BEDTIME SLIDING SCALE Last Admin: 02/11/18 22:15 Dose: 4 unit Prednisone (Prednisone) 20 mg PO QAM-WM [facility] Last Admin: 02/12/18 09:01 Dose: 20 mg Ropinirole HCl (Requip) 0.5 mg PO QPM [facility] Last Admin: 02/11/18 20:34 Dose: 0.5 mg Sertraline HCl (Zoloft) 25 mg PO DAILY [facility] Last Admin: 02/12/18 09:02 Dose: 25 mg Sodium Chloride (Flush - Normal Saline) 10 ml IVF Q12HR [facility] Last Admin: 02/12/18 09:03 Dose: 10 ml Sodium Chloride (Flush - Normal Saline) 10 ml IVF PRN PRN PRN Reason: Saline Flush Vancomycin HCl (First Vancomycin) 125 mg PO QID [facility] Last Admin: 02/12/18 12:25 Dose: 125 mg
[2018-02-12] MEDS ORDERED: Metoprolol Tartrate 25 MG TAB PO SCH (17:00)
[2018-02-12] MEDS: Sodium Chloride 0.9% 1,000 ML IV SCH (17:37)
[2018-02-12] MEDS ORDERED: Insulin Glargine 5 UNITS in Pre-Filled Syringe SC SCH (17:45)
[2018-02-12] MEDS ORDERED: ALPRAZolam 0.5 MG TAB PO SCH (17:45)
[2018-02-12] MEDS: Gabapentin 300 MG CAP PO SCH (20:42)
[2018-02-12] MEDS: Famotidine 20 MG TAB PO SCH (20:42)
[2018-02-12] MEDS: rOPINIRole HCl 0.5 MG TAB PO SCH (20:42)
[2018-02-12] MEDS ORDERED: rOPINIRole HCl 0.5 MG TAB PO SCH (21:00)
[2018-02-13 05:33] LABS: #Eosinphils 0.3 thou/uL (0.0-0.7); #Lymphocytes 1.1 thou/uL (1.20-3.40); #Monocytes 0.6 thou/uL (0.11-0.59); #Neutrophils 10.8 thou/uL (1.40-6.50); %Basophils 0.3 % (0.0-1.0); %Lymphocytes 8.2 % (21.0-51.0); %Monocytes 4.8 % (0.0-10.0); %Neutrophils 84.7 % (42.0-75.0); Hemoglobin 8.7 g/dL (12.0-16.0); Mean Corpuscular HGB CONC 31.5 g/dL (32.0-36.0); Mean Corpuscular Volume 82.6 fL (78.0-98.0); Mean Platelet Volume 8.8 fL (7.4-10.4); Platelet Count 268 thou/uL (130-400); RBC Distribution Width 16.6 % (11.5-14.5); Red Blood Cell (RBC) Count 3.34 mill/uL (4.20-5.40); White Blood Cell (WBC) Count 12.8 thou/uL (4.8-10.8)
[2018-02-13 05:55] LABS: Anion Gap 14 mmol/L (10-20); BUN (Urea Nitrogen) 55 mg/dL (9.8-20.1); Calc. Creatinine Clearance 45 mL/min (70-130); Calcium 9.4 mg/dL (7.8-10.44); Carbon Dioxide 25 mmol/L (22-29); Chloride 105 mmol/L (98-107); Estimated GFR-MDRD 19; Glucose 156 mg/dL (70-105); Potassium 4.2 mmol/L (3.5-5.1); Sodium 140 mmol/L (136-145)
[2018-02-13] MEDS: Albumin 25% 25 GM/100 ML BOT IVPB SCH ×2 (06:01→12:20)
[2018-02-13] MEDS ORDERED: Amlodipine 5 MG TAB PO SCH (07:55)
[2018-02-13] MEDS: Sodium Chloride 0.9% 1,000 ML IV SCH ×2 (08:21→21:06)
[2018-02-13] MEDS: predniSONE 20 MG TAB PO SCH (08:22)
[2018-02-13] MEDS: Heparin 5,000 UNITS/ML VIAL SC SCH ×3 (08:23→21:32)
[2018-02-13] MEDS: Cyanocobalamin (Vitamin B-12) 1,000 MCG TAB PO SCH (08:23)
[2018-02-13] MEDS: Amlodipine 10 MG TAB PO SCH (08:23)
[2018-02-13] MEDS: Metoprolol Tartrate 25 MG TAB PO SCH ×2 (08:23→21:32)
[2018-02-13] MEDS: Gabapentin 300 MG CAP PO SCH (08:23)
[2018-02-13] MEDS: Aspirin 81 mg Enteric Coated Tablet PO SCH (08:23)
[2018-02-13] MEDS ORDERED: Non-Formulary Item 1 EACH (Insulin Degludec [Tresiba Flextouch U-100] 40 UNIT) SQ SCH (09:00)
[2018-02-13] MEDS ORDERED: Glimepiride 4 MG TAB PO SCH (09:00)
--- NOTE | 2018-02-13 09:50 | PRG ---
DATE OF SERVICE: 02/13/2018 RENAL MEDICINE SUBJECTIVE: Ms. Medina is a 57-year-old white female, who was admitted for acute kidney injury with associated diarrhea. She was found to have C. diff colitis. She has been started on oral vancomycin. She was also started on IV hydration, having crystalloids and colloids with improvement of the renal function over time. Most recent creatinine is now noted at 2.61, and she initially came in with a creatinine of 4.85. We are continuing the albumin infusion as well as the normal saline. She is feeling a little better. She is eating better. Still with occasional diarrhea. No chest pain or shortness of breath. OBJECTIVE: VITAL SIGNS: Blood pressure 174/79, heart rate 92, respiratory rate 20, temperature 97.9, and pulse ox 93%. GENERAL: The patient is awake, alert, supine, obese. SKIN: Adequate turgor. HEENT: She has a slightly pale conjunctivae. Anicteric sclerae. NECK: No neck mass. No carotid bruits. No JVD. CHEST: No deformities. LUNGS: Clear breath sounds. No wheezing. No crackles. HEART: Normal sinus rhythm. No murmurs. No gallops. No rubs. ABDOMEN: Globular, soft, and nontender. No masses. EXTREMITIES: Trace edema. MEDICATIONS: Medications of February 13, 2018, were reviewed. LABORATORY DATA: Laboratories of February 13, 2018; white count 12.8, hemoglobin 8.7. On February 13, 2018; sodium 140, potassium 4.2, chloride 105, carbon dioxide 25, BUN 55, creatinine 2.61, GFR 19 mL/minute, glucose 156, and calcium 9.4. ASSESSMENT AND PLAN: 1. Acute kidney injury on top of her chronic renal failure, improving renal function. She has a superimposed prerenal azotemia. Continue current crystalloids and colloids for the patient. No indication for any dialytic intervention. 2. Diarrhea - secondary to Clostridium difficile colitis, currently on oral vancomycin. 3. Anemia. Continue to observe. 4. Chronic renal failure secondary to renal sarcoidosis, on increased dose of prednisone at 20 mg tablet q.a.m. We will recheck basic metabolic and CBC in a.m. Job ID: [id number]
[2018-02-13] MEDS: Vancomycin HCl 25 MG/ML Oral PO SCH ×4 (09:51→21:33)
[2018-02-13] MEDS: HYDROcodone/Acetaminophen 5/325 mg Tablet PO PRN (10:29)
[2018-02-13] MEDS: Gabapentin 100 MG CAP PO SCH ×3 (10:36→21:32)
[2018-02-13] MEDS: hydrALAZINE 20 MG/ML VIAL SLOW IVP PRN ×2 (12:20→19:24)
--- NOTE | 2018-02-13 13:23 | PDOC.PN ---
- Subjective Encounter Start Date: 02/13/18 Encounter Start Time: 11:00 Subjective: pt up in bed still having diarrhea - Objective Resuscitation Status - Order Detail: 02/10/18 16:22 Resuscitation Status Routine Resuscitation Status: FULL: Full Resuscitation Discussed with: Sister Vital Signs & Weight: Vital Signs (12 hours) Temp Pulse Resp BP Pulse Ox 02/13/18 07:51 92 L 02/13/18 07:46 98.9 F 95 20 185/83 H 92 L 02/13/18 04:00 97.9 F 92 20 174/79 H 93 L Weight Admit Weight 269 lb 1.6 oz Weight 269 lb 1.6 oz I&O: 02/12/18 02/13/18 02/14/18 06:59 06:59 06:59 Intake Total 2640 Output Total 3650 Balance -1010 Result Diagrams: 02/13/18 05:00 02/13/18 05:00 Additional Labs: Accuchecks 02/13/18 02/12/18 02/12/18 06:04 20:27 16:47 POC Glucose 162 H 355 H 405 H Phys Exam - Physical Examination Respiratory: no wheezing, no rales, no rhonchi, wheezing present, clear to auscultation bilateral Cardiovascular: RRR, no significant murmur, no rub, gallop, irregular Gastrointestinal: soft, non-tender, no distention, positive bowel sounds Musculoskeletal: no edema, pulses present, edema present Dx/Plan (1) Metabolic encephalopathy Code(s): G93.41 - METABOLIC ENCEPHALOPATHY Status: Acute (2) C. difficile diarrhea Code(s): A04.72 - ENTEROCOLITIS D/T CLOSTRIDIUM DIFFICILE, NOT SPCF RECUR Status: Acute (3) Diabetes mellitus Code(s): E11.9 - TYPE 2 DIABETES MELLITUS WITHOUT COMPLICATIONS Status: Chronic (4) Dehydration Code(s): E86.0 - DEHYDRATION Status: Acute - Plan pt still having diarrhea will continue abx for now -: pt encouraged to take pain meds. -: will add prn bp meds and increase her norvasc. Discussed with nephro -: pt will be on prednsione 20mg. * . Review of Systems - Review of Systems Respiratory: negative: Cough, Dry, Shortness of Breath, Hemoptysis, SOB with Excertion, Pleuritic Pain, Sputum, Wheezing Cardiovascular: negative: chest pain, palpitations, orthopnea, paroxysmal nocturnal dyspnea, edema, light headedness, other Gastrointestinal: Abdominal Pain - Medications/Allergies Allergies/Adverse Reactions: Allergies Allergy/AdvReac Type Severity Reaction Status Date / Time sitagliptin [From ] Allergy Intermediate Hives Verified 02/10/18 17:59 Medications: Current Medications Acetaminophen (Tylenol) 650 mg PO Q4H PRN PRN Reason: Headache/Fever/Mild Pain (1-3) Last Admin: 02/12/18 09:01 Dose: 650 mg Hydrocodone Bitart/Acetaminophen ([place] 5/325) 1 tab PO Q4H PRN PRN Reason: Moderate Pain (4-6) Last Admin: 02/13/18 10:29 Dose: 1 tab Hydrocodone Bitart/Acetaminophen ([place] 5/325) 2 tab PO Q4H PRN PRN Reason: Severe Pain (7-10) Last Admin: 02/11/18 00:42 Dose: 2 tab Amlodipine Besylate (Norvasc) 10 mg PO DAILY [facility] Last Admin: 02/13/18 08:23 Dose: 10 mg Aspirin (Ecotrin) 81 mg PO DAILY [facility] Last Admin: 02/13/18 08:23 Dose: 81 mg Cyanocobalamin (Vitamin B-12) 1,000 mcg PO QAM [facility] Last Admin: 02/13/18 08:23 Dose: 1,000 mcg Dextrose/Water (Dextrose 50%) 25 gm SLOW IVP PRN PRN PRN Reason: Hypoglycemia Last Admin: 02/11/18 05:13 Dose: 25 gm Famotidine (Pepcid) 20 mg PO QPM [facility] Last Admin: 02/12/18 20:42 Dose: 20 mg Gabapentin (Neurontin) 100 mg PO TID [facility] Last Admin: 02/13/18 10:36 Dose: Not Given Glucagon (Glucagon) 1 mg IM PRN PRN PRN Reason: Hypoglycemia Heparin Sodium (Porcine) (Heparin) 5,000 units SC TID [facility] Last Admin: 02/13/18 08:23 Dose: 5,000 units Hydralazine HCl (Apresoline) 5 mg SLOW IVP Q6H PRN PRN Reason: Blood Pressure Last Admin: 02/13/18 12:20 Dose: 5 mg Dextrose/Water (D5w) 1,000 mls @ 0 mls/hr IV .Q0M PRN PRN Reason: Hypoglycemia Sodium Chloride (Normal Saline 0.9%) 1,000 mls @ 75 mls/hr IV .[id number] [facility] Last Admin: 02/13/18 08:21 Dose: 1,000 mls Insulin Human Lispro (Humalog) 0 units SC .MILD SLIDING SCALE PRN PRN Reason: Mild Correctional Scale Last Admin: 02/12/18 18:11 Dose: 6 unit Insulin Human Lispro (Humalog) 0 units SC .BEDTIME SLIDING SC PRN; Protocol PRN Reason: BEDTIME SLIDING SCALE Last Admin: 02/12/18 20:57 Dose: 5 unit Metoprolol Tartrate (Lopressor) 25 mg PO BID [facility] Last Admin: 02/13/18 08:23 Dose: 25 mg Prednisone (Prednisone) 20 mg PO QAM-WM [facility] Last Admin: 02/13/18 08:22 Dose: 20 mg Ropinirole HCl (Requip) 0.5 mg PO QPM [facility] Last Admin: 02/12/18 20:42 Dose: 0.5 mg Sertraline HCl (Zoloft) 25 mg PO DAILY [facility] Last Admin: 02/13/18 08:23 Dose: 25 mg Sodium Chloride (Flush - Normal Saline) 10 ml IVF Q12HR [facility] Last Admin: 02/13/18 08:23 Dose: 10 ml Sodium Chloride (Flush - Normal Saline) 10 ml IVF PRN PRN PRN Reason: Saline Flush Vancomycin HCl (First Vancomycin) 125 mg PO QID [facility] Last Admin: 02/13/18 12:20 Dose: 125 mg
--- NOTE | 2018-02-13 15:09 | PQF ---
CLINICAL DOCUMENTATION IMPROVEMENT CLARIFICATION FORM: ICD-10 Updated PLEASE DO AN ADDENDUM TO THE PROGRESS NOTE WITH ANY DOCUMENTATION UPDATES OR ADDITIONS AND CARRY THROUGH TO DC SUMMARY. THANK YOU. DATE: 02/13/18 ATTN: Dr. Earl Please exercise your independent, professional judgment in responding to the clarification form. Clinical indicators are provided on the bottom of this form for your review Please check appropriate box(es): [ x] Sepsis due to: [ ] Severe sepsis with acute organ dysfunction of: [ ] Localized infection without sepsis [ ] Other diagnosis [ ] Unable to determine In addition, please specify: Present on Admission (POA): [ x ] Yes [ ] No [ ] Unable to determine For continuity of documentation, please document condition throughout progress notes and discharge summary. Thank You. CLINICAL INDICATORS - SIGNS / SYMPTOMS / LABS H&P 02/10: WEAK DEVELOPED SOME LOOSE STOOLS AT HOME WHITE COUNT 16.1 CREATININE 4.85 METABOLIC ENCEPHALOPATHY UTI ACUTE ON CHRONIC RENAL FAILURE EVENT NOTE 02/11: SEVERAL LIQUID STOOLS TODAY. C DIFF SENT AND IS POSITIVE. WILL START ORAL VANCOMYCIN. NEPHROLOGY PN 02/13: ACUTE KIDNEY INJURY ON TOP OF HER CHRONIC RENAL FAILURE, IMPROVING RENAL FUNCTION. DIARRHEA - SECONDARY TO CLOSTRIDIUM DIFFICILE COLITIS, RISKS: H&P 02/10: HX OF RENAL SARCOIDOSIS W/ CKD. OUTPATIENT SURGERY 02/06/18 FOR LUMBAR DECOMPRESSION . CHRONIC DIABETIC ULCER ON L GREAT TOE. SHE WAS RECEIVING ANTIBIOTICS FOR THAT W/ VANCOMYCIN WHEN SHE HAD WORSENING RENAL FUNCTION EARLIER THIS MONTH. DM. HTN. PN 02/12: C. DIFFICILE DIARRHEA TREATMENT: ORDER 02/10-02/11: NS IV 75ML/HR ORDER 02/11: ROCEPHIN 1 GM . DC'D 02/12 (CX IS NEGATIVE. PN 02/12) ORDER 02/11: VANCOMYCIN 125MG PO QID Thank you, Gris (This form is maintained as a part of the permanent medical record) 2014 [employer]. All Rights Reserved Gris Garcia RN, BSN [email or web address] Office: [phone] [facility]
--- NOTE | 2018-02-13 15:26 | PQF ---
CLINICAL DOCUMENTATION IMPROVEMENT CLARIFICATION FORM: ICD-10 Updated PLEASE DO AN ADDENDUM TO THE PROGRESS NOTE WITH ANY DOCUMENTATION UPDATES OR ADDITIONS AND CARRY THROUGH TO DC SUMMARY. THANK YOU. DATE: 02/13/18 ATTN: Dr. Earl Please exercise your independent, professional judgment in responding to the clarification form. Clinical indicators are provided on the bottom of this form for your review Please check appropriate box(s): x__ I (concur) with the Nursing Assessment findings as stated below. [ ] Pressure Ulcer: (Stage I: Erythema; Stage II: Partial thickness; Stage III : Full thickness; Stage IV: Necrosis to muscle/bone) [ ] Location: Stage (I to IV): ___(Left____Right___Bilateral___N/A ) [ ] Location: Stage (I to IV): ___(Left Right___Bilateral___N/A____) [ ] No pressure ulcer diagnosis [ ] Other diagnosis [ ] Unable to determine In addition, please specify: Present on Admission (POA): [ ] Yes [ ] No [ ] Unable to determine For continuity of documentation, please document condition throughout progress notes and discharge summary. Thank You. CLINICAL INDICATORS - SIGNS / SYMPTOMS / LABS Nursing Assessment 02/10/18 @ 1710: Sacrococcygeal Pressure Ulcer. Stage II RISKS: H&P 02/10: Hx Sarcoid kidney with CKD 3. DM. HTN. Chronic diabetic ulcer on the left great toe. Recent lumbar decompression. TREATMENT: SKIN INTERVENTIONS per Nursing Protocol: Position changes: Q2 H in bed, Q1 H in chair Skin kept from excessive moisture. ORDER 02/10: Wound Care Eval / Treat Pre-ulcer skin changes limited to persistent focal edema (Stage 1) Abrasion, blister, partial thickness skin loss involving epidermis and/or dermis (Stage 2) Full thickness skin loss involving damage or necrosis of SQ tissue. (Stage 3) Necrosis of soft tissue through to underlying muscle, tendon, or bone. (Stage 4) Purple or maroon discolored skin or blood filled blister Thank you, Gris (This form is maintained as a part of the permanent medical record) 2015 [employer] All Rights Reserved Gris Garcia RN, BSN [email or web address] Office: [phone] [facility]
[2018-02-13] MEDS: ALPRAZolam 0.25 MG TAB PO PRN (17:30)
[2018-02-13] MEDS: HumaLOG 300 UNITS/3 ML VIAL SC PRN ×2 (17:34→21:33)
[2018-02-13] MEDS ORDERED: Nitroglycerin 0.4 MG TAB (25 Tab Bottle) SL SCH (18:45)
[2018-02-13] MEDS: Famotidine 20 MG TAB PO SCH (21:32)
[2018-02-13] MEDS: rOPINIRole HCl 0.5 MG TAB PO SCH (21:32)
[2018-02-13] MEDS ORDERED: Furosemide 20 MG/2 ML VIAL SLOW IVP SCH (22:00)
--- NOTE | 2018-02-13 22:34 | RAD ---
SINGLE VIEW OF THE CHEST: 02/13/18 COMPARISON: 02/10/18 HISTORY: Pulmonary edema. FINDINGS: Single view of the chest shows an enlarged cardiomediastinal silhouette. Opacities are seen in the william ng bases which likely represent pleural effusions with adjacent atelectasis versus infiltrates. This could also represent pulmonary edema. Degenerative changes are seen in the spine. IMPRESSION: Findings are most consistent with congestive heart failure with volume overload. POS: PARMINDER
--- NOTE | 2018-02-13 23:19 | CON ---
DATE OF CONSULTATION: HISTORY OF PRESENT ILLNESS: Ms. Medina is roughly 6 days out from lumbar decompression, but unfortunately bounced back 3 days ago to the hospital with altered mental status, acute kidney injury, and Clostridium difficile colitis. This morning, she appears to be actually doing fairly well. Her incision is intact and well approximated, external sutures are in place. There is no erythema. This is a mild area of what looks like granulation material in the lower aspect of her incision, but she is also on strong antibiotics, which I think will take care of any concern there. She did report having back and leg pain previously that has improved immensely since starting steroids. I do see that her blood sugar has rebounded likely because of this. From Neurosurgery's perspective, there is nothing more to do at this time and we will follow up with her in the outpatient setting. Job ID: [id number]
[2018-02-14] MEDS: Amlodipine 10 MG TAB PO SCH (08:42)
[2018-02-14] MEDS: Aspirin 81 mg Enteric Coated Tablet PO SCH (08:42)
[2018-02-14] MEDS: predniSONE 20 MG TAB PO SCH (08:42)
[2018-02-14] MEDS: Gabapentin 100 MG CAP PO SCH ×3 (08:42→21:07)
[2018-02-14] MEDS: Sodium Chloride 0.9% 1,000 ML IV SCH ×2 (08:42→21:30)
[2018-02-14] MEDS: Cyanocobalamin (Vitamin B-12) 1,000 MCG TAB PO SCH (08:42)
[2018-02-14] MEDS: Heparin 5,000 UNITS/ML VIAL SC SCH ×3 (08:43→21:07)
[2018-02-14] MEDS: Metoprolol Tartrate 25 MG TAB PO SCH ×2 (08:43→21:07)
[2018-02-14] MEDS: Vancomycin HCl 25 MG/ML Oral PO SCH ×4 (08:51→21:34)
--- NOTE | 2018-02-14 09:16 | PRG ---
DATE OF SERVICE: 02/14/2018 SUBJECTIVE: Ms. Medina is a 57-year-old white female with known history of renal sarcoidosis, initially was admitted due to mental status change and diarrhea. She was found to have C diff colitis. Currently, on oral vancomycin. We also saw the patient for her acute kidney injury on top of her chronic renal failure. Her creatinine was initially at 4.85. She was given crystalloids and colloids. This showed slowly improvement in the renal function. No new complaints today. Still feeling weak. Still with some diarrhea, but this is much improved. No chest pain. The patient denies any chest pain or shortness of breath. OBJECTIVE: VITAL SIGNS: Blood pressure is 179/84, heart rate 81, respiratory rate 20, temperature 97.6, and pulse ox is 95%. GENERAL: Awake, supine, comfortable, not in distress. SKIN: Adequate turgor. HEENT: She has a slightly pale conjunctivae. Anicteric sclerae. No neck mass. No carotid bruits. No JVD. CHEST: No deformities. LUNGS: Clear breath sounds. No wheezing. No crackles. HEART: Normal sinus rhythm. No murmurs, gallops, or rubs. ABDOMEN: Globular, soft, nontender. No masses. EXTREMITIES: No edema. MEDICATIONS: Medications of 02/14/2018, was reviewed. LABORATORY DATA: Laboratories of 02/13/2018, white count 12.8, sodium 140, potassium 4.2, chloride 105, carbon dioxide 25, BUN 55, creatinine 2.61. On 02/14/2018, glucose 192. ASSESSMENT AND PLAN: 1. Acute kidney injury, hemodynamically-mediated renal dysfunction on top of her chronic renal failure. Continue current management. Continue IV hydration. Albumin infusion has been consumed. 2. Renal sarcoidosis, would continue prednisone for the moment at 20 mg tablet once a day. 3. Diarrhea/Clostridium difficile colitis, on oral vancomycin. 4. Chronic neck pain, status post chronic back pain. The patient is status post back surgery. 5. Agree with current management. We will recheck baseline CBC in a.m. Job ID: [id number]
[2018-02-14 10:02] LABS: #Eosinphils 0.3 thou/uL (0.0-0.7); #Lymphocytes 1.8 thou/uL (1.20-3.40); #Monocytes 0.8 thou/uL (0.11-0.59); #Neutrophils 12.8 thou/uL (1.40-6.50); %Basophils 0.2 % (0.0-1.0); %Eosinophils 1.6 % (0.0-10.0); %Lymphocytes 11.5 % (21.0-51.0); %Monocytes 5.2 % (0.0-10.0); %Neutrophils 81.5 % (42.0-75.0); Mean Corpuscular HGB CONC 31.6 g/dL (32.0-36.0); Mean Corpuscular Hemoglobin 26.3 pg (27.0-31.0); Mean Corpuscular Volume 83.1 fL (78.0-98.0); Mean Platelet Volume 8.6 fL (7.4-10.4); Platelet Count 305 thou/uL (130-400); RBC Distribution Width 16.8 % (11.5-14.5); Red Blood Cell (RBC) Count 3.43 mill/uL (4.20-5.40); White Blood Cell (WBC) Count 15.7 thou/uL (4.8-10.8)
[2018-02-14 10:21] LABS: Anion Gap 14 mmol/L (10-20); BUN (Urea Nitrogen) 52 mg/dL (9.8-20.1); Calc. Creatinine Clearance 52 mL/min (70-130); Calcium 9.8 mg/dL (7.8-10.44); Carbon Dioxide 26 mmol/L (22-29); Chloride 103 mmol/L (98-107); Estimated GFR-MDRD 22; Glucose 164 mg/dL (70-105); Potassium 4.3 mmol/L (3.5-5.1); Sodium 139 mmol/L (136-145)
[2018-02-14] MEDS: HumaLOG 300 UNITS/3 ML VIAL SC PRN ×3 (11:29→21:08)
[2018-02-14] MEDS: hydrALAZINE 20 MG/ML VIAL SLOW IVP PRN (12:40)
--- NOTE | 2018-02-14 13:59 | PDOC.PN ---
- Subjective Encounter Start Date: 02/14/18 Encounter Start Time: 10:30 Subjective: pt up in bed feels sob - Objective Resuscitation Status - Order Detail: 02/10/18 16:22 Resuscitation Status Routine Resuscitation Status: FULL: Full Resuscitation Discussed with: Sister Vital Signs & Weight: Vital Signs (12 hours) Temp Pulse Resp BP Pulse Ox 02/14/18 12:26 98 F 78 18 183/89 H 93 L 02/14/18 07:45 95 02/14/18 07:43 97.6 F 81 20 179/84 H 95 02/14/18 04:00 98.3 F 84 18 146/70 H 93 L Weight Admit Weight 269 lb 1.6 oz Weight 269 lb 1.6 oz I&O: 02/13/18 02/14/18 02/15/18 06:59 06:59 06:59 Intake Total 2640 2690 Output Total 3650 2900 Balance -1010 -210 Result Diagrams: 02/14/18 09:43 02/14/18 09:43 Additional Labs: Accuchecks 02/14/18 02/14/18 02/13/18 10:51 06:28 21:07 POC Glucose 242 H 192 H 330 H 02/13/18 02/13/18 17:12 11:12 POC Glucose 300 H 194 H Phys Exam - Physical Examination Neck: no nodes, no JVD, supple, full ROM crackles to bases Cardiovascular: RRR, no significant murmur, no rub, gallop, irregular Gastrointestinal: soft, non-tender, no distention, positive bowel sounds Dx/Plan (1) Metabolic encephalopathy Code(s): G93.41 - METABOLIC ENCEPHALOPATHY Status: Acute (2) C. difficile diarrhea Code(s): A04.72 - ENTEROCOLITIS D/T CLOSTRIDIUM DIFFICILE, NOT SPCF RECUR Status: Acute (3) Diabetes mellitus Code(s): E11.9 - TYPE 2 DIABETES MELLITUS WITHOUT COMPLICATIONS Status: Chronic (4) Dehydration Code(s): E86.0 - DEHYDRATION Status: Acute - Plan fluids are off pt now sob cxr indicates congestion -: will order lasix x1, diarrhea improving -: continue vanco, discontinue johns * . Review of Systems - Review of Systems Respiratory: Shortness of Breath Cardiovascular: negative: chest pain, palpitations, orthopnea, paroxysmal nocturnal dyspnea, edema, light headedness, other Gastrointestinal: negative: Nausea, Vomiting, Abdominal Pain, Diarrhea, Constipation, Melena, Hematochezia, Other - Medications/Allergies Allergies/Adverse Reactions: Allergies Allergy/AdvReac Type Severity Reaction Status Date / Time sitagliptin [From ] Allergy Intermediate Hives Verified 02/10/18 17:59 Medications: Current Medications Acetaminophen (Tylenol) 650 mg PO Q4H PRN PRN Reason: Headache/Fever/Mild Pain (1-3) Last Admin: 02/12/18 09:01 Dose: 650 mg Hydrocodone Bitart/Acetaminophen ([place] 5/325) 1 tab PO Q4H PRN PRN Reason: Moderate Pain (4-6) Last Admin: 02/13/18 10:29 Dose: 1 tab Hydrocodone Bitart/Acetaminophen ([place] 5/325) 2 tab PO Q4H PRN PRN Reason: Severe Pain (7-10) Last Admin: 02/11/18 00:42 Dose: 2 tab Albuterol/Ipratropium (Duoneb) 3 ml NEB Q6H PRN PRN Reason: SOB &/or Wheezing Last Admin: 02/13/18 19:25 Dose: 3 ml Alprazolam (Xanax) 0.25 mg PO BID PRN PRN Reason: Anxiety Last Admin: 02/13/18 17:30 Dose: 0.25 mg Amlodipine Besylate (Norvasc) 10 mg PO DAILY [facility] Last Admin: 02/14/18 08:42 Dose: 10 mg Aspirin (Ecotrin) 81 mg PO DAILY [facility] Last Admin: 02/14/18 08:42 Dose: 81 mg Cyanocobalamin (Vitamin B-12) 1,000 mcg PO QAM [facility] Last Admin: 02/14/18 08:42 Dose: 1,000 mcg Dextrose/Water (Dextrose 50%) 25 gm SLOW IVP PRN PRN PRN Reason: Hypoglycemia Last Admin: 02/11/18 05:13 Dose: 25 gm Famotidine (Pepcid) 20 mg PO QPM [facility] Last Admin: 02/13/18 21:32 Dose: 20 mg Furosemide (Lasix) 40 mg SLOW IVP ONE [facility] Gabapentin (Neurontin) 100 mg PO TID [facility] Last Admin: 02/14/18 08:42 Dose: 100 mg Glucagon (Glucagon) 1 mg IM PRN PRN PRN Reason: Hypoglycemia Heparin Sodium (Porcine) (Heparin) 5,000 units SC TID [facility] Last Admin: 02/14/18 08:43 Dose: 5,000 units Hydralazine HCl (Apresoline) 5 mg SLOW IVP Q6H PRN PRN Reason: Blood Pressure Last Admin: 02/14/18 12:40 Dose: 5 mg Dextrose/Water (D5w) 1,000 mls @ 0 mls/hr IV .Q0M PRN PRN Reason: Hypoglycemia Sodium Chloride (Normal Saline 0.9%) 1,000 mls @ 75 mls/hr IV .[id number] [facility] Last Admin: 02/14/18 08:42 Dose: Not Given Insulin Human Lispro (Humalog) 0 units SC .MILD SLIDING SCALE PRN PRN Reason: Mild Correctional Scale Last Admin: 02/14/18 11:29 Dose: 3 unit Insulin Human Lispro (Humalog) 0 units SC .BEDTIME SLIDING SC PRN; Protocol PRN Reason: BEDTIME SLIDING SCALE Last Admin: 02/13/18 21:33 Dose: 4 unit Metoprolol Tartrate (Lopressor) 25 mg PO BID [facility] Last Admin: 02/14/18 08:43 Dose: 25 mg Prednisone (Prednisone) 20 mg PO QAM-WM [facility] Last Admin: 02/14/18 08:42 Dose: 20 mg Ropinirole HCl (Requip) 0.5 mg PO QPM [facility] Last Admin: 02/13/18 21:32 Dose: 0.5 mg Sertraline HCl (Zoloft) 25 mg PO DAILY [facility] Last Admin: 02/14/18 08:43 Dose: 25 mg Sodium Chloride (Flush - Normal Saline) 10 ml IVF Q12HR [facility] Last Admin: 02/14/18 08:43 Dose: 10 ml Sodium Chloride (Flush - Normal Saline) 10 ml IVF PRN PRN PRN Reason: Saline Flush Last Admin: 02/13/18 21:54 Dose: 10 ml Vancomycin HCl (First Vancomycin) 125 mg PO QID [facility] Last Admin: 02/14/18 12:40 Dose: 125 mg
[2018-02-14] MEDS ORDERED: Furosemide 40 MG/4 ML VIAL SLOW IVP SCH (14:00)
[2018-02-14] MEDS: Famotidine 20 MG TAB PO SCH (21:07)
[2018-02-14] MEDS: rOPINIRole HCl 0.5 MG TAB PO SCH (21:07)
[2018-02-14] MEDS: ALPRAZolam 0.25 MG TAB PO PRN (21:13)
[2018-02-14] MEDS: HYDROcodone/Acetaminophen 5/325 mg Tablet PO PRN (23:23)
[2018-02-15 06:28] LABS: Band 12 % (5-11); Eosinophils 2 % (0-10); Hemoglobin 8.9 g/dL (12.0-16.0); Lymphocytes 13 % (21-51); MDiff Complete? YES; Mean Corpuscular HGB CONC 31.5 g/dL (32.0-36.0); Mean Corpuscular Hemoglobin 26.1 pg (27.0-31.0); Mean Corpuscular Volume 82.9 fL (78.0-98.0); Mean Platelet Volume 8.6 fL (7.4-10.4); Metamyelocyte 1 % (0-0); Monocytes 4 % (0-10); Neutrophil 67 % (42-75); PLT Morphology Comment Appears Adequate; Platelet Count 325 thou/uL (130-400); RBC Distribution Width 16.8 % (11.5-14.5); RBC Morphology Normal; Reactive Lymphocytes 1 % (0-10); Red Blood Cell (RBC) Count 3.42 mill/uL (4.20-5.40); White Blood Cell (WBC) Count 16.1 thou/uL (4.8-10.8)
[2018-02-15 06:29] LABS: Anion Gap 18 mmol/L (10-20); BUN (Urea Nitrogen) 57 mg/dL (9.8-20.1); Calc. Creatinine Clearance 53 mL/min (70-130); Calcium 9.8 mg/dL (7.8-10.44); Carbon Dioxide 25 mmol/L (22-29); Chloride 102 mmol/L (98-107); Estimated GFR-MDRD 23; Glucose 140 mg/dL (70-105); Potassium 4.5 mmol/L (3.5-5.1); Sodium 140 mmol/L (136-145)
[2018-02-15] MEDS: predniSONE 20 MG TAB PO SCH (08:58)
[2018-02-15] MEDS: Amlodipine 10 MG TAB PO SCH (08:59)
[2018-02-15] MEDS: Vancomycin HCl 25 MG/ML Oral PO SCH ×4 (08:59→20:16)
[2018-02-15] MEDS: Heparin 5,000 UNITS/ML VIAL SC SCH ×3 (08:59→20:15)
[2018-02-15] MEDS: Aspirin 81 mg Enteric Coated Tablet PO SCH (08:59)
[2018-02-15] MEDS: Gabapentin 100 MG CAP PO SCH ×3 (08:59→20:14)
[2018-02-15] MEDS: Metoprolol Tartrate 25 MG TAB PO SCH ×2 (08:59→20:14)
[2018-02-15] MEDS: Cyanocobalamin (Vitamin B-12) 1,000 MCG TAB PO SCH (08:59)
[2018-02-15] MEDS ORDERED: hydrALAZINE 25 MG TAB PO SCH (10:15)
--- NOTE | 2018-02-15 10:26 | PRG ---
DATE OF SERVICE: 02/15/2018 RENAL MEDICINE SUBJECTIVE: Ms. Medina is a 57-year-old white female, who was seen by the Renal Service for acute kidney injury on top of her chronic renal failure. Please note, this patient has underlying presumptive renal sarcoidosis. She was given colloids and crystalloids with improvement of the renal function. In addition, I have increased her prednisone to at least 20 mg tablet once a day. She has also been diagnosed with C. diff colitis. Diarrhea is actually improving. No other complaints today. Appetite is improving. No chest pain or shortness of breath. OBJECTIVE: VITAL SIGNS: Blood pressure 175/82, heart rate 78, respiratory rate 20, temperature 97.4, pulse ox 96%. GENERAL: Awake, alert, sitting comfortable, morbidly obese. SKIN: Adequate turgor. HEENT: Slightly pale conjunctivae. Anicteric sclerae. No neck mass. No carotid bruits. No JVD. CHEST: No deformities. LUNGS: Clear breath sounds. No wheezing. No crackles. HEART: Normal sinus rhythm. No murmur. No gallops. No rubs. ABDOMEN: Globular, soft, nontender. No masses. EXTREMITIES: Trace edema. No deformities. MEDICATIONS: Medications of February 15, 2018, reviewed. LABORATORY DATA: Laboratories of February 15, 2018, white count 16.1, hemoglobin 8.9. Sodium 140, potassium 4.5, chloride 102, carbon dioxide 25, BUN 57, creatinine 2.22, glucose 140, calcium 9.8. ASSESSMENT AND PLAN: 1. Acute kidney injury - hemodynamically-mediated renal dysfunction. Slowly improving renal function. Creatinine is noted to be plateauing at 2.22. She is currently at stage 4 chronic renal failure. There is no indication for any dialytic intervention. Continue supportive care. Continue gentle volume repletion. Would minimize diuretics for this patient for the moment. 2. Anemia. Continue to observe. P.r.n. blood transfusion. 3. Renal sarcoidosis - currently, on prednisone 20 mg tablet once a day. We will recheck basic metabolic panel and CBC in the morning. Job ID: [id number]
[2018-02-15] MEDS: HYDROcodone/Acetaminophen 5/325 mg Tablet PO PRN (11:21)
[2018-02-15] MEDS: HumaLOG 300 UNITS/3 ML VIAL SC PRN ×3 (12:14→20:53)
--- NOTE | 2018-02-15 13:11 | PDOC.PN ---
- Subjective Encounter Start Date: 02/15/18 Encounter Start Time: 09:15 Subjective: pt up in bed no complains - Objective Resuscitation Status - Order Detail: 02/10/18 16:22 Resuscitation Status Routine Resuscitation Status: FULL: Full Resuscitation Discussed with: Sister Vital Signs & Weight: Vital Signs (12 hours) Temp Pulse Pulse Pulse Resp BP BP 02/15/18 12:12 97.2 F L 77 18 02/15/18 11:22 78 02/15/18 09:52 76 77 167/77 H 147/68 H 02/15/18 07:58 02/15/18 07:56 97.4 F L 78 20 02/15/18 04:00 97.8 F 77 20 BP Pulse Ox Pulse Ox Pulse Ox 02/15/18 12:12 170/80 H 97 02/15/18 11:22 02/15/18 09:52 94 L 96 02/15/18 07:58 96 02/15/18 07:56 175/82 H 96 02/15/18 04:00 157/74 H 93 L Weight Admit Weight 267 lb Weight 269 lb 1.6 oz I&O: 02/14/18 02/15/18 02/16/18 06:59 06:59 06:59 Intake Total 2690 1800 Output Total 2900 3950 Balance -210 -2150 Result Diagrams: 02/15/18 05:29 02/15/18 05:29 Additional Labs: Accuchecks 02/15/18 02/15/18 02/14/18 10:38 05:58 20:41 POC Glucose 327 H 136 H 348 H 02/14/18 17:01 POC Glucose 343 H Phys Exam - Physical Examination Neck: no nodes, no JVD, supple, full ROM Respiratory: no wheezing, no rales, no rhonchi, wheezing present, clear to auscultation bilateral Cardiovascular: RRR, no significant murmur, no rub, gallop, irregular Gastrointestinal: soft, non-tender, no distention, positive bowel sounds Dx/Plan (1) Metabolic encephalopathy Code(s): G93.41 - METABOLIC ENCEPHALOPATHY Status: Acute (2) C. difficile diarrhea Code(s): A04.72 - ENTEROCOLITIS D/T CLOSTRIDIUM DIFFICILE, NOT SPCF RECUR Status: Acute (3) Diabetes mellitus Code(s): E11.9 - TYPE 2 DIABETES MELLITUS WITHOUT COMPLICATIONS Status: Chronic (4) Dehydration Code(s): E86.0 - DEHYDRATION Status: Acute - Plan will start to wean off oxygen -: pt encouraged to get up and ambulate with help -: pt's diarrhea is improving -: possible rehab in next 24-48hr * . Review of Systems - Review of Systems Cardiovascular: negative: chest pain, palpitations, orthopnea, paroxysmal nocturnal dyspnea, edema, light headedness, other Gastrointestinal: negative: Nausea, Vomiting, Abdominal Pain, Diarrhea, Constipation, Melena, Hematochezia, Other Genitourinary: negative: Dysuria, Frequency, Incontinence, Hematuria, Retention , Other - Medications/Allergies Allergies/Adverse Reactions: Allergies Allergy/AdvReac Type Severity Reaction Status Date / Time sitagliptin [From ] Allergy Intermediate Hives Verified 02/10/18 17:59 Medications: Current Medications Acetaminophen (Tylenol) 650 mg PO Q4H PRN PRN Reason: Headache/Fever/Mild Pain (1-3) Last Admin: 02/12/18 09:01 Dose: 650 mg Hydrocodone Bitart/Acetaminophen ([place] 5/325) 1 tab PO Q4H PRN PRN Reason: Moderate Pain (4-6) Last Admin: 02/15/18 11:21 Dose: 1 tab Hydrocodone Bitart/Acetaminophen ([place] 5/325) 2 tab PO Q4H PRN PRN Reason: Severe Pain (7-10) Last Admin: 02/11/18 00:42 Dose: 2 tab Albuterol/Ipratropium (Duoneb) 3 ml NEB Q6H PRN PRN Reason: SOB &/or Wheezing Last Admin: 02/13/18 19:25 Dose: 3 ml Alprazolam (Xanax) 0.25 mg PO BID PRN PRN Reason: Anxiety Last Admin: 02/14/18 21:13 Dose: 0.25 mg Amlodipine Besylate (Norvasc) 10 mg PO DAILY [facility] Last Admin: 02/15/18 08:59 Dose: 10 mg Aspirin (Ecotrin) 81 mg PO DAILY [facility] Last Admin: 02/15/18 08:59 Dose: 81 mg Cyanocobalamin (Vitamin B-12) 1,000 mcg PO QAM [facility] Last Admin: 02/15/18 08:59 Dose: 1,000 mcg Dextrose/Water (Dextrose 50%) 25 gm SLOW IVP PRN PRN PRN Reason: Hypoglycemia Last Admin: 02/11/18 05:13 Dose: 25 gm Famotidine (Pepcid) 20 mg PO QPM [facility] Last Admin: 02/14/18 21:07 Dose: 20 mg Gabapentin (Neurontin) 100 mg PO TID [facility] Last Admin: 02/15/18 08:59 Dose: 100 mg Glucagon (Glucagon) 1 mg IM PRN PRN PRN Reason: Hypoglycemia Heparin Sodium (Porcine) (Heparin) 5,000 units SC TID [facility] Last Admin: 02/15/18 08:59 Dose: 5,000 units Hydralazine HCl (Apresoline) 5 mg SLOW IVP Q6H PRN PRN Reason: Blood Pressure Last Admin: 02/14/18 12:40 Dose: 5 mg Hydralazine HCl (Apresoline) 25 mg PO TID [facility] Dextrose/Water (D5w) 1,000 mls @ 0 mls/hr IV .Q0M PRN PRN Reason: Hypoglycemia Sodium Chloride (Normal Saline 0.9%) 1,000 mls @ 75 mls/hr IV .[id number] [facility] Last Admin: 02/14/18 21:30 Dose: Not Given Insulin Human Lispro (Humalog) 0 units SC .MILD SLIDING SCALE PRN PRN Reason: Mild Correctional Scale Last Admin: 02/15/18 12:14 Dose: 5 unit Insulin Human Lispro (Humalog) 0 units SC .BEDTIME SLIDING SC PRN; Protocol PRN Reason: BEDTIME SLIDING SCALE Last Admin: 02/14/18 21:08 Dose: 4 unit Metoprolol Tartrate (Lopressor) 25 mg PO BID [facility] Last Admin: 02/15/18 08:59 Dose: 25 mg Prednisone (Prednisone) 20 mg PO QAM-WM [facility] Last Admin: 02/15/18 08:58 Dose: 20 mg Ropinirole HCl (Requip) 0.5 mg PO QPM [facility] Last Admin: 02/14/18 21:07 Dose: 0.5 mg Sertraline HCl (Zoloft) 25 mg PO DAILY [facility] Last Admin: 02/15/18 08:59 Dose: 25 mg Sodium Chloride (Flush - Normal Saline) 10 ml IVF Q12HR [facility] Last Admin: 02/15/18 09:00 Dose: 10 ml Sodium Chloride (Flush - Normal Saline) 10 ml IVF PRN PRN PRN Reason: Saline Flush Last Admin: 02/13/18 21:54 Dose: 10 ml Vancomycin HCl (First Vancomycin) 125 mg PO QID [facility] Last Admin: 02/15/18 12:13 Dose: 125 mg
[2018-02-15] MEDS: Sodium Chloride 0.9% 1,000 ML IV SCH (15:30)
[2018-02-15] MEDS: hydrALAZINE 25 MG TAB PO SCH ×2 (15:53→20:14)
--- NOTE | 2018-02-15 17:43 | EKG ---
Test Reason : Blood Pressure : / mmHG Vent. Rate : 097 BPM Atrial Rate : 097 BPM P-R Int : 228 ms QRS Dur : 088 ms QT Int : 328 ms P-R-T Axes : 103 008 033 degrees QTc Int : 416 ms Sinus rhythm with 1st degree A-V block Nonspecific ST abnormality Abnormal ECG Confirmed by EMANUEL KEMP ([id number]), script editor BEULAH MCDOWELL ([id number]) on 02/15/2018 5:42:47 PM Referred By: Confirmed By:EMANUEL KEMP
[2018-02-15] MEDS: hydrALAZINE 20 MG/ML VIAL SLOW IVP PRN (18:00)
[2018-02-15] MEDS: rOPINIRole HCl 0.5 MG TAB PO SCH (20:14)
[2018-02-15] MEDS: Famotidine 20 MG TAB PO SCH (20:15)
[2018-02-16] MEDS: HYDROcodone/Acetaminophen 5/325 mg Tablet PO PRN (05:46)
[2018-02-16 06:15] LABS: Anion Gap 13 mmol/L (10-20); BUN (Urea Nitrogen) 55 mg/dL (9.8-20.1); Calc. Creatinine Clearance 54 mL/min (70-130); Calcium 9.8 mg/dL (7.8-10.44); Carbon Dioxide 27 mmol/L (22-29); Chloride 101 mmol/L (98-107); Estimated GFR-MDRD 23; Glucose 200 mg/dL (70-105); Sodium 137 mmol/L (136-145)
[2018-02-16 06:56] LABS: Band 1 % (5-11); Hemoglobin 8.9 g/dL (12.0-16.0); Hypochromia SLIGHT = 6-15 cells (100X) (0-5/hpf); Lymphocytes 13 % (21-51); MDiff Complete? YES; Mean Corpuscular HGB CONC 31.8 g/dL (32.0-36.0); Mean Corpuscular Hemoglobin 25.8 pg (27.0-31.0); Mean Corpuscular Volume 81.2 fL (78.0-98.0); Mean Platelet Volume 8.2 fL (7.4-10.4); Neutrophil 86 % (42-75); PLT Morphology Comment Appears Adequate; Platelet Count 344 thou/uL (130-400); Polychromasia SLIGHT = 2-3 cells (100X) (0-2/hpf); RBC Distribution Width 16.5 % (11.5-14.5); Red Blood Cell (RBC) Count 3.44 mill/uL (4.20-5.40); White Blood Cell (WBC) Count 18.4 thou/uL (4.8-10.8)
[2018-02-16] MEDS: predniSONE 20 MG TAB PO SCH (08:05)
[2018-02-16] MEDS: Vancomycin HCl 25 MG/ML Oral PO SCH ×4 (08:05→19:55)
[2018-02-16] MEDS: Metoprolol Tartrate 25 MG TAB PO SCH ×2 (08:06→19:54)
[2018-02-16] MEDS: Gabapentin 100 MG CAP PO SCH ×3 (08:06→19:53)
[2018-02-16] MEDS: Aspirin 81 mg Enteric Coated Tablet PO SCH (08:06)
[2018-02-16] MEDS: Cyanocobalamin (Vitamin B-12) 1,000 MCG TAB PO SCH (08:06)
[2018-02-16] MEDS: hydrALAZINE 25 MG TAB PO SCH ×3 (08:06→19:53)
[2018-02-16] MEDS: Amlodipine 10 MG TAB PO SCH (08:06)
[2018-02-16] MEDS: Heparin 5,000 UNITS/ML VIAL SC SCH (08:07)
[2018-02-16] MEDS: HumaLOG 300 UNITS/3 ML VIAL SC PRN ×4 (08:15→19:54)
--- NOTE | 2018-02-16 09:29 | PRG ---
DATE OF SERVICE: 02/16/2018 RENAL MEDICINE SUBJECTIVE: Ms. Medina is a 57-year old white female with chronic renal failure from presumed renal sarcoidosis. She was admitted for an acute kidney injury-prerenal. She was also noted to have diarrhea and she was subsequently diagnosed with C diff colitis. She has received volume repletion-in terms of crystalloid and colloids. Renal function has slowly improved. Her diarrhea is also improved with oral vancomycin. This morning, she denies any new complaints. She denies any chest pain or shortness of breath. Diarrhea has much improved. In addition, her appetite has also improved. OBJECTIVE: VITAL SIGNS: Blood pressure is 170/79, heart rate 80, respiratory rate 18, temperature 98.2, and pulse oximetry 94%. GENERAL: Noted to be awake, alert, comfortable, not in overt distress. SKIN: Adequate turgor. HEENT: She has pinkish conjunctivae. Anicteric sclerae. No neck mass. No carotid bruits. No JVD. CHEST: No deformities. LUNGS: Clear breath sounds. HEART: Normal sinus rhythm. No murmur. No gallops. No rubs. ABDOMEN: Globular, soft, nontender. No masses. EXTREMITIES: No edema. No deformities. MEDICATIONS: Medications of February 16, 2018, was reviewed. LABORATORY DATA: Laboratories of February 16, 2018, white count 8.4, hemoglobin 8.9. Sodium 137, potassium 4, chloride 101, carbon dioxide 27, BUN 55, creatinine 2.16, glucose 200, calcium 9.8. ASSESSMENT AND PLAN: 1. Acute kidney injury-superimposed prerenal azotemia, slowly improving. Most recent creatinine is now 2.1 and on admission this was noted to have peaked at a value of 4.85. Continue current management. There is no indication for any dialytic intervention. 2. Renal sarcoidosis on prednisone 20 mg tablet once a day. 3. Anemia. Continue to observe. 4. Diarrhea from C diff colitis on oral vancomycin. Continue current management. We will recheck baseline CBC in a.m. Job ID: [id number]
--- NOTE | 2018-02-16 14:40 | PDOC.PN ---
- Subjective Encounter Start Date: 02/16/18 Encounter Start Time: 10:00 Subjective: pt up in chair feels well - Objective Resuscitation Status - Order Detail: 02/10/18 16:22 Resuscitation Status Routine Resuscitation Status: FULL: Full Resuscitation Discussed with: Sister Vital Signs & Weight: Vital Signs (12 hours) Temp Pulse Resp BP Pulse Ox 02/16/18 11:46 97.8 F 87 16 155/74 H 92 L 02/16/18 08:06 80 02/16/18 08:00 98.2 F 80 18 170/79 H 94 L 02/16/18 04:00 98.2 F 77 18 171/81 H 94 L Weight Admit Weight 267 lb Weight 269 lb 1.6 oz I&O: 02/15/18 02/16/18 02/17/18 06:59 06:59 06:59 Intake Total 1800 1800 Output Total 3950 Balance -2150 1800 Result Diagrams: 02/16/18 05:44 02/16/18 05:44 Additional Labs: Accuchecks 02/16/18 02/16/18 02/15/18 11:41 05:39 20:42 POC Glucose 290 H 216 H 446 H Phys Exam - Physical Examination Neck: no nodes, no JVD, supple, full ROM Respiratory: no wheezing, no rales, no rhonchi, wheezing present, clear to auscultation bilateral Cardiovascular: RRR, no significant murmur, no rub, gallop, irregular Dx/Plan (1) Metabolic encephalopathy Code(s): G93.41 - METABOLIC ENCEPHALOPATHY Status: Acute (2) C. difficile diarrhea Code(s): A04.72 - ENTEROCOLITIS D/T CLOSTRIDIUM DIFFICILE, NOT SPCF RECUR Status: Acute (3) Diabetes mellitus Code(s): E11.9 - TYPE 2 DIABETES MELLITUS WITHOUT COMPLICATIONS Status: Chronic (4) Dehydration Code(s): E86.0 - DEHYDRATION Status: Acute - Plan mild elevated wbc, will monitor no fever -: will conitnue po vanco -: pt still has pain to her lower back from prior to her surgery -: will check labs in am. possible discharge to rehab if wbc better -: than today. * . Review of Systems - Review of Systems Respiratory: negative: Cough, Dry, Shortness of Breath, Hemoptysis, SOB with Excertion, Pleuritic Pain, Sputum, Wheezing Cardiovascular: negative: chest pain, palpitations, orthopnea, paroxysmal nocturnal dyspnea, edema, light headedness, other Gastrointestinal: negative: Nausea, Vomiting, Abdominal Pain, Diarrhea, Constipation, Melena, Hematochezia, Other - Medications/Allergies Allergies/Adverse Reactions: Allergies Allergy/AdvReac Type Severity Reaction Status Date / Time sitagliptin [From ] Allergy Intermediate Hives Verified 02/10/18 17:59 Medications: Current Medications Acetaminophen (Tylenol) 650 mg PO Q4H PRN PRN Reason: Headache/Fever/Mild Pain (1-3) Last Admin: 02/12/18 09:01 Dose: 650 mg Hydrocodone Bitart/Acetaminophen ([place] 5/325) 1 tab PO Q4H PRN PRN Reason: Moderate Pain (4-6) Last Admin: 02/15/18 11:21 Dose: 1 tab Hydrocodone Bitart/Acetaminophen ([place] 5/325) 2 tab PO Q4H PRN PRN Reason: Severe Pain (7-10) Last Admin: 02/16/18 05:46 Dose: 2 tab Albuterol/Ipratropium (Duoneb) 3 ml NEB Q6H PRN PRN Reason: SOB &/or Wheezing Last Admin: 02/13/18 19:25 Dose: 3 ml Alprazolam (Xanax) 0.25 mg PO BID PRN PRN Reason: Anxiety Last Admin: 02/14/18 21:13 Dose: 0.25 mg Amlodipine Besylate (Norvasc) 10 mg PO DAILY [facility] Last Admin: 02/16/18 08:06 Dose: 10 mg Aspirin (Ecotrin) 81 mg PO DAILY [facility] Last Admin: 02/16/18 08:06 Dose: 81 mg Cyanocobalamin (Vitamin B-12) 1,000 mcg PO QAM [facility] Last Admin: 02/16/18 08:06 Dose: 1,000 mcg Dextrose/Water (Dextrose 50%) 25 gm SLOW IVP PRN PRN PRN Reason: Hypoglycemia Last Admin: 02/11/18 05:13 Dose: 25 gm Famotidine (Pepcid) 20 mg PO QPM [facility] Last Admin: 02/15/18 20:15 Dose: 20 mg Gabapentin (Neurontin) 100 mg PO TID [facility] Last Admin: 02/16/18 08:06 Dose: 100 mg Glucagon (Glucagon) 1 mg IM PRN PRN PRN Reason: Hypoglycemia Hydralazine HCl (Apresoline) 5 mg SLOW IVP Q6H PRN PRN Reason: Blood Pressure Last Admin: 02/15/18 18:00 Dose: 5 mg Hydralazine HCl (Apresoline) 25 mg PO TID [facility] Last Admin: 02/16/18 08:06 Dose: 25 mg Dextrose/Water (D5w) 1,000 mls @ 0 mls/hr IV .Q0M PRN PRN Reason: Hypoglycemia Insulin Human Lispro (Humalog) 0 units SC .MILD SLIDING SCALE PRN PRN Reason: Mild Correctional Scale Last Admin: 02/16/18 11:58 Dose: 4 unit Insulin Human Lispro (Humalog) 0 units SC .BEDTIME SLIDING SC PRN; Protocol PRN Reason: BEDTIME SLIDING SCALE Last Admin: 02/15/18 20:53 Dose: 5 unit Metoprolol Tartrate (Lopressor) 25 mg PO BID [facility] Last Admin: 02/16/18 08:06 Dose: 25 mg Prednisone (Prednisone) 20 mg PO QAM-WM [facility] Last Admin: 02/16/18 08:05 Dose: 20 mg Ropinirole HCl (Requip) 0.5 mg PO QPM [facility] Last Admin: 02/15/18 20:14 Dose: 0.5 mg Sertraline HCl (Zoloft) 25 mg PO DAILY [facility] Last Admin: 02/16/18 08:06 Dose: 25 mg Sodium Chloride (Flush - Normal Saline) 10 ml IVF Q12HR [facility] Last Admin: 02/16/18 08:07 Dose: 10 ml Sodium Chloride (Flush - Normal Saline) 10 ml IVF PRN PRN PRN Reason: Saline Flush Last Admin: 02/13/18 21:54 Dose: 10 ml Vancomycin HCl (First Vancomycin) 125 mg PO QID [facility] Last Admin: 02/16/18 13:49 Dose: 125 mg
[2018-02-16] MEDS: Famotidine 20 MG TAB PO SCH (19:53)
[2018-02-16] MEDS: rOPINIRole HCl 0.5 MG TAB PO SCH (19:53)
[2018-02-17 05:52] LABS: Anion Gap 14 mmol/L (10-20); BUN (Urea Nitrogen) 55 mg/dL (9.8-20.1); Calc. Creatinine Clearance 57 mL/min (70-130); Calcium 9.6 mg/dL (7.8-10.44); Carbon Dioxide 26 mmol/L (22-29); Chloride 101 mmol/L (98-107); Estimated GFR-MDRD 25; Glucose 240 mg/dL (70-105); Potassium 4.3 mmol/L (3.5-5.1); Sodium 137 mmol/L (136-145)
[2018-02-17 05:57] LABS: Band 7 % (5-11); Eosinophils 2 % (0-10); Hemoglobin 8.7 g/dL (12.0-16.0); Lymphocytes 10 % (21-51); MDiff Complete? YES; Mean Corpuscular HGB CONC 32.4 g/dL (32.0-36.0); Mean Corpuscular Hemoglobin 26.4 pg (27.0-31.0); Mean Corpuscular Volume 81.7 fL (78.0-98.0); Mean Platelet Volume 8.6 fL (7.4-10.4); Metamyelocyte 1 % (0-0); Myelocyte 1 % (0-0); Neutrophil 79 % (42-75); PLT Morphology Comment Appears Adequate; Platelet Count 294 thou/uL (130-400); RBC Distribution Width 16.7 % (11.5-14.5); Red Blood Cell (RBC) Count 3.28 mill/uL (4.20-5.40); White Blood Cell (WBC) Count 20.6 thou/uL (4.8-10.8)
[2018-02-17] MEDS: Amlodipine 10 MG TAB PO SCH (08:21)
[2018-02-17] MEDS: hydrALAZINE 25 MG TAB PO SCH ×3 (08:21→22:46)
[2018-02-17] MEDS: Cyanocobalamin (Vitamin B-12) 1,000 MCG TAB PO SCH (08:21)
[2018-02-17] MEDS: Aspirin 81 mg Enteric Coated Tablet PO SCH (08:21)
[2018-02-17] MEDS: predniSONE 20 MG TAB PO SCH ×2 (08:21→09:51)
[2018-02-17] MEDS: Gabapentin 100 MG CAP PO SCH ×3 (08:21→22:46)
[2018-02-17] MEDS: Metoprolol Tartrate 25 MG TAB PO SCH ×2 (08:22→22:46)
[2018-02-17] MEDS: Vancomycin HCl 25 MG/ML Oral PO SCH ×4 (08:22→22:47)
[2018-02-17] MEDS: HumaLOG 300 UNITS/3 ML VIAL SC PRN ×4 (09:05→22:49)
--- NOTE | 2018-02-17 09:54 | PRG ---
DATE OF SERVICE: 02/17/2018 SUBJECTIVE: Ms. 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 She was admitted due to diarrhea and acute kidney injury. Creatinine has improved with volume repletion with crystalloids and colloids. She was also diagnosed with C. difficile colitis. Currently, on oral vancomycin. She is feeling her diarrhea is actually better. However, still with low back pain and left leg pain. Please note, she is status post back surgery recently. No complaints of chest pain or shortness of breath. OBJECTIVE: VITAL SIGNS: Blood pressure 149/67, heart rate 83, respiratory rate 16, temperature 98.7, pulse ox 93%. GENERAL: Noted to be awake, alert, comfortable, not in overt distress. SKIN: Adequate turgor. HEENT: Slightly pale conjunctivae. Anicteric sclerae. NECK: No neck mass. No carotid bruits. No JVD. CHEST: No deformities. LUNGS: Clear breath sounds. No wheezing. No crackles. HEART: Normal sinus rhythm. No murmurs. No gallops. No rubs. ABDOMEN: Globular, soft, nontender. No masses. EXTREMITIES: No edema. No deformities. MEDICATIONS: Medications of February 17, 2018, was reviewed. LABORATORY DATA: Laboratories of February 17, 2018; white count 20.6, hemoglobin 8.7. Sodium 137, potassium 4.3, chloride 101, carbon dioxide 26, BUN 55, creatinine 2.04, glucose 240, calcium 9.6. ASSESSMENT AND PLAN: 1. Leukocytosis-this could be related to the prednisone. She is currently on prednisone 20 mg tablet once a day. 2. Acute kidney injury-superimposed hemodynamically-mediated renal dysfunction. Continue supportive care. Creatinine is much improved at 2.06. No indication for any dialytic intervention. 3. 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 4. Due to the much improved renal function, I would suggest or we will plan to decrease prednisone from 20 to 10 mg tablet once a day. 5. Clostridium difficile colitis/diarrhea, much improved on oral vancomycin. 6. Anemia. Continue to observe. 7. Recheck basic metabolic and CBC in a.m. Job ID: [id number]
--- NOTE | 2018-02-17 10:58 | RAD ---
ONE VIEW CHEST: COMPARISON: 12/14/2017. HISTORY: Leukocytosis. FINDINGS: Stable cardiac silhouette. The pulmonary vessels are prominent. There is slight improved aeration o f the lung parenchyma. Residual bibasilar interstitial infiltrates do remain. There is no pneumotho rax, pleural effusion, or osseous abnormality. IMPRESSION: Improved aeration of the lung parenchyma. Residual interstitial infiltrates do remain, predominantly in the lung bases. POS: [facility]
--- NOTE | 2018-02-17 21:12 | PDOC.PN ---
- Subjective Encounter Start Date: 02/17/18 Encounter Start Time: 09:45 Subjective: pt up in bed has some pain to her lower ext - Objective Resuscitation Status - Order Detail: 02/10/18 16:22 Resuscitation Status Routine Resuscitation Status: FULL: Full Resuscitation Discussed with: Sister Vital Signs & Weight: Vital Signs (12 hours) Temp Pulse Resp BP Pulse Ox 02/17/18 16:40 98.3 F 80 18 164/64 H 93 L 02/17/18 14:39 71 02/17/18 12:58 98.4 F 71 16 170/82 H 96 Weight Admit Weight 267 lb Weight 269 lb 1.6 oz I&O: 02/16/18 02/17/18 02/18/18 06:59 06:59 06:59 Intake Total 1800 970 840 Output Total 725 820 Balance 1800 245 20 Result Diagrams: 02/17/18 04:44 02/17/18 04:44 Additional Labs: Accuchecks 02/17/18 02/17/18 02/17/18 20:25 16:48 10:53 POC Glucose 431 H 406 H 360 H 02/17/18 05:22 POC Glucose 259 H Phys Exam - Physical Examination Neck: no nodes, no JVD, supple, full ROM Respiratory: no wheezing, no rales, no rhonchi, wheezing present, clear to auscultation bilateral Cardiovascular: RRR, no significant murmur, no rub, gallop, irregular Gastrointestinal: soft, non-tender, no distention, positive bowel sounds pain to her lower back Dx/Plan (1) Metabolic encephalopathy Code(s): G93.41 - METABOLIC ENCEPHALOPATHY Status: Acute (2) C. difficile diarrhea Code(s): A04.72 - ENTEROCOLITIS D/T CLOSTRIDIUM DIFFICILE, NOT SPCF RECUR Status: Acute (3) Diabetes mellitus Code(s): E11.9 - TYPE 2 DIABETES MELLITUS WITHOUT COMPLICATIONS Status: Chronic (4) Dehydration Code(s): E86.0 - DEHYDRATION Status: Acute (5) Acute kidney injury superimposed on CKD Code(s): N17.9 - ACUTE KIDNEY FAILURE, UNSPECIFIED; N18.9 - CHRONIC KIDNEY DISEASE, UNSPECIFIED Status: Acute - Plan pt's diarrhea improved, creatinine improved -: worseining wbc pt is afebrile -: blood cx and cxr ordered, spoke with nephro -: steroids decreased. pt has renal sarcoid -: pt encouraged to use IS, pt off oxygen * . Review of Systems - Review of Systems Respiratory: negative: Cough, Dry, Shortness of Breath, Hemoptysis, SOB with Excertion, Pleuritic Pain, Sputum, Wheezing Cardiovascular: negative: chest pain, palpitations, orthopnea, paroxysmal nocturnal dyspnea, edema, light headedness, other Musculoskeletal: Leg Pain - Medications/Allergies Allergies/Adverse Reactions: Allergies Allergy/AdvReac Type Severity Reaction Status Date / Time sitagliptin [From ] Allergy Intermediate Hives Verified 02/10/18 17:59 Medications: Current Medications Acetaminophen (Tylenol) 650 mg PO Q4H PRN PRN Reason: Headache/Fever/Mild Pain (1-3) Last Admin: 02/12/18 09:01 Dose: 650 mg Hydrocodone Bitart/Acetaminophen ([place] 5/325) 1 tab PO Q4H PRN PRN Reason: Moderate Pain (4-6) Last Admin: 02/15/18 11:21 Dose: 1 tab Hydrocodone Bitart/Acetaminophen ([place] 5/325) 2 tab PO Q4H PRN PRN Reason: Severe Pain (7-10) Last Admin: 02/16/18 05:46 Dose: 2 tab Albuterol/Ipratropium (Duoneb) 3 ml NEB Q6H PRN PRN Reason: SOB &/or Wheezing Last Admin: 02/13/18 19:25 Dose: 3 ml Alprazolam (Xanax) 0.25 mg PO BID PRN PRN Reason: Anxiety Last Admin: 02/14/18 21:13 Dose: 0.25 mg Amlodipine Besylate (Norvasc) 10 mg PO DAILY [facility] Last Admin: 02/17/18 08:21 Dose: 10 mg Aspirin (Ecotrin) 81 mg PO DAILY [facility] Last Admin: 02/17/18 08:21 Dose: 81 mg Cyanocobalamin (Vitamin B-12) 1,000 mcg PO QAM [facility] Last Admin: 02/17/18 08:21 Dose: 1,000 mcg Dextrose/Water (Dextrose 50%) 25 gm SLOW IVP PRN PRN PRN Reason: Hypoglycemia Last Admin: 02/11/18 05:13 Dose: 25 gm Famotidine (Pepcid) 20 mg PO QPM [facility] Last Admin: 02/16/18 19:53 Dose: 20 mg Gabapentin (Neurontin) 100 mg PO TID [facility] Last Admin: 02/17/18 14:39 Dose: 100 mg Glucagon (Glucagon) 1 mg IM PRN PRN PRN Reason: Hypoglycemia Hydralazine HCl (Apresoline) 5 mg SLOW IVP Q6H PRN PRN Reason: Blood Pressure Last Admin: 02/15/18 18:00 Dose: 5 mg Hydralazine HCl (Apresoline) 25 mg PO TID [facility] Last Admin: 02/17/18 14:39 Dose: 25 mg Dextrose/Water (D5w) 1,000 mls @ 0 mls/hr IV .Q0M PRN PRN Reason: Hypoglycemia Insulin Human Lispro (Humalog) 0 units SC .BEDTIME SLIDING SC PRN; Protocol PRN Reason: BEDTIME SLIDING SCALE Last Admin: 02/16/18 19:54 Dose: 5 unit Insulin Human Lispro (Humalog) 0 units SC .MODERATE SLIDING SC PRN; Protocol PRN Reason: MODERATE SLIDING SCALE Last Admin: 02/17/18 17:06 Dose: 10 units Metoprolol Tartrate (Lopressor) 25 mg PO BID [facility] Last Admin: 02/17/18 08:22 Dose: 25 mg Prednisone (Prednisone) 10 mg PO QAM[facility] Last Admin: 02/17/18 09:51 Dose: Not Given Ropinirole HCl (Requip) 0.5 mg PO QPM [facility] Last Admin: 02/16/18 19:53 Dose: 0.5 mg Sertraline HCl (Zoloft) 25 mg PO DAILY [facility] Last Admin: 02/17/18 08:22 Dose: 25 mg Sodium Chloride (Flush - Normal Saline) 10 ml IVF Q12HR [facility] Last Admin: 02/17/18 08:24 Dose: 10 ml Sodium Chloride (Flush - Normal Saline) 10 ml IVF PRN PRN PRN Reason: Saline Flush Last Admin: 02/13/18 21:54 Dose: 10 ml Vancomycin HCl (First Vancomycin) 125 mg PO QID [facility] Last Admin: 02/17/18 16:42 Dose: 125 mg
[2018-02-17] MEDS: rOPINIRole HCl 0.5 MG TAB PO SCH (22:46)
[2018-02-17] MEDS: Famotidine 20 MG TAB PO SCH (22:47)
[2018-02-18 05:58] LABS: Anion Gap 13 mmol/L (10-20); BUN (Urea Nitrogen) 50 mg/dL (9.8-20.1); Calc. Creatinine Clearance 61 mL/min (70-130); Calcium 9.5 mg/dL (7.8-10.44); Carbon Dioxide 27 mmol/L (22-29); Chloride 101 mmol/L (98-107); Estimated GFR-MDRD 27; Glucose 207 mg/dL (70-105); Potassium 4.2 mmol/L (3.5-5.1); Sodium 137 mmol/L (136-145)
[2018-02-18 06:08] LABS: Band 1 % (5-11); Hemoglobin 8.5 g/dL (12.0-16.0); Hypochromia SLIGHT = 6-15 cells (100X) (0-5/hpf); Lymphocytes 15 % (21-51); MDiff Complete? YES; Mean Corpuscular HGB CONC 32.1 g/dL (32.0-36.0); Mean Corpuscular Hemoglobin 26.3 pg (27.0-31.0); Mean Platelet Volume 8.6 fL (7.4-10.4); Monocytes 4 % (0-10); Neutrophil 80 % (42-75); PLT Morphology Comment Appears Adequate; Platelet Count 255 thou/uL (130-400); RBC Distribution Width 16.8 % (11.5-14.5); Red Blood Cell (RBC) Count 3.23 mill/uL (4.20-5.40); White Blood Cell (WBC) Count 19.3 thou/uL (4.8-10.8)
[2018-02-18] MEDS: predniSONE 20 MG TAB PO SCH (08:43)
[2018-02-18] MEDS: Aspirin 81 mg Enteric Coated Tablet PO SCH (08:43)
[2018-02-18] MEDS: Amlodipine 10 MG TAB PO SCH (08:43)
[2018-02-18] MEDS: Gabapentin 100 MG CAP PO SCH ×3 (08:44→21:29)
[2018-02-18] MEDS: Cyanocobalamin (Vitamin B-12) 1,000 MCG TAB PO SCH (08:44)
[2018-02-18] MEDS: Metoprolol Tartrate 25 MG TAB PO SCH ×2 (08:44→21:29)
[2018-02-18] MEDS: hydrALAZINE 25 MG TAB PO SCH ×3 (08:44→21:29)
[2018-02-18] MEDS: Vancomycin HCl 25 MG/ML Oral PO SCH ×4 (08:53→21:35)
--- NOTE | 2018-02-18 09:44 | PRG ---
DATE OF SERVICE: 02/18/2018 RENAL MEDICINE SUBJECTIVE: Ms. Medina is a 57-year-old white female followed up by the Renal Service for her acute kidney injury on top of her chronic renal failure. She had a superimposed hemodynamically-mediated renal dysfunction. Over time, this slowly improved with volume repletion with crystalloids and colloids. She was also noted to have some degree of leukocytosis. For that reason, we have decrease her prednisone from 20 to 10 mg tablet once a day. No new complaints today. No chest pain, no shortness of breath. A chest x-ray was done on February 17, 2018, and it showed improved aeration of the lung parenchyma, but still with residual interstitial infiltrates predominantly in the lung bases. OBJECTIVE: VITAL SIGNS: Blood pressure is 177/84, heart rate is 78, respiratory rate is 16, temperature 97.7, pulse ox 94%. GENERAL: Noted to be awake, alert, supine, comfortable, obese, not in distress. SKIN: Adequate turgor. HEENT: Slightly pale conjunctivae. Anicteric sclerae. NECK: No neck mass. No carotid bruits. No JVD. CHEST: No deformities. LUNGS: Decreased breath sounds. HEART: Normal sinus rhythm. No murmur. No gallops. No rubs. ABDOMEN: Globular, soft, nontender. No masses. EXTREMITIES: Trace edema. MEDICATIONS: Medications of February 18, 2018 was reviewed. LABORATORY DATA: Laboratories of February 18, 2018; white count 19.3, hemoglobin 8.5, platelet count 255,000. Sodium 137, potassium 4.2, chloride 101, carbon dioxide 27, BUN 50, creatinine 1.92, glucose 207, calcium 9.5. ASSESSMENT AND PLAN: 1. Acute kidney injury on top of her chronic renal failure, super imposed prerenal azotemia, much improved with volume repletion. 2. 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 Continue supportive care. No indication for any dialytic intervention. Continue prednisone-please note this was decreased to 10 mg tablet once a day. 3. Leukocytosis. Continue to observe. Blood culture on February 17, 2018, so far showed no growth to date. 4. Clostridium difficile colitis, on oral vancomycin. 5. Borderline anemia. Continue to observe. Recheck basic metabolic and CBC in a.m. Job ID: [id number]
[2018-02-18] MEDS: HumaLOG 300 UNITS/3 ML VIAL SC PRN ×2 (11:38→17:20)
--- NOTE | 2018-02-18 12:31 | PDOC.PN ---
- Subjective Encounter Start Date: 02/18/18 Encounter Start Time: 12:29 Patient seen and examined, states that her sister saw a bit of leakage at the surgical site where she had spinal surgery a days ago, no othe risues or complaints. - Objective Resuscitation Status - Order Detail: 02/10/18 16:22 Resuscitation Status Routine Resuscitation Status: FULL: Full Resuscitation Discussed with: Sister Vital Signs & Weight: Vital Signs (12 hours) Temp Pulse Resp BP Pulse Ox 02/18/18 08:41 97.7 F 78 177/84 H 94 L 02/18/18 04:00 97.5 F L 68 16 157/74 H 95 Weight Admit Weight 267 lb Weight 269 lb 1.6 oz I&O: 02/17/18 02/18/18 02/19/18 06:59 06:59 06:59 Intake Total 970 1320 Output Total 725 2520 Balance 245 -1200 Result Diagrams: 02/18/18 04:55 02/18/18 04:55 Additional Labs: Accuchecks 02/18/18 02/18/18 02/17/18 10:38 05:48 20:25 POC Glucose 361 H 232 H 431 H 02/17/18 16:48 POC Glucose 406 H Phys Exam - Physical Examination Constitutional: NAD obese HEENT: PERRLA, moist MMs, sclera anicteric Neck: no nodes, no JVD, supple Respiratory: no wheezing, no rales, no rhonchi Cardiovascular: RRR, no significant murmur, no rub Gastrointestinal: soft, non-tender, no distention, positive bowel sounds Musculoskeletal: pulses present, edema present (trace) Skin: no rash, normal turgor Deviation from normal: surgical site 1/2 up looks erythematous with granular tissue -: clear fluid appears to be leaking out Dx/Plan (1) Surgical site reaction Code(s): T81.9XXA - UNSPECIFIED COMPLICATION OF PROCEDURE, INITIAL ENCOUNTER Status: Acute (2) C. difficile diarrhea Code(s): A04.72 - ENTEROCOLITIS D/T CLOSTRIDIUM DIFFICILE, NOT SPCF RECUR Status: Acute (3) Metabolic encephalopathy Code(s): G93.41 - METABOLIC ENCEPHALOPATHY Status: Acute (4) Abnormal LFTs Code(s): R94.5 - ABNORMAL RESULTS OF LIVER FUNCTION STUDIES Status: Acute (5) Chronic low back pain Code(s): M54.5 - LOW BACK PAIN; G89.29 - OTHER CHRONIC PAIN Status: Chronic (6) Diabetes mellitus Code(s): E11.9 - TYPE 2 DIABETES MELLITUS WITHOUT COMPLICATIONS Status: Chronic - Plan * Lumbar site of surgical site to see if there's any collections under the site * neuro sx made aware, will evaluate in AM * labs in AM * if no neuro sx intervention needed and patient continues to do well will likely discharge in AM * case and plan d/w patient at length, she understood and agreed with this plan , sister at bedside, all questions answered.
--- NOTE | 2018-02-18 18:40 | ULT ---
ULTRASOUND SOFT TISSUE: 02/18/18 HISTORY: 57-year-old female with history of swelling at the level of lumbar spine surgical site. Ultrasound examination with attention to this region demonstrates no evidence for drainable abscess. IMPRESSION: No evidence for a drainable abscess at the clinical concern, lumbar surgical site. POS: BILL
[2018-02-18] MEDS: rOPINIRole HCl 0.5 MG TAB PO SCH (21:29)
[2018-02-18] MEDS: Famotidine 20 MG TAB PO SCH (21:29)
[2018-02-18] MEDS: HYDROcodone/Acetaminophen 5/325 mg Tablet PO PRN (21:36)
[2018-02-18] MEDS ORDERED: Insulin Glargine 100 UNITS in Pre-Filled Syringe 1 EACH SC SCH (22:15)
[2018-02-19 08:11] LABS: #Eosinphils 0.1 thou/uL (0.0-0.7); #Lymphocytes 1.9 thou/uL (1.20-3.40); #Monocytes 0.6 thou/uL (0.11-0.59); #Neutrophils 14.3 thou/uL (1.40-6.50); %Basophils 0.2 % (0.0-1.0); %Eosinophils 0.5 % (0.0-10.0); %Lymphocytes 11.2 % (21.0-51.0); %Monocytes 3.5 % (0.0-10.0); %Neutrophils 84.5 % (42.0-75.0); Hemoglobin 8.9 g/dL (12.0-16.0); Mean Corpuscular HGB CONC 32.5 g/dL (32.0-36.0); Mean Corpuscular Hemoglobin 26.6 pg (27.0-31.0); Mean Platelet Volume 8.8 fL (7.4-10.4); Platelet Count 257 thou/uL (130-400); RBC Distribution Width 17.1 % (11.5-14.5); Red Blood Cell (RBC) Count 3.34 mill/uL (4.20-5.40)
[2018-02-19 08:15] LABS: Anion Gap 11 mmol/L (10-20); BUN (Urea Nitrogen) 50 mg/dL (9.8-20.1); Calc. Creatinine Clearance 59 mL/min (70-130); Calcium 9.2 mg/dL (7.8-10.44); Carbon Dioxide 27 mmol/L (22-29); Chloride 102 mmol/L (98-107); Estimated GFR-MDRD 26; Glucose 299 mg/dL (70-105); Potassium 4.4 mmol/L (3.5-5.1); Sodium 136 mmol/L (136-145)
--- NOTE | 2018-02-19 08:47 | PRG ---
DATE OF SERVICE: 02/19/2018 SUBJECTIVE: Ms. Medina is a 57-year-old white female, seen by Renal Service for acute kidney injury-hemodynamically mediated on top of her chronic renal failure. Volume repletion was done with improvement of the renal function. She was given crystalloids and colloids. She has also some leukocytosis. Blood culture has been negative so far. An ultrasound of the lumbar spine surgical site shows no evidence of any abscess. No new complaints today. The patient denies any chest pain or shortness of breath. OBJECTIVE: VITAL SIGNS: Blood pressure 171/79, heart rate 68, respiratory rate 16, temperature 97.8, pulse ox 92%. GENERAL: Noted to be awake, alert, comfortable, not in distress. SKIN: Adequate turgor. HEENT: She has slightly pale conjunctivae. Anicteric sclerae. NECK: No neck mass. No carotid bruits. No JVD. CHEST: No deformities. LUNGS: Clear breath sounds. HEART: Normal sinus rhythm. No murmur. No gallops. No rubs. ABDOMEN: Globular, soft, nontender. No masses. EXTREMITIES: No edema. No deformities. MEDICATIONS: Medications of February 19, 2018, were reviewed. LABORATORY DATA: Laboratories of February 19, 2018, white count 17, hemoglobin 8.9. Sodium 136, potassium 4.4, chloride 102, carbon dioxide 27, BUN 58, creatinine 1.98, glucose 299, calcium 9.2. ASSESSMENT AND PLAN: 1. Acute kidney injury on top of her chronic renal failure-superimposed prerenal azotemia. Much improved renal function with volume repletion. No indication for any dialytic intervention. 2. Chronic renal failure secondary to renal sarcoidosis-on prednisone decreased dose at 10 mg tablet once a day. 3. Leukocytosis, clinically improving. Blood cultures have been negative to date. Prednisone has been decreased from 20 to 10 mg tablet once a day. 4. Chronic anemia. Continue to observe. 5. Clostridium difficile colitis, on oral vancomycin, much improved. 6. Recheck basic metabolic panel and CBC in a.m. Job ID: [id number]
[2018-02-19] MEDS: Vancomycin HCl 25 MG/ML Oral PO SCH ×4 (08:50→20:26)
[2018-02-19] MEDS: Gabapentin 100 MG CAP PO SCH ×3 (08:50→20:26)
[2018-02-19] MEDS: hydrALAZINE 25 MG TAB PO SCH ×3 (08:50→20:26)
[2018-02-19] MEDS: Amlodipine 10 MG TAB PO SCH (08:50)
[2018-02-19] MEDS: Cyanocobalamin (Vitamin B-12) 1,000 MCG TAB PO SCH (08:51)
[2018-02-19] MEDS: Metoprolol Tartrate 25 MG TAB PO SCH ×2 (08:51→20:26)
[2018-02-19] MEDS: Aspirin 81 mg Enteric Coated Tablet PO SCH (08:51)
[2018-02-19] MEDS: predniSONE 20 MG TAB PO SCH (08:51)
[2018-02-19] MEDS: HumaLOG 300 UNITS/3 ML VIAL SC PRN ×3 (08:54→16:50)
[2018-02-19] MEDS ORDERED: hydrALAZINE 20 MG/ML VIAL SLOW IVP PRN (12:31)
--- NOTE | 2018-02-19 12:50 | PDOC.EVN ---
Event Note - Event Note Event Note: DC SUMMARY #[id number]
[2018-02-19 15:43] VITALS: TEMP 97.6
--- NOTE | 2018-02-19 15:56 | DIS ---
DATE OF ADMISSION: 02/10/2018 DATE OF DISCHARGE: 02/19/2018 ADMITTING DIAGNOSES: 1. Altered mental status. 2. History of chronic kidney disease secondary to renal sarcoidosis. 3. Diabetes mellitus, type 2. 4. Hyperlipidemia. 5. Hypertension. 6. Status post spinal surgery due to back pain. DISCHARGE DIAGNOSES: 1. Altered mental status. 2. Chronic kidney disease, stage 3, stable secondary to sarcoidosis. 3. Diabetes mellitus, type 2. 4. Hyperlipidemia. 5. Hypertension. 6. Surgical site, stable. HOSPITAL COURSE: This is a 57-year-old female, who was admitted to the hospital due to changes in mental status. The patient was also found to have significant diarrhea and loose stools. The patient was admitted to the Internal Medicine Team and consultations were placed for Nephrology and Neurosurgery given her renal sarcoidosis as well as concern for surgical site wound infection. The patient was noted to have some clear fluid draining around the area. An ultrasound of the surgical site was done. It did not show any abscess of any form or any collectable/drainable collections or fluids. Clearance was obtained from Neurosurgery prior to discharge. The patient was found to have C difficile toxicity and C difficile diarrhea and was started on oral vancomycin with significant improvement in her condition. The patient post evaluation by Physical Therapy and Occupational Therapy was found to be a candidate for rehab. Arrangements were made for rehab at [facility]. Case and plan were discussed with the patient and her sister at length. She was to take p.o. vancomycin tapered down dose over the next month and followup with her primary care doctor as well as her neurosurgeon in approximately 1 to 2 weeks postdischarge. The patient's condition at point in time of discharge was stable. Case and plan discussed with the patient and sister at length. They both understood and agreed with this plan. DISPOSITION: Rehab. FOLLOWUP: Follow up with PCP and Neurosurgery in 1 week. MEDICATIONS: See MAR. ACTIVITY: As tolerated with assistance as needed. CONDITION: Stable. DIET: Low-fat, low-calorie, high-fiber diet. Once again, case and plan discussed with the patient and sister at length and they understood and agree with this plan. Job ID: [id number]
[2018-02-19] MEDS: Famotidine 20 MG TAB PO SCH (20:26)
[2018-02-19] MEDS: rOPINIRole HCl 0.5 MG TAB PO SCH (20:26)
[2018-02-19 20:28] VITALS: BP 171/77
[2018-02-19] MEDS ORDERED: Insulin Glargine 100 UNITS in Pre-Filled Syringe 1 EACH SC SCH (21:00)
[2018-02-19] MEDS ORDERED: Melatonin 3 MG TAB PO SCH (21:00)
== END 2018-02-19 21:00 | DRG 871 ==
LOC: ERS 14:25 → 2NO 15:37
PROVIDERS: ADMIT Internal Medicine; ATTEND Internal Medicine
DX: A41.9 Sepsis, unspecified organism (principal); G93.41 Metabolic encephalopathy; N17.9 Acute kidney failure, unspecified; A04.72 Enterocolitis due to Clostridium difficile, not specified as recurrent; N39.0 Urinary tract infection, site not specified; Z68.43 Body mass index [BMI] 50.0-59.9, adult; L89.152 Pressure ulcer of sacral region, stage 2; E11.621 Type 2 diabetes mellitus with foot ulcer; L97.529 Non-pressure chronic ulcer of other part of left foot with unspecified severity; N18.3 Chronic kidney disease, stage 3 (moderate); D86.89 Sarcoidosis of other sites; E11.9 Type 2 diabetes mellitus without complications; I10 Essential (primary) hypertension; Z88.8 Allergy status to other drugs, medicaments and biological substances; Z79.84 Long term (current) use of oral hypoglycemic drugs; Z79.82 Long term (current) use of aspirin; Z79.52 Long term (current) use of systemic steroids; Z79.899 Other long term (current) drug therapy; E66.01 Morbid (severe) obesity due to excess calories
CPT/HCPCS: 36415; 36416; 51702; 70450; 71045; 76999; 80048; 80053; 80306; 80307; 81003; 81015; 82550; 82805; 83605; 84484; 85025; 87040; 87086; 87324; 87449; 93005; 94640; 94760; 96361; 96365; 96375; G8978-GP-CL; G8979-GP-CJ; G8987-GO-CL; G8988-GO-CJ; J0360; J0696; J1644; J1940; J2310; J7050; J7506; J7620; P9047

== ENCOUNTER 2018-07-01 13:37 | Outpatient (CLI) | payer OTHER ==
--- NOTE | 2018-07-01 14:32 | RAD ---
LUMBAR SPINE THREE VIEWS: HISTORY: Lumbar stenosis. COMPARISON: 09/02/2017 FINDINGS: Severe bony demineralization. Multiple vertebroplasty changes, including L4, L3, L2, T12, and T11. Stable vertical height loss of L1. No abnormal translation between flexion and extension. IMPRESSION: 1. Bony demineralization. 2. Vertebroplasty changes, as above. 3. Stable vertical height loss compression fracture of L1. POS: C
== END 2018-07-01 13:38 | disposition home or self-care (01) ==
LOC: TBSIIMAG 13:37
PROVIDERS: ATTEND Neurological Surgery
DX: M48.062 Spinal stenosis, lumbar region with neurogenic claudication (principal); M48.56XA Collapsed vertebra, not elsewhere classified, lumbar region, initial encounter for fracture; M81.0 Age-related osteoporosis without current pathological fracture; Z98.890 Other specified postprocedural states
CPT/HCPCS: 72100

== ENCOUNTER 2018-11-12 08:56 | Day surgery (SDC) | payer OTHER ==
[2018-11-11 16:08] VITALS: BMI 50.3
--- NOTE | 2018-11-12 12:38 | OP ---
DATE OF PROCEDURE: 11/12/2018 PROCEDURE: Colonoscopy with snare polypectomy. PREMEDICATION: Given by Anesthesiology Department. PREPROCEDURE DIAGNOSIS: Colon screening, average risk. POSTPROCEDURE DIAGNOSES: 1. Transverse colon polyp, sigmoid colon polyp. 2. Otherwise normal colon exam. DESCRIPTION OF PROCEDURE: Written consents were obtained prior to procedure. After adequate sedation, rectal exam was performed and was normal. The endoscope was advanced to the cecum. The quality of the bowel prep was good. The cecum, ascending colon, hepatic flexure, and transverse colon appeared normal. In the distal transverse, a 5 mm semi-sessile polyp was noted and was removed with cold snare and retrieved. The descending colon appeared normal. In the sigmoid colon, a 4-mm sessile polyp was noted and was removed with cold snare and was retrieved. The rectosigmoid colon appeared normal including retroflexion. The patient tolerated the procedure well. ASSESSMENT: 1. Transverse colon polyp and sigmoid polyp, status post polypectomies. 2. Otherwise normal colon exam. RECOMMENDATIONS: 1. Await biopsy results. 2. Future colon surveillance depending on polyp pathology findings. Job ID: [id number]
[2018-11-12] MEDS ORDERED: PROPOFOL 200 MG/20 ML VIAL ONE (19:07)
== END 2018-11-13 13:10 | disposition home or self-care (01) ==
LOC: SDC 08:56
PROVIDERS: ATTEND Internal Medicine Gastroenterology
PROC: 0DBN8ZZ Excision of Sigmoid Colon, Via Natural or Artificial Opening Endoscopic (ICD-10-PCS; principal; 2018-11-12)
PROC: 0DBL8ZZ Excision of Transverse Colon, Via Natural or Artificial Opening Endoscopic (ICD-10-PCS; principal; 2018-11-12)
DX: Z12.11 Encounter for screening for malignant neoplasm of colon (principal); D12.3 Benign neoplasm of transverse colon; D12.4 Benign neoplasm of descending colon; I10 Essential (primary) hypertension; E78.00 Pure hypercholesterolemia, unspecified; Z79.4 Long term (current) use of insulin; Z79.52 Long term (current) use of systemic steroids; Z79.82 Long term (current) use of aspirin; Z79.84 Long term (current) use of oral hypoglycemic drugs; Z79.899 Other long term (current) drug therapy; Z88.8 Allergy status to other drugs, medicaments and biological substances
CPT/HCPCS: 36416; 88305; J2704

== ENCOUNTER 2018-11-21 09:10 | Outpatient (CLI) | payer OTHER ==
--- NOTE | 2018-11-21 12:06 | BD ---
DEXA SCAN: 11/21/2018 PROVIDED CLINICAL HISTORY: Postmenopausal screening. LUMBAR SPINE BMD (g/cm2) T-SCORE RIGHT HIP 0.651 -1.8 TOTAL 0.922 -0.2 LEFT FEMORAL NECK 0.670 -1.6 TOTAL 0.825 -1.0 IMPRESSION: Calculated bone mineral density meets WHO criteria for osteopenia and places the patient at increased risk for fracture. POS: OFF
== END 2018-11-21 09:11 | disposition home or self-care (01) ==
LOC: BICMAMMO 09:10
PROVIDERS: ATTEND Physician Assistant
DX: M81.0 Age-related osteoporosis without current pathological fracture (principal); M85.89 Other specified disorders of bone density and structure, multiple sites
CPT/HCPCS: 77080

== ENCOUNTER 2018-12-08 13:51 | Outpatient (CLI) | payer OTHER ==
--- NOTE | 2018-12-08 15:47 | RAD ---
LUMBAR SPINE 4 VIEWS: Date: 12/08/18 INDICATION: Lumbar spondylosis, back pain. COMPARISON: 07/01/18. FINDINGS: Moderate degenerative change. Postop vertebroplasty changes at multiple levels. Vertebroplasty densit ies seen within the vertebral bodies at L4, L3, L2, T12, and T11. Compression deformity involving the L1 vertebra appears stable. Loss of height at L2, L3, and L4 vert ebra appear stable. Vertebroplasty material within the disc space at L2-3 is unchanged in appearance and location. Mild anterolisthesis at L4-5 appears to correct with extension. No other significant listhesis. Prominent facet hypertrophy. Anterior and lateral osteophytes. IMPRESSION: Degenerative and postoperative changes of lumbar spine noted as described. POS: BILL
== END 2018-12-08 13:52 | disposition home or self-care (01) ==
LOC: RAD 13:51
PROVIDERS: ATTEND Nurse Practitioner Family
DX: M47.816 Spondylosis without myelopathy or radiculopathy, lumbar region (principal); Z98.890 Other specified postprocedural states
CPT/HCPCS: 72120

== ENCOUNTER 2019-06-26 07:41 | Outpatient (CLI) | payer OTHER ==
--- NOTE | 2019-06-26 09:22 | MRI ---
MRI thoracic spine noncontrast: DATE: 06/26/2019 HISTORY: 58-year-old female with ICD-10: "S 22.080A compression fracture of T11 vertebra" COMPARISON: None FINDINGS: Included only on the sagittal images, there is a central disc herniation at C6-7 which indents the ve ntral aspect of the cervical spinal cord. Minimal indentation of ventral surface of spinal cord by tiny disc protrusions at C4-5 and C5-6. T1-2: Small focal central disc herniation indents the spinal cord. No high-grade central spinal canal stenosis or neural foraminal stenosis. T2-3: Small central disc protrusion. Shallow, mild broad depression of superior endplate of T3, old, with Modic type II changes. No high-grade central stenosis or high-grade neural foraminal stenosis. T3-4: Midline posterior element calcification slightly indents dorsal surface of thecal sac. Tiny guicho tral midline disc protrusion indents the ventral surface of thecal sac without contacting the cord. No high-grade central stenosis or neural foraminal stenosis. T4-5:Midline posterior element calcification slightly indents dorsal surface of thecal sac. Small guicho tral midline disc herniation indents the ventral surface of thecal sac without contacting the cord. No high-grade central stenosis or neural foraminal stenosis. T6-7: Central and right paracentral small focal disc herniation does not contact the spinal cord. No central stenosis or neural foraminal stenosis. T7-8: Central and right paracentral small focal disc herniation does not contact the spinal cord. No central stenosis or neural foraminal stenosis. T8-9:Central and right paracentral and right lateral small focal disc herniation does not contact the spinal cord. No central stenosis or neural foraminal stenosis. T8-9: Small central disc herniation does not contact spinal cord. No high-grade central spinal canal stenosis. Mild to moderate bilateral neural foraminal stenosis. T10-11: Minimal anterolisthesis of T10 on T11 due to bilateral facet osteoarthrosis, moderate, right worse than left. Severe right neural foraminal stenosis with obliteration of fat signal and impingement on exiting right T10 nerve root. Minimal disc bulge. Bilateral facet joint effusions. Mod erate central spinal canal stenosis. Moderate to severe thecal sac stenosis. Slight posterior deviation of spinal cord. Moderate to severe left neural foraminal stenosis. Mild loss of height of T 11 with vertebroplasty cement. Transversely oriented broad thin band of bone marrow edema involving T11 superior endplate indicates acute or subacute component of fracture superimposed on chronic compr ession fracture. T11-12: Central and right paracentral small focal disc herniation indents the ventral surface of spin al cord. No high-grade central spinal canal stenosis. Prominent epidural fat pad laterally and posteriorly. Moderate to severe thecal sac stenosis. Moderate bilateral neural foraminal stenosis. Mi ld chronic loss of height of T12 with vertebroplasty cement. T12-L1: Old compression fracture-burst fracture of L1 with mild bony retropulsion. The combination of the bony retropulsion and moderate sized central and bilateral paracentral disc herniation compresses the spinal cord within the severely narrowed thecal sac. Mild bony central spinal canal st enosis. Prominent lateral and posterior epidural fat pads. Moderate bilateral neural foraminal stenosis. No hematoma in the perivertebral spaces. No syrinx. No definite intramedullary signal abnormality. IMPRESSION: 1. Moderate thoracic spondylosis, with multilevel mild and moderate degenerative disc disease, and nu merous level small disc herniations (and/or disc-osteophyte complexes). 2. Acute/subacute component of compression fracture at superior endplate of T11 superimposed on old f racture treated with vertebroplasty. 3. Severe right neural foraminal stenosis at T10-11. 4. High-grade bilateral facet arthrosis at T10-11. 5. Old compression fractures of T3, T11, T12, and L1. 6. Significant cord impingement at T12-L1 due to combination of central disc herniation and mild bony retropulsion from old L1 burst fracture. 7. Cord indentation at C6-7 in the cervical spine, incompletely imaged. 8. Cord indentation at T1-2 due to central disc herniation.
== END 2019-06-26 07:42 | disposition home or self-care (01) ==
LOC: BICMRI 07:41
PROVIDERS: ATTEND Nurse Practitioner Family
DX: S22.080D Wedge compression fracture of T11-T12 vertebra, subsequent encounter for fracture with routine healing (principal); M51.34 Other intervertebral disc degeneration, thoracic region; M47.814 Spondylosis without myelopathy or radiculopathy, thoracic region; M48.04 Spinal stenosis, thoracic region; M25.80 Other specified joint disorders, unspecified joint; M51.25 Other intervertebral disc displacement, thoracolumbar region; S32.011D Stable burst fracture of first lumbar vertebra, subsequent encounter for fracture with routine healing; M51.24 Other intervertebral disc displacement, thoracic region; Z98.890 Other specified postprocedural states
CPT/HCPCS: 72146

== ENCOUNTER 2019-10-21 12:52 | Outpatient (CLI) | payer OTHER ==
--- NOTE | 2019-10-21 15:01 | CT ---
LEFT UPPER EXTREMITY CT SCAN WITHOUT IV CONTRAST: CT scan of the wrist is performed. Metal plate and screws stabilize distal radial diaphyseal fracture with some bony callus and some jeff dence for healing. There appears to be a small misshapen dorsally dislocated lunate bone with the ca pitate bone which contains numerous large interosseous cysts abuts the radius. Marked arthrosis invo lving the capitate navicular joint. There are also numerous interosseous cysts within the navicular bone as well as the trapezoid. Other interosseous cystic changes are noted within the distal ulna an d other carpal bones. No evidence for overt acute fracture. IMPRESSION: Irregularly somewhat flattened misshapen dorsally dislocated lunate bone. Very numerous interosseous cystic changes within the carpal bones. The capitate bone basically abuts the radius. No evidence for acute fracture. Metal plate and screws stabilize the distal radial diaphysis with evidence for h ealing. POS: RRE
== END 2019-10-21 12:53 | disposition home or self-care (01) ==
LOC: BICCT 12:52
PROVIDERS: ATTEND Orthopaedic Surgery Hand Surgery
DX: M87.038 Idiopathic aseptic necrosis of left carpus (principal); S52.502D Unspecified fracture of the lower end of left radius, subsequent encounter for closed fracture with routine healing; S63.095A Other dislocation of left wrist and hand, initial encounter; Z98.890 Other specified postprocedural states

== ENCOUNTER 2020-06-13 17:32 | Emergency (ER) | payer BC ==
[2020-06-13 18:55] LABS: #Eosinphils 0.2 thou/uL (0.0-0.7); #Lymphocytes 1.1 thou/uL (1.20-3.40); #Monocytes 0.7 thou/uL (0.11-0.59); #Neutrophils 11.2 thou/uL (1.40-6.50); %Basophils 0.1 % (0.0-1.0); %Eosinophils 1.5 % (0.0-10.0); %Lymphocytes 8.6 % (21.0-51.0); %Monocytes 4.9 % (0.0-10.0); Hemoglobin 8.7 g/dL (12.0-16.0); Mean Corpuscular HGB CONC 30.6 g/dL (32.0-36.0); Mean Corpuscular Hemoglobin 24.4 pg (27.0-31.0); Mean Corpuscular Volume 79.7 fL (78.0-98.0); Mean Platelet Volume 8.3 fL (7.4-10.4); Platelet Count 337 thou/uL (130-400); RBC Distribution Width 17.4 % (11.5-14.5); Red Blood Cell (RBC) Count 3.58 mill/uL (4.20-5.40); White Blood Cell (WBC) Count 13.2 thou/uL (4.8-10.8)
[2020-06-13 19:15] LABS: ALT (SGPT) 33 U/L (8-55); AST (SGOT) 47 U/L (5-34); Albumin 3.3 g/dL (3.4-4.8); Alkaline Phosphatase 398 U/L (40-110); Anion Gap 14 mmol/L (10-20); BUN (Urea Nitrogen) 44 mg/dL (9.8-20.1); Bilirubin, Total 0.7 mg/dL (0.2-1.2); CK (CPK) 22 U/L (29-168); Calc. Creatinine Clearance 0 mL/min (70-130); Calcium 9.2 mg/dL (7.8-10.44); Carbon Dioxide 31 mmol/L (23-31); Chloride 99 mmol/L (98-107); Globulin 4.7 g/dL (2.4-3.5); Magnesium 2.1 mg/dL (1.6-2.6); Potassium 3.7 mmol/L (3.5-5.1); Sodium 140 mmol/L (136-145)
[2020-06-13 19:19] LABS: Glucose 53 mg/dL (80-115)
[2020-06-13] MEDS ORDERED: HYDROcodone/Acetaminophen 10/325 mg Tablet ONE (20:02)
== END 2020-06-13 21:07 | disposition home or self-care (01) ==
LOC: ERS 17:32
DX: M62.830 Muscle spasm of back (principal); E11.9 Type 2 diabetes mellitus without complications; E78.5 Hyperlipidemia, unspecified; I12.9 Hypertensive chronic kidney disease with stage 1 through stage 4 chronic kidney disease, or unspecified chronic kidney disease; N18.4 Chronic kidney disease, stage 4 (severe); Z79.899 Other long term (current) drug therapy; Z79.82 Long term (current) use of aspirin
CPT/HCPCS: 36415; 80053; 82550; 83735; 83880; 85025

== ENCOUNTER 2020-06-14 09:24 | Inpatient (IN) | payer BC ==
[2020-06-14 10:18] LABS: #Eosinphils 0.1 thou/uL (0.0-0.7); #Lymphocytes 0.7 thou/uL (1.20-3.40); #Monocytes 0.6 thou/uL (0.11-0.59); %Eosinophils 0.8 % (0.0-10.0); %Monocytes 5.2 % (0.0-10.0); Hemoglobin 9.5 g/dL (12.0-16.0); Mean Corpuscular HGB CONC 31.3 g/dL (32.0-36.0); Mean Corpuscular Hemoglobin 25.2 pg (27.0-31.0); Mean Corpuscular Volume 80.5 fL (78.0-98.0); Mean Platelet Volume 8.7 fL (7.4-10.4); Platelet Count 314 thou/uL (130-400); RBC Distribution Width 17.5 % (11.5-14.5); Red Blood Cell (RBC) Count 3.79 mill/uL (4.20-5.40); White Blood Cell (WBC) Count 11.4 thou/uL (4.8-10.8)
[2020-06-14] MEDS ORDERED: Dextrose 50% Abboject 50 ML SYRINGE ONE (11:05)
[2020-06-14 14:04] LABS: ALT (SGPT) 33 U/L (8-55); AST (SGOT) 49 U/L (5-34); Albumin 3.3 g/dL (3.4-4.8); Alkaline Phosphatase 400 U/L (40-110); Anion Gap 13 mmol/L (10-20); BUN (Urea Nitrogen) 47 mg/dL (9.8-20.1); Bilirubin, Total 0.8 mg/dL (0.2-1.2); Calc. Creatinine Clearance 0 mL/min (70-130); Calcium 9.5 mg/dL (7.8-10.44); Carbon Dioxide 30 mmol/L (23-31); Chloride 98 mmol/L (98-107); Globulin 4.9 g/dL (2.4-3.5); Glucose 61 mg/dL (80-115); Potassium 3.4 mmol/L (3.5-5.1); Protein, Total 8.2 g/dL (5.8-8.1); Sodium 138 mmol/L (136-145)
[2020-06-14] MEDS ORDERED: Acetaminophen 650 MG Suppository PR PRN (14:14)
[2020-06-14] MEDS ORDERED: Dextrose 50% Abboject 50 ML SYRINGE SLOW IVP PRN (14:17)
[2020-06-14] MEDS ORDERED: Dextrose 5% in Water 1,000 ML IV PRN (14:17)
[2020-06-14] MEDS ORDERED: D5 1/2 NS 500 ML IV SCH (14:30)
[2020-06-14] MEDS ORDERED: Furosemide 40 MG/4 ML VIAL SLOW IVP SCH (15:00)
[2020-06-14] MEDS ORDERED: Dextrose 5 %-0.45 % NaCl 1,000 ML IV SCH (15:30)
[2020-06-14 15:34] LABS: Lactic Acid 1.6 mmol/L (0.5-2.2)
[2020-06-14] MEDS ORDERED: Potassium Chloride 20 MEQ TAB PO SCH (17:30)
[2020-06-14] MEDS: Methocarbamol 500 MG TAB PO PRN (18:51)
[2020-06-14] MEDS: Heparin 5,000 UNITS/ML VIAL SC SCH (20:40)
[2020-06-14 22:42] LABS: SARS-CoV-2 PCR by NAA Not Detected (NotDetected)
[2020-06-15] MEDS: Acetaminophen 325 MG TAB PO PRN (01:41)
[2020-06-15] MEDS: Methocarbamol 500 MG TAB PO PRN (01:41)
[2020-06-15] MEDS: Furosemide 40 MG/4 ML VIAL SLOW IVP SCH ×2 (06:26→15:06)
[2020-06-15 06:53] LABS: Hemoglobin 8.1 g/dL (12.0-16.0); Mean Corpuscular HGB CONC 30.1 g/dL (32.0-36.0); Mean Corpuscular Hemoglobin 24.2 pg (27.0-31.0); Mean Corpuscular Volume 80.4 fL (78.0-98.0); Platelet Count 310 thou/uL (130-400); RBC Distribution Width 17.3 % (11.5-14.5); Red Blood Cell (RBC) Count 3.36 mill/uL (4.20-5.40); White Blood Cell (WBC) Count 13.5 thou/uL (4.8-10.8)
[2020-06-15 06:58] LABS: ALT (SGPT) 26 U/L (8-55); AST (SGOT) 37 U/L (5-34); Albumin 2.8 g/dL (3.4-4.8); Alkaline Phosphatase 332 U/L (40-110); Anion Gap 12 mmol/L (10-20); BUN (Urea Nitrogen) 46 mg/dL (9.8-20.1); Bilirubin, Total 0.6 mg/dL (0.2-1.2); Calc. Creatinine Clearance 71 mL/min (70-130); Calcium 9.1 mg/dL (7.8-10.44); Carbon Dioxide 29 mmol/L (23-31); Chloride 99 mmol/L (98-107); Globulin 4.2 g/dL (2.4-3.5); Glucose 78 mg/dL (80-115); Potassium 3.9 mmol/L (3.5-5.1); Sodium 136 mmol/L (136-145)
[2020-06-15 08:20] LABS: Hemoglobin A1c 7.3 % (4.0-6.0)
[2020-06-15] MEDS ORDERED: traMADol HCl 50 MG TAB PO PRN ×2 (08:40→13:45)
[2020-06-15] MEDS ORDERED: Acetaminophen 325 MG TAB PO PRN (08:40)
[2020-06-15] MEDS ORDERED: Dextrose 5% in Water 1,000 ML IV PRN (08:43)
[2020-06-15] MEDS ORDERED: Dextrose 50% Abboject 50 ML SYRINGE SLOW IVP PRN (08:43)
[2020-06-15 08:52] LABS: Band 16 % (5-11); Eosinophils 1 % (0-10); Hypochromia SLIGHT = 6-15 cells (100X) (0-5/hpf); Lymphocytes 3 % (21-51); MDiff Complete? YES; Monocytes 4 % (0-10); Neutrophil 76 % (42-75); Platelet Morphology Comment Appears Adequate; Polychromasia SLIGHT = 2-3 cells (100X) (0-2/hpf)
[2020-06-15] MEDS ORDERED: Non-Formulary Item 1 EACH (Cetirizine Hcl [Zyrtec] 10 MG Capsule) PO SCH (09:00)
[2020-06-15] MEDS ORDERED: Amlodipine 10 MG TAB PO SCH (09:00)
[2020-06-15] MEDS ORDERED: Gabapentin 100 MG CAP PO SCH (09:00)
[2020-06-15] MEDS: predniSONE 20 MG TAB PO SCH (10:12)
[2020-06-15] MEDS: Loratadine 10 MG TAB PO SCH (10:12)
[2020-06-15] MEDS: Aspirin 81 mg Enteric Coated Tablet PO SCH (10:12)
[2020-06-15] MEDS: Gabapentin 300 MG CAP PO SCH ×2 (10:12→20:16)
[2020-06-15] MEDS: Amlodipine 5 MG TAB PO SCH (10:13)
[2020-06-15] MEDS: Heparin 5,000 UNITS/ML VIAL SC SCH ×3 (10:13→20:23)
[2020-06-15] MEDS: Dextrose 5 %-0.45 % NaCl 1,000 ML IV SCH ×2 (10:23→20:22)
[2020-06-15] MEDS: Lidocaine 5% Patch TD SCH (12:00)
[2020-06-15] MEDS: HYDROcodone/Acetaminophen 5/325 mg Tablet PO PRN (13:57)
[2020-06-15 14:31] LABS: Bilirubin Negative (Negative); Blood, Urine Negative (Negative); Clarity Clear (Clear); Glucose, Urine (Dipstick) Normal (Negative); Ketone, Urine Negative (Negative); Leukocyte 250 Leu/uL (Negative); Nitrite Negative (Negative); Protein, Urine (Dipstick) Negative (Neg-Trace); RBC/HPF 0-3 HPF (0-3); Specific Gravity, Urine 1.011 (1.002-1.036); Squamous Epithelial 0-3 HPF (0-3); Urobilinogen Normal mg/dL (Less than 2)
[2020-06-15 14:35] LABS: Bacteria/HPF 1+ HPF (None Seen)
[2020-06-15] MEDS: rOPINIRole HCl 0.5 MG TAB PO SCH (20:17)
[2020-06-15] MEDS: Transdermal Patch Removal TOP SCH (20:24)
[2020-06-15] MEDS ORDERED: Potassium Chloride 20 MEQ TAB PO SCH (23:45)
[2020-06-15] MEDS ORDERED: Furosemide 40 MG/4 ML VIAL SLOW IVP SCH (23:45)
[2020-06-16] MEDS: HYDROcodone/Acetaminophen 5/325 mg Tablet PO PRN (01:52)
[2020-06-16] MEDS: Furosemide 40 MG/4 ML VIAL SLOW IVP SCH ×2 (06:11→13:10)
[2020-06-16 07:11] LABS: #Eosinphils 0.1 thou/uL (0.0-0.7); #Lymphocytes 1.2 thou/uL (1.20-3.40); #Monocytes 0.8 thou/uL (0.11-0.59); #Neutrophils 8.9 thou/uL (1.40-6.50); %Basophils 0.1 % (0.0-1.0); %Eosinophils 1.3 % (0.0-10.0); %Lymphocytes 10.8 % (21.0-51.0); %Monocytes 6.8 % (0.0-10.0); %Neutrophils 80.9 % (42.0-75.0); Hemoglobin 8.6 g/dL (12.0-16.0); Mean Corpuscular HGB CONC 30.8 g/dL (32.0-36.0); Mean Corpuscular Hemoglobin 24.8 pg (27.0-31.0); Mean Corpuscular Volume 80.4 fL (78.0-98.0); Mean Platelet Volume 8.7 fL (7.4-10.4); Platelet Count 324 thou/uL (130-400); RBC Distribution Width 17.4 % (11.5-14.5); Red Blood Cell (RBC) Count 3.46 mill/uL (4.20-5.40)
[2020-06-16 07:29] LABS: Anion Gap 12 mmol/L (10-20); BUN (Urea Nitrogen) 48 mg/dL (9.8-20.1); Calc. Creatinine Clearance 75 mL/min (70-130); Calcium 8.6 mg/dL (7.8-10.44); Carbon Dioxide 32 mmol/L (23-31); Chloride 97 mmol/L (98-107); Glucose 109 mg/dL (80-115); Potassium 4.1 mmol/L (3.5-5.1); Sodium 137 mmol/L (136-145)
[2020-06-16] MEDS: Amlodipine 5 MG TAB PO SCH (08:23)
[2020-06-16] MEDS: Aspirin 81 mg Enteric Coated Tablet PO SCH (08:23)
[2020-06-16] MEDS: Gabapentin 300 MG CAP PO SCH ×2 (08:23→20:06)
[2020-06-16] MEDS: predniSONE 20 MG TAB PO SCH (08:24)
[2020-06-16] MEDS: Heparin 5,000 UNITS/ML VIAL SC SCH ×3 (08:24→20:07)
[2020-06-16] MEDS: Lidocaine 5% Patch TD SCH (08:30)
[2020-06-16] MEDS: Loratadine 10 MG TAB PO SCH (08:55)
[2020-06-16] MEDS ORDERED: Polyethylene Glycol 3350 17 GM Packet PO PRN (16:47)
[2020-06-16] MEDS: rOPINIRole HCl 0.5 MG TAB PO SCH (20:07)
[2020-06-16] MEDS: Senokot S 8.6-50 MG TAB PO SCH (20:07)
[2020-06-16] MEDS: Transdermal Patch Removal TOP SCH (20:08)
[2020-06-16] MEDS: Methocarbamol 500 MG TAB PO PRN (23:22)
[2020-06-17] MEDS: Furosemide 40 MG/4 ML VIAL SLOW IVP SCH (05:29)
[2020-06-17 06:11] LABS: #Eosinphils 0.1 thou/uL (0.0-0.7); #Lymphocytes 1.4 thou/uL (1.20-3.40); #Neutrophils 10.6 thou/uL (1.40-6.50); %Basophils 0.1 % (0.0-1.0); %Eosinophils 0.7 % (0.0-10.0); %Lymphocytes 10.5 % (21.0-51.0); %Monocytes 7.3 % (0.0-10.0); %Neutrophils 81.6 % (42.0-75.0); Hemoglobin 9.1 g/dL (12.0-16.0); Mean Corpuscular HGB CONC 29.5 g/dL (32.0-36.0); Mean Corpuscular Hemoglobin 23.7 pg (27.0-31.0); Mean Corpuscular Volume 80.3 fL (78.0-98.0); Mean Platelet Volume 8.2 fL (7.4-10.4); Platelet Count 359 thou/uL (130-400); RBC Distribution Width 17.3 % (11.5-14.5); Red Blood Cell (RBC) Count 3.84 mill/uL (4.20-5.40)
[2020-06-17 06:31] LABS: Anion Gap 12 mmol/L (10-20); BUN (Urea Nitrogen) 47 mg/dL (9.8-20.1); Calc. Creatinine Clearance 83 mL/min (70-130); Calcium 9.7 mg/dL (7.8-10.44); Carbon Dioxide 36 mmol/L (23-31); Chloride 96 mmol/L (98-107); Glucose 84 mg/dL (80-115); Magnesium 2.1 mg/dL (1.6-2.6); Potassium 4.3 mmol/L (3.5-5.1); Sodium 140 mmol/L (136-145)
[2020-06-17] MEDS: Fluticasone Propionate Nasal Spray 16 gm Bottle NASAL SCH (08:06)
[2020-06-17] MEDS: predniSONE 20 MG TAB PO SCH (08:07)
[2020-06-17] MEDS: Aspirin 81 mg Enteric Coated Tablet PO SCH (08:07)
[2020-06-17] MEDS: Senokot S 8.6-50 MG TAB PO SCH ×2 (08:07→20:47)
[2020-06-17] MEDS: Gabapentin 300 MG CAP PO SCH ×2 (08:08→20:46)
[2020-06-17] MEDS: Amlodipine 5 MG TAB PO SCH (08:08)
[2020-06-17] MEDS: Loratadine 10 MG TAB PO SCH (08:09)
[2020-06-17] MEDS: Heparin 5,000 UNITS/ML VIAL SC SCH ×3 (08:09→20:47)
[2020-06-17] MEDS: Cefepime 1 GM in Sodium Chloride 0.9% 100 ML IVPB SCH ×2 (08:13→20:46)
[2020-06-17] MEDS: Lidocaine 5% Patch TD SCH (08:14)
[2020-06-17] MEDS: Vancomycin 1 GM in Premix Bag 1 BAG IVPB SCH (08:57)
[2020-06-17] MEDS ORDERED: Furosemide 40 MG/4 ML VIAL SLOW IVP SCH (10:30)
[2020-06-17] MEDS: HYDROcodone/Acetaminophen 5/325 mg Tablet PO PRN (11:36)
[2020-06-17 12:56] LABS: Actual Bicarbonate (HCO3a) 37.7 mEq/L (22-28); Base Excess (BEa) 10.3 mEq/L (-2.0 to +3.0); Calcium, Ionized (arterial) 1.15 mmol/L (1.12-1.30); Carboxyhemoglobin (COHb) 0.8 gm% (0.0-3.0); Hemoglobin (Hb) 9.7 g/dL (12.0-16.0); Potassium - ABG Lab 3.65 mmol/L (3.70-5.30); pH, Arterial 7.36 (7.35-7.45)
[2020-06-17 12:57] LABS: CO2 Tension 69.1 mmHg (35.0-45.0)
[2020-06-17 12:58] LABS: O2 Tension (PaO2), arterial 59.6 mmHg (> 80.0); Puncture Site RBA
[2020-06-17] MEDS: Furosemide 100 MG/10 ML VIAL SLOW IVP SCH (14:18)
[2020-06-17] MEDS: HumaLOG 300 UNITS/3 ML VIAL SC PRN ×2 (17:04→20:49)
[2020-06-17] MEDS: rOPINIRole HCl 0.5 MG TAB PO SCH (20:46)
[2020-06-17] MEDS: Transdermal Patch Removal TOP SCH (20:47)
[2020-06-18] MEDS: Furosemide 100 MG/10 ML VIAL SLOW IVP SCH ×2 (06:17→15:44)
[2020-06-18 07:01] LABS: #Lymphocytes 1.1 thou/uL (1.20-3.40); #Monocytes 1.1 thou/uL (0.11-0.59); #Neutrophils 12.2 thou/uL (1.40-6.50); %Basophils 0.1 % (0.0-1.0); %Eosinophils 0.3 % (0.0-10.0); %Lymphocytes 7.7 % (21.0-51.0); %Monocytes 7.9 % (0.0-10.0); Mean Corpuscular Hemoglobin 24.1 pg (27.0-31.0); Mean Corpuscular Volume 80.4 fL (78.0-98.0); Mean Platelet Volume 7.9 fL (7.4-10.4); Platelet Count 300 thou/uL (130-400); RBC Distribution Width 17.4 % (11.5-14.5); Red Blood Cell (RBC) Count 3.73 mill/uL (4.20-5.40); White Blood Cell (WBC) Count 14.5 thou/uL (4.8-10.8)
[2020-06-18 07:11] LABS: ALT (SGPT) 16 U/L (8-55); AST (SGOT) 20 U/L (5-34); Albumin 2.9 g/dL (3.4-4.8); Alkaline Phosphatase 242 U/L (40-110); Anion Gap 13 mmol/L (10-20); BUN (Urea Nitrogen) 39 mg/dL (9.8-20.1); Bilirubin, Total 0.7 mg/dL (0.2-1.2); CRP (Inflammatory) 25.84 mg/dL (= or < 0.5); Calc. Creatinine Clearance 90 mL/min (70-130); Calcium 9.3 mg/dL (7.8-10.44); Carbon Dioxide 34 mmol/L (23-31); Chloride 96 mmol/L (98-107); Globulin 5.1 g/dL (2.4-3.5); Glucose 120 mg/dL (80-115); Potassium 3.6 mmol/L (3.5-5.1); Sodium 139 mmol/L (136-145)
[2020-06-18 07:54] LABS: Band 4 % (5-11); Hypochromia SLIGHT = 6-15 cells (100X) (0-5/hpf); Lymphocytes 10 % (21-51); MDiff Complete? YES; Monocytes 9 % (0-10); Neutrophil 77 % (42-75); Platelet Morphology Comment Appears Adequate; Polychromasia SLIGHT = 2-3 cells (100X) (0-2/hpf); Rouleaux Formation SLIGHT = 1-5 cells (100X) (None Seen)
[2020-06-18] MEDS: Cefepime 1 GM in Sodium Chloride 0.9% 100 ML IVPB SCH ×2 (08:29→21:10)
[2020-06-18] MEDS: predniSONE 20 MG TAB PO SCH (08:29)
[2020-06-18] MEDS: Aspirin 81 mg Enteric Coated Tablet PO SCH (08:29)
[2020-06-18] MEDS: Heparin 5,000 UNITS/ML VIAL SC SCH ×3 (08:29→21:11)
[2020-06-18] MEDS: Senokot S 8.6-50 MG TAB PO SCH ×2 (08:30→21:12)
[2020-06-18] MEDS: Loratadine 10 MG TAB PO SCH (08:30)
[2020-06-18] MEDS: Fluticasone Propionate Nasal Spray 16 gm Bottle NASAL SCH (08:30)
[2020-06-18] MEDS: Gabapentin 300 MG CAP PO SCH ×2 (08:30→21:10)
[2020-06-18] MEDS: Amlodipine 5 MG TAB PO SCH (08:30)
[2020-06-18] MEDS: HYDROcodone/Acetaminophen 5/325 mg Tablet PO PRN ×2 (08:31→15:44)
[2020-06-18] MEDS: Vancomycin 1 GM in Premix Bag 1 BAG IVPB SCH (10:01)
[2020-06-18] MEDS: Lidocaine 5% Patch TD SCH (12:55)
[2020-06-18] MEDS: Bisacodyl 10 MG SUPP PR SCH ×3 (15:49→22:46)
[2020-06-18] MEDS: rOPINIRole HCl 0.5 MG TAB PO SCH (21:11)
[2020-06-18] MEDS: Transdermal Patch Removal TOP SCH (21:12)
[2020-06-19] MEDS: Bisacodyl 10 MG SUPP PR SCH ×3 (05:16→20:15)
[2020-06-19] MEDS: Furosemide 100 MG/10 ML VIAL SLOW IVP SCH ×2 (05:58→13:33)
[2020-06-19 06:04] LABS: #Eosinphils 0.1 thou/uL (0.0-0.7); #Monocytes 0.8 thou/uL (0.11-0.59); #Neutrophils 12.9 thou/uL (1.40-6.50); %Monocytes 5.2 % (0.0-10.0); %Neutrophils 86.9 % (42.0-75.0); Hemoglobin 8.4 g/dL (12.0-16.0); Mean Corpuscular HGB CONC 30.1 g/dL (32.0-36.0); Mean Corpuscular Hemoglobin 24.3 pg (27.0-31.0); Mean Corpuscular Volume 80.7 fL (78.0-98.0); Mean Platelet Volume 7.6 fL (7.4-10.4); Platelet Count 314 thou/uL (130-400); RBC Distribution Width 17.2 % (11.5-14.5); Red Blood Cell (RBC) Count 3.44 mill/uL (4.20-5.40); White Blood Cell (WBC) Count 14.8 thou/uL (4.8-10.8)
[2020-06-19 06:23] LABS: BUN (Urea Nitrogen) 37 mg/dL (9.8-20.1); Calc. Creatinine Clearance 84 mL/min (70-130); Calcium 9.2 mg/dL (7.8-10.44); Glucose 179 mg/dL (80-115)
[2020-06-19 06:32] LABS: Anion Gap 16 mmol/L (10-20); Carbon Dioxide 33 mmol/L (23-31); Chloride 94 mmol/L (98-107); Potassium 3.5 mmol/L (3.5-5.1); Sodium 139 mmol/L (136-145)
[2020-06-19] MEDS: Aspirin 81 mg Enteric Coated Tablet PO SCH (08:13)
[2020-06-19] MEDS: Amlodipine 5 MG TAB PO SCH (08:13)
[2020-06-19] MEDS: Loratadine 10 MG TAB PO SCH (08:13)
[2020-06-19] MEDS: Senokot S 8.6-50 MG TAB PO SCH ×2 (08:13→20:15)
[2020-06-19] MEDS: predniSONE 20 MG TAB PO SCH (08:14)
[2020-06-19] MEDS: Fluticasone Propionate Nasal Spray 16 gm Bottle NASAL SCH (08:14)
[2020-06-19] MEDS: Cefepime 1 GM in Sodium Chloride 0.9% 100 ML IVPB SCH ×2 (08:15→20:12)
[2020-06-19] MEDS: Heparin 5,000 UNITS/ML VIAL SC SCH ×3 (08:15→20:13)
[2020-06-19] MEDS: Gabapentin 300 MG CAP PO SCH ×2 (08:15→20:14)
[2020-06-19 08:16] LABS: Vancomycin, Trough 12.8 ug/mL
[2020-06-19] MEDS: Lidocaine 5% Patch TD SCH (09:36)
[2020-06-19] MEDS: Vancomycin 1 GM in Premix Bag 1 BAG IVPB SCH (09:36)
[2020-06-19 10:01] LABS: Actual Bicarbonate (HCO3a) 42.4 mEq/L (22-28); Base Excess (BEa) 13.7 mEq/L (-2.0 to +3.0); Calcium, Ionized (arterial) 1.15 mmol/L (1.12-1.30); Carboxyhemoglobin (COHb) 0.9 gm% (0.0-3.0); Hemoglobin (Hb) 9.5 g/dL (12.0-16.0); O2 Tension (PaO2), arterial 127.3 mmHg (> 80.0); Potassium - ABG Lab 3.67 mmol/L (3.70-5.30); pH, Arterial 7.32 (7.35-7.45)
[2020-06-19 10:04] LABS: ALV-art Gradient 480.325 mmHg (0-20); CO2 Tension 84.3 mmHg (35.0-45.0); Puncture Site RRA
[2020-06-19 10:38] LABS: Troponin I 0.026 ng/mL (< 0.028)
[2020-06-19 10:53] LABS: Free T4 (Free Thyroxine) 0.88 ng/dL (0.70-1.48); Thyroid Stimulating Hormone 2.2079 uIU/mL (0.35-4.94)
[2020-06-19] MEDS: HumaLOG 300 UNITS/3 ML VIAL SC PRN ×3 (11:50→20:17)
[2020-06-19] MEDS: rOPINIRole HCl 0.5 MG TAB PO SCH (20:14)
[2020-06-19] MEDS: Acetaminophen 325 MG TAB PO PRN (20:30)
[2020-06-19] MEDS: Transdermal Patch Removal TOP SCH (21:30)
[2020-06-20] MEDS: Bisacodyl 10 MG SUPP PR SCH ×3 (05:33→21:04)
[2020-06-20] MEDS: Furosemide 100 MG/10 ML VIAL SLOW IVP SCH ×2 (05:34→13:23)
[2020-06-20 05:43] LABS: #Eosinphils 0.3 thou/uL (0.0-0.7); #Lymphocytes 1.4 thou/uL (1.20-3.40); #Monocytes 0.6 thou/uL (0.11-0.59); #Neutrophils 9.8 thou/uL (1.40-6.50); %Eosinophils 2.2 % (0.0-10.0); %Lymphocytes 11.2 % (21.0-51.0); %Neutrophils 81.5 % (42.0-75.0); Hemoglobin 8.7 g/dL (12.0-16.0); Mean Corpuscular HGB CONC 29.1 g/dL (32.0-36.0); Mean Corpuscular Hemoglobin 23.6 pg (27.0-31.0); Mean Corpuscular Volume 81.1 fL (78.0-98.0); Mean Platelet Volume 7.9 fL (7.4-10.4); Platelet Count 323 thou/uL (130-400); RBC Distribution Width 16.9 % (11.5-14.5); Red Blood Cell (RBC) Count 3.68 mill/uL (4.20-5.40); White Blood Cell (WBC) Count 12.1 thou/uL (4.8-10.8)
[2020-06-20 06:05] LABS: BUN (Urea Nitrogen) 42 mg/dL (9.8-20.1); Calc. Creatinine Clearance 84 mL/min (70-130); Calcium 9.4 mg/dL (7.8-10.44); Glucose 101 mg/dL (80-115)
[2020-06-20 06:16] LABS: Anion Gap 9 mmol/L (10-20); Chloride 93 mmol/L (98-107); Potassium 3.6 mmol/L (3.5-5.1); Sodium 141 mmol/L (136-145)
[2020-06-20 06:26] LABS: Carbon Dioxide 43 mmol/L (23-31)
[2020-06-20] MEDS: Fluticasone Propionate Nasal Spray 16 gm Bottle NASAL SCH (08:25)
[2020-06-20] MEDS: Senokot S 8.6-50 MG TAB PO SCH ×2 (08:31→22:15)
[2020-06-20] MEDS: Amlodipine 5 MG TAB PO SCH (08:31)
[2020-06-20] MEDS: Aspirin 81 mg Enteric Coated Tablet PO SCH (08:31)
[2020-06-20] MEDS: predniSONE 20 MG TAB PO SCH (08:32)
[2020-06-20] MEDS: Gabapentin 300 MG CAP PO SCH ×2 (08:32→22:15)
[2020-06-20] MEDS: Loratadine 10 MG TAB PO SCH (08:32)
[2020-06-20] MEDS: Heparin 5,000 UNITS/ML VIAL SC SCH ×3 (08:32→22:16)
[2020-06-20] MEDS: Cefepime 1 GM in Sodium Chloride 0.9% 100 ML IVPB SCH ×2 (08:33→22:14)
[2020-06-20] MEDS ORDERED: AcetaZOLAMIDE 250 MG TAB PO SCH (09:30)
[2020-06-20] MEDS: Vancomycin 1 GM in Premix Bag 1 BAG IVPB SCH (10:25)
[2020-06-20] MEDS: Lidocaine 5% Patch TD SCH (10:32)
[2020-06-20] MEDS ORDERED: guaiFENesin 200 MG TAB PO PRN (11:00)
[2020-06-20 11:05] LABS: Actual Bicarbonate (HCO3a) 39.2 mEq/L (22-28); Base Excess (BEa) 11.6 mEq/L (-2.0 to +3.0); pH, Arterial 7.37 (7.35-7.45)
[2020-06-20 11:06] LABS: Calcium, Ionized (arterial) 1.19 mmol/L (1.12-1.30); Carboxyhemoglobin (COHb) 0.9 gm% (0.0-3.0); Hemoglobin (Hb) 10.6 g/dL (12.0-16.0); Potassium - ABG Lab 3.33 mmol/L (3.70-5.30)
[2020-06-20 11:16] LABS: CO2 Tension 69.8 mmHg (35.0-45.0); O2 Tension (PaO2), arterial 52.6 mmHg (> 80.0)
[2020-06-20 11:17] LABS: Puncture Site RRA
[2020-06-20] MEDS: guaiFENesin 200 MG TAB PO SCH ×4 (13:22→23:50)
[2020-06-20] MEDS: HumaLOG 300 UNITS/3 ML VIAL SC PRN ×3 (13:23→22:16)
[2020-06-20] MEDS: AcetaZOLAMIDE 250 MG TAB PO SCH (22:15)
[2020-06-20] MEDS: rOPINIRole HCl 0.5 MG TAB PO SCH (22:16)
[2020-06-20] MEDS: Transdermal Patch Removal TOP SCH (22:20)
[2020-06-21] MEDS: guaiFENesin 200 MG TAB PO SCH ×5 (04:11→21:45)
[2020-06-21] MEDS: Bisacodyl 10 MG SUPP PR SCH ×3 (04:53→21:44)
[2020-06-21] MEDS: Furosemide 100 MG/10 ML VIAL SLOW IVP SCH ×2 (06:41→16:34)
[2020-06-21 08:00] LABS: Vancomycin, Trough 19.2 ug/mL
[2020-06-21] MEDS: AcetaZOLAMIDE 250 MG TAB PO SCH ×2 (08:53→21:46)
[2020-06-21] MEDS: Gabapentin 300 MG CAP PO SCH ×2 (08:54→21:45)
[2020-06-21] MEDS: Amlodipine 5 MG TAB PO SCH (08:54)
[2020-06-21] MEDS: Cefepime 1 GM in Sodium Chloride 0.9% 100 ML IVPB SCH ×2 (08:54→21:45)
[2020-06-21] MEDS: Aspirin 81 mg Enteric Coated Tablet PO SCH (08:54)
[2020-06-21] MEDS: Lidocaine 5% Patch TD SCH (08:55)
[2020-06-21] MEDS: predniSONE 20 MG TAB PO SCH (08:55)
[2020-06-21] MEDS: Loratadine 10 MG TAB PO SCH (08:55)
[2020-06-21] MEDS: Heparin 5,000 UNITS/ML VIAL SC SCH ×2 (08:55→15:53)
[2020-06-21] MEDS: Senokot S 8.6-50 MG TAB PO SCH ×3 (08:56→22:17)
[2020-06-21] MEDS: Fluticasone Propionate Nasal Spray 16 gm Bottle NASAL SCH (08:56)
[2020-06-21] MEDS: Vancomycin 1 GM in Premix Bag 1 BAG IVPB SCH (08:56)
[2020-06-21] MEDS: HumaLOG 300 UNITS/3 ML VIAL SC PRN ×3 (12:06→21:44)
[2020-06-21] MEDS ORDERED: Furosemide 100 MG/10 ML VIAL SLOW IVP SCH (17:00)
[2020-06-21] MEDS: Transdermal Patch Removal TOP SCH (21:44)
[2020-06-21] MEDS: rOPINIRole HCl 0.5 MG TAB PO SCH (21:46)
[2020-06-22] MEDS: guaiFENesin 200 MG TAB PO SCH (01:30)
[2020-06-22] MEDS: Furosemide 100 MG/10 ML VIAL SLOW IVP SCH ×2 (05:58→15:08)
[2020-06-22] MEDS: Bisacodyl 10 MG SUPP PR SCH ×2 (05:59→14:58)
[2020-06-22] MEDS: HumaLOG 300 UNITS/3 ML VIAL SC PRN ×3 (06:04→21:32)
[2020-06-22 07:33] LABS: #Eosinphils 0.1 thou/uL (0.0-0.7); #Lymphocytes 1.1 thou/uL (1.20-3.40); #Monocytes 0.5 thou/uL (0.11-0.59); #Neutrophils 9.4 thou/uL (1.40-6.50); %Basophils 0.2 % (0.0-1.0); %Eosinophils 0.5 % (0.0-10.0); %Lymphocytes 10.1 % (21.0-51.0); %Monocytes 4.4 % (0.0-10.0); %Neutrophils 84.8 % (42.0-75.0); Hemoglobin 9.5 g/dL (12.0-16.0); Mean Corpuscular HGB CONC 29.2 g/dL (32.0-36.0); Mean Corpuscular Hemoglobin 23.3 pg (27.0-31.0); Mean Corpuscular Volume 79.7 fL (78.0-98.0); Mean Platelet Volume 7.8 fL (7.4-10.4); Platelet Count 352 thou/uL (130-400); RBC Distribution Width 16.9 % (11.5-14.5); Red Blood Cell (RBC) Count 4.07 mill/uL (4.20-5.40); White Blood Cell (WBC) Count 11.1 thou/uL (4.8-10.8)
[2020-06-22 07:53] LABS: BUN (Urea Nitrogen) 44 mg/dL (9.8-20.1); Calc. Creatinine Clearance 84 mL/min (70-130); Calcium 9.2 mg/dL (7.8-10.44); Glucose 228 mg/dL (80-115)
[2020-06-22 07:59] LABS: Hypochromia SLIGHT = 6-15 cells (100X) (0-5/hpf); MDiff Complete? YES; Microcytosis SLIGHT = 6-15 cells (100X) (0-5/hpf); Platelet Morphology Comment Appears Adequate; Polychromasia SLIGHT = 2-3 cells (100X) (0-2/hpf)
[2020-06-22 08:02] LABS: Anion Gap 12 mmol/L (10-20); Carbon Dioxide 37 mmol/L (23-31); Chloride 92 mmol/L (98-107); Potassium 3.3 mmol/L (3.5-5.1); Sodium 138 mmol/L (136-145)
[2020-06-22] MEDS: AcetaZOLAMIDE 250 MG TAB PO SCH ×2 (10:26→22:00)
[2020-06-22] MEDS: Amlodipine 5 MG TAB PO SCH (10:26)
[2020-06-22] MEDS: Cefepime 1 GM in Sodium Chloride 0.9% 100 ML IVPB SCH (10:26)
[2020-06-22] MEDS: Aspirin 81 mg Enteric Coated Tablet PO SCH (10:26)
[2020-06-22] MEDS: Gabapentin 300 MG CAP PO SCH ×2 (10:27→21:24)
[2020-06-22] MEDS: predniSONE 20 MG TAB PO SCH (10:27)
[2020-06-22] MEDS: Senokot S 8.6-50 MG TAB PO SCH ×2 (10:27→21:23)
[2020-06-22] MEDS: Lidocaine 5% Patch TD SCH (10:27)
[2020-06-22] MEDS: Loratadine 10 MG TAB PO SCH (10:28)
[2020-06-22] MEDS: Fluticasone Propionate Nasal Spray 16 gm Bottle NASAL SCH (10:28)
[2020-06-22] MEDS: Vancomycin 1 GM in Premix Bag 1 BAG IVPB SCH (10:28)
[2020-06-22] MEDS ORDERED: Potassium Chloride 20 MEQ TAB PO SCH (14:00)
[2020-06-22] MEDS: Potassium Chloride 20 MEQ TAB PO SCH (16:31)
[2020-06-22] MEDS: rOPINIRole HCl 0.5 MG TAB PO SCH (21:24)
[2020-06-22] MEDS: Transdermal Patch Removal TOP SCH (22:00)
[2020-06-23] MEDS ORDERED: Labetalol HCl 100 MG/20 ML VIAL SLOW IVP SCH (00:15)
[2020-06-23] MEDS: HumaLOG 300 UNITS/3 ML VIAL SC PRN ×3 (05:25→20:42)
[2020-06-23] MEDS: Furosemide 100 MG/10 ML VIAL SLOW IVP SCH ×2 (05:26→13:48)
[2020-06-23 06:26] LABS: Anion Gap 11 mmol/L (10-20); BUN (Urea Nitrogen) 51 mg/dL (9.8-20.1); Calc. Creatinine Clearance 79 mL/min (70-130); Calcium 9.4 mg/dL (7.8-10.44); Carbon Dioxide 35 mmol/L (23-31); Chloride 94 mmol/L (98-107); Glucose 328 mg/dL (80-115); Potassium 3.7 mmol/L (3.5-5.1); Sodium 136 mmol/L (136-145)
[2020-06-23] MEDS: Heparin 5,000 UNITS/ML VIAL SC SCH ×3 (09:24→20:43)
[2020-06-23] MEDS: Loratadine 10 MG TAB PO SCH (09:25)
[2020-06-23] MEDS: predniSONE 20 MG TAB PO SCH (09:25)
[2020-06-23] MEDS: Aspirin 81 mg Enteric Coated Tablet PO SCH (09:25)
[2020-06-23] MEDS: Potassium Chloride 20 MEQ TAB PO SCH ×2 (09:26→17:17)
[2020-06-23] MEDS: Senokot S 8.6-50 MG TAB PO SCH ×2 (09:26→20:43)
[2020-06-23] MEDS: Gabapentin 300 MG CAP PO SCH ×2 (09:26→20:43)
[2020-06-23] MEDS: Lidocaine 5% Patch TD SCH (09:27)
[2020-06-23] MEDS: Amlodipine 5 MG TAB PO SCH (09:27)
[2020-06-23] MEDS: Fluticasone Propionate Nasal Spray 16 gm Bottle NASAL SCH (09:27)
[2020-06-23] MEDS ORDERED: HumaLOG 300 UNITS/3 ML VIAL SC SCH (17:00)
[2020-06-23] MEDS: Labetalol HCl 100 MG/20 ML VIAL SLOW IVP PRN (20:40)
[2020-06-23] MEDS: rOPINIRole HCl 0.5 MG TAB PO SCH (20:43)
[2020-06-23] MEDS: Transdermal Patch Removal TOP SCH (20:44)
[2020-06-23] MEDS: AcetaZOLAMIDE 250 MG TAB PO SCH (21:50)
[2020-06-24] MEDS: HumaLOG 300 UNITS/3 ML VIAL SC PRN ×4 (00:36→21:32)
[2020-06-24] MEDS: Furosemide 100 MG/10 ML VIAL SLOW IVP SCH (05:49)
[2020-06-24 07:16] LABS: Anion Gap 10 mmol/L (10-20); BUN (Urea Nitrogen) 57 mg/dL (9.8-20.1); Calc. Creatinine Clearance 76 mL/min (70-130); Calcium 9.8 mg/dL (7.8-10.44); Carbon Dioxide 33 mmol/L (23-31); Chloride 98 mmol/L (98-107); Glucose 249 mg/dL (80-115); Potassium 3.9 mmol/L (3.5-5.1); Sodium 137 mmol/L (136-145)
[2020-06-24] MEDS: Lidocaine 5% Patch TD SCH (08:32)
[2020-06-24] MEDS: AcetaZOLAMIDE 250 MG TAB PO SCH ×2 (08:33→21:29)
[2020-06-24] MEDS: Senokot S 8.6-50 MG TAB PO SCH ×2 (08:34→21:29)
[2020-06-24] MEDS: Potassium Chloride 20 MEQ TAB PO SCH ×2 (08:34→17:03)
[2020-06-24] MEDS: Aspirin 81 mg Enteric Coated Tablet PO SCH (08:34)
[2020-06-24] MEDS: Gabapentin 300 MG CAP PO SCH ×2 (08:35→21:29)
[2020-06-24] MEDS: Heparin 5,000 UNITS/ML VIAL SC SCH ×3 (08:35→21:30)
[2020-06-24] MEDS: predniSONE 20 MG TAB PO SCH (08:35)
[2020-06-24] MEDS: Loratadine 10 MG TAB PO SCH (08:36)
[2020-06-24] MEDS: Fluticasone Propionate Nasal Spray 16 gm Bottle NASAL SCH (08:36)
[2020-06-24] MEDS: Amlodipine 5 MG TAB PO SCH (08:36)
[2020-06-24] MEDS ORDERED: Furosemide 40 MG/4 ML VIAL SLOW IVP SCH (14:00)
[2020-06-24] MEDS: rOPINIRole HCl 0.5 MG TAB PO SCH (21:29)
[2020-06-24] MEDS: Transdermal Patch Removal TOP SCH (21:30)
[2020-06-25] MEDS: Labetalol HCl 100 MG/20 ML VIAL SLOW IVP PRN (05:39)
[2020-06-25] MEDS: HumaLOG 300 UNITS/3 ML VIAL SC PRN ×4 (05:39→22:03)
[2020-06-25] MEDS: Potassium Chloride 20 MEQ TAB PO SCH ×2 (08:08→16:51)
[2020-06-25] MEDS: AcetaZOLAMIDE 250 MG TAB PO SCH ×2 (08:08→22:00)
[2020-06-25] MEDS: Gabapentin 300 MG CAP PO SCH ×2 (08:09→22:00)
[2020-06-25] MEDS: Senokot S 8.6-50 MG TAB PO SCH ×2 (08:09→22:00)
[2020-06-25] MEDS: Aspirin 81 mg Enteric Coated Tablet PO SCH (08:09)
[2020-06-25] MEDS: predniSONE 20 MG TAB PO SCH (08:09)
[2020-06-25] MEDS: Amlodipine 5 MG TAB PO SCH (08:09)
[2020-06-25] MEDS: Heparin 5,000 UNITS/ML VIAL SC SCH ×2 (08:10→15:33)
[2020-06-25] MEDS: Furosemide 40 MG/4 ML VIAL SLOW IVP SCH (08:10)
[2020-06-25] MEDS: Loratadine 10 MG TAB PO SCH (08:10)
[2020-06-25] MEDS: Fluticasone Propionate Nasal Spray 16 gm Bottle NASAL SCH (08:12)
[2020-06-25] MEDS: Lidocaine 5% Patch TD SCH (08:16)
[2020-06-25] MEDS: Lantus 1000 UNITS/10 ML VIAL SC SCH (08:54)
[2020-06-25] MEDS ORDERED: Oxymetazoline HCl 0.05% (30 ML BOT) NS SCH (13:00)
[2020-06-25] MEDS: Transdermal Patch Removal TOP SCH (22:00)
[2020-06-25] MEDS: rOPINIRole HCl 0.5 MG TAB PO SCH (22:00)
[2020-06-26 06:11] LABS: #Eosinphils 0.1 thou/uL (0.0-0.7); #Lymphocytes 2.3 thou/uL (1.20-3.40); #Monocytes 0.6 thou/uL (0.11-0.59); #Neutrophils 8.4 thou/uL (1.40-6.50); %Basophils 0.4 % (0.0-1.0); %Eosinophils 0.9 % (0.0-10.0); %Lymphocytes 19.7 % (21.0-51.0); %Monocytes 5.5 % (0.0-10.0); %Neutrophils 73.5 % (42.0-75.0); Hemoglobin 10.5 g/dL (12.0-16.0); Mean Corpuscular HGB CONC 30.5 g/dL (32.0-36.0); Mean Corpuscular Hemoglobin 23.8 pg (27.0-31.0); Mean Platelet Volume 8.7 fL (7.4-10.4); Platelet Count 330 thou/uL (130-400); RBC Distribution Width 17.6 % (11.5-14.5); Red Blood Cell (RBC) Count 4.43 mill/uL (4.20-5.40); White Blood Cell (WBC) Count 11.4 thou/uL (4.8-10.8)
[2020-06-26] MEDS: Fluticasone Propionate Nasal Spray 16 gm Bottle NASAL SCH (09:25)
[2020-06-26] MEDS: predniSONE 20 MG TAB PO SCH (09:26)
[2020-06-26] MEDS: Amlodipine 5 MG TAB PO SCH (09:27)
[2020-06-26] MEDS: Furosemide 40 MG/4 ML VIAL SLOW IVP SCH (09:27)
[2020-06-26] MEDS: Potassium Chloride 20 MEQ TAB PO SCH ×2 (09:27→17:10)
[2020-06-26] MEDS: Loratadine 10 MG TAB PO SCH (09:28)
[2020-06-26] MEDS: Senokot S 8.6-50 MG TAB PO SCH ×2 (09:28→20:18)
[2020-06-26] MEDS: AcetaZOLAMIDE 250 MG TAB PO SCH ×2 (09:29→20:17)
[2020-06-26] MEDS: Gabapentin 300 MG CAP PO SCH ×2 (09:29→20:18)
[2020-06-26] MEDS: Lantus 1000 UNITS/10 ML VIAL SC SCH (09:32)
[2020-06-26] MEDS: Aspirin 81 mg Enteric Coated Tablet PO SCH (09:33)
[2020-06-26] MEDS: Lidocaine 5% Patch TD SCH (09:33)
[2020-06-26] MEDS: HumaLOG 300 UNITS/3 ML VIAL SC PRN ×2 (17:11→20:20)
[2020-06-26] MEDS: Transdermal Patch Removal TOP SCH (20:18)
[2020-06-26] MEDS: rOPINIRole HCl 0.5 MG TAB PO SCH (20:18)
[2020-06-27] MEDS: HumaLOG 300 UNITS/3 ML VIAL SC PRN ×4 (05:57→22:03)
[2020-06-27] MEDS: AcetaZOLAMIDE 250 MG TAB PO SCH ×2 (08:11→20:04)
[2020-06-27] MEDS: Gabapentin 300 MG CAP PO SCH ×2 (08:12→20:05)
[2020-06-27] MEDS: Amlodipine 5 MG TAB PO SCH (08:12)
[2020-06-27] MEDS: Potassium Chloride 20 MEQ TAB PO SCH ×2 (08:12→16:06)
[2020-06-27] MEDS: predniSONE 20 MG TAB PO SCH (08:13)
[2020-06-27] MEDS: Aspirin 81 mg Enteric Coated Tablet PO SCH (08:13)
[2020-06-27] MEDS: Furosemide 40 MG/4 ML VIAL SLOW IVP SCH (08:13)
[2020-06-27] MEDS: Loratadine 10 MG TAB PO SCH (08:13)
[2020-06-27] MEDS: Senokot S 8.6-50 MG TAB PO SCH ×2 (08:13→20:05)
[2020-06-27] MEDS: Lantus 1000 UNITS/10 ML VIAL SC SCH (08:14)
[2020-06-27] MEDS: Lidocaine 5% Patch TD SCH (08:22)
[2020-06-27] MEDS: Fluticasone Propionate Nasal Spray 16 gm Bottle NASAL SCH (08:22)
[2020-06-27 14:15] VITALS: BMI 44.4
[2020-06-27] MEDS: rOPINIRole HCl 0.5 MG TAB PO SCH (20:05)
[2020-06-27] MEDS: Transdermal Patch Removal TOP SCH (20:05)
[2020-06-28] MEDS: Labetalol HCl 100 MG/20 ML VIAL SLOW IVP PRN (01:22)
[2020-06-28] MEDS: HumaLOG 300 UNITS/3 ML VIAL SC PRN ×2 (01:23→17:01)
[2020-06-28] MEDS: Lantus 1000 UNITS/10 ML VIAL SC SCH (08:43)
[2020-06-28] MEDS: Aspirin 81 mg Enteric Coated Tablet PO SCH (08:44)
[2020-06-28] MEDS: predniSONE 20 MG TAB PO SCH (08:44)
[2020-06-28] MEDS: Gabapentin 300 MG CAP PO SCH ×2 (08:44→21:08)
[2020-06-28] MEDS: AcetaZOLAMIDE 250 MG TAB PO SCH ×2 (08:44→21:08)
[2020-06-28] MEDS: Loratadine 10 MG TAB PO SCH (08:44)
[2020-06-28] MEDS: Fluticasone Propionate Nasal Spray 16 gm Bottle NASAL SCH (08:45)
[2020-06-28] MEDS: Furosemide 40 MG/4 ML VIAL SLOW IVP SCH (08:45)
[2020-06-28] MEDS: Potassium Chloride 20 MEQ TAB PO SCH ×2 (08:45→16:25)
[2020-06-28] MEDS: Amlodipine 5 MG TAB PO SCH (08:45)
[2020-06-28] MEDS: Senokot S 8.6-50 MG TAB PO SCH ×2 (08:45→21:08)
[2020-06-28] MEDS: Lidocaine 5% Patch TD SCH (18:26)
[2020-06-28] MEDS: rOPINIRole HCl 0.5 MG TAB PO SCH (21:08)
[2020-06-28] MEDS: Transdermal Patch Removal TOP SCH (21:51)
[2020-06-29] MEDS: HumaLOG 300 UNITS/3 ML VIAL SC PRN ×2 (01:03→11:25)
[2020-06-29] MEDS: Potassium Chloride 20 MEQ TAB PO SCH (08:17)
[2020-06-29] MEDS: predniSONE 20 MG TAB PO SCH (08:17)
[2020-06-29] MEDS: Aspirin 81 mg Enteric Coated Tablet PO SCH (08:18)
[2020-06-29] MEDS: AcetaZOLAMIDE 250 MG TAB PO SCH (08:18)
[2020-06-29] MEDS: Amlodipine 5 MG TAB PO SCH (08:18)
[2020-06-29] MEDS: Fluticasone Propionate Nasal Spray 16 gm Bottle NASAL SCH (08:19)
[2020-06-29] MEDS: Loratadine 10 MG TAB PO SCH (08:19)
[2020-06-29] MEDS: Gabapentin 300 MG CAP PO SCH (08:19)
[2020-06-29] MEDS: Senokot S 8.6-50 MG TAB PO SCH (08:19)
[2020-06-29] MEDS: Furosemide 40 MG/4 ML VIAL SLOW IVP SCH (08:19)
[2020-06-29] MEDS: Lantus 1000 UNITS/10 ML VIAL SC SCH (08:20)
[2020-06-29] MEDS: Lidocaine 5% Patch TD SCH (08:22)
[2020-06-29 11:38] VITALS: TEMP 98.2
[2020-06-29 13:47] VITALS: BP 134/77
== END 2020-06-29 14:51 | disposition home or self-care (01) | DRG 637 ==
LOC: ERS 09:24 → T4-B 14:26 → INTOOBSV 14:26 → OBSVTOIN 15:09 → IMCU/EMU 06-20 11:16 → T4-A 06-22 17:50
PROVIDERS: ADMIT Internal Medicine; ATTEND Internal Medicine
PROC: 5A09457 Assistance with Respiratory Ventilation, 24-96 Consecutive Hours, Continuous Positive Airway Pressure (ICD-10-PCS; principal; 2020-06-17)
DX: E11.649 Type 2 diabetes mellitus with hypoglycemia without coma (principal); G93.41 Metabolic encephalopathy; J96.01 Acute respiratory failure with hypoxia; I50.33 Acute on chronic diastolic (congestive) heart failure; I13.0 Hypertensive heart and chronic kidney disease with heart failure and stage 1 through stage 4 chronic kidney disease, or unspecified chronic kidney disease; Z68.41 Body mass index [BMI] 40.0-44.9, adult; M86.671 Other chronic osteomyelitis, right ankle and foot; J96.12 Chronic respiratory failure with hypercapnia; E87.3 Alkalosis; N17.9 Acute kidney failure, unspecified; E66.01 Morbid (severe) obesity due to excess calories; E11.22 Type 2 diabetes mellitus with diabetic chronic kidney disease; N18.30 Chronic kidney disease, stage 3 unspecified; Z79.4 Long term (current) use of insulin; G47.33 Obstructive sleep apnea (adult) (pediatric); M10.9 Gout, unspecified; Z79.52 Long term (current) use of systemic steroids; D86.9 Sarcoidosis, unspecified; Z89.431 Acquired absence of right foot; D64.9 Anemia, unspecified; F41.9 Anxiety disorder, unspecified; F32.9 Major depressive disorder, single episode, unspecified; E11.69 Type 2 diabetes mellitus with other specified complication; M81.0 Age-related osteoporosis without current pathological fracture; G89.29 Other chronic pain; M54.9 Dorsalgia, unspecified; Z91.19 Patient's noncompliance with other medical treatment and regimen; R04.0 Epistaxis
CPT/HCPCS: 36415; 36416; 36600; 71045; 71046; 76705; 78451; 80048; 80053; 80202; 81001; 82550; 82805; 83036; 83605; 83735; 83880; 84439; 84443; 84484; 85007; 85025; 85027; 85379; 86140; 87635; 93005; 93010; 94640; 99283; A9540; J0692; J1644; J1815; J1940; J3370; J3490; J7512; J7620; U0003; U0005